=== PATIENT | male | born 1935 | race Caucasian/White ===

== ENCOUNTER → 2017-12-05 09:26 | Outpatient (CLI) | payer MEDICARE, OTHER, SELFPAY ==
--- NOTE | 2017-12-05 | DI.ECHO.S_ITS ---
[facility] +---------+ : : [address] : : : : [id number] : : : : Phone: [phone]+ Echocardiogram Report + + :Name: WALESKA DOWD Study Date: 12/05/2017 Height: 72 in : :[facility] Weight: 197 lb : : Gender: Male BSA: 2.1 m2 : :: 1935 Age: 82 yrs BP: 118/68 mmHg: :Reason For Study: Atrial fibrillation : : Performed By: Lesa Oropeza : :Referring: AVRIL LEACH : + + Interpretation Summary 1) Normal left ventricular thickness, size, wall motion, and systolic function (EF 55-60%). 2) Grossly normal right ventricular size with normal function. 3) Severe biatrial enlargement present. 4) There is mild to moderate aortic regurgitation. 5) There is moderate tricuspid regurgitation. 6) The right ventricular systolic pressure is estimated at 44 mmHg assuming a right atrial pressure of 3 mm Hg. 7) Compared to the Echo done 07/01/2016, PA pressures are mildly higher on this study. Procedure: A two-dimensional transthoracic echocardiogram with color flow and Doppler was performed. The study quality was technically adequate. Comparison is made with the echocardiogram of 07-01-16. The patient was in atrial fibrillation with heart rates between 56-70 bpm during the exam. Left Ventricle: The left ventricle is normal in size. There is normal left ventricular wall thickness. The ejection fraction is estimated to be 55-60%. Diastolic function could not be accurately assessed due to atrial fibrillation. Right Ventricle: The right ventricle grossly appears normal in size with probable normal systolic function. Atria: The left atrium is severely dilated. The right atrium is severely dilated. Mitral Valve: The mitral valve leaflets appear mildly thickened, but open well. There is mild mitral annular calcification. There is mild mitral regurgitation. Aortic Valve: The aortic valve is trileaflet. The aortic valve opens well. The aortic valve is slightly calcified. There is mild to moderate aortic regurgitation. Tricuspid Valve: The tricuspid valve leaflets are thin and pliable. There is moderate tricuspid regurgitation. The right ventricular systolic pressure is estimated at 44 mmHg assuming a right atrial pressure of 3 mm Hg. Pulmonic Valve: The pulmonic valve is normal in structure and function. There is trace pulmonic regurgitation. Great Vessels: The aortic root is normal size. The dimensions of the ascending aorta are normal. The IVC is dilated (diameter is greater than 2.1 cm) yet it collapses greater than 50% with a sniff. This suggests a right atrial pressure of 8 mm Hg. Pericardium/ Pleura There is no pericardial effusion. There is no pleural effusion. MMode/2D Measurements & Calculations LVIDd: 5.0 cm Ao root diam: 3.5 cm LVIDs: 3.9 cm Aortic Jxn: 2.6 cm FS: 22.4 % asc Aorta Diam: 3.1 cm EPSS: 0.70 cm Ao Arch Diam (Prox Trans): 2.7 cm IVSd: 1.1 cm LVPWd: 0.93 cm LV lara. diameter/BSA (cm/m^2): 2.3 LV sys. diameter/BSA (cm/m^2): 1.8 LA dimension: 5.8 cm RA long axis: 6.7 cm LA A2 area: 33.8 cm2 RA area: 31.8 cm2 LA A4 area: 34.8 cm2 RA vol: 128.5 ml LA length (vol): 7.3 cm RA : 60.7 ml/m2 LA vol: 136.6 ml IVC diam: 2.4 cm LA vol index: 64.5 ml/m2 RVDd major: 5.8 cm RVD1 (basal): 3.2 cm RVD2 (mid): 3.0 cm Doppler Measurements & Calculations Ao V2 max: 138.3 cm/sec AI P1/2t: 524.5 msec Ao V2 mean: 90.4 cm/sec AI dec slope: 269.3 cm/sec2 Ao max P.7 mmHg Ao mean P.8 mmHg Ao V2 VTI: 30.6 cm MV E max richy: 103.7 cm/sec TR max richy: 319.9 cm/sec MV A max richy: 37.5 cm/sec TR max P.9 mmHg MV E/A: 2.8 PA V2 max: 96.0 cm/sec Med Peak E' Richy: 5.2 cm/sec PA V2 mean: 61.1 cm/sec E/E' med: 19.9 PA mean P.8 mmHg Lat Peak E' Richy: 8.4 cm/sec PA Accel Time: 0.12 sec E/E' lat: 12.3 E/e' average: 16.1 MV dec time: 0.17 sec MV P1/2t: 50.9 msec MV t max richy: 103.8 cm/sec MVA(): 4.3 cm2 Reading Physician:06:25 PM
== END ==
PROVIDERS: Family Provider Family Medicine; PCP Family Medicine; Visit Provider Internal Medicine Cardiovascular Disease
DX: I48.91 Unspecified atrial fibrillation (principal)
CPT/HCPCS: 93306

== ENCOUNTER → 2019-01-06 08:02 | Outpatient (CLI) | payer MEDICARE, OTHER, SELFPAY ==
[2019-01-06 08:46] LABS: Add Manual Diff / Slide Review NO; Basophils Absolute Auto 0 /uL (0-100); Eosinophils Absolute Auto 100 /uL (0-450); Eosinophils Percent Auto 1.9 % (2-4); Hematocrit 31.1 % (41-53); Hemoglobin 9.9 g/dL (13.5-17.5); Lymphocytes Absolute Auto 1600 /uL (1100-4500); Lymphocytes Percent Auto 35.5 % (25-40); Mean Corpuscular Hemoglobin 23.5 PG (26-34); Mean Corpuscular Volume 73.5 fL (80-100); Monocytes Absolute Auto 500 /uL (0-900); Monocytes Percent Auto 12.1 % (3-14); Neutrophils Absolute Auto 2200 /uL (1500-7000); Neutrophils Percent Auto 49.5 % (50-75); Platelet Count 282 X10^3/uL (150-400); Red Blood Cell Count 4.24 X10^6/uL (4.5-5.9); Red Cell Distribution Width 18.8 % (11.6-14.8); White Blood Cell Count 4.5 X10^3/uL (4.5-11.0)
[2019-01-06 08:54] LABS: Alanine Aminotransferase 20 IU/L (21-72); Albumin 4.5 g/dL (3.5-5.0); Albumin Globulin Ratio 1.5 (1.0-2.8); Alkaline Phosphatase 74 U/L (38-126); Aspartate Aminotransferase 26 IU/L (17-59); BUN Creatinine Ratio 23.1 (6-22); Bilirubin Total 0.7 mg/dL (0.2-1.3); Blood Urea Nitrogen 30 mg/dL (9-20); Calcium 9.9 mg/dL (8.4-10.2); Carbon Dioxide 26 mmol/L (22-32); Chloride 108 mmol/L (98-107); Cholesterol 115 mg/dL (140-199); Estimated Glomerular Filt Rate 52.9 mL/min (>60); Glucose 105 mg/dL (80-110); HDL Cholesterol 51 mg/dL (40-60); HEMOLYSIS < 15 (0-50); LDL Cholesterol Calculated 52 mg/dL (<100); Potassium 5.1 mmol/L (3.4-5.1); Sodium 143 mmol/L (137-145); Total Protein 7.5 g/dL (6.3-8.2); Triglycerides 61 mg/dL (35-150)
[2019-01-06 10:21] LABS: Thyroid Stimulating Hormone 2.71 uIU/mL (0.47-4.68)
== END ==
PROVIDERS: Family Provider Family Medicine; PCP Family Medicine; Visit Provider Family Medicine
DX: D64.9 Anemia, unspecified (principal); E78.5 Hyperlipidemia, unspecified; I10 Essential (primary) hypertension; I25.810 Atherosclerosis of coronary artery bypass graft(s) without angina pectoris
CPT/HCPCS: 36415; 80053; 80061; 84443; 85025

== ENCOUNTER → 2019-01-15 08:22 | Outpatient (CLI) | payer MEDICARE, OTHER, SELFPAY ==
[2019-01-15 09:00] LABS: Add Manual Diff / Slide Review NO; Basophils Absolute Auto 0 /uL (0-100); Basophils Percent Auto 0.7 % (0-2); Eosinophils Absolute Auto 100 /uL (0-450); Eosinophils Percent Auto 1.7 % (2-4); Hematocrit 29.4 % (41-53); Hemoglobin 9.2 g/dL (13.5-17.5); Lymphocytes Absolute Auto 1200 /uL (1100-4500); Lymphocytes Percent Auto 28.3 % (25-40); Mean Corpuscular HGB Conc 31.2 % (30-36); Mean Corpuscular Volume 73.8 fL (80-100); Monocytes Absolute Auto 400 /uL (0-900); Monocytes Percent Auto 10.5 % (3-14); Neutrophils Absolute Auto 2500 /uL (1500-7000); Neutrophils Percent Auto 58.8 % (50-75); Platelet Count 230 X10^3/uL (150-400); Red Blood Cell Count 3.99 X10^6/uL (4.5-5.9); Red Cell Distribution Width 18.4 % (11.6-14.8); White Blood Cell Count 4.3 X10^3/uL (4.5-11.0)
[2019-01-15 09:30] LABS: Alanine Aminotransferase 24 IU/L (21-72); Albumin 4.2 g/dL (3.5-5.0); Albumin Globulin Ratio 1.4 (1.0-2.8); Alkaline Phosphatase 74 U/L (38-126); Aspartate Aminotransferase 28 IU/L (17-59); BUN Creatinine Ratio 26.4 (6-22); Bilirubin Total 0.6 mg/dL (0.2-1.3); Blood Urea Nitrogen 29 mg/dL (9-20); Calcium 9.4 mg/dL (8.4-10.2); Carbon Dioxide 25 mmol/L (22-32); Chloride 107 mmol/L (98-107); Estimated Glomerular Filt Rate > 60.0 mL/min (>60); Glucose 130 mg/dL (80-110); HEMOLYSIS < 15 (0-50); Sodium 142 mmol/L (137-145); Total Protein 7.2 g/dL (6.3-8.2)
[2019-01-15 13:03] LABS: HEMOLYSIS < 15 (0-50); Iron 21 ug/dL (49-181)
[2019-01-15 13:14] LABS: Percent Iron Saturation 5 % (20-50); Total Iron Binding Capacity 451 ug/dL (261-462); Transferrin 363 mg/dL (206-381)
== END ==
PROVIDERS: PCP Family Medicine; Visit Provider Family Medicine
DX: D64.9 Anemia, unspecified (principal); N18.9 Chronic kidney disease, unspecified
CPT/HCPCS: 36415; 80053; 82728; 83540; 83550; 85025

== ENCOUNTER → 2019-02-09 13:38 | Outpatient (CLI) | payer MEDICARE, OTHER, SELFPAY ==
[2019-02-11 15:05] LABS: Fecal Immunochemical Test DETECTED (NOT DETECTED)
== END ==
PROVIDERS: PCP Family Medicine; Visit Provider Family Medicine
DX: Z12.11 Encounter for screening for malignant neoplasm of colon (principal)
CPT/HCPCS: 82274

== ENCOUNTER → 2019-02-17 13:19 | Outpatient (CLI) | payer MEDICARE, OTHER, SELFPAY ==
--- NOTE | 2019-02-17 13:22 | DI.RAD.S_ITS ---
PROCEDURE: XR CERVICAL SPINE 2V OR 3V INDICATIONS: neck neck pain, no trauma TECHNIQUE: 3 view(s) of the cervical spine were acquired. COMPARISON: None. FINDINGS: Bones: No fractures or dislocations to the T1 level, but there is moderately severe to severe degenerative disc disease from C3 inferiorly to the C7 level. This is comprised of both disc height reduction, endplate osteophyte formation, and facet osteoarthritis to the degree that significant spinal or foraminal stenosis appears present. Ligamentous laxity allows grade 1 anterolisthesis of C3 on C4 The lateral masses of C1 appear intact on the odontoid view. No suspicious bony lesions. Soft tissues: No prevertebral soft tissue swelling. 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 No acute disease. Significant spinal and foraminal stenosis would be expected from C4-C7. Dictated by: Donell Mack M.D. on 02/17/2019 at 14:23 Approved by: Donell Mack M.D. on 02/17/2019 at 14:26
== END ==
PROVIDERS: PCP Family Medicine; Visit Provider Family Medicine
DX: M50.31 Other cervical disc degeneration, high cervical region (principal); M47.812 Spondylosis without myelopathy or radiculopathy, cervical region
CPT/HCPCS: 72040

== ENCOUNTER → 2019-03-18 10:53 | Outpatient (CLI) | payer MEDICARE, OTHER, SELFPAY ==
[2019-03-18 12:35] LABS: Cholesterol 114 mg/dL (140-199); HDL Cholesterol 48 mg/dL (40-60); LDL Cholesterol Calculated 46 mg/dL (<100); Triglycerides 100 mg/dL (35-150)
== END ==
PROVIDERS: PCP Family Medicine; Visit Provider Internal Medicine Cardiovascular Disease
DX: E78.5 Hyperlipidemia, unspecified (principal)
CPT/HCPCS: 36415; 80061

== ENCOUNTER 2019-06-06 02:18 | Emergency (ER) | payer MEDICARE, OTHER, SELFPAY ==
[2019-06-06 02:18] VITALS: BP 164/85; PULSE 76; RESP 18; O2SAT 100; BMI 23.7
--- NOTE | 2019-06-06 02:54 | ED.GIBLEED ---
HPI - GI Bleed General Chief complaint: GI Bleed Stated complaint: rectal bleeding since colonoscopy on Time Seen by Provider: 06/06/19 02:18 Source: patient and family Mode of arrival: Ambulatory Limitations: no limitations History of Present Illness HPI Narrative: 84-year-old male who 4 days ago underwent a scheduled colonoscopy. He states that he had 6 polyps removed. He does not have the pathology report from these polyps. Is also on Xarelto for atrial fibrillation. He states that he stop the Xarelto a couple days before the colonoscopy. Was told to started again yesterday which he did. Last evening had 2 bowel movements that were bright red blood. No vomiting. No abdominal pain. No fevers. Related Data Home Medications Medication Instructions Recorded Confirmed acetaminophen 500 mg capsule 500 mg PO Q6H PRN 05/05/18 02/05/19 losartan 25 mg tablet 25 mg PO DAILY 05/05/18 02/05/19 Previous Rx's Medication Instructions Recorded omeprazole 40 mg capsule,delayed 40 mg PO QAM #90 cap 07/09/18 release tadalafil [Cialis] 10 mg PO PRN PRN #30 tab 10/29/18 rivaroxaban [Xarelto] 20 mg PO QDAY #90 tab 11/09/18 ferrous sulfate 325 mg (65 mg 325 mg PO DAILY 90 Days #30 tab 02/05/19 iron) tablet cyclobenzaprine 5 mg tablet 5 mg PO TID #20 tab 02/16/19 tramadol 50 mg tablet 50 mg PO BID PRN #14 tab 02/16/19 atorvastatin 20 mg tablet 20 mg PO BEDTIME #90 tab 03/16/19 Allergies Allergy/AdvReac Type Severity Reaction Status Date / Time No Known Drug Allergies Allergy Verified 02/05/19 11:20 Review of Systems Constitutional Constitutional: Denies fever(s) Cardiovascular Cardiovascular: Denies chest pain and Denies dyspnea Respiratory Respiratory: Denies dyspnea Gastrointestinal Gastrointestinal: Denies abdominal pain Comments: Rectal bleeding Musculoskeletal Musculoskeletal: Denies myalgias and Denies arthralgias Integumentary/Breasts Skin/Breast: Denies rash Neurologic Neurologic: Denies behavioral changes Psychiatric Psychiatric: Denies behavioral changes Hematologic/Lymphatic Hematologic/Lymphatic: Denies easy bleeding and Denies easy bruising Patient History Medical History Anemia (10/10/17) Atrial fibrillation with rapid ventricular response (06/17/16) 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[place] heart without angina pectoris (07/15/16) Erectile dysfunction (09/04/16) Essential hypertension (07/15/16) 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) Social History Smoking Status: Former smoker alcohol intake frequency: 0-2 drinks per day Substance Use Type: does not use Exam Initial Vital Signs Initial Vital Signs: Vital Signs Pulse Rate 76 06/06/19 02:18 Respiratory Rate 18 06/06/19 02:18 Blood Pressure 164/85 H 06/06/19 02:18 Pulse Oximetry 100 06/06/19 02:18 Const General: cooperative and comfortable Orientation: alert and awake HENMT Head: normal to inspection and normocephalic Resp Effort & Inspection: normal respiratory effort Cardio Rate: regular rate GI Inspection: non-distended Palpation: soft, No firm and No tender Skin Lesions: no lesions Rashes: no rashes Neuro General: alert, awake and oriented x3 Cognition: normal cognition Speech: speech normal Extrem General: normal to inspection and capillary refill normal Psych Appearance: grossly normal and well kempt Course Orders Ordered: ED Orders 06/06/19 02:45 Complete Blood Count AUTO DIFF Stat Comprehensive Metabolic Panel Stat Lipase Stat Partial Thromboplastin Time Stat Prothrombin Time INR Stat Vital Signs Vital signs: Vital Signs - 8 hr 06/06/19 02:18 Pulse Rate 76 Respiratory Rate 18 Blood Pressure 164/85 H Pulse Oximetry 100 MDM - GI Bleed Lab Data Attestation: I reviewed the patient's lab results. Result diagrams: 06/06/19 02:45 06/06/19 02:45 Labs: Lab Results 06/06/19 06/06/19 06/06/19 Range/Units 02:45 02:45 02:45 WBC 3.8 L (4.5-11.0) X10^3/uL RBC 4.14 L (4.5-5.9) X10^6/uL Hgb 13.3 L (13.5-17.5) g/dL Hct 39.1 L (41-53) % MCV 94.5 (80-100) fL MCH 32.1 (26-34) PG MCHC 34.0 (30-36) % RDW 14.4 (11.6-14.8) % Plt Count 187 (150-400) X10^3/uL Neut % (Auto) 56.8 (50-75) % Lymph % (Auto) 28.9 (25-40) % [place] % (Auto) 11.4 (3-14) % Eos % (Auto) 2.3 (2-4) % Baso % (Auto) 0.6 (0-2) % Neut # (Auto) 2200 (3818-3739) /uL Lymph # (Auto) 1100 (2458-8098) /uL [place] # (Auto) 400 (0-900) /uL Eos # (Auto) 100 (0-450) /uL Baso # (Auto) 0 (0-100) /uL PT 22.0 H (10.1-12.7) SECONDS INR 1.9 H (0.9-1.3) APTT 44 H (26.4-36.2) SECONDS Sodium 141 (137-145) mmol/L Potassium 4.4 (3.4-5.1) mmol/L Chloride 109 H (98-107) mmol/L Carbon Dioxide 21 L (22-32) mmol/L BUN 27 H (9-20) mg/dL Creatinine 1.10 (0.66-1.25) mg/dL Estimated GFR > 60.0 (>60) mL/min BUN/Creatinine Ratio 24.5 H (6-22) Glucose 72 L (80-110) mg/dL Calcium 9.3 (8.4-10.2) mg/dL Total Bilirubin 0.4 (0.2-1.3) mg/dL AST 29 (17-59) IU/L ALT 18 (<50) IU/L Alkaline Phosphatase 62 (38-126) U/L Total Protein 7.1 (6.3-8.2) g/dL Albumin 4.3 (3.5-5.0) g/dL Globulin 2.8 (1.7-4.1) g/dL Albumin/Globulin Ratio 1.5 (1.0-2.8) Lipase 64 (23-300) U/L [facility] Narrative Medical decision making narrative: Patient is not anemic. I do suspect that his rectal bleeding was secondary to starting the Xarelto and having the polyps removed. He states that he you was never told that he has any sort of masses. He has benign abdominal exam. Is afebrile. Will hold on further workup for now. Patient was given return precautions follow-up instructions. He expressed understanding and agreement plan. Discharge Plan Departure Patient Disposition: Home Clinical Impression: Rectal bleeding Instructions: DI for Rectal Bleeding Activity Restrictions/Additional Instructions: I do recommend that you continue with the Xarelto. Continue all of your postoperative instructions. Contact your primary provider for a follow-up. Return to the emergency department for new symptoms, fevers, abdominal pain, worsening bleeding, or any other concerning symptoms. Prescriptions: No Action ferrous sulfate 325 mg (65 mg iron) tablet 325 mg PO DAILY 90 Days Qty: 30 RF: 2 tramadol 50 mg tablet 50 mg PO BID PRN (Reason: pain) Qty: 14 RF: 0 cyclobenzaprine 5 mg tablet 5 mg PO TID Qty: 20 RF: 0 omeprazole 40 mg capsule,delayed release(DR/EC) 40 mg PO QAM Qty: 90 RF: 3 tadalafil [Cialis] 10 mg tablet 10 mg PO PRN PRNQty: 30 RF: 1 Xarelto 20 mg tablet 20 mg PO QDAY Qty: 90 RF: 3 atorvastatin 20 mg tablet 20 mg PO BEDTIME Qty: 90 RF: 3 losartan 25 mg tablet 25 mg PO DAILY RF: 0 acetaminophen 500 mg capsule 500 mg PO Q6H PRNRF: 0 Referrals: Maura Mazariegos MD [Primary Care Provider] -
[2019-06-06 03:00] VITALS: BP 138/83; PULSE 77; RESP 18; O2SAT 99
[2019-06-06 03:00] LABS: Add Manual Diff / Slide Review NO; Basophils Absolute Auto 0 /uL (0-100); Basophils Percent Auto 0.6 % (0-2); Eosinophils Absolute Auto 100 /uL (0-450); Eosinophils Percent Auto 2.3 % (2-4); Hematocrit 39.1 % (41-53); Hemoglobin 13.3 g/dL (13.5-17.5); INR 1.9 (0.9-1.3); Lymphocytes Absolute Auto 1100 /uL (1100-4500); Lymphocytes Percent Auto 28.9 % (25-40); Mean Corpuscular Hemoglobin 32.1 PG (26-34); Mean Corpuscular Volume 94.5 fL (80-100); Monocytes Absolute Auto 400 /uL (0-900); Monocytes Percent Auto 11.4 % (3-14); Neutrophils Absolute Auto 2200 /uL (1500-7000); Neutrophils Percent Auto 56.8 % (50-75); Platelet Count 187 X10^3/uL (150-400); Red Blood Cell Count 4.14 X10^6/uL (4.5-5.9); Red Cell Distribution Width 14.4 % (11.6-14.8); White Blood Cell Count 3.8 X10^3/uL (4.5-11.0)
[2019-06-06 03:03] LABS: PTT Partial Thromboplastin Tim 44 SECONDS (26.4-36.2)
[2019-06-06 03:04] LABS: Alanine Aminotransferase 18 IU/L (<50); Albumin 4.3 g/dL (3.5-5.0); Albumin Globulin Ratio 1.5 (1.0-2.8); Alkaline Phosphatase 62 U/L (38-126); Aspartate Aminotransferase 29 IU/L (17-59); BUN Creatinine Ratio 24.5 (6-22); Bilirubin Total 0.4 mg/dL (0.2-1.3); Blood Urea Nitrogen 27 mg/dL (9-20); Calcium 9.3 mg/dL (8.4-10.2); Carbon Dioxide 21 mmol/L (22-32); Chloride 109 mmol/L (98-107); Estimated Glomerular Filt Rate > 60.0 mL/min (>60); Globulin 2.8 g/dL (1.7-4.1); Glucose 72 mg/dL (80-110); HEMOLYSIS < 15 (0-50); Lipase 64 U/L (23-300); Potassium 4.4 mmol/L (3.4-5.1); Sodium 141 mmol/L (137-145); Total Protein 7.1 g/dL (6.3-8.2)
== END 2019-06-06 03:26 | disposition home or self-care (01) ==
PROVIDERS: Emergency Provider Emergency Medicine; PCP Family Medicine
DX: K92.2 Gastrointestinal hemorrhage, unspecified (principal)
CPT/HCPCS: 36415; 80053; 83690; 85025; 85610; 85730; 99282; 99283

== ENCOUNTER 2019-06-17 17:53 | Emergency (ER) | payer MEDICARE, OTHER, SELFPAY ==
[2019-06-17 17:55] VITALS: BMI 23.8
[2019-06-17 18:06] VITALS: BP 162/98; PULSE 89; RESP 16; TEMP 36.9; O2SAT 98
--- NOTE | 2019-06-17 18:08 | DI.RAD.S_ITS ---
PROCEDURE: XR SHOULDER LT MIN 2V INDICATIONS: injury TECHNIQUE: 3 views of the shoulder were acquired. COMPARISON: None. FINDINGS: Bones: No acute fractures or dislocations. There are degenerative changes of the left acromioclavicular and glenohumeral joints.Coracoclavicular and acromioclavicular intervals are maintained. No suspicious bony lesions. Visualized ribs appear intact. Soft tissues: No suspicious soft tissue calcifications. Multiple median sternotomy wires appear intact. IMPRESSION: Left shoulder without acute radiographic abnormalities. Degenerative changes of the left acromioclavicular and glenohumeral joints. Dictated by: Fran Giron M.D. on 06/17/2019 at 19:12 Approved by: Fran Giron M.D. on 06/17/2019 at 19:14
--- NOTE | 2019-06-17 19:19 | ED.GENADULT ---
HPI - General Adult General Chief complaint: Extremity Injury, Upper Stated complaint: shoulder pain radiating to neck & chest Time Seen by Provider: 06/17/19 19:02 Source: patient Mode of arrival: Ambulatory Limitations: no limitations History of Present Illness HPI narrative: 84-year-old male here for evaluation of left shoulder pain. He states that his symptoms started earlier today but it worsened throughout the day. He does have some tingling down his left arm. He states the pain does radiate up into the back of his neck. It is worse with movement and palpation. He states that recently he has been chopping some wood and also did some rowing exercises at the gym this morning. Has never anything like this in the past. Does have pain with moving his arm. Has not tried anything for the symptoms prior to arrival. No chest pain. Related Data Home Medications Medication Instructions Recorded Confirmed acetaminophen 500 mg capsule 500 mg PO Q6H PRN 05/05/18 02/05/19 losartan 25 mg tablet 25 mg PO DAILY 05/05/18 02/05/19 Previous Rx's Medication Instructions Recorded omeprazole 40 mg capsule,delayed 40 mg PO QAM #90 cap 07/09/18 release tadalafil [Cialis] 10 mg PO PRN PRN #30 tab 10/29/18 rivaroxaban [Xarelto] 20 mg PO QDAY #90 tab 11/09/18 ferrous sulfate 325 mg (65 mg 325 mg PO DAILY 90 Days #30 tab 02/05/19 iron) tablet cyclobenzaprine 5 mg tablet 5 mg PO TID #20 tab 02/16/19 tramadol 50 mg tablet 50 mg PO BID PRN #14 tab 02/16/19 atorvastatin 20 mg tablet 20 mg PO BEDTIME #90 tab 03/16/19 acetaminophen-codeine 1 tab PO Q4-6H PRN #14 tab 06/17/19 [Tylenol-Codeine #3] meloxicam [Mobic] 15 mg PO DAILY PRN #14 tab 06/17/19 Allergies Allergy/AdvReac Type Severity Reaction Status Date / Time No Known Drug Allergies Allergy Verified 02/05/19 11:20 Review of Systems Constitutional Constitutional: Denies fever(s) Cardiovascular Cardiovascular: Denies chest pain and Denies dyspnea Respiratory Respiratory: Denies dyspnea Gastrointestinal Gastrointestinal: Denies abdominal pain Musculoskeletal Musculoskeletal: Reports tingling Comments: Left shoulder pain Neurologic Neurologic: Reports tingling Hematologic/Lymphatic Comments: On anticoagulation Patient History Medical History Anemia (10/10/17) Atrial fibrillation with rapid ventricular response (06/17/16) 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[place] heart without angina pectoris (07/15/16) Erectile dysfunction (09/04/16) Essential hypertension (07/15/16) 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) Social History Smoking Status: Former smoker Smoking Status: Former smoker alcohol intake frequency: 0-2 drinks per day Substance Use Type: does not use Exam Initial Vital Signs Initial Vital Signs: Vital Signs Temperature 98.4 F 06/17/19 18:06 Pulse Rate 89 06/17/19 18:06 Respiratory Rate 16 06/17/19 18:06 Blood Pressure 162/98 H 06/17/19 18:06 Pulse Oximetry 98 06/17/19 18:06 Const General: cooperative and comfortable Orientation: alert, awake and oriented x3 HENMT Head: normal to inspection and normocephalic Resp Effort & Inspection: normal respiratory effort Cardio Pulses: radial pulses present on the left Skin Lesions: no lesions Rashes: no rashes Neuro General: alert, awake and oriented x3 Gait: normal gait Motor: muscle tone normal throughout Sensory Exam: no sensory deficits noted Extrem Other: Patient has no neck tenderness. No upper back tenderness. No left upper chest tenderness. His tender to palpation on the biceps tendon on the left. Unable to perform much of other exam secondary to discomfort. His left elbow left wrist and rest hand appear to be unremarkable. Psych Appearance: grossly normal and well kempt Course Orders Ordered: ED Orders 06/17/19 17:59 EKG-12 Lead Stat 06/17/19 18:08 XR shoulder LT min 2V Stat Vital Signs Vital signs: Vital Signs - 8 hr 06/17/19 18:06 06/17/19 19:25 Temperature 98.4 F Pulse Rate 89 81 Respiratory Rate 16 16 Blood Pressure 159/85 H Blood Pressure [Right Arm] 162/98 H Pulse Oximetry 98 100 Medical Decision Making Imaging Data Shoulder x-ray: Radiologist's impression: [address] [address] XRay Report Signed Patient: Nomi Lee FMR#: [id number] : 6Acct:[id number] Age/Sex: 84 / MDate of Service: 06/17/19 Loc: ED Accession Number: [id number] Procedure: XR shoulder LT min 2V Ordering Provider: Yasmani Vazquez D.O. PROCEDURE: XR SHOULDER LT MIN 2V INDICATIONS: injury TECHNIQUE: 3 views of the shoulder were acquired. COMPARISON: None. FINDINGS: Bones: No acute fractures or dislocations. There are degenerative changes of the left acromioclavicular and glenohumeral joints.Coracoclavicular and acromioclavicular intervals are maintained. No suspicious bony lesions. Visualized ribs appear intact. Soft tissues: No suspicious soft tissue calcifications. Multiple median sternotomy wires appear intact. IMPRESSION: Left shoulder without acute radiographic abnormalities. Degenerative changes of the left acromioclavicular and glenohumeral joints. Dictated by: Fran Giron M.D. on 06/17/2019 at 19:12 Approved by: Fran Giron M.D. on 06/17/2019 at 19:14 ECG Data Attestation: I personally reviewed and interpreted this ECG as follows: Prior ECG tracings: not available for review Interpretation: Atrial fibrillation Ventricular rate 84 Normal axis Normal QRS Nonspecific ST T wave changes MDM Narrative Medical decision making narrative: X-ray is unremarkable. His symptoms are reproducible left shoulder pain. I have low suspicion for ACS. I do suspect that this is either a biceps tendinopathy or a rotator cuff issue or both. Somewhat difficult to obtain any sort of exam because the patient was having so much discomfort with any movement of his shoulder. Will send him home with just a few days a Mobic. We did discussed his symptoms today. Discussed his return precautions. Discussed that he should contact his primary doctor to discuss physical therapy. He expressed understanding and agreement plan. Discharge Plan Departure Patient Disposition: Home Clinical Impression: Left shoulder pain Qualifiers: Chronicity: acute Qualified Code(s): M25.512 - Pain in left shoulder Discharge Date/Time: 06/17/19 19:25 Instructions: How To Perform RICE (Rest, Ice, Compress, Elevate), DI for Shoulder Pain Activity Restrictions/Additional Instructions: I recommend you contact your primary provider for follow-up and to discuss any potential further consult to include physical therapy. Your only limited in your activity by your discomfort. Take the medications as directed. Return to the emergency department for any new or worsening symptoms Prescriptions: New acetaminophen-codeine [Tylenol-Codeine #3] 300-30 mg tablet 1 tab PO Q4-6H PRN (Reason: pain) Qty: 14 RF: 0 meloxicam [Mobic] 15 mg tablet 15 mg PO DAILY PRN (Reason: pain, mild) Qty: 14 RF: 0 No Action ferrous sulfate 325 mg (65 mg iron) tablet 325 mg PO DAILY 90 Days Qty: 30 RF: 2 tramadol 50 mg tablet 50 mg PO BID PRN (Reason: pain) Qty: 14 RF: 0 cyclobenzaprine 5 mg tablet 5 mg PO TID Qty: 20 RF: 0 omeprazole 40 mg capsule,delayed release(DR/EC) 40 mg PO QAM Qty: 90 RF: 3 tadalafil [Cialis] 10 mg tablet 10 mg PO PRN PRNQty: 30 RF: 1 Xarelto 20 mg tablet 20 mg PO QDAY Qty: 90 RF: 3 atorvastatin 20 mg tablet 20 mg PO BEDTIME Qty: 90 RF: 3 losartan 25 mg tablet 25 mg PO DAILY RF: 0 acetaminophen 500 mg capsule 500 mg PO Q6H PRNRF: 0 Referrals: Maura Mazariegos MD [Primary Care Provider] -
[2019-06-17 19:25] VITALS: BP 159/85; PULSE 81; RESP 16; O2SAT 100
== END 2019-06-17 19:25 | disposition home or self-care (01) ==
PROVIDERS: Emergency Provider Emergency Medicine; Family Provider Family Medicine; PCP Family Medicine
DX: M25.512 Pain in left shoulder (principal); R20.2 Paresthesia of skin; I48.91 Unspecified atrial fibrillation; Z79.01 Long term (current) use of anticoagulants
CPT/HCPCS: 73030; 93005; 99282; 99284

== ENCOUNTER → 2019-08-14 08:57 | Outpatient (CLI) | payer MEDICARE, OTHER, SELFPAY ==
--- NOTE | 2019-08-14 | DI.MRI.S_ITS ---
PROCEDURE: MR SHOULDER LT WO CON INDICATIONS: Unspecified disorder of synovium and tendon, left TECHNIQUE: Noncontrast oblique coronal T2 fast spin echo with fat saturation, oblique sagittal T1 spin echo and T2 fast spin echo with fat saturation, axial T1 spin echo and T2 fast spin echo with fat saturation through the shoulder. COMPARISON: [facility], MR, SHOULDER WITHOUT CONTRAST, 09/10/2017, 8:03. FINDINGS: Image quality: Excellent. 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 Full-thickness tearing of the upper subscapularis tendon at the humeral insertion site is present. Teres minor is intact. Bones and bursae: No bone marrow contusions or fractures. Superior subluxation of the humeral head. Severe acromioclavicular joint degeneration. The acromion demonstrates conventional anatomy, without an os acromiale. No pathologic subacromial-subdeltoid or subcoracoid bursal fluid is present. Capsule and soft tissues: Diffuse degenerative tearing of the glenoid labrum is present. The long head of the biceps tendon is subluxed medially, and demonstrates moderate diffuse T2 signal elevation proximally. The rotator interval appears normal, without fibrosis. The coracohumeral ligament is normal in thickness. IMPRESSION: 1. No change in chronic full-thickness tearing of the supraspinatus and infraspinatus tendons, with medial retraction and atrophy of the supraspinatus and infraspinatus. Full-thickness tearing of the upper subscapularis tendon is present as well. 2. Biceps tendon dislocation. Biceps tendinopathy with superimposed partial-thickness tearing. 3. Acromioclavicular joint osteoarthritis. 4. Diffuse degenerative glenoid labral tearing. Dictated by: Alison Snell M.D. on 08/16/2019 at 9:33 Approved by: Alison Snell M.D. on 08/16/2019 at 9:36
== END ==
PROVIDERS: Family Provider Family Medicine; PCP Family Medicine; Referring Provider Orthopaedic Surgery; Visit Provider Orthopaedic Surgery
DX: M67.912 Unspecified disorder of synovium and tendon, left shoulder (principal); M75.122 Complete rotator cuff tear or rupture of left shoulder, not specified as traumatic; M19.012 Primary osteoarthritis, left shoulder; S43.492A Other sprain of left shoulder joint, initial encounter
CPT/HCPCS: 73221

== ENCOUNTER → 2019-09-09 12:47 | Outpatient (CLI) | payer MEDICARE, OTHER, SELFPAY ==
--- NOTE | 2019-09-09 12:49 | DI.RAD.S_ITS ---
PROCEDURE: XR CHEST 2V INDICATIONS: cough TECHNIQUE: 2 views of the chest were acquired. COMPARISON: [facility], , CHEST 1 VIEW, 06/17/2016, 15:46. FINDINGS: Surgical changes and devices: Median sternotomy wires are seen. Lungs and pleura: Lungs are clear. No pleural effusions or pneumothorax. Mediastinum: Mediastinal contours are normal. Heart size is normal. Bones and chest wall: No suspicious bony abnormalities. Soft tissues appear unremarkable. IMPRESSION: No acute cardiopulmonary pathology. Dictated by: Armando Sanchez M.D. on 09/09/2019 at 13:31 Approved by: Armando Sanchez M.D. on 09/09/2019 at 13:34
== END ==
PROVIDERS: Family Provider Family Medicine; PCP Family Medicine; Referring Provider Physician Assistant; Visit Provider Physician Assistant
DX: R05 Cough (principal)
CPT/HCPCS: 71046

== ENCOUNTER → 2019-12-16 10:36 | Outpatient (CLI) | payer MEDICARE, OTHER, SELFPAY ==
[2019-12-16 12:48] LABS: Add Manual Diff / Slide Review NO; Basophils Absolute Auto 0 /uL (0-100); Basophils Percent Auto 0.6 % (0-2); Eosinophils Absolute Auto 0 /uL (0-450); Eosinophils Percent Auto 1.3 % (2-4); Hematocrit 37.6 % (41-53); Hemoglobin 12.8 g/dL (13.5-17.5); Lymphocytes Absolute Auto 900 /uL (1100-4500); Lymphocytes Percent Auto 26.8 % (25-40); Mean Corpuscular HGB Conc 33.9 % (30-36); Mean Corpuscular Hemoglobin 31.2 PG (26-34); Mean Corpuscular Volume 91.8 fL (80-100); Monocytes Absolute Auto 300 /uL (0-900); Monocytes Percent Auto 10.3 % (3-14); Neutrophils Absolute Auto 2000 /uL (1500-7000); Platelet Count 183 X10^3/uL (150-400); Red Blood Cell Count 4.09 X10^6/uL (4.5-5.9); Red Cell Distribution Width 15.1 % (11.6-14.8); White Blood Cell Count 3.3 X10^3/uL (4.5-11.0)
[2019-12-16 13:14] LABS: BUN Creatinine Ratio 22.1 (6-22); Blood Urea Nitrogen 23 mg/dL (9-20); Calcium 9.9 mg/dL (8.4-10.2); Carbon Dioxide 23 mmol/L (22-32); Chloride 106 mmol/L (98-107); Estimated Glomerular Filt Rate > 60.0 mL/min (>60); Glucose 134 mg/dL (80-110); HEMOLYSIS < 15 (0-50); Sodium 139 mmol/L (137-145)
== END ==
PROVIDERS: Family Provider Family Medicine; PCP Family Medicine; Referring Provider Orthopaedic Surgery; Visit Provider Orthopaedic Surgery
DX: Z01.812 Encounter for preprocedural laboratory examination (principal); Z01.818 Encounter for other preprocedural examination
CPT/HCPCS: 36415; 80048; 85025; 93005; 93010

== ENCOUNTER → 2019-12-17 16:07 | Outpatient (CLI) | payer MEDICARE, OTHER, SELFPAY ==
[2019-12-19 07:55] LABS: COVID19 Sendout Not Detected (Not Detect)
== END ==
PROVIDERS: Family Provider Family Medicine; PCP Family Medicine; Visit Provider Physician Assistant
DX: Z01.818 Encounter for other preprocedural examination (principal); Z11.59 Encounter for screening for other viral diseases
CPT/HCPCS: 87635

== ENCOUNTER 2019-12-20 10:42 | Inpatient (IN) | payer MEDICARE, OTHER, SELFPAY ==
[2019-12-17 13:19] VITALS: BMI 25.4
[2019-12-20] VITALS (14 sets, daily range): BP systolic 119–147; BP diastolic 72–94; PULSE 75–98; RESP 14–24; TEMP 35.7–36.6; O2SAT 92–100; BMI 23.8
--- NOTE | 2019-12-20 11:05 | DI.RAD.S_ITS ---
PROCEDURE: XR SHOULDER RT 1V INDICATIONS: postop reverse total shoulder TECHNIQUE: 1 views of the shoulder were acquired. COMPARISON: [facility], CR, XR CHEST 2V, 09/09/2019, 12:59. [facility], CR, XR SHOULDER LT MIN 2V, 06/17/2019, 18:08. FINDINGS: Bones: Right shoulder reverse shoulder arthroplasty has taken place. No findings of hardware failure or hardware loosening are seen. Soft tissues: Postoperative soft tissue changes are seen. A postoperative drain has been placed. Post CABG changes are partially seen. IMPRESSION: Normal postoperative examination. Dictated by: Flavio Bass M.D. on 12/20/2019 at 15:48 Approved by: Flavio Bass M.D. on 12/20/2019 at 15:49
[2019-12-20] MEDS: ACETAMINOPHEN 325 MG TABLET 975 MG PO ×2 (11:33→20:54)
[2019-12-20] MEDS: PREGABALIN 75 MG CAPSULE PO (11:34)
[2019-12-20] MEDS: CELECOXIB 200 MG CAPSULE PO (11:34)
[2019-12-20] MEDS: LACTATED RINGERS 1,000 ML 42 ML IV ×2 (11:34→14:27)
--- NOTE | 2019-12-20 12:44 | PM.PREOP ---
Pre-operative Note COVID-19 COVID-19 status: Negative Result date/Date tested (Pos, Neg/Pending): 12/17/19 Interval Note History & Physical reviewed/Exam performed by Physician: Yes Changes to H&P: No
--- NOTE | 2019-12-20 13:11 | PM.OP.1 ---
Operative Date/Time/Diagnoses Date of procedure: 12/20/19 Time of procedure: 15:21 Pre-op diagnosis: Right shoulder massive rotator cuff tear Post-op diagnosis: same Procedure & Clinicians Procedure: Right reverse total shoulder replacement Same procedure as scheduled: Yes Indications: The patient is had chronic right shoulder pain unresponsive to nonoperative therapies. Radiographic studies have revealed changes consistent with a massive rotator cuff tear and arthritis. They have elected to proceed with reverse total shoulder replacement after discussion of the risks benefits and alternatives. Risks discussed included but were not limited to: Failure to improve, instability, infection, nerve damage, deep venous thrombosis, pulmonary embolism, stroke, coma, myocardial infarction and . Surgeon: Elroy Burks Air Motor Repairer: Mundo Gorman Click Yes if Unassisted: No Anesthesia Type: General, Peripheral nerve block and Local Operative Notes Findings: Massive rotator cuff tear with minimal arthritic change. Closure Type: primary Specimen(s): none sent Prosthetic devices, grafts, tissues, transplants, or devices: Implants used in this procedure were manufactured by the [facility] and included and RSP total shoulder system with a 30 mm RSP glenoid baseplate, 4 locking bolts measuring 26, 26, 22 and 14 mm long, a 32 neutral humeral head, a 12 mm standard stem with a 32 mm +4 humeral socket insert. Applied: drain(s) and implant(s) Estimated Blood Loss (mL): 200 Blood products transfused: none Procedure in detail: The patient was seen in the preoperative area where they identified the right shoulder as the operative site and this was marked with my initials. They received preoperative antibiotics and underwent the induction of an interscalene block. They were taken to the operating room and placed on the operating room table in a supine position with the underwent the induction of a general anesthetic. There were then repositioned in the ?beach chair? position using a dedicated positioner. All pressure points were well padded. The knees were slightly bent to prevent tension on the sciatic nerves. The right arm was prepared from the fingertips to the base of the neck with ChloraPrep in the usual fashion and draped through sterile drapes. An approximately 15 cm incision was created starting at the clavicle just above the coracoid and going to the deltoid insertion. The deltopectoral interval was used to access the shoulder taking the vein to the medial side. The vein was protected throughout the case. The upper 1 cm of the pectoralis major was released. The biceps tendon was identified and used as a guide to releasing the remaining subscapularis. The biceps itself was tenodesed over the pectoralis tendon using a suture. There was no remaining subscapularis. The shoulder was dislocated and a proximal humeral osteotomy performed using an extramedullary guide. A proximal humeral protector was then placed. Retractors were placed access the glenoid. The soft tissues were removed circumferentially around the glenoid with care being taken to protect the axillary nerve. The guide was used to drill the guide hole in the center of the inferior glenoid. The tap was placed and used as a guide for the reamer. The tap was then removed and the glenoid base plate inserted. The peripheral locking screws were then placed through the appropriate guide. A trial glenoid head was applied. We then turned our attention to the humerus. The proximal humeral protector was removed. Cylindrical reamers were used to size the canal. Broaching was then performed beginning with a small broach and working up until a line to line fit with the reamer was obtained. The guide for the proximal metaphyseal reamer was then applied and the metaphysis was reamed appropriately. The trial metaphyseal portion of the body was then applied to the broach. Trial reductions were performed and the size of the glenoid head and the cup were optimized. Stability was checked in maximal internal and external rotation and range of motion was checked to allow access to the top of the head, internal rotation to an excess of 50? in the ?scarecrow position? and the ability to reach the groin. The appropriate final prosthetic components were then opened. The glenoid head was impacted into position and checked for rotational and axial stability before placing the set screw. The humeral prosthetic was then impacted into position. The humeral cup was placed. The joint was relocated and irrigated. A deep drain was placed. The deltopectoral interval was reapproximated with 0 Vicryl. Subcutaneous layer was closed with interrupted 3-0 Vicryl and skin with a running 3 0 V lock suture and Dermabond. Subcutaneous tissues were then infiltrated with 0.5% Marcaine for postoperative pain control. An Aquacel Ag dressing was applied and the patient's arm was placed in a sling. The patient was then transferred to the recovery room in good condition having tolerated the procedure well. Complications: none Post-operative Condition: stable Disposition: PACU Plan for aftercare: The patient will be allowed to do pendulum exercises and remain in a sling until his 1st follow-up. He will be maintained in the hospital overnight likely discharged 1st thing in the morning tomorrow.
[2019-12-20] MEDS: CEFAZOLIN 2 GM/100 ML FROZ.PIGGY IV (13:21)
[2019-12-20] MEDS: TRANEXAMIC ACID 1,000 MG VIAL 1000 MG INJ ×2 (13:40→14:46)
--- NOTE | 2019-12-20 13:48 | SUR.OPER ---
Beach chair with Schlein shoulder positioner. Lower body on padded OR bed. Head in foam padded head cradle, secured with straps. Non-operative arm secured <90 degrees abduction. Pillow under knees. Safety belt at thigh. Cloth tape over blanket over lower legs.
[2019-12-20] MEDS: BUPIVACAINE 0.25% W/ EPI 30 ML VIAL 60 ML INJ (13:55)
--- NOTE | 2019-12-20 16:11 | SUR.PHASEI ---
Pt transferred to room 209 via bed with all belongings. Report given to JANAE Haro prior to transfer. Last vital signs stable, pain controlled; see flowsheet documentation for details. JANAE Haro at bedside upon arrival to room 209; handoff assessment completed. Estrellita to assume care of pt at this time. Pt's , Danika, notified of pt's transfer via telephone.
[2019-12-20] MEDS: LACTATED RINGERS 1,000 ML 125 ML IV ×3 (16:22→23:44)
[2019-12-20] MEDS: DOCUSATE 100 MG CAPSULE PO (20:55)
[2019-12-20] MEDS: ATORVASTATIN 20 MG TABLET PO (20:55)
[2019-12-20] MEDS: LOSARTAN 25 MG TABLET PO (20:55)
--- NOTE | 2019-12-20 23:11 | PC.NURSE ---
Pt is A and O x 4, VSS. He arrived on unit from PACU at approx 1640. Pt denies N and pain, had a block in surgery. Aquacell dressing is C/D/I and HV put out approx 90 mLs. Pt is able to eat and drinking, sleep. R arm is in a sling and pt uses a urinal in bed. Pt is on tele HR 80s-90s, occ PVCs, irregular irr.
[2019-12-21 05:00] VITALS: BP 134/87; PULSE 74; RESP 18; TEMP 36.6; O2SAT 98
--- NOTE | 2019-12-21 05:39 | PC.NURSE ---
Pt is doing well. AxOx4, VSS. Complained of 3 out of 10 right shoulder pain but not requesting pain meds. Able to grasp well with good strength to both hands. Reports a small amount of tingling going down towards Right thumb. Otherwise sensation intact. Warm. Good pulse. In sling throughout night. Tele: AFib Hemovac in place
[2019-12-21] MEDS: PANTOPRAZOLE 40 MG TABLET PO (06:01)
[2019-12-21 07:43] VITALS: BP 150/93; PULSE 78; RESP 16; TEMP 36.4; O2SAT 99
--- NOTE | 2019-12-21 07:49 | PM.DS.1 ---
History of Present Illness History of Present Illness Date Patient Seen: 12/21/19 Time Patient Seen: 07:49 Chief complaint: [id number] Narrative: The history and physical is contained in the chart in a previously completed note. Please refer to this note for this information. Discharge Providers Provider Date of admission: 12/20/19 10:42 Discharge Date: 12/21/19 Primary care physician: Maura Mazariegos MD Consults: 12/20/19 11:05 Consult to Anesthesiology Routine Comment: Consulting Provider: Anesthesiologist Reason for consultation: Regional block for post operative pain control 12/20/19 15:43 Consult to Discharge Planning Routine Comment: Consult to Physical Therapy Evaluate & Treat Comment: pendulums only until follow up Physician Instructions: Evaluate and Treat Discharge provider: Elroy Burks MD Summary Hospital Course Discharge Diagnosis: 1. Massive rotator cuff tear with mild arthritis Hospital Course: The patient was admitted to the hospital and taken directly to the operating room on December 20, 2019 where he underwent a right reverse total shoulder replacement. He was stable postoperatively and had very little pain overnight. On the morning of postoperative day 1 he is stable for discharge. Status at Discharge Cognitive/behavioral status at discharge: oriented Functional status at discharge: independent ambulation Overall status at discharge: patient is progressing back to baseline Time Spent with Patient Time spent: Less than 30 minutes Exam Vital Signs (past 8 hours): - 12/20/19 23:54 12/21/19 05:00 Temperature 97.7 F 97.9 F Pulse Rate 83 74 Respiratory Rate 18 18 Blood Pressure 144/83 H 134/87 Pulse Oximetry 98 98 Oxygen Delivery Method Room Air Oxygen Flow Rate 0 Narrative Exam Narrative: Right shoulder wound is dressed with no drainage on the bandage. Light touch is intact in the radial, ulnar, median, musculocutaneous and axillary nerve distribution. He can extend his thumb, abduct his thumb, abduct his fingers and can fire his biceps and deltoid. Discharge Plan Discharge Plan Patient Disposition: Home Discharge orders & Medications Prescriptions: New oxycodone 5 mg Tablet 5 mg PO Q4H PRN (Reason: Pain, Moderate (4-6)) Qty: 40 RF: 0 Continued Xarelto 20 mg tablet 20 mg PO QDAY Qty: 90 RF: 3 atorvastatin 20 mg tablet 20 mg PO BEDTIME Qty: 90 RF: 3 omeprazole 40 mg capsule,delayed release(DR/EC) 40 mg PO QAM Qty: 90 RF: 3 losartan 25 mg tablet 25 mg PO BEDTIME RF: 0 acetaminophen 500 mg capsule 500 mg PO Q6H PRN (Reason: Pain) RF: 0 tadalafil [Cialis] 10 mg tablet 10 mg PO PRN PRN (Reason: Sexual Activity) RF: 0 Follow up/Referrals: Maura Mazariegos MD [Primary Care Provider] - Elroy Burks MD [Physician] - 2 Weeks Discharge Health Status Multidrug resistant organism: No MDRO Diet/Activity/Treatments Diet: Diet as Tolerated and Regular Activity: You may use your right hand in front of your body below shoulder level. Cold/Heat Therapy: Apply ice to the right shoulder for 15 minutes every hour as needed for pain control. Skin/Wound/Dressing Care Report to your healthcare provider any signs of infection, such as:: chills, fever, night sweats, increased pain, unusual drainage and unusual redness Dressing: Leave the dressing intact until follow-up. You may shower with the dressing in place. If the central strip of the dressing becomes saturated with either water or blood, please call the office. Visit Report/Discharge Packet Instructions: DI for Prescription Opioid Use, DI for Shoulder Replacement, Oxycodone Stand Alone Forms: Surgery Discharge Discharge Data Primary Care Provider: Maura Mazariegos
[2019-12-21] MEDS: OXYCODONE IR 5 MG TABLET PO (08:43)
[2019-12-21] MEDS: ACETAMINOPHEN 325 MG TABLET 975 MG PO (08:43)
[2019-12-21] MEDS: RIVAROXABAN 10 MG TABLET 20 MG PO (08:43)
[2019-12-21] MEDS: DOCUSATE 100 MG CAPSULE PO (08:43)
[2019-12-21] MEDS: SODIUM CHLORIDE 0.9% FLUSH 10 ML IV (08:56)
[2019-12-21 10:08] LABS: Hematocrit 38.1 % (41-53); Hemoglobin 12.9 g/dL (13.5-17.5); Mean Corpuscular HGB Conc 33.7 % (30-36); Mean Corpuscular Volume 91.9 fL (80-100); Platelet Count 213 X10^3/uL (150-400); Red Blood Cell Count 4.15 X10^6/uL (4.5-5.9); Red Cell Distribution Width 14.8 % (11.6-14.8); White Blood Cell Count 8.2 X10^3/uL (4.5-11.0)
--- NOTE | 2019-12-21 10:10 | PT.IIE ---
Current Diagnoses Primary osteoarthritis, right shoulder (12/20/19) Complete rotator cuff tear or rupture of right shoulder, not specified as traumatic (12/20/19) Complete rotator cuff tear or rupture of left shoulder, not specified as traumatic (12/20/19) Surgery Performed Operation Date: 12/20/19 12:45 Actual Procedures p Total Shoulder Arthroplasty - Reverse(Right) - Elroy Burks MD Surgical History (Last Updated 12/17/19 @ 13:54 by Vivienne Levy RN) History of colonoscopy (Acute) Hx of bilateral cataract extraction (Acute 08/2019) Hx of cardiac cath (Acute) Hx of heart artery stent (Acute 1997) S/P CABG x 3 (Acute 1997) Medical History (Last Updated 12/17/19 @ 13:59 by Vivienne Levy RN) Anemia (10/10/17) Arrhythmia (Acute) Atrial fibrillation with rapid ventricular response (06/17/16) 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[place] heart without angina pectoris (07/15/16) Easy bruisability (Acute) Erectile dysfunction (09/04/16) Essential hypertension (07/15/16) Former smoker (Acute) GERD (gastroesophageal reflux disease) (Acute) Jaw fracture (Acute) 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) Myocardial infarction (Acute 1995) Non-sustained ventricular tachycardia (Acute) Physical Therapy Inpatient Evaluation/Re-Eval M1 PT/OT-IP Prior Functional Status Start: 12/21/19 08:49 Freq: NEEDED Status: Active Protocol: Document 12/21/19 09:00 (Rec: 12/21/19 10:10 [email or web address]) Medical Review Prior Functional Status Medical History Reviewed Yes Diet/Fluid Consistency Regular Communication no deficits noted. Slightly [employer] [place] Mobility and Gait independent without AD. He does use a staff for uneven surface when he goes to fishing Activities of Daily Living and IADL's independent for all ADLs and IADLs without AD. He also drives. Social History Household Members spouse Living Arrangements House Number of Floors (Floors) One Floor Number of Stairs To Enter/Railing? no [place] Home Environment Standard Height Toilet,Walk in Shower Home Equipment Straight Cane,Grab Bars In Shower Employment Status Retired Additional Social History Comment Pt lives in [facility] with his who is also very independent and able to assist pt as needed. M2 PT-IP Current Condition Start: 12/21/19 08:49 Freq: NEEDED Status: Active Protocol: Document 12/21/19 09:00 (Rec: 12/21/19 10:10 [email or web address]) Physical Therapy Current Condition Current Condition Evaluation Date 12/21/19 Treatment Diagnosis R TSA Onset Date 12/20/19 Precautions Shoulder Precautions Sling,PROM,Internal Rotation to Body,No External Rotation, No Abduction,Forward Flexion to 90 degrees,Pendulums Weight Bearing Status Weight Bearing Status Full Weight Bearing M3 PT-IP Subjective Start: 12/21/19 08:49 Freq: NEEDED Status: Active Protocol: Document 12/21/19 09:00 (Rec: 12/21/19 10:10 [email or web address]) Subjective Physical Therapy Visit Type Type Initial Evaluation Visit Start Time 09:00 Visit Stop Time 09:25 Total Visit Minutes 25 Number of SET MAKING MACHINE OPERATOR Visits 0 Physical Therapy Visit Comments Patient Comments I feel pretty good Patient Goals to return home with his Therapy Pain Assessment Pain When Pain Assessed At Rest Pain Present Pain Present Pain Reported Location Right Shoulder Intensity 3 Scale Used Numeric (0 - 10) Description Aching Pain Management Techniques Apply Cold,Timing of Activity with Medications M4 PT-IP Mobility and Gait Start: 12/21/19 08:49 Freq: NEEDED Status: Active Protocol: Document 12/21/19 09:00 (Rec: 12/21/19 10:10 [email or web address]) PT-Bed Mobility Assessment Supine to Sit Supine to Sit Standby Assistance Scooting Scooting to Edge of Bed Independent PT-Transfer Assessment Sit to and From Stand Sit to and from Stand Standby Assistance Equipment Transfer Assistive Device None Orthotic/Prosthetic Devices or Brace: Yes Transfers Transfer Destination Chair Transfer Technique Stand Step Pivot Transfer Ability Level of Assist Standby Assistance,Use of Upper Extremities Comments Mobility Comments Pt was in elevated HOB upon PT arrival. c/o achy pain at R shoulder 310. He is able to recall all post op precautions . He then completed supine to long sit without UE support followed pivoting to L EOB without using bedrest. He stood up without UE push off for PT adjust his armsling. Pt then amb towards sink counter for armsling fitting. He was able to stand unsupported for 12 mins without signs of LOB. He then amb back to his chair with safe descend by the use of LUE on armrest. No discomfort noted. Gait Assessment Gait Gait Assistance Required: Standby Assistance Distance (Feet) 12 Able to Maintain Weight Bearing Status Yes During Gait Assistive Devices Assistive Device None Orthotic/Prosthetic Devices or Brace: Yes Gait Deviations General Gait Pattern Within Normal Limits Comments Gait Comments see mobility comment PT-Balance Assessment Sitting Balance and Reactions Static Sitting Balance Ability Normal Dynamic Sitting Balance Ability Normal Standing Balance and Reactions Static Standing Balance Ability Normal Dynamic Standing Balance Ability Normal M5 PT-IP Objective Assessments Start: 12/21/19 08:49 Freq: NEEDED Status: Active Protocol: Document 12/21/19 09:00 (Rec: 12/21/19 10:10 [email or web address]) Orientation Orientation/Cognition Level of Alertness Alert Orientation Name,Age,Birthday,Month,Date, Year,Day of Week,Place, Situation Language Function Ability No Deficits Noted Safety Awareness Understands Safety Issues Memory Description No Deficits Noted Gross Range of Motion Upper Extremity ROM Assessment Right Impaired Impairments post TSA, no ER/IR/Abd/FL for R shoulder. Lower Extremity ROM Assessment Within Functional Limits Strength Upper Extremity Strength Assessment Right Impaired Elbow WNL Wrist WNL Hand WNL Lower Extremity Strength Assessment Within Functional Limits Coordination Assessment Gross Coordination Gross Coordination WNL Sensation Assessment Sensation Gross Sensation Right UE Impaired M6 PT-IP Treatment Start: 12/21/19 08:49 Freq: NEEDED Status: Active Protocol: Document 12/21/19 09:00 (Rec: 12/21/19 10:10 [email or web address]) Physical Therapy Treatment Exercises Exercises Shoulder Pendulums,Elbow Flexion/Extension,Wrist ROM, Hand ROM Education Education Provided Precautions,Weight Bearing Status,Post-Op Packet,Safety Brace Education Donning,Gaastra,Patient Other Treatments Other Treatment Performed demonstrated home exercises to patient and instructed pt for armsling fitting. Pt was able to jairon/doff independently. M7 PT-IP Assessment and Plan Start: 12/21/19 08:49 Freq: NEEDED Status: Active Protocol: Document 12/21/19 09:00 (Rec: 12/21/19 10:10 [email or web address]) PT Summary Assessment and Plan Potential Rehabilitation Potential Excellent Status of Condition at Evaluation Stable Summary Impairments Pain,ROM,Strength Progress Towards Goals Safe For Discharge Assessment Summary This is a low complexity evaluation for this 84yo male s/p POD1 R TSA. Pt was independent for all mobility and ADLs/IADLs without AD. Upon assessment, pt shows good understanding of his post op precautions and is able to jairon/doff armsling independently. Pt's is also very independent who will be able to assist as needed. He is currently safe to go home. Frequency of Treatment Frequency Of Treatment Discharge Recommendations To Nursing Amount of Assist Needed Standby Assistance Discharge Recommendations PT Discharge Recommendations Home with Assistance Transportation Needs at Discharge Private Vehicle
--- NOTE | 2019-12-21 12:27 | PC.NURSE ---
Discharge: Late entry (left at 1125) IV dc'd intact. Tele dc'd. Hemovac dc'd with good hemostasis. Reviewed all d/c instructions with patient and his . F/U as previously scheduled. Given script for Oxycodone, reviewed home med list (cont. all old meds, only the 1 new script). Talked about opioid induced constipation and ways to avoid it. Patient verbalized understanding of all d/c info and stated no further questions. All belongings sent with patient at d/c. Wheeled out to private vehicle by nursing staff.
== END 2019-12-21 12:33 | disposition home or self-care (01) | DRG 483 ==
PROVIDERS: Admitting Provider Orthopaedic Surgery; Family Provider Family Medicine; PCP Family Medicine; Referring Provider Orthopaedic Surgery; Visit Provider Orthopaedic Surgery
PROC: 0RRJ00Z Replacement of Right Shoulder Joint with Reverse Ball and Socket Synthetic Substitute, Open Approach (ICD-10-PCS; CPT 23472; principal; 2019-12-20 12:45)
DX: M75.121 Complete rotator cuff tear or rupture of right shoulder, not specified as traumatic (principal); I48.91 Unspecified atrial fibrillation; I10 Essential (primary) hypertension; K21.9 Gastro-esophageal reflux disease without esophagitis; Z11.59 Encounter for screening for other viral diseases; Z01.818 Encounter for other preprocedural examination
CPT/HCPCS: 36415; 36592; 73020; 85027; 87635; 97161; 97530; C1776; J0330; J0690; J1100; J2405; J2704; J3010

== ENCOUNTER → 2020-03-25 07:59 | Outpatient (CLI) | payer MEDICARE, OTHER, SELFPAY ==
[2020-03-25 09:07] LABS: Add Manual Diff / Slide Review NO; Basophils Absolute Auto 0 /uL (0-100); Basophils Percent Auto 0.5 % (0-2); Eosinophils Absolute Auto 300 /uL (0-450); Eosinophils Percent Auto 7.3 % (2-4); Hematocrit 34.5 % (41-53); Hemoglobin 11.4 g/dL (13.5-17.5); Lymphocytes Absolute Auto 800 /uL (1100-4500); Lymphocytes Percent Auto 17.7 % (25-40); Mean Corpuscular Hemoglobin 28.7 PG (26-34); Mean Corpuscular Volume 86.9 fL (80-100); Monocytes Absolute Auto 600 /uL (0-900); Neutrophils Absolute Auto 2700 /uL (1500-7000); Neutrophils Percent Auto 60.5 % (50-75); Platelet Count 256 X10^3/uL (150-400); Red Blood Cell Count 3.97 X10^6/uL (4.5-5.9); Red Cell Distribution Width 14.7 % (11.6-14.8); White Blood Cell Count 4.5 X10^3/uL (4.5-11.0)
[2020-03-25 09:23] LABS: BUN Creatinine Ratio 31.6 (6-22); Blood Urea Nitrogen 30 mg/dL (9-20); Calcium 9.2 mg/dL (8.4-10.2); Carbon Dioxide 26 mmol/L (22-32); Chloride 105 mmol/L (98-107); Cholesterol 95 mg/dL (140-199); Estimated Glomerular Filt Rate > 60.0 mL/min (>60); Glucose 107 mg/dL (80-110); HDL Cholesterol 35 mg/dL (40-60); HEMOLYSIS < 15 (0-50); LDL Cholesterol Calculated 46 mg/dL (<100); Potassium 4.6 mmol/L (3.4-5.1); Sodium 139 mmol/L (137-145); Triglycerides 70 mg/dL (35-150)
== END ==
PROVIDERS: Family Provider Family Medicine; PCP Family Medicine; Referring Provider Internal Medicine Cardiovascular Disease; Visit Provider Internal Medicine Cardiovascular Disease
DX: I48.11 Longstanding persistent atrial fibrillation (principal); E78.5 Hyperlipidemia, unspecified
CPT/HCPCS: 36415; 80048; 80061; 85025

== ENCOUNTER → 2020-04-10 09:33 | Outpatient (CLI) | payer MEDICARE, OTHER, SELFPAY ==
--- NOTE | 2020-04-10 09:35 | DI.RAD.S_ITS ---
PROCEDURE: XR CHEST 2V INDICATIONS: SOB, cough TECHNIQUE: 2 views of the chest were acquired. COMPARISON: [facility], , XR CHEST 2V, 09/09/2019, 12:59. [facility], , CHEST 1 VIEW, 06/17/2016, 15:46. FINDINGS: Surgical changes and devices: Sternotomy wires, prior CABG. Lungs and pleura: Lungs are abnormal with prominent pulmonary hyperexpansion. No pleural effusions or pneumothorax. Mediastinum: Mediastinal contours are normal. Heart size is normal. Bones and chest wall: No suspicious bony abnormalities. Soft tissues appear unremarkable. IMPRESSION: Severe COPD, prior CABG, no definite pneumonia or neoplasm found. Dictated by: Donell Mack M.D. on 04/10/2020 at 10:20 Approved by: Donell Mack M.D. on 04/10/2020 at 10:22
== END ==
PROVIDERS: Family Provider Family Medicine; PCP Family Medicine; Referring Provider Family Medicine; Visit Provider Family Medicine
DX: R05 Cough (principal); R06.02 Shortness of breath; J44.9 Chronic obstructive pulmonary disease, unspecified; Z95.1 Presence of aortocoronary bypass graft
CPT/HCPCS: 71046

== ENCOUNTER → 2020-04-24 10:28 | Outpatient (CLI) | payer MEDICARE, OTHER, SELFPAY ==
[2020-04-25 01:25] LABS: COVID19 Sendout Not Detected (Not Detect)
== END ==
PROVIDERS: Family Provider Family Medicine; PCP Family Medicine; Visit Provider Physician Assistant
DX: Z01.812 Encounter for preprocedural laboratory examination (principal)
CPT/HCPCS: 87635

== ENCOUNTER → 2020-04-27 09:09 | Outpatient (CLI) | payer MEDICARE, OTHER, SELFPAY ==
--- NOTE | 2020-05-03 09:04 | PM.PFT.1 ---
Pulmonary Function Test Referral & Results Date Patient Seen: 04/27/20 Requesting provider: Maura Mazariegos Results: The spirometry demonstrates an FVC of 3.35 L which is 73% of predicted. The FEV1 was measured at 2.13 L which is 66% of predicted. The FEV1/FVC ratio was 64 which is 90% of predicted. Following the administration of bronchodilator there was a 26% improvement in FEF 25-75%. Lung volumes show an SVC of 3.42 L which is 69% of predicted. The diffusing capacity was measured at 20.83 which is 55% of predicted. No hemoglobin value was provided, so no correction for potential anemia could be made, if appropriate. The maximum voluntary ventilation was normal Interpretation: This study demonstrates mild obstructive lung disease based on reduction FEV1 as well as minimal reduction FEV1/FVC ratio. There is some limited evidence of benefit following bronchodilator particularly small airway flow based on improvement in FEF 25-75% as above There is a mild reduction in lung volumes suggesting mild restrictive lung disease There is also notable moderate reduction diffusing capacity suggesting disease at the capillary alveolar level Compared to PFTs performed in August 2012, current spirometry is essentially unchanged as is the diffusing capacity.
== END ==
PROVIDERS: Family Provider Family Medicine; PCP Family Medicine; Referring Provider Family Medicine; Visit Provider Family Medicine
DX: R05 Cough (principal); J44.9 Chronic obstructive pulmonary disease, unspecified; Z87.891 Personal history of nicotine dependence; R06.02 Shortness of breath
CPT/HCPCS: 94060; 94726; 94729

== ENCOUNTER 2020-04-28 12:24 | Emergency (ER) | payer MEDICARE, OTHER, SELFPAY ==
[2020-04-28] VITALS (38 sets, daily range): BP systolic 117–190; BP diastolic 63–104; PULSE 74–89; RESP 16–40; TEMP 36.4; O2SAT 88–100
--- NOTE | 2020-04-28 12:34 | ED_ITS ---
HPI - Neuro Symptoms/Deficit General Chief Complaint: Neuro Symptoms/Deficit Stated Complaint: Stroke Time Seen by Provider: 04/28/20 12:28 Source: patient, family and EMS Mode of arrival: EMS Limitations: no limitations History of Present Illness HPI Narrative: Patient is an 85-year-old male history of atrial fibrillation on Xarelto presenting as a code stroke. Last known well at about 11 30 he was sitting at the table drinking his coffee with both of his feet went numb. His then noticed he had some slurring of speech he felt nauseous and overall did not feel well at which point his called 911. Patient is now feeling better. Upon initial evaluation he does have some left arm drift. Patient is very active able to do all daily living activities. He still goes crabbing regularly. Timing confirmed by: spouse Location: speech Quality: weak Related Data Home Medications Medication Instructions Recorded Confirmed acetaminophen 500 mg capsule 500 mg PO Q6H PRN 05/05/18 04/28/20 losartan 25 mg tablet 50 mg PO BEDTIME 05/05/18 04/28/20 tadalafil [Cialis] 10 mg PO PRN PRN 12/17/19 04/28/20 Xarelto 20 mg PO QPM 04/28/20 04/28/20 Previous Rx's Medication Instructions Recorded omeprazole 40 mg capsule,delayed 40 mg PO QAM #90 cap 09/02/19 release tiotropium bromide 2.5 2 inhalation INHALATION QAM #4 gram 04/13/20 mcg/actuation mist for inhalation atorvastatin 20 mg tablet 20 mg PO BEDTIME #90 tab 04/14/20 Allergies Allergy/AdvReac Type Severity Reaction Status Date / Time No Known Drug Allergies Allergy Verified 04/28/20 13:41 Review of Systems Review of Systems Narrative: GENERAL: Denies chills, fatigue, malaise, fever, sweats, travel HEENT: Denies sinus pain, ear pain, sore throat, difficulty swallowing, neck pain RESPIRATORY: Denies dyspnea, cough, wheezing, hemoptysis, sputum. CARDIOVASCULAR: Denies chest pain, palpitations, orthopnea, edema GASTROINTESTINAL: Denies nausea, vomiting, abdominal pain, diarrhea, constipation, melena. : Denies dysuria, frequency, incontinence, hematuria, urinary retention, flank pain. MUSCULOSKELETAL: Denies weakness, joint pain, or bony pain SKIN: No rash, no erythema, no pruritus NEUROLOGIC: See HPI PSYCHIATRIC: No concerning psychosocial issues. 12 point review of systems is negative except for those stated above and HPI Patient History Medical History Anemia (10/10/17) Arrhythmia (Acute) Atrial fibrillation with rapid ventricular response (06/17/16) 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[place] heart without angina pectoris (07/15/16) Easy bruisability (Acute) Erectile dysfunction (09/04/16) Essential hypertension (07/15/16) Former smoker (Acute) GERD (gastroesophageal reflux disease) (Acute) Jaw fracture (Acute) 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) Myocardial infarction (Acute 1995) Non-sustained ventricular tachycardia (Acute) Surgical History History of colonoscopy (Acute) Hx of bilateral cataract extraction (Acute 08/2019) Hx of cardiac cath (Acute) Hx of heart artery stent (Acute 1997) S/P CABG x 3 (Acute 1997) Social History marital status: number of children: 2 household members: spouse lives independently: Yes caregiver/support person: No housing: house Smoking Status: Former smoker second hand exposure: No alcohol intake: current substance use type: does not use Smoking Status: Former smoker alcohol intake frequency: 0-2 drinks per day Substance Use Type: does not use Exam Initial Vital Signs Initial Vital Signs: Vital Signs Pulse Rate 87 04/28/20 12:32 Respiratory Rate 23 04/28/20 12:32 Pulse Oximetry 88 L 04/28/20 12:32 GENERAL: Alert well-appearing elderly male and in no acute distress. HEENT: Head atraumatic,EOMI, pupils reactive, face symmetric, moist mucous mem branes CARDIOVASCULAR: Regular rate and rhythm without murmurs, rubs or gallops. RESPIRATORY: Breath sounds equal bilaterally, no wheezes rales or rhonchi. ABDOMEN: Soft, nontender. Normoactive bowel sounds all 4 quadrants. No guarding or rebound. EXTREMITIES: Normal range of motion, no clubbing or edema. Neurovascularly intact NEUROLOGICAL: Alert and oriented x4.Normal gait and speech. Cranial nerves II through XII grossly intact. Left arm drift. [employer] strength equal bilaterally SKIN: Warm, dry, no laceration, no petechiae, no rashes or lesions. Course Orders Ordered: ED Orders 04/28/20 12:28 EKG-12 Lead Stat 04/28/20 12:30 Complete Blood Count AUTO DIFF Stat Comprehensive Metabolic Panel Stat Partial Thromboplastin Time Stat Prothrombin Time INR Stat Troponin & CK Cardiac Panel Stat 04/28/20 12:34 CT Stroke Stat 04/28/20 13:15 COVID19 -ED/INPAT/OR/L&D Stat Discontinued Medications Prothrombin Complex Concent ( Human) 2,000 unit/Miscellaneous 80 mls @ 588.96 mls/hr IV NOW ONE Stop: 04/28/20 13:23 Last Infusion: 04/28/20 13:35 Dose: 0 unit/kg/min, 0 mls/hr Documented by: Admin: 04/28/20 13:24 Dose: 3 unit/kg/min, 588.96 mls/hr Documented by: MICAELA Nicardipine HCl 25 mg/ Sodium (Chloride) 250 mls @ 50 mls/hr IV TITRATE GABRIELA; Protocol Last Titration: 04/28/20 14:48 Dose: 7.5 mg/hr, 75 mls/hr Documented by: Titration: 04/28/20 13:47 Dose: 7.5 mg/hr, 75 mls/hr Documented by: Admin: 04/28/20 13:30 Dose: 5 mg/hr, 50 mls/hr Documented by: MICAELA Labetalol HCl (Trandate) 20 mg IV NOW ONE Stop: 04/28/20 12:55 Last Admin: 04/28/20 12:59 Dose: 15 mg Documented by: MICAELA Consultations Consultation #1: Dr. Cuenca, [facility] stroke a doctor. Has been updated patient's symptoms and test results. At this time recommend aggressive blood pressure control systolic under 160 either with labetalol for nicardipine drip. He did speak with Hematology and does recommend Kcentra at this time to help with reversal of Xarelto Time: 12:54 Vital Signs Vital signs: Vital Signs - 8 hr 04/28/20 12:32 04/28/20 12:34 04/28/20 12:35 Temperature Pulse Rate 87 87 89 Respiratory Rate 23 21 23 Blood Pressure 190/104 H 188/95 H Pulse Oximetry 88 L 99 100 04/28/20 12:37 04/28/20 12:40 04/28/20 12:59 Temperature 97.6 F Pulse Rate 84 86 86 Respiratory Rate 16 22 Blood Pressure 188/95 H 188/85 H Pulse Oximetry 97 99 04/28/20 13:00 04/28/20 13:01 04/28/20 13:14 Temperature Pulse Rate 78 77 78 Respiratory Rate 24 24 22 Blood Pressure 137/86 150/92 H Pulse Oximetry 97 97 98 04/28/20 13:21 04/28/20 13:25 04/28/20 13:30 Temperature Pulse Rate 78 78 77 Respiratory Rate 22 21 21 Blood Pressure 169/100 H 151/91 H 143/93 H Pulse Oximetry 98 98 97 04/28/20 13:35 04/28/20 13:36 04/28/20 13:42 Temperature Pulse Rate 79 74 79 Respiratory Rate 20 22 Blood Pressure 145/92 H 145/92 H 138/85 Pulse Oximetry 97 97 04/28/20 13:45 04/28/20 13:48 04/28/20 13:51 Temperature Pulse Rate 80 81 80 Respiratory Rate 22 24 23 Blood Pressure 152/69 H 140/80 123/78 Pulse Oximetry 96 96 96 04/28/20 13:54 04/28/20 13:57 04/28/20 14:00 Temperature Pulse Rate 79 78 77 Respiratory Rate 21 23 24 Blood Pressure 131/63 126/70 125/69 Pulse Oximetry 94 96 96 04/28/20 14:03 04/28/20 14:06 04/28/20 14:09 Temperature Pulse Rate 80 81 81 Respiratory Rate 24 20 20 Blood Pressure 127/74 117/65 131/65 Pulse Oximetry 95 93 94 04/28/20 14:12 04/28/20 14:15 04/28/20 14:18 Temperature Pulse Rate 80 82 83 Respiratory Rate 25 H 20 34 H Blood Pressure 117/63 126/71 131/67 Pulse Oximetry 94 93 96 04/28/20 14:21 04/28/20 14:25 04/28/20 14:27 Temperature Pulse Rate 84 88 80 Respiratory Rate 40 H 30 H 23 Blood Pressure 129/71 138/69 121/67 Pulse Oximetry 94 94 95 04/28/20 14:30 04/28/20 14:33 04/28/20 14:36 Temperature Pulse Rate 81 81 85 Respiratory Rate 22 32 H 22 Blood Pressure 126/66 118/68 118/72 Pulse Oximetry 94 94 96 04/28/20 14:39 04/28/20 14:42 04/28/20 14:45 Temperature Pulse Rate 80 81 84 Respiratory Rate 22 25 H 23 Blood Pressure 123/68 126/64 118/68 Pulse Oximetry 96 94 94 04/28/20 14:48 04/28/20 14:52 Temperature Pulse Rate 87 86 Respiratory Rate 31 H 24 Blood Pressure 131/63 130/63 Pulse Oximetry 94 MDM - Neuro Symptoms/Deficit Lab Data Attestation: I reviewed the patient's lab results. Result diagrams: 04/28/20 12:30 04/28/20 12:30 Labs: Lab Results 04/28/20 04/28/20 04/28/20 Range/Units 12:30 12:30 12:30 WBC 3.3 L (4.5-11.0) X10^3/uL RBC 4.32 L (4.5-5.9) X10^6/uL Hgb 12.1 L (13.5-17.5) g/dL Hct 37.8 L (41-53) % MCV 87.5 (80-100) fL MCH 27.9 (26-34) PG MCHC 31.9 (30-36) % RDW 16.8 H (11.6-14.8) % Plt Count 223 (150-400) X10^3/uL Neut % (Auto) 57.3 (50-75) % Lymph % (Auto) 29.6 (25-40) % [place] % (Auto) 10.3 (3-14) % Eos % (Auto) 2.3 (2-4) % Baso % (Auto) 0.5 (0-2) % Neut # (Auto) 1900 (1520-5442) /uL Lymph # (Auto) 1000 L (1548-6815) /uL [place] # (Auto) 300 (0-900) /uL Eos # (Auto) 100 (0-450) /uL Baso # (Auto) 0 (0-100) /uL PT 21.3 H (10.1-12.7) SECONDS INR 1.9 H (0.9-1.3) APTT 45 H (26.4-36.2) SECONDS Sodium 138 (137-145) mmol/L Potassium 4.9 (3.4-5.1) mmol/L Chloride 105 (98-107) mmol/L Carbon Dioxide 27 (22-32) mmol/L BUN 28 H (9-20) mg/dL Creatinine 0.99 (0.66-1.25) mg/dL Estimated GFR > 60.0 (>60) mL/min BUN/Creatinine Ratio 28.3 H (6-22) Glucose 120 H (80-110) mg/dL Calcium 9.6 (8.4-10.2) mg/dL Total Bilirubin 0.8 (0.2-1.3) mg/dL AST 32 (17-59) IU/L ALT 20 (<50) IU/L Alkaline Phosphatase 105 (38-126) U/L Total Creatine Kinase 83 (55-170) U/L CK-MB (CK-2) TNP CK-MB (CK-2) Rel Index TNP Troponin I < 0.012 (0.01-0.034) ng/mL Total Protein 7.9 (6.3-8.2) g/dL Albumin 4.4 (3.5-5.0) g/dL Globulin 3.5 (1.7-4.1) g/dL Albumin/Globulin Ratio 1.3 (1.0-2.8) COVID-19 PCR (Negative) 04/28/ Range/Units 13:15 WBC (4.5-11.0) X10^3/uL RBC (4.5-5.9) X10^6/uL Hgb (13.5-17.5) g/dL Hct (41-53) % MCV (80-100) fL MCH (26-34) PG MCHC (30-36) % RDW (11.6-14.8) % Plt Count (150-400) X10^3/uL Neut % (Auto) (50-75) % Lymph % (Auto) (25-40) % [place] % (Auto) (3-14) % Eos % (Auto) (2-4) % Baso % (Auto) (0-2) % Neut # (Auto) (0433-5820) /uL Lymph # (Auto) (6122-9963) /uL [place] # (Auto) (0-900) /uL Eos # (Auto) (0-450) /uL Baso # (Auto) (0-100) /uL PT (10.1-12.7) SECONDS INR (0.9-1.3) APTT (26.4-36.2) SECONDS Sodium (137-145) mmol/L Potassium (3.4-5.1) mmol/L Chloride (98-107) mmol/L Carbon Dioxide (22-32) mmol/L BUN (9-20) mg/dL Creatinine (0.66-1.25) mg/dL Estimated GFR (>60) mL/min BUN/Creatinine Ratio (6-22) Glucose (80-110) mg/dL Calcium (8.4-10.2) mg/dL Total Bilirubin (0.2-1.3) mg/dL AST (17-59) IU/L ALT (<50) IU/L Alkaline Phosphatase (38-126) U/L Total Creatine Kinase (55-170) U/L CK-MB (CK-2) CK-MB (CK-2) Rel Index Troponin I (0.01-0.034) ng/mL Total Protein (6.3-8.2) g/dL Albumin (3.5-5.0) g/dL Globulin (1.7-4.1) g/dL Albumin/Globulin Ratio (1.0-2.8) COVID-19 PCR Negative (Negative) Point of Care Testing Glucose POC [address] scan - head: Radiologist's Impression: PROCEDURE: CT STROKE INDICATIONS: slurred speech on xeralto TECHNIQUE: Noncontrast 4.5 mm thick angled axial sections acquired from the foramen magnum to the vertex, with coronal reformats. For radiation dose reduction, the following was used: automated exposure control, adjustment of mA and/or kV according to patient size. COMPARISON: None. FINDINGS: Image quality: Excellent. CSF spaces: Basal cisterns are patent. No extra-axial fluid collections. Ventricles are normal in size and shape. No intraventricular hemorrhage. Brain: No midline shift. Small rounded focus of intracranial hemorrhage in the right basal ganglia measuring 1.3 x 0.9 x 0.9 cm, (2/17 and 11/04). This most likely represents a small hemorrhagic infarct. There are small curvilinear senile basal ganglia calcifications bilaterally. Mild periventricular hypodensity consistent with chronic microvascular ischemic disease. Age-related parenchymal loss. Distal intracranial ICA atherosclerotic calcifications. Skull and face: Calvarium and visualized facial bones are intact, without suspicious lesions. Sinuses: Visualized sinuses and mastoids are clear. 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 No midline shift. No intraventricular hemorrhage. Chronic microvascular ischemic disease. Comment: Findings were discussed with Margarette Madrid DO at 12:42 pm. This study fulfills neurological imaging criteria for inclusion or exclusion of acute stroke therapies based on available published neurological imaging guidelines. Dictated by: Jesus Alberto Campos M.D. on 04/28/2020 at 12:40 Approved by: Jesus Alberto Campos M.D. on 04/28/2020 at 12:45 ECG Data Attestation: I personally reviewed and interpreted this ECG as follows: Prior ECG tracings: available for review Interpretation: Atrial fibrillation rate [address] changes similar to previous EKG MDM Narrative Medical decision making narrative: Patient blood pressure improved with 1 dose of labetalol however did start rising again noted to maintain a more steady blood pressure nicardipine drip has been started. Discussed with patient and need for rapid transport to [address] airlift. At this time they do agree to that. Kcentra as also started in the ED. Patient has left arm drift does seem to be improving he remains alert and oriented x4 Critical Care Time Critical Care Time Critical Care Time: Yes Total Critical Care Time: 30 Attestation: The high probability of a clinically significant, sudden or life threatening deterioration of the neurovascular system(s) required my full and direct attention, intervention and personal management. The aggregate critical care time was 30 minutes. This time is in addition to time spent performing reported procedures but includes the following: [x] Data Review and interpretation [x] Patient assessment and monitoring of vital signs [x] Documentation [x] Medication orders and management Discharge Plan Departure Patient Disposition: [facility] Clinical Impression: Intracranial hemorrhage Discharge Date/Time: 04/28/20 14:56 Prescriptions: No Action omeprazole 40 mg capsule,delayed release(DR/EC) 40 mg PO QAM Qty: 90 RF: 3 Spiriva Respimat 2.5 mcg/actuation mist 2 inhalation INHALATION QAM Qty: 4 RF: 11 atorvastatin 20 mg tablet 20 mg PO BEDTIME Qty: 90 RF: 3 losartan 25 mg tablet 50 mg PO BEDTIME RF: 0 acetaminophen 500 mg capsule 500 mg PO Q6H PRN (Reason: Pain) RF: 0 tadalafil [Cialis] 10 mg tablet 10 mg PO PRN PRN (Reason: Sexual Activity) RF: 0 Xarelto 20 mg tablet 20 mg PO QPM RF: 0 Referrals: Maura Mazariegos MD [Primary Care Provider] -
[2020-04-28 12:39] LABS: Add Manual Diff / Slide Review NO; Basophils Absolute Auto 0 /uL (0-100); Basophils Percent Auto 0.5 % (0-2); Eosinophils Absolute Auto 100 /uL (0-450); Eosinophils Percent Auto 2.3 % (2-4); Hematocrit 37.8 % (41-53); Hemoglobin 12.1 g/dL (13.5-17.5); INR 1.9 (0.9-1.3); Lymphocytes Absolute Auto 1000 /uL (1100-4500); Lymphocytes Percent Auto 29.6 % (25-40); Mean Corpuscular HGB Conc 31.9 % (30-36); Mean Corpuscular Hemoglobin 27.9 PG (26-34); Mean Corpuscular Volume 87.5 fL (80-100); Monocytes Absolute Auto 300 /uL (0-900); Monocytes Percent Auto 10.3 % (3-14); Neutrophils Absolute Auto 1900 /uL (1500-7000); Neutrophils Percent Auto 57.3 % (50-75); Platelet Count 223 X10^3/uL (150-400); Prothrombin Time 21.3 SECONDS (10.1-12.7); Red Blood Cell Count 4.32 X10^6/uL (4.5-5.9); Red Cell Distribution Width 16.8 % (11.6-14.8); White Blood Cell Count 3.3 X10^3/uL (4.5-11.0)
[2020-04-28 12:42] LABS: PTT Partial Thromboplastin Tim 45 SECONDS (26.4-36.2)
[2020-04-28 12:44] LABS: Alanine Aminotransferase 20 IU/L (<50); Albumin 4.4 g/dL (3.5-5.0); Albumin Globulin Ratio 1.3 (1.0-2.8); Alkaline Phosphatase 105 U/L (38-126); Aspartate Aminotransferase 32 IU/L (17-59); BUN Creatinine Ratio 28.3 (6-22); Bilirubin Total 0.8 mg/dL (0.2-1.3); Blood Urea Nitrogen 28 mg/dL (9-20); Calcium 9.6 mg/dL (8.4-10.2); Carbon Dioxide 27 mmol/L (22-32); Chloride 105 mmol/L (98-107); Creatine Kinase 83 U/L (55-170); Estimated Glomerular Filt Rate > 60.0 mL/min (>60); Globulin 3.5 g/dL (1.7-4.1); Glucose 120 mg/dL (80-110); HEMOLYSIS < 15 (0-50); Potassium 4.9 mmol/L (3.4-5.1); Sodium 138 mmol/L (137-145); Total Protein 7.9 g/dL (6.3-8.2)
[2020-04-28 12:58] LABS: Troponin I < 0.012 ng/mL (0.01-0.034)
[2020-04-28] MEDS: LABETALOL 20 MG/4 ML SYRINGE IV (12:59)
[2020-04-28] MEDS: PROTHROMBIN CPLX(PCC)4FACT 2,000 UNIT in ISOOSMOTIC VEHICLE 0 ML 588.96 ML IV (13:24)
[2020-04-28] MEDS: NICARDIPINE 25 MG in SODIUM CHLORIDE 0.9% 240 ML 50 ML IV (13:30)
[2020-04-28 13:59] LABS: COVID19 -Nasal RAPID Negative (Negative)
== END 2020-04-28 14:56 | disposition short-term general hospital (02) ==
PROVIDERS: Emergency Provider Emergency Medicine; Family Provider Family Medicine; PCP Family Medicine
DX: I62.9 Nontraumatic intracranial hemorrhage, unspecified (principal); R20.0 Anesthesia of skin; I48.91 Unspecified atrial fibrillation; Z79.01 Long term (current) use of anticoagulants
CPT/HCPCS: 70450; 80053; 82550; 82962; 84484; 85025; 85610; 85730; 87635; 93005; 96365; 96375; 99285; 99291; C9132

== ENCOUNTER 2020-06-26 10:27 | Outpatient (RCR) | payer MEDICARE, OTHER, SELFPAY ==
--- NOTE | 2020-06-26 15:43 | OT.OP.EVAL ---
Visit Care Team Role Provider Type Maura Mazariegos MD Family Provider Physician Primary Care Provider Specialty: Family Practice Address: [address] [place] [address], [address], [place], [address] Email: [email or web address] Aj MD Attending Provider Non-Staff Referring Provider Specialty: Medical Address: [address] [place] [address], [id number], [place], [address] Email: Occupational Therapy Initial Evaluation OT Outpatient Adult Evaluation Start: 06/26/20 11:53 Freq: Status: Active Protocol: Document 06/26/20 12:24 AMS (Rec: 06/26/20 12:32 AMS [id number]) General Information Visit Start Time 10:30 Visit Stop Time 11:15 Total Visit Minutes 45 Visit Number 07/23 Plan of Care Dates 06/26/20-06/27/20 Insurance Information Medicare Treatment Setting Outpatient Care Note Type Initial Evaluation Identification Confirmed Yes: Patient Goals Treatment Discussed active incorporation /active incorporation of left hand in day-to-day tasks. Assessment/Plan Treatment Assessment Patient is a 85 year-old right hand dominant male referred to outpatient OT secondary to small hemorrhagic infarct of the right basal ganglia. Patient presented to local hospital w/ L sided weakness on 04/28/20. He was transferred to [facility]; he received inpatient rehabilitation services until 05/16/20. He was discharged home w/ . PMH: Significant for a-fib, COPD, [place] 1995 s/p PCI then 3v bypass at in 1997, GERD, HLD, macular degeneration R eye w/ surgery ~ September 2019, R shoulder replacement, L degenerative rotator cuff tear . Patient reports need for reverse total shoulder replacement of L. Patient is receiving outpatient DRY ROASTER and PT here at [facility] in the outpatient clinic. Evaluation Findings: Functional abilities: Patient resides w/ his . Patient reports functional independence w/ dressing/ undressing, g/h tasks, showering (utilization of shower stool and HSH), and toileting. Patient reports that he is managing the couple 's finances and that he is having no difficulties managing personal cell phone and/or typing on keyboard ( using prior level of function keyboarding - calderon and holt - abilities). Patient reports that handwriting has declined over the years secondary to arthritis. Patient reports that the couple uses an automatic card shuffler. Patient reports that he was recently able to return to [employer]; he would like to return to rowing of personal small boat for fishing, crabbing, and driving . He reports that he has not been cleared to return to driving. Additional findings: WFL w/ opposition w/ eyes open/eyes closed. Slight R midline shift noted w/ obj manipulation/ bimanual coordination. B elbow AROM WFL w/ elbow flexion, elbow extension, forearm supination/forearm pronation. B wrist AROM WFL. B elbow MMT WFL; 5/5 with elbow flexion/ elbow extension. B wrist MMT WFL; 5/5 MMT. Patient averaged 58.5# of force w/ R poker machine attendant and 49.5# of force w/ L poker machine attendant w/ dynamometer testing. No further outpatient OT services are needed at this time; recommend continuation of outpatient speech and physical therapy services to support return to functional activities. Patient in agreement. Comment Initial evaluation and x 1 treatment only Patient Recommendations Discharge from Occupational Therapy
== END 2020-06-30 14:49 ==
LOC: OT 10:27
PROVIDERS: Family Provider Family Medicine; PCP Family Medicine; Referring Provider Physical Medicine & Rehabilitation; Visit Provider Physical Medicine & Rehabilitation
DX: I63.9 Cerebral infarction, unspecified (principal)
CPT/HCPCS: 97165; 97530

== ENCOUNTER 2020-09-01 13:30 | Outpatient (RCR) | payer MEDICARE, OTHER, SELFPAY ==
--- NOTE | 2020-06-23 16:00 | PT.OPPOC ---
Physical, Occupational & Speech Therapy At [facility] Current Diagnoses Cerebral infarction, unspecified (06/23/20) Other abnormalities of gait and mobility (06/23/20) Visit Care Team Role Provider Type Maura Mazariegos MD Attending Provider Physician Family Provider Primary Care Provider Referring Provider Specialty: Family Practice Address: [address] [place] [address], [facility] Email: [email or web address] Plan Of Care PT-OP-T Assessment and Plan Start: 06/23/20 07:25 Freq: Status: Active Protocol: Document 06/23/20 13:35 AMB (Rec: 06/24/20 09:57 AMB [email or web address]) Physical Therapy Assessment Rehab Potential Rehabilitation Potential Excellent Evaluation Complexity Number of Personal Factors/Comorbidities 3 or More Number of Body Systems Impaired 3 Clinical Presentation at Evaluation Evolving Impairments Impairments Balance,Gait,Strength Goals Two Impairment Strength Short Term Goal (STG) Yamil will show improved ankle strength in all planes to 4/5. STG Duration 4 weeks Orthodontic Band Maker Goal (LTG) Yamil will be consistent and independent with a HEP for strength and balance. LTG Duration 8 weeks One Impairment Balance Short Term Goal (STG) Yamil will improve his DGI score to 23/24 to show reduced risk of falling. STG Duration 4 weeks Orthodontic Band Maker Goal (LTG) Yamil will show improved balance by maintaing single leg stance for 3 seconds. LTG Duration 8 weeks Assessment Summary Assessment Yamil attends physical therapy with L sided ankle weakness. His dynamic gait index score of 20/24 is good for an 85 year old who just experienced a stroke, but given that he is walking in the community for 40 minutes, he would benefit from further balance improvement to decrease his fall risk. He will benefit from a mixture of LE strengthening and balance exercises so that he can independently exercise at home and improve his community mobility. Physical Therapy Plan Frequency and Duration Frequency of Treatment 2x/Week Duration of Treatment 8 weeks Plan of Care Start Date 06/23/20 Plan of Care End Date 08/18/20 Therapeutic Interventions Therapeutic Interventions Balance Training,Gait Training ,Home Exercise Program,Manual Therapy,Neuromuscular Re- education,Self-Care/Home Management,Therapeutic Activities,Therapeutic Exercises Next Visit Focus/Plan Next Note Type Treatment Note Next Visit Plan Review HEP, progress balance exercises Plan of Care Dates Plan of Care Start Date 06/23/20 Plan of Care End Date 08/18/20 Electronically Signed by: Martha Hua, PT 06/24/20 0958 Please Sign and Return: I have reviewed this Plan of Care and certify that the skilled therapy services above are required to meet the patient?s needs. Physician Signature Date Printed Name and Credentials Clinical Instructor Signature Printed Name and Credentials
--- NOTE | 2020-06-23 16:00 | PT.OIE ---
Current Diagnoses Cerebral infarction, unspecified (06/23/20) Other abnormalities of gait and mobility (06/23/20) Past Medical History (Last Updated 05/30/20 @ 08:06 by Maura Mazariegos MD) Anemia (10/10/17) Arrhythmia Atrial fibrillation with rapid ventricular response (06/17/16) COPD (chronic obstructive pulmonary disease) 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[place] heart without angina pectoris (07/15/16) Easy bruisability Erectile dysfunction (09/04/16) Essential hypertension (07/15/16) Former smoker GERD (gastroesophageal reflux disease) Hemorrhagic stroke Jaw fracture 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) Myocardial infarction (1995) Non-sustained ventricular tachycardia Past Surgical History (Last Reviewed 04/28/20 @ 12:37 by Margarette Madrid DO) History of colonoscopy Hx of bilateral cataract extraction (08/2019) Hx of cardiac cath Hx of heart artery stent (1997) S/P CABG x 3 (1997) Visit Care Team Role Provider Type Maura Mazariegos MD Attending Provider Physician Family Provider Primary Care Provider Referring Provider Specialty: [facility] Practice Address: [address] [place] [address], [facility] Email: [email or web address] Therapy Initial Evaluation PT-OP-A Visit Information Start: 06/23/20 07:25 Freq: Status: Active Protocol: Document 06/23/20 13:35 AMB (Rec: 06/24/20 09:57 AMB [email or web address]) Out-Patient Physical Therapy Visit Information Visit Information Visit Type Initial Evaluation Visit Start Time 13:35 Visit Stop Time 14:20 Total Visit Minutes 45 Visit Number 1 PT-OP-B Current Condition Start: 06/23/20 07:25 Freq: Status: Active Protocol: Document 06/23/20 13:35 AMB (Rec: 06/24/20 09:57 AMB [email or web address]) Current Condition History of Current Condition Onset Date April 2020 Current Complaints hemhorragic stroke- right basal ganglia History of Current Condition Yamil has been home from [facility] for over a month now, RHD. Sounds like he did inpatient rehab but no home health. He is walking up to 40 minutes a day with a cane in the community. He hasn't been doing his exercises as much now that he is walking. He previously exercised at the gym, but hasn't been since September due to Covid. No stairs inside the home, walk in shower with shower chair. Lives with , has returned to driving, history of macular degeneration worse on the R. Treatment Goals Patient/Caregiver Goals Make sure he's back to normal Prior Functional Status Baseline Function- ADL's Independent Baseline Function- Mobility Independent Current Functional Impairments (Reported) Functional Limitations- ADL's Careful with his balance Personal Factors Other Personal Factors That May Effect Extensive cardiac history. 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 PT-OP-E Functional Tests Start: 06/23/20 07:25 Freq: Status: Active Protocol: Document 06/23/20 13:35 AMB (Rec: 06/24/20 09:57 AMB [email or web address]) Functional Tests Dynamic Gait Index (DGI) Score 20 DGI Impairment Rating 1 to <20% Impaired (Score 20- 23) PT-OP-G Mobility & Gait Start: 06/23/20 07:25 Freq: Status: Active Protocol: Document 06/23/20 13:35 AMB (Rec: 06/24/20 09:57 AMB [email or web address]) OP Gait Assessment Comments Gait Comments Decreased L arm swing (pt reports might get total shoulder on it). Slightly reduced push off on the left, pt reports mild toe catching if he has been walking a long time. PT-OP-M Strength Start: 06/23/20 07:25 Freq: Status: Active Protocol: Document 06/23/20 13:35 AMB (Rec: 06/24/20 09:57 AMB [email or web address]) Hip Strength Hip Manual Muscle Testing Right Flexion (L2) 4+ Good+ Extension (S1) 4+ Good+ Abduction 4+ Good+ Left Flexion (L2) 4+ Good+ Extension (S1) 4 Good Abduction 4 Good Knee Strength Knee Manual Muscle Testing Right Flexion (S2) 5 Normal Extension (L3) 5 Normal Left Flexion (S2) 5 Normal Extension (L3) 5 Normal Ankle/Foot Strength Ankle and Foot Manual Muscle Testing Right Dorsiflexion (L4) 5 Normal Plantarflexion (S1) 4+ Good+ Left Dorsiflexion (L4) 4- Good- Plantarflexion (S1) 4- Good- PT-OP-Q Treatments Start: 06/23/20 07:25 Freq: Status: Active Protocol: Document 06/23/20 13:35 AMB (Rec: 06/24/20 09:57 AMB [email or web address]) Therapeutic Exercises Sitting Exercises 1 Sitting Exercise Name alternate toe tapping Reps/Minutes 30 Standing Exercises 1 Standing Exercise Name double leg heel raise Reps/Minutes 2x10 PT-OP-T Assessment and Plan Start: 06/23/20 07:25 Freq: Status: Active Protocol: Document 06/23/20 13:35 AMB (Rec: 06/24/20 09:57 AMB [email or web address]) Physical Therapy Assessment Rehab Potential Rehabilitation Potential Excellent Evaluation Complexity Number of Personal Factors/Comorbidities 3 or More Number of Body Systems Impaired 3 Clinical Presentation at Evaluation Evolving Impairments Impairments Balance,Gait,Strength Goals Two Impairment Strength Short Term Goal (STG) Yamil will show improved ankle strength in all planes to 4/5. STG Duration 4 weeks Sprayer Leather Goal (LTG) Yamil will be consistent and independent with a HEP for strength and balance. LTG Duration 8 weeks One Impairment Balance Short Term Goal (STG) Yamil will improve his DGI score to 23/24 to show reduced risk of falling. STG Duration 4 weeks Senior Care Goal (LTG) Yamil will show improved balance by maintaing single leg stance for 3 seconds. LTG Duration 8 weeks Assessment Summary Assessment Yamil attends physical therapy with L sided ankle weakness. His dynamic gait index score of 20/24 is good for an 85 year old who just experienced a stroke, but given that he is walking in the community for 40 minutes, he would benefit from further balance improvement to decrease his fall risk. He will benefit from a mixture of LE strengthening and balance exercises so that he can independently exercise at home and improve his community mobility. Physical Therapy Plan Frequency and Duration Frequency of Treatment 2x/Week Duration of Treatment 8 weeks Plan of Care Start Date 06/23/20 Plan of Care End Date 08/18/20 Therapeutic Interventions Therapeutic Interventions Balance Training,Gait Training ,Home Exercise Program,Manual Therapy,Neuromuscular Re- education,Self-Care/Home Management,Therapeutic Activities,Therapeutic Exercises Next Visit Focus/Plan Next Note Type Treatment Note Next Visit Plan Review HEP, progress balance exercises
--- NOTE | 2020-06-26 10:08 | PT.OTN ---
Current Diagnoses Cerebral infarction, unspecified (06/26/20) Other abnormalities of gait and mobility (06/26/20) Physical Therapy Treatment Note PT-OP-A Visit Information Start: 06/23/20 07:25 Freq: Status: Active Protocol: Document 06/26/20 09:00 AMB (Rec: 06/26/20 10:08 AMB [id number]) Out-Patient Physical Therapy Visit Information Visit Information Visit Type Treatment Note Visit Start Time 09:00 Visit Stop Time 09:40 Total Visit Minutes 40 Visit Number 2 PT-OP-B Current Condition Start: 06/23/20 07:25 Freq: Status: Active Protocol: Document 06/23/20 13:35 AMB (Rec: 06/24/20 09:57 AMB [email or web address]) Current Condition History of Current Condition Onset Date April 2020 Current Complaints hemhorragic stroke- right basal ganglia History of Current Condition Aymil has been home from [facility] for over a month now, RHD. Sounds like he did inpatient rehab but no home health. He is walking up to 40 minutes a day with a cane in the community. He hasn't been doing his exercises as much now that he is walking. He previously exercised at the gym, but hasn't been since September due to Covid. No stairs inside the home, walk in shower with shower chair. Lives with , has returned to driving, history of macular degeneration worse on the R. Treatment Goals Patient/Caregiver Goals Make sure he's back to normal Prior Functional Status Baseline Function- ADL's Independent Baseline Function- Mobility Independent Current Functional Impairments (Reported) Functional Limitations- ADL's Careful with his balance Personal Factors Other Personal Factors That May Effect Extensive cardiac history. 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 PT-OP-C Subjective Start: 06/23/20 07:25 Freq: Status: Active Protocol: Document 06/26/20 09:00 AMB (Rec: 06/26/20 10:08 AMB [id number]) OP-PT Subjective Patient Comments Patient Comments Pt brings in exercise book from inpatient rehab stating that he hasn't been doing the exercises but has been walking instead. PT-OP-E Functional Tests Start: 06/23/20 07:25 Freq: Status: Active Protocol: Document 06/23/20 13:35 AMB (Rec: 06/24/20 09:57 AMB [email or web address]) Functional Tests Dynamic Gait Index (DGI) Score 20 DGI Impairment Rating 1 to <20% Impaired (Score 20- 23) PT-OP-G Mobility & Gait Start: 06/23/20 07:25 Freq: Status: Active Protocol: Document 06/23/20 13:35 AMB (Rec: 06/24/20 09:57 AMB [email or web address]) OP Gait Assessment Comments Gait Comments Decreased L arm swing (pt reports might get total shoulder on it). Slightly reduced push off on the left, pt reports mild toe catching if he has been walking a long time. PT-OP-M Strength Start: 06/23/20 07:25 Freq: Status: Active Protocol: Document 06/23/20 13:35 AMB (Rec: 06/24/20 09:57 AMB [email or web address]) Hip Strength Hip Manual Muscle Testing Right Flexion (L2) 4+ Good+ Extension (S1) 4+ Good+ Abduction 4+ Good+ Left Flexion (L2) 4+ Good+ Extension (S1) 4 Good Abduction 4 Good Knee Strength Knee Manual Muscle Testing Right Flexion (S2) 5 Normal Extension (L3) 5 Normal Left Flexion (S2) 5 Normal Extension (L3) 5 Normal Ankle/Foot Strength Ankle and Foot Manual Muscle Testing Right Dorsiflexion (L4) 5 Normal Plantarflexion (S1) 4+ Good+ Left Dorsiflexion (L4) 4- Good- Plantarflexion (S1) 4- Good- PT-OP-Q Treatments Start: 06/23/20 07:25 Freq: Status: Active Protocol: Document 06/26/20 09:00 AMB (Rec: 06/26/20 10:08 AMB [id number]) Therapeutic Exercises Supine Exercises 1 Supine Exercise Name bridges Equipment Used #3 tband Reps/Minutes 2x10 Sidelying Exercises 1 Sidelying Exercise Name clamshells Equipment Used #3 tband Reps/Minutes 15 Standing Exercises 3 Standing Exercise Name sit<>stand Reps/Minutes 10 Comments difficult without UE support 2 Standing Exercise Name alternating toe tap in standing Reps/Minutes 2 min 1 Standing Exercise Name double leg heel raise Reps/Minutes 2x10 Neuro Re-Education Treatment Balance Activities 1 Details stride stance Comments EC, then EO horizontal HT PT-OP-T Assessment and Plan Start: 06/23/20 07:25 Freq: Status: Active Protocol: Document 12/14/20 09:00 AMB (Rec: 06/26/20 10:08 AMB [id number]) Physical Therapy Assessment Assessment Summary Assessment Pt did well with exercises, focused on HEP of 5 exercises, try to do all 5 5x/week and continuing with walking program. Physical Therapy Plan Next Visit Focus/Plan Next Visit Plan Higher level balance challenges focusing on ankle response
--- NOTE | 2020-06-28 10:13 | PT.OTN ---
Current Diagnoses Cerebral infarction, unspecified (06/28/20) Other abnormalities of gait and mobility (06/28/20) Physical Therapy Treatment Note PT-OP-A Visit Information Start: 06/23/20 07:25 Freq: Status: Active Protocol: Document 06/28/20 09:01 AMB (Rec: 06/28/20 10:13 AMB [id number]) Out-Patient Physical Therapy Visit Information Visit Information Visit Type Treatment Note Visit Start Time 09:00 Visit Stop Time 09:45 Total Visit Minutes 45 Visit Number 3 PT-OP-B Current Condition Start: 06/23/20 07:25 Freq: Status: Active Protocol: Document 06/23/20 13:35 AMB (Rec: 06/24/20 09:57 AMB [email or web address]) Current Condition History of Current Condition Onset Date April 2020 Current Complaints hemhorragic stroke- right basal ganglia History of Current Condition Yamil has been home from [facility] for over a month now, RHD. Sounds like he did inpatient rehab but no home health. He is walking up to 40 minutes a day with a cane in the community. He hasn't been doing his exercises as much now that he is walking. He previously exercised at the gym, but hasn't been since September due to Covid. No stairs inside the home, walk in shower with shower chair. Lives with , has returned to driving, history of macular degeneration worse on the R. Treatment Goals Patient/Caregiver Goals Make sure he's back to normal Prior Functional Status Baseline Function- ADL's Independent Baseline Function- Mobility Independent Current Functional Impairments (Reported) Functional Limitations- ADL's Careful with his balance Personal Factors Other Personal Factors That May Effect Extensive cardiac history. 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 PT-OP-C Subjective Start: 06/23/20 07:25 Freq: Status: Active Protocol: Document 06/28/20 09:01 AMB (Rec: 06/28/20 10:13 AMB [id number]) OP-PT Subjective Patient Comments Patient Comments Pt states he felt some muscles he doesn't use too often after last appt. PT-OP-E Functional Tests Start: 06/23/20 07:25 Freq: Status: Active Protocol: Document 06/23/20 13:35 AMB (Rec: 06/24/20 09:57 AMB [email or web address]) Functional Tests Dynamic Gait Index (DGI) Score 20 DGI Impairment Rating 1 to <20% Impaired (Score 20- 23) PT-OP-G Mobility & Gait Start: 06/23/20 07:25 Freq: Status: Active Protocol: Document 06/23/20 13:35 AMB (Rec: 06/24/20 09:57 AMB [email or web address]) OP Gait Assessment Comments Gait Comments Decreased L arm swing (pt reports might get total shoulder on it). Slightly reduced push off on the left, pt reports mild toe catching if he has been walking a long time. PT-OP-M Strength Start: 06/23/20 07:25 Freq: Status: Active Protocol: Document 06/23/20 13:35 AMB (Rec: 06/24/20 09:57 AMB [email or web address]) Hip Strength Hip Manual Muscle Testing Right Flexion (L2) 4+ Good+ Extension (S1) 4+ Good+ Abduction 4+ Good+ Left Flexion (L2) 4+ Good+ Extension (S1) 4 Good Abduction 4 Good Knee Strength Knee Manual Muscle Testing Right Flexion (S2) 5 Normal Extension (L3) 5 Normal Left Flexion (S2) 5 Normal Extension (L3) 5 Normal Ankle/Foot Strength Ankle and Foot Manual Muscle Testing Right Dorsiflexion (L4) 5 Normal Plantarflexion (S1) 4+ Good+ Left Dorsiflexion (L4) 4- Good- Plantarflexion (S1) 4- Good- PT-OP-Q Treatments Start: 06/23/20 07:25 Freq: Status: Active Protocol: Document 06/28/20 09:01 AMB (Rec: 06/28/20 10:13 AMB [id number]) Gym Equipment Shuttle Balance 1 Details BLUE Reps/Duration 10 min Comments WBOS- EC tends to lose balance anteriorly, vc more weight on heels. EO slow head turns ok Therapeutic Exercises Standing Exercises 4 Standing Exercise Name forward lunges Comments 10 ea, vc form Neuro Re-Education Treatment Balance Activities 4 Details blue foam Comments NBOS- EC then EO HT horizontal . Tends to lose balance anterior. 3 Details SLS Comments up to 10 seconds, close to rail to touch down 2 Details tandem Comments close to railing 1 Details stride stance Comments EC, then EO horizontal HT PT-OP-T Assessment and Plan Start: 06/23/20 07:25 Freq: Status: Active Protocol: Document 06/28/20 09:01 CHEN (Rec: 06/28/20 10:13 AMB [id number]) Physical Therapy Assessment Goals Two Impairment Strength Short Term Goal (STG) Yamil will show improved ankle strength in all planes to 4/5. STG Duration 4 weeks [facility]ci Goal (LTG) Yamil will be consistent and independent with a HEP for strength and balance. LTG Duration 8 weeks One Impairment Balance Short Term Goal (STG) Yamil will improve his DGI score to 23/24 to show reduced risk of falling. STG Duration 4 weeks Structural Steel Fitter Goal (LTG) Yamil will show improved balance by maintaing single leg stance for 3 seconds. LTG Duration 8 weeks Assessment Summary Assessment Pt did well with balance exercises, but does have a hard time with ankle proprioception when losing balance forward with EC activities. Physical Therapy Plan Frequency and Duration Frequency of Treatment 2x/Week Duration of Treatment 8 weeks Plan of Care Start Date 06/23/20 Plan of Care End Date 08/18/20 Therapeutic Interventions Therapeutic Interventions Balance Training,Gait Training ,Home Exercise Program,Manual Therapy,Neuromuscular Re- education,Self-Care/Home Management,Therapeutic Activities,Therapeutic Exercises Next Visit Focus/Plan Next Visit Plan Higher level balance challenges focusing on ankle response
--- NOTE | 2020-07-05 12:57 | PT.OTN ---
Current Diagnoses Cerebral infarction, unspecified (07/05/20) Other abnormalities of gait and mobility (07/05/20) Physical Therapy Treatment Note PT-OP-A Visit Information Start: 06/23/20 07:25 Freq: Status: Active Protocol: Document 07/05/20 10:15 AMB (Rec: 07/05/20 12:56 AMB [id number]) Out-Patient Physical Therapy Visit Information Visit Information Visit Type Treatment Note Visit Start Time 10:15 Visit Stop Time 11:00 Total Visit Minutes 45 Visit Number 4 PT-OP-B Current Condition Start: 06/23/20 07:25 Freq: Status: Active Protocol: Document 06/23/20 13:35 AMB (Rec: 06/24/20 09:57 AMB [email or web address]) Current Condition History of Current Condition Onset Date April 2020 Current Complaints hemhorragic stroke- right basal ganglia History of Current Condition Yamil has been home from [facility] for over a month now, RHD. Sounds like he did inpatient rehab but no home health. He is walking up to 40 minutes a day with a cane in the community. He hasn't been doing his exercises as much now that he is walking. He previously exercised at the gym, but hasn't been since September due to Covid. No stairs inside the home, walk in shower with shower chair. Lives with , has returned to driving, history of macular degeneration worse on the R. Treatment Goals Patient/Caregiver Goals Make sure he's back to normal Prior Functional Status Baseline Function- ADL's Independent Baseline Function- Mobility Independent Current Functional Impairments (Reported) Functional Limitations- ADL's Careful with his balance Personal Factors Other Personal Factors That May Effect Extensive cardiac history. 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 PT-OP-C Subjective Start: 06/23/20 07:25 Freq: Status: Active Protocol: Document 07/05/20 10:15 AMB (Rec: 07/05/20 12:56 AMB [id number]) OP-PT Subjective Patient Comments Patient Comments Pt has been working on single leg stance at home and PT-OP-E Functional Tests Start: 06/23/20 07:25 Freq: Status: Active Protocol: Document 06/23/20 13:35 AMB (Rec: 06/24/20 09:57 AMB [email or web address]) Functional Tests Dynamic Gait Index (DGI) Score 20 DGI Impairment Rating 1 to <20% Impaired (Score 20- 23) PT-OP-G Mobility & Gait Start: 06/23/20 07:25 Freq: Status: Active Protocol: Document 06/23/20 13:35 AMB (Rec: 06/24/20 09:57 AMB [email or web address]) OP Gait Assessment Comments Gait Comments Decreased L arm swing (pt reports might get total shoulder on it). Slightly reduced push off on the left, pt reports mild toe catching if he has been walking a long time. PT-OP-M Strength Start: 06/23/20 07:25 Freq: Status: Active Protocol: Document 06/23/20 13:35 AMB (Rec: 06/24/20 09:57 AMB [email or web address]) Hip Strength Hip Manual Muscle Testing Right Flexion (L2) 4+ Good+ Extension (S1) 4+ Good+ Abduction 4+ Good+ Left Flexion (L2) 4+ Good+ Extension (S1) 4 Good Abduction 4 Good Knee Strength Knee Manual Muscle Testing Right Flexion (S2) 5 Normal Extension (L3) 5 Normal Left Flexion (S2) 5 Normal Extension (L3) 5 Normal Ankle/Foot Strength Ankle and Foot Manual Muscle Testing Right Dorsiflexion (L4) 5 Normal Plantarflexion (S1) 4+ Good+ Left Dorsiflexion (L4) 4- Good- Plantarflexion (S1) 4- Good- PT-OP-Q Treatments Start: 06/23/20 07:25 Freq: Status: Active Protocol: Document 07/05/20 10:15 AMB (Rec: 07/05/20 12:56 AMB [id number]) Gym Equipment Shuttle Balance 1 Details BLUE Reps/Duration 10 min Comments WBOS- Eyes closed difficult, eyes open horizontal head turns-ok, stride stance EO head turns Neuro Re-Education Treatment Balance Activities 6 Details balance board Comments a/p and m/l EO good- EC needed Nik to avoid LOB 5 Details hurdles Reps/Duration 10'x4 Comments with balance pods between- gait belt CGA 1 Details stride stance Comments EC, then EO horizontal HT PT-OP-T Assessment and Plan Start: 06/23/20 07:25 Freq: Status: Active Protocol: Document 07/05/20 10:15 AMB (Rec: 07/05/20 12:56 AMB [id number]) Physical Therapy Assessment Goals Two Impairment Strength Short Term Goal (STG) Yamil will show improved ankle strength in all planes to 4/5. STG Duration 4 weeks Finish Remover Goal (LTG) Yamil will be consistent and independent with a HEP for strength and balance. LTG Duration 8 weeks One Impairment Balance Short Term Goal (STG) Yamil will improve his DGI score to 23/24 to show reduced risk of falling. STG Duration 4 weeks Jail Goal (LTG) Yamil will show improved balance by maintaing single leg stance for 3 seconds. LTG Duration 8 weeks Assessment Summary Assessment Pt felt like his balance was better today than last week and this PT would agree. Eyes closed balance continues to be very challenging, but pt knows to avoid walking in the dark. Physical Therapy Plan Next Visit Focus/Plan Next Visit Plan Higher level balance challenges focusing on ankle response
--- NOTE | 2020-07-10 11:18 | PT.OTN ---
Current Diagnoses Cerebral infarction, unspecified (07/10/20) Other abnormalities of gait and mobility (07/10/20) Physical Therapy Treatment Note PT-OP-A Visit Information Start: 06/23/20 07:25 Freq: Status: Active Protocol: Document 07/10/20 10:31 SP (Rec: 07/10/20 11:32 SP [id number]) Out-Patient Physical Therapy Visit Information Visit Information Visit Type Treatment Note Visit Start Time 10:31 Visit Stop Time 11:18 Total Visit Minutes 47 Visit Number 5 Number of OPERATIONS SCHEDULER Visits 1 PT-OP-B Current Condition Start: 06/23/20 07:25 Freq: Status: Active Protocol: Document 06/23/20 13:35 AMB (Rec: 06/24/20 09:57 AMB [email or web address]) Current Condition History of Current Condition Onset Date April 2020 Current Complaints hemhorragic stroke- right basal ganglia History of Current Condition Yamil has been home from [facility] for over a month now, RHD. Sounds like he did inpatient rehab but no home health. He is walking up to 40 minutes a day with a cane in the community. He hasn't been doing his exercises as much now that he is walking. He previously exercised at the gym, but hasn't been since September due to Covid. No stairs inside the home, walk in shower with shower chair. Lives with , has returned to driving, history of macular degeneration worse on the R. Treatment Goals Patient/Caregiver Goals Make sure he's back to normal Prior Functional Status Baseline Function- ADL's Independent Baseline Function- Mobility Independent Current Functional Impairments (Reported) Functional Limitations- ADL's Careful with his balance Personal Factors Other Personal Factors That May Effect Extensive cardiac history. 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 PT-OP-C Subjective Start: 06/23/20 07:25 Freq: Status: Active Protocol: Document 07/10/20 10:31 SP (Rec: 07/10/20 11:32 SP [id number]) OP-PT Subjective Patient Comments Patient Comments Pt reported doing well, no concerns or changes since last tx. PT-OP-E Functional Tests Start: 06/23/20 07:25 Freq: Status: Active Protocol: Document 06/23/20 13:35 AMB (Rec: 06/24/20 09:57 AMB [email or web address]) Functional Tests Dynamic Gait Index (DGI) Score 20 DGI Impairment Rating 1 to <20% Impaired (Score 20- 23) PT-OP-G Mobility & Gait Start: 06/23/20 07:25 Freq: Status: Active Protocol: Document 06/23/20 13:35 AMB (Rec: 06/24/20 09:57 AMB [email or web address]) OP Gait Assessment Comments Gait Comments Decreased L arm swing (pt reports might get total shoulder on it). Slightly reduced push off on the left, pt reports mild toe catching if he has been walking a long time. PT-OP-M Strength Start: 06/23/20 07:25 Freq: Status: Active Protocol: Document 06/23/20 13:35 AMB (Rec: 06/24/20 09:57 AMB [email or web address]) Hip Strength Hip Manual Muscle Testing Right Flexion (L2) 4+ Good+ Extension (S1) 4+ Good+ Abduction 4+ Good+ Left Flexion (L2) 4+ Good+ Extension (S1) 4 Good Abduction 4 Good Knee Strength Knee Manual Muscle Testing Right Flexion (S2) 5 Normal Extension (L3) 5 Normal Left Flexion (S2) 5 Normal Extension (L3) 5 Normal Ankle/Foot Strength Ankle and Foot Manual Muscle Testing Right Dorsiflexion (L4) 5 Normal Plantarflexion (S1) 4+ Good+ Left Dorsiflexion (L4) 4- Good- Plantarflexion (S1) 4- Good- PT-OP-Q Treatments Start: 06/23/20 07:25 Freq: Status: Active Protocol: Document 07/10/20 10:31 SP (Rec: 07/10/20 11:32 SP [id number]) Cardio Equipment Recumbent Elliptical (Biodex) Duration (Minutes) 6 Resistance 4 Seat Position 12 seen Other STM Gym Equipment Shuttle Balance red clips Details red Comments wt shift, COG over JUDY, hed turn x 2 reps R and L contact Continue Blue before progress red next tx. 1 Details BLUE Reps/Duration 10 min Comments WBOS- Eyes closed difficult, eyes open horizontal head turns-ok, stride stance EO head turns Therapeutic Exercises Standing Exercises eccentric squat taps Standing Exercise Name arms across chest Resistance AROM Equipment Used 18 chair and blue cushion Reps/Minutes 2x5 Neuro Re-Education Treatment Balance Activities 5 Details hurdles Equipment //bar Reps/Duration 10'x4 Comments step to, step over step no UE needed 1 Details WBOS, NBOS, stagger Surface stable Equipment back to corner, chair front Comments 1. EO head turns vertical/ horizontal 2. EC 30 sec each position better RLE in back postion, safe to add HEP PT-OP-T Assessment and Plan Start: 06/23/20 07:25 Freq: Status: Active Protocol: Document 07/10/20 10:31 SP (Rec: 07/10/20 11:32 SP [id number]) Physical Therapy Assessment Goals Two Impairment Strength Short Term Goal (STG) Yamil will show improved ankle strength in all planes to 4/5. STG Duration 4 weeks Snf Goal (LTG) Yamil will be consistent and independent with a HEP for strength and balance. LTG Duration 8 weeks One Impairment Balance Short Term Goal (STG) Yamil will improve his DGI score to 23/24 to show reduced risk of falling. STG Duration 4 weeks Trim Crew Supervisor Goal (LTG) Yamil will show improved balance by maintaing single leg stance for 3 seconds. LTG Duration 8 weeks Assessment Summary Assessment Pt improved in no UE required during stance nicanor stepping today. Initiated balance various JUDY in corner with chair assist as needed and eccentrict chair taps for LE strengthening support with good response to add for home, provided hand outs for recall and form, verbal and demonstrated understanding. Physical Therapy Plan Frequency and Duration Frequency of Treatment 2x/Week Duration of Treatment 8 weeks Plan of Care Start Date 06/23/20 Plan of Care End Date 08/18/20 Therapeutic Interventions Therapeutic Interventions Balance Training,Gait Training ,Home Exercise Program,Manual Therapy,Neuromuscular Re- education,Self-Care/Home Management,Therapeutic Activities,Therapeutic Exercises Next Visit Focus/Plan Next Visit Plan Assess response to corner balance and chair taps no UE support, added to HEP. Continiue per PT POC: Higher level balance challenges focusing on ankle response
--- NOTE | 2020-07-13 12:12 | PT.OTN ---
Current Diagnoses Cerebral infarction, unspecified (07/13/20) Other abnormalities of gait and mobility (07/13/20) Physical Therapy Treatment Note PT-OP-A Visit Information Start: 06/23/20 07:25 Freq: Status: Active Protocol: Document 07/13/20 11:25 SP (Rec: 07/13/20 13:27 SP [id number]) Out-Patient Physical Therapy Visit Information Visit Information Visit Type Treatment Note Visit Start Time 11:25 Visit Stop Time 12:12 Total Visit Minutes 47 Visit Number 6 Number of PIPE ORGAN MECHANIC Visits 2 PT-OP-B Current Condition Start: 06/23/20 07:25 Freq: Status: Active Protocol: Document 06/23/20 13:35 AMB (Rec: 06/24/20 09:57 AMB [email or web address]) Current Condition History of Current Condition Onset Date April 2020 Current Complaints hemhorragic stroke- right basal ganglia History of Current Condition Yamil has been home from [facility] for over a month now, RHD. Sounds like he did inpatient rehab but no home health. He is walking up to 40 minutes a day with a cane in the community. He hasn't been doing his exercises as much now that he is walking. He previously exercised at the gym, but hasn't been since September due to Covid. No stairs inside the home, walk in shower with shower chair. Lives with , has returned to driving, history of macular degeneration worse on the R. Treatment Goals Patient/Caregiver Goals Make sure he's back to normal Prior Functional Status Baseline Function- ADL's Independent Baseline Function- Mobility Independent Current Functional Impairments (Reported) Functional Limitations- ADL's Careful with his balance Personal Factors Other Personal Factors That May Effect Extensive cardiac history. 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 PT-OP-C Subjective Start: 06/23/20 07:25 Freq: Status: Active Protocol: Document 07/13/20 11:25 SP (Rec: 07/13/20 13:27 SP [id number]) OP-PT Subjective Patient Comments Patient Comments Pt reported started taking a shower without a chair and did ok but nicolas little slippery but no LOB and has bars to hang onto. Compliant with HEP but wants to review standing balance in a corner to be sure doing correct. Patient Reported Progress Improving PT-OP-E Functional Tests Start: 06/23/20 07:25 Freq: Status: Active Protocol: Document 06/23/20 13:35 AMB (Rec: 06/24/20 09:57 AMB [email or web address]) Functional Tests Dynamic Gait Index (DGI) Score 20 DGI Impairment Rating 1 to <20% Impaired (Score 20- 23) PT-OP-G Mobility & Gait Start: 06/23/20 07:25 Freq: Status: Active Protocol: Document 06/23/20 13:35 AMB (Rec: 06/24/20 09:57 AMB [email or web address]) OP Gait Assessment Comments Gait Comments Decreased L arm swing (pt reports might get total shoulder on it). Slightly reduced push off on the left, pt reports mild toe catching if he has been walking a long time. PT-OP-M Strength Start: 06/23/20 07:25 Freq: Status: Active Protocol: Document 06/23/20 13:35 AMB (Rec: 06/24/20 09:57 AMB [email or web address]) Hip Strength Hip Manual Muscle Testing Right Flexion (L2) 4+ Good+ Extension (S1) 4+ Good+ Abduction 4+ Good+ Left Flexion (L2) 4+ Good+ Extension (S1) 4 Good Abduction 4 Good Knee Strength Knee Manual Muscle Testing Right Flexion (S2) 5 Normal Extension (L3) 5 Normal Left Flexion (S2) 5 Normal Extension (L3) 5 Normal Ankle/Foot Strength Ankle and Foot Manual Muscle Testing Right Dorsiflexion (L4) 5 Normal Plantarflexion (S1) 4+ Good+ Left Dorsiflexion (L4) 4- Good- Plantarflexion (S1) 4- Good- PT-OP-Q Treatments Start: 06/23/20 07:25 Freq: Status: Active Protocol: Document 07/13/20 11:25 SP (Rec: 07/13/20 13:27 SP [id number]) Cardio Equipment Recumbent Stepper (Sci-Fit) Duration (Minutes) 6 Resistance 2 Seat Position 15 Other RPM 52, miles 0.75 Gym Equipment Shuttle Balance 1 Details BLUE Reps/Duration 10 min Comments WBOS, NBOS, stagger- Eyes closed difficult, eyes open horizontal head turns-ok, stagger stance EO head turns ok, balloon hitting little challenge CG- 10 % A w/ PRN UE conact. Therapeutic Exercises Standing Exercises step ups Standing Exercise Name at PT due to no step at home Side bilateral Resistance #5 leg wt Equipment Used 6 step, //bar contact 1 UE Reps/Minutes x1 dodge each LE Comments cue soft eccentric land floor, and foot clear step down eccentric squat taps Standing Exercise Name arms across chest ( HEP review ) Resistance AROM Equipment Used 18 chair and blue cushion Reps/Minutes 10 reps in 20 sec 4 Standing Exercise Name forward lunges (HEP review) Equipment Used //bar 1 UE contact PRN Reps/Minutes 10 reps each Comments vc form 2 Standing Exercise Name alternating toe tap in standing ( HEP review) Resistance #5 lb leg wt Equipment Used //bar near PRN, 6 step (chair leg HEP review w/ contact counter) Reps/Minutes x10 Comments cued slow pacing to allow core / glut faciltation and improved balance 1 Standing Exercise Name double leg heel raise ( HEP review) Reps/Minutes 2x10 Comments PRN contact rail Neuro Re-Education Treatment Balance Activities 5 Details hurdles Surface #5 leg wt Equipment //bar, CG no assiste needed Reps/Duration 10'x4 Comments step to, step over step no UE needed PT-OP-T Assessment and Plan Start: 06/23/20 07:25 Freq: Status: Active Protocol: Document 07/13/20 11:25 SP (Rec: 07/13/20 13:27 SP [id number]) Physical Therapy Assessment Goals Two Impairment Strength Short Term Goal (STG) Yamil will show improved ankle strength in all planes to 4/5. STG Duration 4 weeks Package Line Relief Operator Goal (LTG) Yamil will be consistent and independent with a HEP for strength and balance. LTG Duration 8 weeks One Impairment Balance Short Term Goal (STG) Yamil will improve his DGI score to 23/24 to show reduced risk of falling. STG Duration 4 weeks Penitentiary Goal (LTG) Yamil will show improved balance by maintaing single leg stance for 3 seconds. LTG Duration 8 weeks Assessment Summary Assessment Pt improved with HEP able to add 5# leg wt today to assist strengthening. Pt improved with shuttle balance on blue clips today and required decrease assist with EO, challenged EC required Min A and up to 15 sec, EO stable surface NBOS 30 sec doing at home, see HEP. Pt feels is making improvements and PT is helping him. Physical Therapy Plan Frequency and Duration Frequency of Treatment 2x/Week Duration of Treatment 8 weeks Plan of Care Start Date 06/23/20 Plan of Care End Date 08/18/20 Therapeutic Interventions Therapeutic Interventions Balance Training,Gait Training ,Home Exercise Program,Manual Therapy,Neuromuscular Re- education,Self-Care/Home Management,Therapeutic Activities,Therapeutic Exercises Next Visit Focus/Plan Next Visit Plan Reassess response to corner balance NBOS ok EC, stagger EO only home, EC in PT only for safety. Initated 5# leg wt with HEP, ask how felt later after last tx. Continiue per PT POC: Higher level balance challenges focusing on ankle response.
--- NOTE | 2020-07-17 15:33 | PT.OTN ---
Current Diagnoses Cerebral infarction, unspecified (07/17/20) Other abnormalities of gait and mobility (07/17/20) Physical Therapy Treatment Note PT-OP-A Visit Information Start: 06/23/20 07:25 Freq: Status: Active Protocol: Document 07/17/20 10:15 AMB (Rec: 07/17/20 11:57 AMB [id number]) Out-Patient Physical Therapy Visit Information Visit Information Visit Type Treatment Note Visit Start Time 10:15 Visit Stop Time 10:55 Total Visit Minutes 40 Visit Number 7 Number of MANAGER OF INTERNAL AUDIT Visits 0 PT-OP-B Current Condition Start: 06/23/20 07:25 Freq: Status: Active Protocol: Document 06/23/20 13:35 AMB (Rec: 06/24/20 09:57 AMB [email or web address]) Current Condition History of Current Condition Onset Date April 2020 Current Complaints hemhorragic stroke- right basal ganglia History of Current Condition Yamil has been home from [facility] for over a month now, RHD. Sounds like he did inpatient rehab but no home health. He is walking up to 40 minutes a day with a cane in the community. He hasn't been doing his exercises as much now that he is walking. He previously exercised at the gym, but hasn't been since September due to Covid. No stairs inside the home, walk in shower with shower chair. Lives with , has returned to driving, history of macular degeneration worse on the R. Treatment Goals Patient/Caregiver Goals Make sure he's back to normal Prior Functional Status Baseline Function- ADL's Independent Baseline Function- Mobility Independent Current Functional Impairments (Reported) Functional Limitations- ADL's Careful with his balance Personal Factors Other Personal Factors That May Effect Extensive cardiac history. 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 PT-OP-C Subjective Start: 06/23/20 07:25 Freq: Status: Active Protocol: Document 07/17/20 10:15 AMB (Rec: 07/17/20 11:57 AMB [id number]) OP-PT Subjective Patient Comments Patient Comments Pt reports he is not quite at his PLOF as he would have concerns about going crabbing and going fishing (walking down the the bank) which he was doing before the stroke. PT-OP-E Functional Tests Start: 06/23/20 07:25 Freq: Status: Active Protocol: Document 06/23/20 13:35 AMB (Rec: 06/24/20 09:57 AMB [email or web address]) Functional Tests Dynamic Gait Index (DGI) Score 20 DGI Impairment Rating 1 to <20% Impaired (Score 20- 23) PT-OP-G Mobility & Gait Start: 06/23/20 07:25 Freq: Status: Active Protocol: Document 06/23/20 13:35 AMB (Rec: 06/24/20 09:57 AMB [email or web address]) OP Gait Assessment Comments Gait Comments Decreased L arm swing (pt reports might get total shoulder on it). Slightly reduced push off on the left, pt reports mild toe catching if he has been walking a long time. PT-OP-M Strength Start: 06/23/20 07:25 Freq: Status: Active Protocol: Document 06/23/20 13:35 AMB (Rec: 06/24/20 09:57 AMB [email or web address]) Hip Strength Hip Manual Muscle Testing Right Flexion (L2) 4+ Good+ Extension (S1) 4+ Good+ Abduction 4+ Good+ Left Flexion (L2) 4+ Good+ Extension (S1) 4 Good Abduction 4 Good Knee Strength Knee Manual Muscle Testing Right Flexion (S2) 5 Normal Extension (L3) 5 Normal Left Flexion (S2) 5 Normal Extension (L3) 5 Normal Ankle/Foot Strength Ankle and Foot Manual Muscle Testing Right Dorsiflexion (L4) 5 Normal Plantarflexion (S1) 4+ Good+ Left Dorsiflexion (L4) 4- Good- Plantarflexion (S1) 4- Good- PT-OP-Q Treatments Start: 06/23/20 07:25 Freq: Status: Active Protocol: Document 07/17/20 10:15 AMB (Rec: 07/17/20 13:32 AMB [id number]) Therapeutic Exercises Standing Exercises step ups Standing Exercise Name at PT due to no step at home Side bilateral Equipment Used 6 step no UE Comments cue soft eccentric land floor, and foot clear step down 2 Standing Exercise Name alternating toe tap in standing ( HEP review) Equipment Used //bar near PRN, 6 step (chair leg HEP review w/ contact counter) Reps/Minutes x10 Comments cued slow pacing to allow core / glut faciltation and improved balance Neuro Re-Education Treatment Balance Activities 5 Details hurdles Equipment rail Comments step over step forward and lateral 3 Details long stepping and high stepping Comments harder to step high on the right 2 Details walking with head turns Comments vertical and horizontal 1 Details WBOS, NBOS, stagger Surface stable Equipment back to corner, chair front Comments 1. EO head turns vertical/ horizontal PT-OP-T Assessment and Plan Start: 06/23/20 07:25 Freq: Status: Active Protocol: Document 07/17/20 10:15 AMB (Rec: 07/17/20 11:57 AMB [id number]) Physical Therapy Assessment Assessment Summary Assessment Worked more on dynamic balance today due to pt's concerns about walking for crabbing and fishing, does use walking stick especially for walking down hill and that is new. Physical Therapy Plan Next Visit Focus/Plan Next Note Type Treatment Note Next Visit Plan Continue dynamic balance challenges, assess what pt can doing safely at home, no stairs does have a hallway but it has a rug.
--- NOTE | 2020-07-19 16:31 | PT.OTN ---
Current Diagnoses Cerebral infarction, unspecified (07/19/20) Other abnormalities of gait and mobility (07/19/20) Physical Therapy Treatment Note PT-OP-A Visit Information Start: 06/23/20 07:25 Freq: Status: Active Protocol: Document 07/19/20 10:15 AMB (Rec: 07/19/20 16:30 AMB [id number]) Out-Patient Physical Therapy Visit Information Visit Information Visit Type Treatment Note Visit Number 8 PT-OP-B Current Condition Start: 06/23/20 07:25 Freq: Status: Active Protocol: Document 06/23/20 13:35 AMB (Rec: 06/24/20 09:57 AMB [email or web address]) Current Condition History of Current Condition Onset Date April 2020 Current Complaints hemhorragic stroke- right basal ganglia History of Current Condition Yamil has been home from [facility] for over a month now, RHD. Sounds like he did inpatient rehab but no home health. He is walking up to 40 minutes a day with a cane in the community. He hasn't been doing his exercises as much now that he is walking. He previously exercised at the gym, but hasn't been since September due to Covid. No stairs inside the home, walk in shower with shower chair. Lives with , has returned to driving, history of macular degeneration worse on the R. Treatment Goals Patient/Caregiver Goals Make sure he's back to normal Prior Functional Status Baseline Function- ADL's Independent Baseline Function- Mobility Independent Current Functional Impairments (Reported) Functional Limitations- ADL's Careful with his balance Personal Factors Other Personal Factors That May Effect Extensive cardiac history. 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 PT-OP-C Subjective Start: 06/23/20 07:25 Freq: Status: Active Protocol: Document 07/19/20 10:15 AMB (Rec: 07/19/20 16:31 AMB [id number]) OP-PT Subjective Patient Comments Patient Comments Pt is doing well, he was tired after last appointment PT-OP-E Functional Tests Start: 06/23/20 07:25 Freq: Status: Active Protocol: Document 06/23/20 13:35 AMB (Rec: 06/24/20 09:57 AMB [email or web address]) Functional Tests Dynamic Gait Index (DGI) Score 20 DGI Impairment Rating 1 to <20% Impaired (Score 20- 23) PT-OP-G Mobility & Gait Start: 06/23/20 07:25 Freq: Status: Active Protocol: Document 06/23/20 13:35 AMB (Rec: 06/24/20 09:57 AMB [email or web address]) OP Gait Assessment Comments Gait Comments Decreased L arm swing (pt reports might get total shoulder on it). Slightly reduced push off on the left, pt reports mild toe catching if he has been walking a long time. PT-OP-M Strength Start: 06/23/20 07:25 Freq: Status: Active Protocol: Document 06/23/20 13:35 AMB (Rec: 06/24/20 09:57 AMB [email or web address]) Hip Strength Hip Manual Muscle Testing Right Flexion (L2) 4+ Good+ Extension (S1) 4+ Good+ Abduction 4+ Good+ Left Flexion (L2) 4+ Good+ Extension (S1) 4 Good Abduction 4 Good Knee Strength Knee Manual Muscle Testing Right Flexion (S2) 5 Normal Extension (L3) 5 Normal Left Flexion (S2) 5 Normal Extension (L3) 5 Normal Ankle/Foot Strength Ankle and Foot Manual Muscle Testing Right Dorsiflexion (L4) 5 Normal Plantarflexion (S1) 4+ Good+ Left Dorsiflexion (L4) 4- Good- Plantarflexion (S1) 4- Good- PT-OP-Q Treatments Start: 06/23/20 07:25 Freq: Status: Active Protocol: Document 07/19/20 10:15 AMB (Rec: 07/19/20 16:30 AMB [id number]) Therapeutic Exercises Standing Exercises eccentric squat taps Standing Exercise Name arms across chest ( HEP review ) Resistance AROM Equipment Used 18 chair and blue cushion Reps/Minutes 10 reps in 20 sec 4 Standing Exercise Name forward lunges (HEP review) Equipment Used //bar 1 UE contact PRN Reps/Minutes 10 reps each Comments vc form 3 Standing Exercise Name heel raises Comments single was too challenging 2 Standing Exercise Name alternating toe tap in standing ( HEP review) Equipment Used //bar near PRN, 6 step (chair leg HEP review w/ contact counter) Reps/Minutes x10 Comments cued slow pacing to allow core / glut faciltation and improved balance Neuro Re-Education Treatment Balance Activities 2 Details walking with head turns Comments vertical and horizontal, added diagonal 1 Details WBOS, NBOS, stagger Surface stable Equipment back to corner, chair front Comments 1. EO head turns vertical/ horizontal PT-OP-T Assessment and Plan Start: 06/23/20 07:25 Freq: Status: Active Protocol: Document 07/19/20 10:15 AMB (Rec: 07/19/20 16:30 AMB [id number]) Physical Therapy Assessment Goals Two Impairment Strength Short Term Goal (STG) Yamil will show improved ankle strength in all planes to 4/5. STG Duration 4 weeks Custodial Goal (LTG) Yamil will be consistent and independent with a HEP for strength and balance. LTG Duration 8 weeks One Impairment Balance Short Term Goal (STG) Aymil will improve his DGI score to 23/24 to show reduced risk of falling. STG Duration 4 weeks Electrical Accessories Assembler Goal (LTG) Yamil will show improved balance by maintaing single leg stance for 3 seconds. LTG Duration 8 weeks Assessment Summary Assessment Dad did well with his DGI - did give head turns while walking as HEP and will follow up on overall HEP as likely getting closer to d/c in next few visits. Physical Therapy Plan Frequency and Duration Frequency of Treatment 2x/Week Duration of Treatment 8 weeks Plan of Care Start Date 06/23/20 Plan of Care End Date 08/18/20 Therapeutic Interventions Therapeutic Interventions Balance Training,Gait Training ,Home Exercise Program,Manual Therapy,Neuromuscular Re- education,Self-Care/Home Management,Therapeutic Activities,Therapeutic Exercises Next Visit Focus/Plan Next Note Type Treatment Note Next Visit Plan Start finalizing HEP- pt would like everything on one piece of paper before d/c so he doesn't get confused as to what he is supposed to be doing- have multiple pieces of paper.
--- NOTE | 2020-07-25 13:50 | PT.OTN ---
Current Diagnoses Cerebral infarction, unspecified (07/25/20) Other abnormalities of gait and mobility (07/25/20) Physical Therapy Treatment Note PT-OP-A Visit Information Start: 06/23/20 07:25 Freq: Status: Active Protocol: Document 07/25/20 13:03 SP (Rec: 07/25/20 16:26 SP [id number]) Out-Patient Physical Therapy Visit Information Visit Information Visit Type Treatment Note Visit Start Time 13:03 Visit Stop Time 13:50 Total Visit Minutes 47 Visit Number 9 Number of MULTIPLE NEEDLE STITCHER Visits 1 PT-OP-B Current Condition Start: 06/23/20 07:25 Freq: Status: Active Protocol: Document 06/23/20 13:35 AMB (Rec: 06/24/20 09:57 AMB [email or web address]) Current Condition History of Current Condition Onset Date April 2020 Current Complaints hemhorragic stroke- right basal ganglia History of Current Condition Yamil has been home from [facility] for over a month now, RHD. Sounds like he did inpatient rehab but no home health. He is walking up to 40 minutes a day with a cane in the community. He hasn't been doing his exercises as much now that he is walking. He previously exercised at the gym, but hasn't been since September due to Covid. No stairs inside the home, walk in shower with shower chair. Lives with , has returned to driving, history of macular degeneration worse on the R. Treatment Goals Patient/Caregiver Goals Make sure he's back to normal Prior Functional Status Baseline Function- ADL's Independent Baseline Function- Mobility Independent Current Functional Impairments (Reported) Functional Limitations- ADL's Careful with his balance Personal Factors Other Personal Factors That May Effect Extensive cardiac history. 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 PT-OP-C Subjective Start: 06/23/20 07:25 Freq: Status: Active Protocol: Document 07/25/20 13:03 SP (Rec: 07/25/20 16:26 SP [id number]) OP-PT Subjective Patient Comments Patient Comments Pt stated is doing well with corner balance with EO, nice challenge, more confidence with balance and was able to use a 2 step step ladder with handle today to retreave something. Patient Reported Progress Improving PT-OP-E Functional Tests Start: 06/23/20 07:25 Freq: Status: Active Protocol: Document 06/23/20 13:35 AMB (Rec: 06/24/20 09:57 AMB [email or web address]) Functional Tests Dynamic Gait Index (DGI) Score 20 DGI Impairment Rating 1 to <20% Impaired (Score 20- 23) PT-OP-G Mobility & Gait Start: 06/23/20 07:25 Freq: Status: Active Protocol: Document 06/23/20 13:35 AMB (Rec: 06/24/20 09:57 AMB [email or web address]) OP Gait Assessment Comments Gait Comments Decreased L arm swing (pt reports might get total shoulder on it). Slightly reduced push off on the left, pt reports mild toe catching if he has been walking a long time. PT-OP-M Strength Start: 06/23/20 07:25 Freq: Status: Active Protocol: Document 06/23/20 13:35 AMB (Rec: 06/24/20 09:57 AMB [email or web address]) Hip Strength Hip Manual Muscle Testing Right Flexion (L2) 4+ Good+ Extension (S1) 4+ Good+ Abduction 4+ Good+ Left Flexion (L2) 4+ Good+ Extension (S1) 4 Good Abduction 4 Good Knee Strength Knee Manual Muscle Testing Right Flexion (S2) 5 Normal Extension (L3) 5 Normal Left Flexion (S2) 5 Normal Extension (L3) 5 Normal Ankle/Foot Strength Ankle and Foot Manual Muscle Testing Right Dorsiflexion (L4) 5 Normal Plantarflexion (S1) 4+ Good+ Left Dorsiflexion (L4) 4- Good- Plantarflexion (S1) 4- Good- PT-OP-Q Treatments Start: 06/23/20 07:25 Freq: Status: Active Protocol: Document 07/25/20 13:03 SP (Rec: 07/25/20 16:26 SP [id number]) Gym Equipment Shuttle Balance 1 Details BLUE Comments WBOS, NBOS, stagger- Eyes closed JUDY 30 sec, eyes open horizontal head turns-ok, stagger stance EO head turns ok, balloon hitting little challenge CG- 10 % A w/ PRN UE conact. cued slow tapping and COG Therapeutic Exercises Standing Exercises eccentric squat taps Standing Exercise Name arms across chest ( HEP review ) Resistance AROM Equipment Used 18 chair and blue cushion Reps/Minutes 10 reps in 20 sec Comments repeat time next tx 3 Standing Exercise Name Review HEP heel raises Comments single was too challenging 2 Standing Exercise Name HEP review alternating toe tap in standing Resistance rail contact Equipment Used F/B light contact floor touch Reps/Minutes x10 Comments cued slow pacing to allow core / glut faciltation and improved balance Neuro Re-Education Treatment Balance Activities SLS Details review HEP Surface stable Equipment rail PRN Comments R: 10 , 9 L: 7 , 21 Cued upright posture, COG over stance LE foot triangle w/ glut facilitation, space between BLE, high knee marching Details f/b/s stepping Surface stable Equipment GB Reps/Duration 30 ft x2 laps each direction Comments cued slow pacing control 2 Details walking with head turns Surface stable Equipment GB Reps/Duration 30 ft x3 laps Comments vertical and horizontal, diagonal PT-OP-T Assessment and Plan Start: 06/23/20 07:25 Freq: Status: Active Protocol: Document 07/25/20 13:03 SP (Rec: 07/25/20 16:26 SP [id number]) Physical Therapy Assessment Goals Two Impairment Strength Short Term Goal (STG) Yamil will show improved ankle strength in all planes to 4/5. STG Duration 4 weeks Long-Term Goal (LTG) Yamil will be consistent and independent with a HEP for strength and balance. LTG Duration 8 weeks One Impairment Balance Short Term Goal (STG) Yamil will improve his DGI score to 23/24 to show reduced risk of falling. STG Duration 4 weeks Long-Term Goal (LTG) Yamil will show improved balance by maintaing single leg stance for 3 seconds. LTG Duration 8 weeks Assessment Summary Assessment Balance improvement w /blue clips today, requires cuing for tall posture and slow floating hitting during balloon act. HEP review with good performance. Will assess next tx of possible consolidation on one page. See plan. Physical Therapy Plan Frequency and Duration Frequency of Treatment 2x/Week Duration of Treatment 8 weeks Plan of Care Start Date 06/23/20 Plan of Care End Date 08/18/20 Therapeutic Interventions Therapeutic Interventions Balance Training,Gait Training ,Home Exercise Program,Manual Therapy,Neuromuscular Re- education,Self-Care/Home Management,Therapeutic Activities,Therapeutic Exercises Next Visit Focus/Plan Next Note Type Treatment Note Next Visit Plan Continue to Start finalizing HEP- pt would like everything on one piece of paper before d /c so he doesn't get confused as to what he is supposed to be doing- have multiple pieces of paper.
--- NOTE | 2020-07-28 13:55 | PT.OTN ---
Current Diagnoses Cerebral infarction, unspecified (07/28/20) Other abnormalities of gait and mobility (07/28/20) Physical Therapy Treatment Note PT-OP-A Visit Information Start: 06/23/20 07:25 Freq: Status: Active Protocol: Document 07/28/20 13:02 SP (Rec: 07/28/20 14:14 SP [id number]) Out-Patient Physical Therapy Visit Information Visit Information Visit Type Treatment Note Visit Start Time 13:02 Visit Stop Time 13:55 Total Visit Minutes 53 Visit Number 10 Number of CUFF SETTER LOCKSTITCH Visits 2 PT-OP-B Current Condition Start: 06/23/20 07:25 Freq: Status: Active Protocol: Document 06/23/20 13:35 AMB (Rec: 06/24/20 09:57 AMB [email or web address]) Current Condition History of Current Condition Onset Date April 2020 Current Complaints hemhorragic stroke- right basal ganglia History of Current Condition Yamil has been home from [facility] for over a month now, RHD. Sounds like he did inpatient rehab but no home health. He is walking up to 40 minutes a day with a cane in the community. He hasn't been doing his exercises as much now that he is walking. He previously exercised at the gym, but hasn't been since September due to Covid. No stairs inside the home, walk in shower with shower chair. Lives with , has returned to driving, history of macular degeneration worse on the R. Treatment Goals Patient/Caregiver Goals Make sure he's back to normal Prior Functional Status Baseline Function- ADL's Independent Baseline Function- Mobility Independent Current Functional Impairments (Reported) Functional Limitations- ADL's Careful with his balance Personal Factors Other Personal Factors That May Effect Extensive cardiac history. 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 PT-OP-C Subjective Start: 06/23/20 07:25 Freq: Status: Active Protocol: Document 07/28/20 13:02 SP (Rec: 07/28/20 14:14 SP [id number]) OP-PT Subjective Patient Comments Patient Comments Pt stated Patient Reported Progress Improving PT-OP-E Functional Tests Start: 06/23/20 07:25 Freq: Status: Active Protocol: Document 06/23/20 13:35 AMB (Rec: 06/24/20 09:57 AMB [email or web address]) Functional Tests Dynamic Gait Index (DGI) Score 20 DGI Impairment Rating 1 to <20% Impaired (Score 20- 23) PT-OP-G Mobility & Gait Start: 06/23/20 07:25 Freq: Status: Active Protocol: Document 06/23/20 13:35 AMB (Rec: 06/24/20 09:57 AMB [email or web address]) OP Gait Assessment Comments Gait Comments Decreased L arm swing (pt reports might get total shoulder on it). Slightly reduced push off on the left, pt reports mild toe catching if he has been walking a long time. PT-OP-M Strength Start: 06/23/20 07:25 Freq: Status: Active Protocol: Document 06/23/20 13:35 AMB (Rec: 06/24/20 09:57 AMB [email or web address]) Hip Strength Hip Manual Muscle Testing Right Flexion (L2) 4+ Good+ Extension (S1) 4+ Good+ Abduction 4+ Good+ Left Flexion (L2) 4+ Good+ Extension (S1) 4 Good Abduction 4 Good Knee Strength Knee Manual Muscle Testing Right Flexion (S2) 5 Normal Extension (L3) 5 Normal Left Flexion (S2) 5 Normal Extension (L3) 5 Normal Ankle/Foot Strength Ankle and Foot Manual Muscle Testing Right Dorsiflexion (L4) 5 Normal Plantarflexion (S1) 4+ Good+ Left Dorsiflexion (L4) 4- Good- Plantarflexion (S1) 4- Good- PT-OP-Q Treatments Start: 06/23/20 07:25 Freq: Status: Active Protocol: Document 07/28/20 13:02 SP (Rec: 07/28/20 14:14 SP [id number]) Therapeutic Exercises Standing Exercises eccentric squat taps Standing Exercise Name arms across chest ( HEP review ) Resistance AROM Equipment Used 18 chair and blue cushion Reps/Minutes x10 reps Comments repeat reps/ 20 sec next tx 4 Standing Exercise Name forward lunges (HEP review) Equipment Used //bar 1 UE contact PRN Reps/Minutes 10 reps each Comments vc form 3 Comments single was too challenging 2 Standing Exercise Name HEP review alternating toe tap in standing f, s, b Side bilateral Resistance rail contact Equipment Used F/B light contact floor touch Reps/Minutes 5 reps each direction Comments cued slow pacing to allow core / glut faciltation and improved balance 1 Standing Exercise Name double leg heel raise ( HEP review) Reps/Minutes 30 Comments cued contact chair not heavy WB- good carry over Neuro Re-Education Treatment Balance Activities tandem balance corner Details PT only Surface table Equipment chair front, corner at back Comments CG due to LOB SLS Details review HEP Surface stable Equipment PRN chair front, corner wall back Comments Didn't do for time today, record time next tx R: L: Cued upright posture, COG over stance LE foot triangle w/ glut facilitation, space between BLE, 1 Details WBOS, NBOS, stagger Surface stable Equipment back to corner, chair front Comments 1. EO head turns vertical/ horizontal PT-OP-T Assessment and Plan Start: 06/23/20 07:25 Freq: Status: Active Protocol: Document 07/28/20 13:02 SP (Rec: 07/28/20 14:14 SP [id number]) Physical Therapy Assessment Goals Two Impairment Strength Short Term Goal (STG) Yamil will show improved ankle strength in all planes to 4/5. STG Duration 4 weeks Head Of Art Goal (LTG) Yamil will be consistent and independent with a HEP for strength and balance. LTG Duration 8 weeks One Impairment Balance Short Term Goal (STG) Yamil will improve his DGI score to 23/24 to show reduced risk of falling. STG Duration 4 weeks Head Of Art Goal (LTG) Yamil will show improved balance by maintaing single leg stance for 3 seconds. LTG Duration 8 weeks Assessment Summary Assessment Extra time spent on proper form and concensing HEP, with good response, cuing for lunges knee alignment behind toes and but back to decrease anterior knee discomfort, good tolerance and wants to keep for HEP. Old knees pt reports. Pt is good with 7 HEP . Continue to review for I in HEP. Physical Therapy Plan Frequency and Duration Frequency of Treatment 2x/Week Duration of Treatment 8 weeks Plan of Care Start Date 06/23/20 Plan of Care End Date 08/18/20 Therapeutic Interventions Therapeutic Interventions Balance Training,Gait Training ,Home Exercise Program,Manual Therapy,Neuromuscular Re- education,Self-Care/Home Management,Therapeutic Activities,Therapeutic Exercises Next Visit Focus/Plan Next Note Type Treatment Note Next Visit Plan Continue to Start finalizing HEP- pt would like everything on one piece of paper before d /c so he doesn't get confused as to what he is supposed to be doing- have multiple pieces of paper.
--- NOTE | 2020-08-01 10:07 | PT.OTN ---
Current Diagnoses Cerebral infarction, unspecified (08/01/20) Other abnormalities of gait and mobility (08/01/20) Physical Therapy Treatment Note PT-OP-A Visit Information Start: 06/23/20 07:25 Freq: Status: Active Protocol: Document 08/01/20 11:00 AMB (Rec: 08/02/20 08:22 AMB [id number]) Out-Patient Physical Therapy Visit Information Visit Information Visit Type Progress Note Visit Start Time 11:00 Visit Stop Time 11:45 Total Visit Minutes 45 Visit Number 11 Number of PAINTER AIRCRAFT Visits 0 PT-OP-B Current Condition Start: 06/23/20 07:25 Freq: Status: Active Protocol: Document 06/23/20 13:35 AMB (Rec: 06/24/20 09:57 AMB [email or web address]) Current Condition History of Current Condition Onset Date April 2020 Current Complaints hemhorragic stroke- right basal ganglia History of Current Condition Yamil has been home from [facility] for over a month now, RHD. Sounds like he did inpatient rehab but no home health. He is walking up to 40 minutes a day with a cane in the community. He hasn't been doing his exercises as much now that he is walking. He previously exercised at the gym, but hasn't been since September due to Covid. No stairs inside the home, walk in shower with shower chair. Lives with , has returned to driving, history of macular degeneration worse on the R. Treatment Goals Patient/Caregiver Goals Make sure he's back to normal Prior Functional Status Baseline Function- ADL's Independent Baseline Function- Mobility Independent Current Functional Impairments (Reported) Functional Limitations- ADL's Careful with his balance Personal Factors Other Personal Factors That May Effect Extensive cardiac history. 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 PT-OP-C Subjective Start: 06/23/20 07:25 Freq: Status: Active Protocol: Document 08/01/20 11:00 AMB (Rec: 08/02/20 08:22 AMB [id number]) OP-PT Subjective Patient Comments Patient Comments Pt is doing HEP 1x/day 7 days/ week. Is hoping to return to walking on uneven terrain, but hasn't really been doing that since the CVA. PT-OP-E Functional Tests Start: 06/23/20 07:25 Freq: Status: Active Protocol: Document 06/23/20 13:35 AMB (Rec: 06/24/20 09:57 AMB [email or web address]) Functional Tests Dynamic Gait Index (DGI) Score 20 DGI Impairment Rating 1 to <20% Impaired (Score 20- 23) PT-OP-G Mobility & Gait Start: 06/23/20 07:25 Freq: Status: Active Protocol: Document 06/23/20 13:35 AMB (Rec: 06/24/20 09:57 AMB [email or web address]) OP Gait Assessment Comments Gait Comments Decreased L arm swing (pt reports might get total shoulder on it). Slightly reduced push off on the left, pt reports mild toe catching if he has been walking a long time. PT-OP-M Strength Start: 06/23/20 07:25 Freq: Status: Active Protocol: Document 06/23/20 13:35 AMB (Rec: 06/24/20 09:57 AMB [email or web address]) Hip Strength Hip Manual Muscle Testing Right Flexion (L2) 4+ Good+ Extension (S1) 4+ Good+ Abduction 4+ Good+ Left Flexion (L2) 4+ Good+ Extension (S1) 4 Good Abduction 4 Good Knee Strength Knee Manual Muscle Testing Right Flexion (S2) 5 Normal Extension (L3) 5 Normal Left Flexion (S2) 5 Normal Extension (L3) 5 Normal Ankle/Foot Strength Ankle and Foot Manual Muscle Testing Right Dorsiflexion (L4) 5 Normal Plantarflexion (S1) 4+ Good+ Left Dorsiflexion (L4) 4- Good- Plantarflexion (S1) 4- Good- PT-OP-Q Treatments Start: 06/23/20 07:25 Freq: Status: Active Protocol: Document 08/01/20 11:00 AMB (Rec: 08/02/20 10:04 AMB [id number]) Therapeutic Exercises Standing Exercises eccentric squat taps Standing Exercise Name arms across chest ( HEP review ) Resistance AROM Equipment Used 18 chair Reps/Minutes x10 reps--hold low squat to increase challenge 4 Standing Exercise Name forward lunges (HEP review) Equipment Used //bar 1 UE contact PRN Reps/Minutes 10 reps each Comments vc form 2 Standing Exercise Name HEP review alternating toe tap in standing f, s, b Side bilateral Resistance rail contact Equipment Used F/B light contact floor touch Reps/Minutes 5 reps each direction Comments cued slow pacing to allow core / glut faciltation and improved balance 1 Standing Exercise Name double leg heel raise ( HEP review) Reps/Minutes 30 Comments cued contact chair not heavy WB- good carry over Gait Training Gait Activity 1 Description Gait with head turns over smooth surface Comments and gait over hurdles, mild misstep with head turns but able to independently correct Neuro Re-Education Treatment Balance Activities high knee marching Details f/b/s stepping Surface stable Equipment GB Reps/Duration 30 ft x2 laps each direction Comments cued slow pacing control 1 Details WBOS, NBOS, stagger Surface stable Equipment back to corner, chair front Comments 1. EO head turns vertical/ horizontal PT-OP-T Assessment and Plan Start: 06/23/20 07:25 Freq: Status: Active Protocol: Document 08/01/20 11:00 AMB (Rec: 08/02/20 08:22 AMB [id number]) Physical Therapy Assessment Goals Two Impairment Strength Short Term Goal (STG) Yamil will show improved ankle strength in all planes to 4/5. Progress made: STG Duration 4 weeks Fpc Goal (LTG) Yamil will be consistent and independent with a HEP for strength and balance. LTG Duration MET One Impairment Balance Short Term Goal (STG) Yamil will improve his DGI score to 23/24 to show reduced risk of falling. PROGRESS MADE: mild missteps with gait with horizontal and vertical head turns STG Duration 4 weeks Fpc Goal (LTG) Yamil will show improved balance by maintaing single leg stance for 3 seconds. PROGRESS MADE: variable 1-3 seconds LTG Duration 8 weeks Assessment Summary Assessment Yamil continues to have unilateral ankle weakness and difficulty with gait with head turns, his single leg stance time is variable. However overall he has shown improvement in static balance and while the ankle weakness remains it is improving. He has not yet reached his prior level of function of walking over uneven terrain and would benefit from continued physical therapy to make sure that he can do this safely. Physical Therapy Plan Frequency and Duration Frequency of Treatment 2x/Week Duration of Treatment 8 weeks Plan of Care Start Date 06/23/20 Plan of Care End Date 08/18/20 Therapeutic Interventions Therapeutic Interventions Balance Training,Gait Training ,Home Exercise Program,Manual Therapy,Neuromuscular Re- education,Self-Care/Home Management,Therapeutic Activities,Therapeutic Exercises Next Visit Focus/Plan Next Note Type Treatment Note Next Visit Plan Continue to progress HEP and review as needed- progress ankle stabilization and dynamic balance as able
--- NOTE | 2020-08-01 11:00 | PT.OPPN ---
Current Diagnoses Cerebral infarction, unspecified (08/01/20) Other abnormalities of gait and mobility (08/01/20) Physical Therapy Progress Note PT-OP-A Visit Information Start: 06/23/20 07:25 Freq: Status: Active Protocol: Document 08/01/20 11:00 AMB (Rec: 08/02/20 08:22 AMB [id number]) Out-Patient Physical Therapy Visit Information Visit Information Visit Type Progress Note Visit Start Time 11:00 Visit Stop Time 11:45 Total Visit Minutes 45 Visit Number 11 Number of SPRINKLER TRUCK DRIVER Visits 0 PT-OP-B Current Condition Start: 06/23/20 07:25 Freq: Status: Active Protocol: Document 06/23/20 13:35 AMB (Rec: 06/24/20 09:57 AMB [email or web address]) Current Condition History of Current Condition Onset Date April 2020 Current Complaints hemhorragic stroke- right basal ganglia History of Current Condition Yamil has been home from [facility] for over a month now, RHD. Sounds like he did inpatient rehab but no home health. He is walking up to 40 minutes a day with a cane in the community. He hasn't been doing his exercises as much now that he is walking. He previously exercised at the gym, but hasn't been since September due to Covid. No stairs inside the home, walk in shower with shower chair. Lives with , has returned to driving, history of macular degeneration worse on the R. Treatment Goals Patient/Caregiver Goals Make sure he's back to normal Prior Functional Status Baseline Function- ADL's Independent Baseline Function- Mobility Independent Current Functional Impairments (Reported) Functional Limitations- ADL's Careful with his balance Personal Factors Other Personal Factors That May Effect Extensive cardiac history. 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 PT-OP-C Subjective Start: 06/23/20 07:25 Freq: Status: Active Protocol: Document 08/01/20 11:00 AMB (Rec: 08/02/20 08:22 AMB [id number]) OP-PT Subjective Patient Comments Patient Comments Pt is doing HEP 1x/day 7 days/ week. Is hoping to return to walking on uneven terrain, but hasn't really been doing that since the CVA. PT-OP-E Functional Tests Start: 06/23/20 07:25 Freq: Status: Active Protocol: Document 06/23/20 13:35 AMB (Rec: 06/24/20 09:57 AMB [email or web address]) Functional Tests Dynamic Gait Index (DGI) Score 20 DGI Impairment Rating 1 to <20% Impaired (Score 20- 23) PT-OP-G Mobility & Gait Start: 06/23/20 07:25 Freq: Status: Active Protocol: Document 06/23/20 13:35 AMB (Rec: 06/24/20 09:57 AMB [email or web address]) OP Gait Assessment Comments Gait Comments Decreased L arm swing (pt reports might get total shoulder on it). Slightly reduced push off on the left, pt reports mild toe catching if he has been walking a long time. PT-OP-M Strength Start: 06/23/20 07:25 Freq: Status: Active Protocol: Document 06/23/20 13:35 AMB (Rec: 06/24/20 09:57 AMB [email or web address]) Hip Strength Hip Manual Muscle Testing Right Flexion (L2) 4+ Good+ Extension (S1) 4+ Good+ Abduction 4+ Good+ Left Flexion (L2) 4+ Good+ Extension (S1) 4 Good Abduction 4 Good Knee Strength Knee Manual Muscle Testing Right Flexion (S2) 5 Normal Extension (L3) 5 Normal Left Flexion (S2) 5 Normal Extension (L3) 5 Normal Ankle/Foot Strength Ankle and Foot Manual Muscle Testing Right Dorsiflexion (L4) 5 Normal Plantarflexion (S1) 4+ Good+ Left Dorsiflexion (L4) 4- Good- Plantarflexion (S1) 4- Good- PT-OP-T Assessment and Plan Start: 06/23/20 07:25 Freq: Status: Active Protocol: Document 08/01/20 11:00 AMB (Rec: 08/02/20 08:22 AMB [id number]) Physical Therapy Assessment Goals Two Impairment Strength Short Term Goal (STG) Yamil will show improved ankle strength in all planes to 4/5. Progress made: STG Duration 4 weeks Fpc Goal (LTG) Yamil will be consistent and independent with a HEP for strength and balance. LTG Duration MET One Impairment Balance Short Term Goal (STG) Yamil will improve his DGI score to 23/24 to show reduced risk of falling. PROGRESS MADE: mild missteps with gait with horizontal and vertical head turns STG Duration 4 weeks French Drawer Goal (LTG) Yamil will show improved balance by maintaing single leg stance for 3 seconds. PROGRESS MADE: variable 1-3 seconds LTG Duration 8 weeks Assessment Summary Assessment Yamil continues to have unilateral ankle weakness and difficulty with gait with head turns, his single leg stance time is variable. However overall he has shown improvement in static balance and while the ankle weakness remains it is improving. He has not yet reached his prior level of function of walking over uneven terrain and would benefit from continued physical therapy to make sure that he can do this safely. Physical Therapy Plan Frequency and Duration Frequency of Treatment 2x/Week Duration of Treatment 8 weeks Plan of Care Start Date 06/23/20 Plan of Care End Date 08/18/20 Therapeutic Interventions Therapeutic Interventions Balance Training,Gait Training ,Home Exercise Program,Manual Therapy,Neuromuscular Re- education,Self-Care/Home Management,Therapeutic Activities,Therapeutic Exercises Next Visit Focus/Plan Next Note Type Treatment Note Next Visit Plan Continue to progress HEP and review as needed- progress ankle stabilization and dynamic balance as able
--- NOTE | 2020-08-02 10:05 | PT.OTN ---
Current Diagnoses Cerebral infarction, unspecified (08/01/20) Other abnormalities of gait and mobility (08/01/20) Physical Therapy Treatment Note PT-OP-A Visit Information Start: 06/23/20 07:25 Freq: Status: Active Protocol: Document 08/01/20 11:00 AMB (Rec: 08/02/20 08:22 AMB [id number]) Out-Patient Physical Therapy Visit Information Visit Information Visit Type Progress Note Visit Start Time 11:00 Visit Stop Time 11:45 Total Visit Minutes 45 Visit Number 11 Number of INFORMATION DELIVERY ANALYST Visits 0 PT-OP-B Current Condition Start: 06/23/20 07:25 Freq: Status: Active Protocol: Document 06/23/20 13:35 AMB (Rec: 06/24/20 09:57 AMB [email or web address]) Current Condition History of Current Condition Onset Date April 2020 Current Complaints hemhorragic stroke- right basal ganglia History of Current Condition Yamil has been home from [facility] for over a month now, RHD. Sounds like he did inpatient rehab but no home health. He is walking up to 40 minutes a day with a cane in the community. He hasn't been doing his exercises as much now that he is walking. He previously exercised at the gym, but hasn't been since September due to Covid. No stairs inside the home, walk in shower with shower chair. Lives with , has returned to driving, history of macular degeneration worse on the R. Treatment Goals Patient/Caregiver Goals Make sure he's back to normal Prior Functional Status Baseline Function- ADL's Independent Baseline Function- Mobility Independent Current Functional Impairments (Reported) Functional Limitations- ADL's Careful with his balance Personal Factors Other Personal Factors That May Effect Extensive cardiac history. 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 PT-OP-C Subjective Start: 06/23/20 07:25 Freq: Status: Active Protocol: Document 08/01/20 11:00 AMB (Rec: 08/02/20 08:22 AMB [id number]) OP-PT Subjective Patient Comments Patient Comments Pt is doing HEP 1x/day 7 days/ week. Is hoping to return to walking on uneven terrain, but hasn't really been doing that since the CVA. PT-OP-E Functional Tests Start: 06/23/20 07:25 Freq: Status: Active Protocol: Document 06/23/20 13:35 AMB (Rec: 06/24/20 09:57 AMB [email or web address]) Functional Tests Dynamic Gait Index (DGI) Score 20 DGI Impairment Rating 1 to <20% Impaired (Score 20- 23) PT-OP-G Mobility & Gait Start: 06/23/20 07:25 Freq: Status: Active Protocol: Document 06/23/20 13:35 AMB (Rec: 06/24/20 09:57 AMB [email or web address]) OP Gait Assessment Comments Gait Comments Decreased L arm swing (pt reports might get total shoulder on it). Slightly reduced push off on the left, pt reports mild toe catching if he has been walking a long time. PT-OP-M Strength Start: 06/23/20 07:25 Freq: Status: Active Protocol: Document 06/23/20 13:35 AMB (Rec: 06/24/20 09:57 AMB [email or web address]) Hip Strength Hip Manual Muscle Testing Right Flexion (L2) 4+ Good+ Extension (S1) 4+ Good+ Abduction 4+ Good+ Left Flexion (L2) 4+ Good+ Extension (S1) 4 Good Abduction 4 Good Knee Strength Knee Manual Muscle Testing Right Flexion (S2) 5 Normal Extension (L3) 5 Normal Left Flexion (S2) 5 Normal Extension (L3) 5 Normal Ankle/Foot Strength Ankle and Foot Manual Muscle Testing Right Dorsiflexion (L4) 5 Normal Plantarflexion (S1) 4+ Good+ Left Dorsiflexion (L4) 4- Good- Plantarflexion (S1) 4- Good- PT-OP-Q Treatments Start: 06/23/20 07:25 Freq: Status: Active Protocol: Document 08/01/20 11:00 AMB (Rec: 08/02/20 10:04 AMB [id number]) Therapeutic Exercises Standing Exercises eccentric squat taps Standing Exercise Name arms across chest ( HEP review ) Resistance AROM Equipment Used 18 chair Reps/Minutes x10 reps--hold low squat to increase challenge 4 Standing Exercise Name forward lunges (HEP review) Equipment Used //bar 1 UE contact PRN Reps/Minutes 10 reps each Comments vc form 2 Standing Exercise Name HEP review alternating toe tap in standing f, s, b Side bilateral Resistance rail contact Equipment Used F/B light contact floor touch Reps/Minutes 5 reps each direction Comments cued slow pacing to allow core / glut faciltation and improved balance 1 Standing Exercise Name double leg heel raise ( HEP review) Reps/Minutes 30 Comments cued contact chair not heavy WB- good carry over Gait Training Gait Activity 1 Description Gait with head turns over smooth surface Comments and gait over hurdles, mild misstep with head turns but able to independently correct Neuro Re-Education Treatment Balance Activities high knee marching Details f/b/s stepping Surface stable Equipment GB Reps/Duration 30 ft x2 laps each direction Comments cued slow pacing control 1 Details WBOS, NBOS, stagger Surface stable Equipment back to corner, chair front Comments 1. EO head turns vertical/ horizontal PT-OP-T Assessment and Plan Start: 06/23/20 07:25 Freq: Status: Active Protocol: Document 08/01/20 11:00 AMB (Rec: 08/02/20 08:22 AMB [id number]) Physical Therapy Assessment Goals Two Impairment Strength Short Term Goal (STG) Yamil will show improved ankle strength in all planes to 4/5. Progress made: STG Duration 4 weeks Custodial Goal (LTG) Yamil will be consistent and independent with a HEP for strength and balance. LTG Duration MET One Impairment Balance Short Term Goal (STG) Yamil will improve his DGI score to 23/24 to show reduced risk of falling. PROGRESS MADE: mild missteps with gait with horizontal and vertical head turns STG Duration 4 weeks Custodial Goal (LTG) Yamil will show improved balance by maintaing single leg stance for 3 seconds. PROGRESS MADE: variable 1-3 seconds LTG Duration 8 weeks Assessment Summary Assessment Yamil continues to have unilateral ankle weakness and difficulty with gait with head turns, his single leg stance time is variable. However overall he has shown improvement in static balance and while the ankle weakness remains it is improving. He has not yet reached his prior level of function of walking over uneven terrain and would benefit from continued physical therapy to make sure that he can do this safely. Physical Therapy Plan Frequency and Duration Frequency of Treatment 2x/Week Duration of Treatment 8 weeks Plan of Care Start Date 06/23/20 Plan of Care End Date 08/18/20 Therapeutic Interventions Therapeutic Interventions Balance Training,Gait Training ,Home Exercise Program,Manual Therapy,Neuromuscular Re- education,Self-Care/Home Management,Therapeutic Activities,Therapeutic Exercises Next Visit Focus/Plan Next Note Type Treatment Note Next Visit Plan Continue to progress HEP and review as needed- progress ankle stabilization and dynamic balance as able
--- NOTE | 2020-08-08 15:00 | PT.OTN ---
Current Diagnoses Cerebral infarction, unspecified (08/08/20) Other abnormalities of gait and mobility (08/08/20) Physical Therapy Treatment Note PT-OP-A Visit Information Start: 06/23/20 07:25 Freq: Status: Active Protocol: Document 08/08/20 12:45 AMB (Rec: 08/08/20 14:09 AMB [id number]) Out-Patient Physical Therapy Visit Information Visit Information Visit Type Treatment Note Visit Start Time 12:45 Visit Stop Time 13:30 Total Visit Minutes 45 Visit Number 12 Number of DIRECTOR OF TESTING Visits 0 PT-OP-B Current Condition Start: 06/23/20 07:25 Freq: Status: Active Protocol: Document 06/23/20 13:35 AMB (Rec: 06/24/20 09:57 AMB [email or web address]) Current Condition History of Current Condition Onset Date April 2020 Current Complaints hemhorragic stroke- right basal ganglia History of Current Condition Yamil has been home from [facility] for over a month now, RHD. Sounds like he did inpatient rehab but no home health. He is walking up to 40 minutes a day with a cane in the community. He hasn't been doing his exercises as much now that he is walking. He previously exercised at the gym, but hasn't been since September due to Covid. No stairs inside the home, walk in shower with shower chair. Lives with , has returned to driving, history of macular degeneration worse on the R. Treatment Goals Patient/Caregiver Goals Make sure he's back to normal Prior Functional Status Baseline Function- ADL's Independent Baseline Function- Mobility Independent Current Functional Impairments (Reported) Functional Limitations- ADL's Careful with his balance Personal Factors Other Personal Factors That May Effect Extensive cardiac history. 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 PT-OP-C Subjective Start: 06/23/20 07:25 Freq: Status: Active Protocol: Document 08/08/20 12:45 AMB (Rec: 08/09/20 07:43 AMB [email or web address]) OP-PT Subjective Patient Comments Patient Comments Pt states he is doing well, has taken a couple [place] walks on the beach and that has gone fine. PT-OP-E Functional Tests Start: 06/23/20 07:25 Freq: Status: Active Protocol: Document 06/23/20 13:35 AMB (Rec: 06/24/20 09:57 AMB [email or web address]) Functional Tests Dynamic Gait Index (DGI) Score 20 DGI Impairment Rating 1 to <20% Impaired (Score 20- 23) PT-OP-G Mobility & Gait Start: 06/23/20 07:25 Freq: Status: Active Protocol: Document 06/23/20 13:35 AMB (Rec: 06/24/20 09:57 AMB [email or web address]) OP Gait Assessment Comments Gait Comments Decreased L arm swing (pt reports might get total shoulder on it). Slightly reduced push off on the left, pt reports mild toe catching if he has been walking a long time. PT-OP-M Strength Start: 06/23/20 07:25 Freq: Status: Active Protocol: Document 06/23/20 13:35 AMB (Rec: 06/24/20 09:57 AMB [email or web address]) Hip Strength Hip Manual Muscle Testing Right Flexion (L2) 4+ Good+ Extension (S1) 4+ Good+ Abduction 4+ Good+ Left Flexion (L2) 4+ Good+ Extension (S1) 4 Good Abduction 4 Good Knee Strength Knee Manual Muscle Testing Right Flexion (S2) 5 Normal Extension (L3) 5 Normal Left Flexion (S2) 5 Normal Extension (L3) 5 Normal Ankle/Foot Strength Ankle and Foot Manual Muscle Testing Right Dorsiflexion (L4) 5 Normal Plantarflexion (S1) 4+ Good+ Left Dorsiflexion (L4) 4- Good- Plantarflexion (S1) 4- Good- PT-OP-Q Treatments Start: 06/23/20 07:25 Freq: Status: Active Protocol: Document 08/08/20 12:45 AMB (Rec: 08/09/20 07:42 AMB [email or web address]) Gym Equipment Shuttle Recovery Bilateral Squats Details 100# Shuttle Recovery Platform Unstable Reps/Time 2x15 Unilateral Heel Raises Details 50# Reps/Time 2x10 Shuttle Balance red clips Details NBOS and then stride stance Reps/Duration 10 min Therapeutic Exercises Standing Exercises 1 Standing Exercise Name double leg heel raise ( HEP review) Equipment Used on step Reps/Minutes 30 Comments cued contact chair not heavy WB- good carry over Gait Training Gait Activity 1 Description Gait with head turns over smooth surface Comments and gait over hurdles, mild misstep with head turns but able to independently correct PT-OP-T Assessment and Plan Start: 12/11/20 07:25 Freq: Status: Active Protocol: Document 08/08/20 12:45 AMB (Rec: 08/09/20 07:42 AMB [email or web address]) Physical Therapy Assessment Assessment Summary Assessment Yamil fatigued with calf strengthening today, but overall is doing well and is consistent with his HEP. Physical Therapy Plan Next Visit Focus/Plan Next Note Type Treatment Note Next Visit Plan Continue to progress HEP and review as needed- progress ankle stabilization and dynamic balance as able
--- NOTE | 2020-08-11 13:00 | PT.OTN ---
Current Diagnoses Cerebral infarction, unspecified (08/11/20) Other abnormalities of gait and mobility (08/11/20) Physical Therapy Treatment Note PT-OP-A Visit Information Start: 06/23/20 07:25 Freq: Status: Active Protocol: Document 08/11/20 12:15 LD (Rec: 08/11/20 13:43 LD [id number]) Out-Patient Physical Therapy Visit Information Visit Information Visit Type Treatment Note Visit Note ELLIE Gonzalez led tx w/ supervision of SORAIDA Arora. Progress note due in 2 appts pre 08/18/20. Visit Start Time 12:15 Visit Stop Time 13:00 Total Visit Minutes 45 Visit Number 13 Number of WAFER PRODUCTION LEAD WORKER Visits 1 PT-OP-B Current Condition Start: 06/23/20 07:25 Freq: Status: Active Protocol: Document 06/23/20 13:35 AMB (Rec: 06/24/20 09:57 AMB [email or web address]) Current Condition History of Current Condition Onset Date April 2020 Current Complaints hemhorragic stroke- right basal ganglia History of Current Condition Yamil has been home from [facility] for over a month now, RHD. Sounds like he did inpatient rehab but no home health. He is walking up to 40 minutes a day with a cane in the community. He hasn't been doing his exercises as much now that he is walking. He previously exercised at the gym, but hasn't been since September due to Covid. No stairs inside the home, walk in shower with shower chair. Lives with , has returned to driving, history of macular degeneration worse on the R. Treatment Goals Patient/Caregiver Goals Make sure he's back to normal Prior Functional Status Baseline Function- ADL's Independent Baseline Function- Mobility Independent Current Functional Impairments (Reported) Functional Limitations- ADL's Careful with his balance Personal Factors Other Personal Factors That May Effect Extensive cardiac history. 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 PT-OP-C Subjective Start: 06/23/20 07:25 Freq: Status: Active Protocol: Document 08/11/20 12:15 LD (Rec: 08/11/20 13:43 LD [id number]) OP-PT Subjective Patient Comments Patient Comments Pt arrived to tx with LOB when turning his head to left to talk with WAFER PRODUCTION LEAD WORKER requiring Max A for recovery. Pt stated, I don't know what that was all about. Pt reported he went walking yesterday, up three hills and does go for walks on the local beach but brings his SPC for assist when needed . PT-OP-E Functional Tests Start: 06/23/20 07:25 Freq: Status: Active Protocol: Document 06/23/20 13:35 AMB (Rec: 06/24/20 09:57 AMB [email or web address]) Functional Tests Dynamic Gait Index (DGI) Score 20 DGI Impairment Rating 1 to <20% Impaired (Score 20- 23) PT-OP-G Mobility & Gait Start: 06/23/20 07:25 Freq: Status: Active Protocol: Document 06/23/20 13:35 AMB (Rec: 06/24/20 09:57 AMB [email or web address]) OP Gait Assessment Comments Gait Comments Decreased L arm swing (pt reports might get total shoulder on it). Slightly reduced push off on the left, pt reports mild toe catching if he has been walking a long time. PT-OP-M Strength Start: 06/23/20 07:25 Freq: Status: Active Protocol: Document 06/23/20 13:35 AMB (Rec: 06/24/20 09:57 AMB [email or web address]) Hip Strength Hip Manual Muscle Testing Right Flexion (L2) 4+ Good+ Extension (S1) 4+ Good+ Abduction 4+ Good+ Left Flexion (L2) 4+ Good+ Extension (S1) 4 Good Abduction 4 Good Knee Strength Knee Manual Muscle Testing Right Flexion (S2) 5 Normal Extension (L3) 5 Normal Left Flexion (S2) 5 Normal Extension (L3) 5 Normal Ankle/Foot Strength Ankle and Foot Manual Muscle Testing Right Dorsiflexion (L4) 5 Normal Plantarflexion (S1) 4+ Good+ Left Dorsiflexion (L4) 4- Good- Plantarflexion (S1) 4- Good- PT-OP-Q Treatments Start: 06/23/20 07:25 Freq: Status: Active Protocol: Document 08/11/20 12:15 LD (Rec: 08/11/20 13:43 LD [id number]) Gym Equipment Shuttle Recovery Bilateral Squats Details 112# stable, 50# unstable Shuttle Recovery Platform Stable,Unstable Reps/Time 2x15 Unilateral Heel Raises Details 50# Shuttle Recovery Platform Stable,Unstable Reps/Time 2x10 Shuttle Balance red clips Details NBOS and then stride stance Reps/Duration 10 min Comments added lateral weight shift/ balance, Min-Mod A. Gait Training Gait Activity 1 Description Gait with head turns over smooth surface Comments and gait over hurdles step over, CGA for safety no LOB. Neuro Re-Education Treatment Balance Activities Uneven obstacle course Details 9 balance pods and oval foams Surface uneven Equipment B trek poles Reps/Duration 4 laps forward Comments Provided trek poles after 2 laps for increase balance for gait on beach for self recovery. Improved decreased assistance from mod-min A via gait belt no AD to min A-CGA using B trekpoles. PT-OP-T Assessment and Plan Start: 06/23/20 07:25 Freq: Status: Active Protocol: Document 08/11/20 12:15 LD (Rec: 08/11/20 13:43 LD [id number]) Physical Therapy Assessment Goals Two Impairment Strength Short Term Goal (STG) Yamil will show improved ankle strength in all planes to 4/5. Progress made: STG Duration 4 weeks Director Dental Services Goal (LTG) Yamil will be consistent and independent with a HEP for strength and balance. LTG Duration MET One Impairment Balance Short Term Goal (STG) Yamil will improve his DGI score to 23/24 to show reduced risk of falling. PROGRESS MADE: mild missteps with gait with horizontal and vertical head turns STG Duration 4 weeks Director Dental Services Goal (LTG) Yamil will show improved balance by maintaing single leg stance for 3 seconds. PROGRESS MADE: variable 1-3 seconds LTG Duration 8 weeks Assessment Summary Assessment Pt presented weakness of ankle , hip, core stablilty when arriving to the tx requiring assist for LOB correction. Pt was challleged w/ shuttle bal lateral, cued for faciliation of glutes and keeping legs extended. Added uneven obstacle course, provided treks to improve balance when walking the beach. Ankle, hip and core stabilty improved towards the end of tx. Did recommend for awareness of increased WBOS during gait to allow increased balance and pt commented I might look into 2 trek poles for use on the beach, was helpful today. Physical Therapy Plan Frequency and Duration Frequency of Treatment 2x/Week Duration of Treatment 8 weeks Plan of Care Start Date 06/23/20 Plan of Care End Date 08/18/20 Therapeutic Interventions Therapeutic Interventions Balance Training,Gait Training ,Home Exercise Program,Manual Therapy,Neuromuscular Re- education,Self-Care/Home Management,Therapeutic Activities,Therapeutic Exercises Next Visit Focus/Plan Next Note Type Treatment Note Next Visit Plan Reasses response to shuttle balance and obstacle course and suggest use of sport cord different directions for increase stabliity facilitation. Continue to progress HEP and review as needed- progress ankle stabilization and dynamic balance as able
--- NOTE | 2020-08-14 16:05 | PT.OTN ---
Current Diagnoses Cerebral infarction, unspecified (08/14/20) Other abnormalities of gait and mobility (08/14/20) Physical Therapy Treatment Note PT-OP-A Visit Information Start: 06/23/20 07:25 Freq: Status: Active Protocol: Document 08/14/20 12:45 AMB (Rec: 08/14/20 13:16 AMB [id number]) Out-Patient Physical Therapy Visit Information Visit Information Visit Type Treatment Note Visit Start Time 12:45 Visit Stop Time 13:30 Total Visit Minutes 45 Visit Number 14 Number of YARDER OPERATOR Visits 0 PT-OP-B Current Condition Start: 06/23/20 07:25 Freq: Status: Active Protocol: Document 06/23/20 13:35 AMB (Rec: 06/24/20 09:57 AMB [email or web address]) Current Condition History of Current Condition Onset Date April 2020 Current Complaints hemhorragic stroke- right basal ganglia History of Current Condition Yamil has been home from [facility] for over a month now, RHD. Sounds like he did inpatient rehab but no home health. He is walking up to 40 minutes a day with a cane in the community. He hasn't been doing his exercises as much now that he is walking. He previously exercised at the gym, but hasn't been since September due to Covid. No stairs inside the home, walk in shower with shower chair. Lives with , has returned to driving, history of macular degeneration worse on the R. Treatment Goals Patient/Caregiver Goals Make sure he's back to normal Prior Functional Status Baseline Function- ADL's Independent Baseline Function- Mobility Independent Current Functional Impairments (Reported) Functional Limitations- ADL's Careful with his balance Personal Factors Other Personal Factors That May Effect Extensive cardiac history. 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 PT-OP-C Subjective Start: 06/23/20 07:25 Freq: Status: Active Protocol: Document 08/11/20 12:15 LD (Rec: 08/11/20 13:43 LD [id number]) OP-PT Subjective Patient Comments Patient Comments Pt arrived to tx with LOB when turning his head to left to talk with YARDER OPERATOR requiring Max A for recovery. Pt stated, I don't know what that was all about. Pt reported he went walking yesterday, up three hills and does go for walks on the local beach but brings his SPC for assist when needed . PT-OP-E Functional Tests Start: 06/23/20 07:25 Freq: Status: Active Protocol: Document 06/23/20 13:35 AMB (Rec: 06/24/20 09:57 AMB [email or web address]) Functional Tests Dynamic Gait Index (DGI) Score 20 DGI Impairment Rating 1 to <20% Impaired (Score 20- 23) PT-OP-G Mobility & Gait Start: 06/23/20 07:25 Freq: Status: Active Protocol: Document 06/23/20 13:35 AMB (Rec: 06/24/20 09:57 AMB [email or web address]) OP Gait Assessment Comments Gait Comments Decreased L arm swing (pt reports might get total shoulder on it). Slightly reduced push off on the left, pt reports mild toe catching if he has been walking a long time. PT-OP-M Strength Start: 06/23/20 07:25 Freq: Status: Active Protocol: Document 06/23/20 13:35 AMB (Rec: 06/24/20 09:57 AMB [email or web address]) Hip Strength Hip Manual Muscle Testing Right Flexion (L2) 4+ Good+ Extension (S1) 4+ Good+ Abduction 4+ Good+ Left Flexion (L2) 4+ Good+ Extension (S1) 4 Good Abduction 4 Good Knee Strength Knee Manual Muscle Testing Right Flexion (S2) 5 Normal Extension (L3) 5 Normal Left Flexion (S2) 5 Normal Extension (L3) 5 Normal Ankle/Foot Strength Ankle and Foot Manual Muscle Testing Right Dorsiflexion (L4) 5 Normal Plantarflexion (S1) 4+ Good+ Left Dorsiflexion (L4) 4- Good- Plantarflexion (S1) 4- Good- PT-OP-Q Treatments Start: 06/23/20 07:25 Freq: Status: Active Protocol: Document 08/14/20 12:45 AMB (Rec: 08/15/20 16:05 AMB [email or web address]) Gym Equipment Shuttle Recovery Bilateral Squats Details 112# stable, 50# unstable Shuttle Recovery Platform Stable,Unstable Reps/Time 2x15 Unilateral Heel Raises Details 50# Shuttle Recovery Platform Stable,Unstable Reps/Time 2x10 Shuttle Balance red clips Details NBOS and then stride stance Reps/Duration 10 min Comments added lateral weight shift/ balance, Min-Mod A. Therapeutic Exercises Standing Exercises 1 Standing Exercise Name double leg heel raise ( HEP review) Equipment Used on step Reps/Minutes 30 Comments cued contact chair not heavy WB- good carry over Neuro Re-Education Treatment Balance Activities Uneven obstacle course Details oval foam Equipment no AD Comments required Nik to prevent LOB at begninning but then improved with repetition. PT-OP-T Assessment and Plan Start: 06/23/20 07:25 Freq: Status: Active Protocol: Document 08/14/20 12:45 AMB (Rec: 08/14/20 13:16 AMB [id number]) Physical Therapy Assessment Goals Two Impairment Strength Short Term Goal (STG) Yamil will show improved ankle strength in all planes to 4/5. Progress made: STG Duration 4 weeks Spin Table Operator Goal (LTG) Yamil will be consistent and independent with a HEP for strength and balance. LTG Duration MET One Impairment Balance Short Term Goal (STG) Yamil will improve his DGI score to 23/24 to show reduced risk of falling. PROGRESS MADE: mild missteps with gait with horizontal and vertical head turns STG Duration 4 weeks Spin Table Operator Goal (LTG) Yamil will show improved balance by maintaing single leg stance for 3 seconds. PROGRESS MADE: variable 1-3 seconds LTG Duration 8 weeks Assessment Summary Assessment Pt continues to have unilateral ankle weakness, but otherwise is doing well. Struggled with uneven/foam walking today. Physical Therapy Plan Next Visit Focus/Plan Next Note Type Progress Note Next Visit Plan Progress note next visit
--- NOTE | 2020-08-16 15:00 | PT.OTN ---
Current Diagnoses Cerebral infarction, unspecified (08/16/20) Other abnormalities of gait and mobility (08/16/20) Physical Therapy Treatment Note PT-OP-A Visit Information Start: 06/23/20 07:25 Freq: Status: Active Protocol: Document 08/16/20 12:45 AMB (Rec: 08/19/20 11:36 AMB [email or web address]) Out-Patient Physical Therapy Visit Information Visit Information Visit Type Progress Note Visit Start Time 12:45 Visit Stop Time 13:30 Total Visit Minutes 45 Visit Number 15 PT-OP-B Current Condition Start: 06/23/20 07:25 Freq: Status: Active Protocol: Document 06/23/20 13:35 AMB (Rec: 06/24/20 09:57 AMB [email or web address]) Current Condition History of Current Condition Onset Date April 2020 Current Complaints hemhorragic stroke- right basal ganglia History of Current Condition Yamil has been home from [facility] for over a month now, RHD. Sounds like he did inpatient rehab but no home health. He is walking up to 40 minutes a day with a cane in the community. He hasn't been doing his exercises as much now that he is walking. He previously exercised at the gym, but hasn't been since September due to Covid. No stairs inside the home, walk in shower with shower chair. Lives with , has returned to driving, history of macular degeneration worse on the R. Treatment Goals Patient/Caregiver Goals Make sure he's back to normal Prior Functional Status Baseline Function- ADL's Independent Baseline Function- Mobility Independent Current Functional Impairments (Reported) Functional Limitations- ADL's Careful with his balance Personal Factors Other Personal Factors That May Effect Extensive cardiac history. 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 PT-OP-C Subjective Start: 06/23/20 07:25 Freq: Status: Active Protocol: Document 08/16/20 12:45 AMB (Rec: 08/19/20 11:36 AMB [email or web address]) OP-PT Subjective Patient Comments Patient Comments Pt reports doing at least some of his HEP every day. PT-OP-E Functional Tests Start: 06/23/20 07:25 Freq: Status: Active Protocol: Document 08/16/20 12:45 AMB (Rec: 08/16/20 13:31 AMB [id number]) Functional Tests Dynamic Gait Index (DGI) Score 23 DGI Impairment Rating 1 to <20% Impaired (Score 20- 23) PT-OP-G Mobility & Gait Start: 06/23/20 07:25 Freq: Status: Active Protocol: Document 06/23/20 13:35 AMB (Rec: 06/24/20 09:57 AMB [email or web address]) OP Gait Assessment Comments Gait Comments Decreased L arm swing (pt reports might get total shoulder on it). Slightly reduced push off on the left, pt reports mild toe catching if he has been walking a long time. PT-OP-M Strength Start: 06/23/20 07:25 Freq: Status: Active Protocol: Document 06/23/20 13:35 AMB (Rec: 06/24/20 09:57 AMB [email or web address]) Hip Strength Hip Manual Muscle Testing Right Flexion (L2) 4+ Good+ Extension (S1) 4+ Good+ Abduction 4+ Good+ Left Flexion (L2) 4+ Good+ Extension (S1) 4 Good Abduction 4 Good Knee Strength Knee Manual Muscle Testing Right Flexion (S2) 5 Normal Extension (L3) 5 Normal Left Flexion (S2) 5 Normal Extension (L3) 5 Normal Ankle/Foot Strength Ankle and Foot Manual Muscle Testing Right Dorsiflexion (L4) 5 Normal Plantarflexion (S1) 4+ Good+ Left Dorsiflexion (L4) 4- Good- Plantarflexion (S1) 4- Good- PT-OP-Q Treatments Start: 06/23/20 07:25 Freq: Status: Active Protocol: Document 08/16/20 12:45 AMB (Rec: 08/19/20 11:36 AMB [email or web address]) Therapeutic Exercises Standing Exercises 2 Standing Exercise Name lunges forward Comments wiht access to rail as needed 1 Standing Exercise Name double leg heel raise ( HEP review) Equipment Used on step Reps/Minutes 30 Comments cued contact chair not heavy WB- good carry over Gait Training Gait Activity 1 Description Gait with head turns over smooth surface Comments and gait over hurdles step over, CGA for safety no LOB. Neuro Re-Education Treatment Balance Activities Uneven obstacle course Details oval foam Equipment no AD Comments required Nik to prevent LOB at begninning but then improved with repetition. PT-OP-T Assessment and Plan Start: 06/23/20 07:25 Freq: Status: Active Protocol: Document 08/16/20 12:45 AMB (Rec: 08/19/20 11:36 AMB [email or web address]) Physical Therapy Assessment Goals Two Impairment Strength Short Term Goal (STG) Yamil will show improved ankle strength in all planes to 4/5. Progress made: pt's strength is improving but not equal to unaffected side STG Duration 4 weeks Personal Banking Advisor Goal (LTG) Yamil will be consistent and independent with a HEP for strength and balance. LTG Duration MET One Impairment Balance Short Term Goal (STG) Yamil will improve his DGI score to 23/24 to show reduced risk of falling. STG Duration MET Personal Banking Advisor Goal (LTG) Yamil will show improved balance by maintaing single leg stance for 3 seconds. PROGRESS MADE: variable 1-3 seconds LTG Duration 8 weeks Assessment Summary Assessment Yamil has shown excellent improvement with physical therapy. His DGI has improved to show decreased risk of falling. He does continue to have mild weakness in the affected ankle that would continue to benefit from physical therapy to improve, considering his high level of goals including walking on uneven terrain. Physical Therapy Plan Frequency and Duration Frequency of Treatment 1x/Week Duration of Treatment 6 weeks Plan of Care Start Date 08/16/20 Plan of Care End Date 09/27/20 Therapeutic Interventions Therapeutic Interventions Balance Training,Gait Training ,Home Exercise Program,Manual Therapy,Neuromuscular Re- education,Self-Care/Home Management,Therapeutic Activities,Therapeutic Exercises Next Visit Focus/Plan Next Note Type Treatment Note
--- NOTE | 2020-08-16 15:00 | PT.OPPOC ---
Physical, Occupational & Speech Therapy At [facility] Current Diagnoses Cerebral infarction, unspecified (08/16/20) Other abnormalities of gait and mobility (08/16/20) Visit Care Team Role Provider Type Maura Mazariegos MD Attending Provider Physician Family Provider Primary Care Provider Referring Provider Specialty: Family Practice Address: [address] [place] [address], [facility] Email: [email or web address] Plan Of Care PT-OP-T Assessment and Plan Start: 06/23/20 07:25 Freq: Status: Active Protocol: Document 08/16/20 12:45 AMB (Rec: 08/19/20 11:36 AMB [email or web address]) Physical Therapy Assessment Goals Two Impairment Strength Short Term Goal (STG) Yamil will show improved ankle strength in all planes to 4/5. Progress made: pt's strength is improving but not equal to unaffected side STG Duration 4 weeks Retirement Goal (LTG) Yamil will be consistent and independent with a HEP for strength and balance. LTG Duration MET One Impairment Balance Short Term Goal (STG) Yamil will improve his DGI score to 23/24 to show reduced risk of falling. STG Duration MET Drainage Engineer Goal (LTG) Yamil will show improved balance by maintaing single leg stance for 3 seconds. PROGRESS MADE: variable 1-3 seconds LTG Duration 8 weeks Assessment Summary Assessment Yamil has shown excellent improvement with physical therapy. His DGI has improved to show decreased risk of falling. He does continue to have mild weakness in the affected ankle that would continue to benefit from physical therapy to improve, considering his high level of goals including walking on uneven terrain. Physical Therapy Plan Frequency and Duration Frequency of Treatment 1x/Week Duration of Treatment 6 weeks Plan of Care Start Date 08/16/20 Plan of Care End Date 09/27/20 Therapeutic Interventions Therapeutic Interventions Balance Training,Gait Training ,Home Exercise Program,Manual Therapy,Neuromuscular Re- education,Self-Care/Home Management,Therapeutic Activities,Therapeutic Exercises Next Visit Focus/Plan Next Note Type Treatment Note Plan of Care Dates Plan of Care Start Date 08/16/20 Plan of Care End Date 09/27/20 Electronically Signed by: Martha Hua, PT 08/19/20 1138 Please Sign and Return: I have reviewed this Plan of Care and certify that the skilled therapy services above are required to meet the patient?s needs. Physician Signature Date Printed Name and Credentials Clinical Instructor Signature Printed Name and Credentials
--- NOTE | 2020-08-21 16:04 | PT.OTN ---
Current Diagnoses Cerebral infarction, unspecified (08/21/20) Other abnormalities of gait and mobility (08/21/20) Physical Therapy Treatment Note PT-OP-A Visit Information Start: 06/23/20 07:25 Freq: Status: Active Protocol: Document 08/21/20 12:45 AMB (Rec: 08/21/20 14:19 AMB [id number]) Out-Patient Physical Therapy Visit Information Visit Information Visit Type Treatment Note Visit Start Time 12:45 Visit Stop Time 13:30 Total Visit Minutes 45 Visit Number 16 PT-OP-B Current Condition Start: 06/23/20 07:25 Freq: Status: Active Protocol: Document 06/23/20 13:35 AMB (Rec: 06/24/20 09:57 AMB [email or web address]) Current Condition History of Current Condition Onset Date April 2020 Current Complaints hemhorragic stroke- right basal ganglia History of Current Condition Yamil has been home from [facility] for over a month now, RHD. Sounds like he did inpatient rehab but no home health. He is walking up to 40 minutes a day with a cane in the community. He hasn't been doing his exercises as much now that he is walking. He previously exercised at the gym, but hasn't been since September due to Covid. No stairs inside the home, walk in shower with shower chair. Lives with , has returned to driving, history of macular degeneration worse on the R. Treatment Goals Patient/Caregiver Goals Make sure he's back to normal Prior Functional Status Baseline Function- ADL's Independent Baseline Function- Mobility Independent Current Functional Impairments (Reported) Functional Limitations- ADL's Careful with his balance Personal Factors Other Personal Factors That May Effect Extensive cardiac history. 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 PT-OP-C Subjective Start: 06/23/20 07:25 Freq: Status: Active Protocol: Document 08/21/20 12:45 AMB (Rec: 08/21/20 14:19 AMB [id number]) OP-PT Subjective Patient Comments Patient Comments Pt reports he is doing well with his HEP PT-OP-E Functional Tests Start: 06/23/20 07:25 Freq: Status: Active Protocol: Document 08/16/20 12:45 AMB (Rec: 08/16/20 13:31 AMB [id number]) Functional Tests Dynamic Gait Index (DGI) Score 23 DGI Impairment Rating 1 to <20% Impaired (Score 20- 23) PT-OP-G Mobility & Gait Start: 06/23/20 07:25 Freq: Status: Active Protocol: Document 06/23/20 13:35 AMB (Rec: 06/24/20 09:57 AMB [email or web address]) OP Gait Assessment Comments Gait Comments Decreased L arm swing (pt reports might get total shoulder on it). Slightly reduced push off on the left, pt reports mild toe catching if he has been walking a long time. PT-OP-M Strength Start: 06/23/20 07:25 Freq: Status: Active Protocol: Document 06/23/20 13:35 AMB (Rec: 06/24/20 09:57 AMB [email or web address]) Hip Strength Hip Manual Muscle Testing Right Flexion (L2) 4+ Good+ Extension (S1) 4+ Good+ Abduction 4+ Good+ Left Flexion (L2) 4+ Good+ Extension (S1) 4 Good Abduction 4 Good Knee Strength Knee Manual Muscle Testing Right Flexion (S2) 5 Normal Extension (L3) 5 Normal Left Flexion (S2) 5 Normal Extension (L3) 5 Normal Ankle/Foot Strength Ankle and Foot Manual Muscle Testing Right Dorsiflexion (L4) 5 Normal Plantarflexion (S1) 4+ Good+ Left Dorsiflexion (L4) 4- Good- Plantarflexion (S1) 4- Good- PT-OP-Q Treatments Start: 06/23/20 07:25 Freq: Status: Active Protocol: Document 08/21/20 12:45 AMB (Rec: 08/21/20 16:04 AMB [email or web address]) Gym Equipment Shuttle Balance red clips Details NBOS and then stride stance Reps/Duration 10 min Comments added lateral weight shift/ balance, Nik Therapeutic Exercises Standing Exercises 2 Standing Exercise Name lunges forward Comments wiht access to rail as needed 1 Standing Exercise Name double leg heel raise ( HEP review) Equipment Used on step Reps/Minutes 30 Comments cued contact chair not heavy WB- good carry over Neuro Re-Education Treatment Balance Activities Uneven obstacle course Details oval foam and balance pods Equipment no AD Comments SBA- able to independnetly preven tLOB 1 Details rocking board A/p and m/l Comments with horizontal and vertical head turns PT-OP-T Assessment and Plan Start: 06/23/20 07:25 Freq: Status: Active Protocol: Document 08/21/20 12:45 AMB (Rec: 08/21/20 16:04 AMB [email or web address]) Physical Therapy Assessment Assessment Summary Assessment Yamil continues to show good improvement with uneven surfaces. He does have high level goals of returning to floating down the river, but would be using the boat ramp, not walking down to the bank. Physical Therapy Plan Next Visit Focus/Plan Next Note Type Treatment Note Next Visit Plan Consider starting to work on upcoming d/c
--- NOTE | 2020-09-01 15:00 | PT.OTN ---
Current Diagnoses Cerebral infarction, unspecified (09/01/20) Other abnormalities of gait and mobility (09/01/20) Physical Therapy Treatment Note PT-OP-A Visit Information Start: 06/23/20 07:25 Freq: Status: Active Protocol: Document 09/01/20 13:35 AMB (Rec: 09/01/20 14:11 AMB [id number]) Out-Patient Physical Therapy Visit Information Visit Information Visit Type Treatment Note Visit Start Time 13:30 Visit Stop Time 14:15 Total Visit Minutes 45 Visit Number 17 PT-OP-B Current Condition Start: 06/23/20 07:25 Freq: Status: Active Protocol: Document 06/23/20 13:35 AMB (Rec: 06/24/20 09:57 AMB [email or web address]) Current Condition History of Current Condition Onset Date April 2020 Current Complaints hemhorragic stroke- right basal ganglia History of Current Condition Yamil has been home from [facility] for over a month now, RHD. Sounds like he did inpatient rehab but no home health. He is walking up to 40 minutes a day with a cane in the community. He hasn't been doing his exercises as much now that he is walking. He previously exercised at the gym, but hasn't been since September due to Covid. No stairs inside the home, walk in shower with shower chair. Lives with , has returned to driving, history of macular degeneration worse on the R. Treatment Goals Patient/Caregiver Goals Make sure he's back to normal Prior Functional Status Baseline Function- ADL's Independent Baseline Function- Mobility Independent Current Functional Impairments (Reported) Functional Limitations- ADL's Careful with his balance Personal Factors Other Personal Factors That May Effect Extensive cardiac history. 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 PT-OP-C Subjective Start: 06/23/20 07:25 Freq: Status: Active Protocol: Document 09/01/20 13:35 AMB (Rec: 09/01/20 14:11 AMB [id number]) OP-PT Subjective Patient Comments Patient Comments Pt did have a fall on Friday , slipped on something in the kitchen, fell on tailbone, able to get up independently. PT-OP-E Functional Tests Start: 06/23/20 07:25 Freq: Status: Active Protocol: Document 08/16/20 12:45 AMB (Rec: 08/16/20 13:31 AMB [id number]) Functional Tests Dynamic Gait Index (DGI) Score 23 DGI Impairment Rating 1 to <20% Impaired (Score 20- 23) PT-OP-G Mobility & Gait Start: 06/23/20 07:25 Freq: Status: Active Protocol: Document 06/23/20 13:35 AMB (Rec: 06/24/20 09:57 AMB [email or web address]) OP Gait Assessment Comments Gait Comments Decreased L arm swing (pt reports might get total shoulder on it). Slightly reduced push off on the left, pt reports mild toe catching if he has been walking a long time. PT-OP-M Strength Start: 06/23/20 07:25 Freq: Status: Active Protocol: Document 06/23/20 13:35 AMB (Rec: 06/24/20 09:57 AMB [email or web address]) Hip Strength Hip Manual Muscle Testing Right Flexion (L2) 4+ Good+ Extension (S1) 4+ Good+ Abduction 4+ Good+ Left Flexion (L2) 4+ Good+ Extension (S1) 4 Good Abduction 4 Good Knee Strength Knee Manual Muscle Testing Right Flexion (S2) 5 Normal Extension (L3) 5 Normal Left Flexion (S2) 5 Normal Extension (L3) 5 Normal Ankle/Foot Strength Ankle and Foot Manual Muscle Testing Right Dorsiflexion (L4) 5 Normal Plantarflexion (S1) 4+ Good+ Left Dorsiflexion (L4) 4- Good- Plantarflexion (S1) 4- Good- PT-OP-Q Treatments Start: 06/23/20 07:25 Freq: Status: Active Protocol: Document 09/01/20 13:30 AMB (Rec: 09/05/20 07:48 AMB [email or web address]) Gym Equipment Shuttle Balance red clips Details NBOS and then stride stance Reps/Duration 10 min Comments added lateral weight shift/ balance, Nik Therapeutic Exercises Standing Exercises 1 Standing Exercise Name double leg heel raise ( HEP review) Equipment Used on step Reps/Minutes 30 Comments cued contact chair not heavy WB- good carry over Gait Training Gait Activity 1 Description Gait with head turns over smooth surface Neuro Re-Education Treatment Balance Activities Uneven obstacle course Details oval foam and balance pods Equipment no AD Comments SBA- able to independnetly preven tLOB 1 Details rocking board A/p and m/l Comments with horizontal and vertical head turns PT-OP-T Assessment and Plan Start: 06/23/20 07:25 Freq: Status: Active Protocol: Document 09/01/20 13:30 AMB (Rec: 09/05/20 07:48 AMB [email or web address]) Physical Therapy Assessment Goals Two Impairment Strength Short Term Goal (STG) Yamil will show improved ankle strength in all planes to 4/5. STG Duration MET Fci Goal (LTG) Yamil will be consistent and independent with a HEP for strength and balance. LTG Duration MET One Impairment Balance Short Term Goal (STG) Yamil will improve his DGI score to 23/24 to show reduced risk of falling. STG Duration MET Substation Inspector Goal (LTG) Yamil will show improved balance by maintaing single leg stance for 3 seconds. PROGRESS MADE: variable 1-3 seconds LTG Duration 8 weeks Assessment Summary Assessment Yamil has shown good adherence to his HEP. He did just have a fall, but it is his first, and sounds like a very abnormal occurence for him. That said, if he has one more fall in the next 6 months, he was encouraged to follow up with his MD. At this point he has very mild ankle weakness in his affected leg (although it would be likely more apparent with activities requiring more dynamic stability/endurance like hiking). He states he will continue to use a trekking pole when walking on uneven surfaces like the beach. Given his DGI, he is not considered a fall risk at this time, so he should continue with his HEP, and return if he has any more falls or questions about his HEP. Physical Therapy Plan Discharge Physical Therapy Discharge Reasons Goals Met
== END 2020-11-17 09:50 | disposition home or self-care (01) ==
LOC: PHYS 13:30
PROVIDERS: Family Provider Family Medicine; PCP Family Medicine; Referring Provider Family Medicine; Visit Provider Family Medicine
DX: I63.9 Cerebral infarction, unspecified (principal); R26.89 Other abnormalities of gait and mobility
CPT/HCPCS: 97110; 97112; 97116; 97162

== ENCOUNTER 2021-02-12 10:30 | Outpatient (RCR) | payer MEDICARE, OTHER, SELFPAY ==
--- NOTE | 2020-06-12 16:44 | ST.OPIE ---
Visit Care Team Role Provider Type Other Providers Specialty: Address: Phone: Fax: Email: Maura Mazariegos MD Attending Provider Physician Family Provider Primary Care Provider Referring Provider Specialty: Family Practice Address: [address] [place] [address], [facility], [place], [address] Email: [email or web address] Speech-Language Pathology Initial Evaluation TRAVEL INSURANCE AGENT Adult Cognitive Linguistic Eval Start: 06/07/20 08:49 Freq: Status: Active Protocol: Document 06/07/20 15:20 ANAT (Rec: 06/07/20 15:29 ANAT [email or web address]) Adult Cognitive Linguistic Evaluation Session Time Visit Start Time 12:30 Visit Stop Time 13:15 Total Visit Minutes 45 Visit Information Visit Number Initial Evaluation Plan of Care Dates 06/07/20 - 09/07/20 Insurance Information Medicare Referral Referring Provider Dr. Juve Pelaez Reason for Referral CVA Setting Assessment Location Outpatient Care Visit Type Note Type Initial evaluation Next Note Type Next Note Type Treatment Note Patient Information Identification Type Name,ID Card Medical History The pt is an 85-yr-old male with hx of Afib on Rivaroxaban , who presented to local hospital with L-sided weakness on 04/28/20, 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 He then discharged home with instructions for PT exercises until seen for outpatient services (PT/OT/ST). Today the pt reported only occasional mild dysarthria when he is tired. He reported being on a soft diet for 3 days during hospitalization with no modifications made to liquids, then return to regular diet. He denies symptoms of dysphagia and expressive/receptive language impairments. 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 He does not participate as much in household duties, such as setting table and cleaning dishes primarily d/t fatigue. He manages his own medications but has difficulty opening and closing lids, which often results in spilling the tablets. He has been reluctant to use a medi- set. PMHx significant for Afib, COPD, [place] 1995 s/p PCI then 3v bypass at in 1997, GERD, HLD, Macular degeneration R eye w/ surgery ~September 2019, HTN, R shoulder replacement ~ summer 2019, L degenerative rotator cuff tear. Language(s) Spoken in the Home Yi Occupation Status Retired Hearing Hearing Level Hearing Aids Vision Vision Status Impaired Comments Macular degeneration R eye w/ surgery ~September 2019 Previous Therapy Previous Speech-Language Therapy Yes History of Therapy Limited therapy during inpatient rehab. The pt did not recall targets of therapy. Subjective Patient Report The pt arrived on time accompanied by his , who was present throughout the session. The couple provided case history supplemental to medical records. The pt stated a goal to improve memory. Pain Intensity 0 Pain Scale Used Numeric (0 - 10) Mental Status Alert,Responsive,Cooperative Formal Assessment Standardized Test/Screener Type Scales of Cognitive and Communicative Ability (SCCAN) Administration Initiated Results Formal assessment was initiated, and the pt exhibited strong skills in most areas tested so far. During categorical naming task , the pt named 16 animals in 30 sec and only 2 words beginning with F; he remarked at how difficult the latter was. Other errors occurred only in delayed recall of a message and medication list of 3 items. He did demonstrate independent use of mnemonic to assist in recalling medication list, which assisted him in recalling one item and the first letters of the other 2 items but not the med names themselves. Findings/Results Language Function Within normal limits Cognitive Function Mildly impaired Findings The pt presents with expressive, receptive, and pragmatic language skills WNL in basic conversation. He followed 1- to 3-step directions. Mild deficits were observed in cognitive organization during abstract categorical naming task and in delayed memory recall. Further findings to be reported upon completion of assessment. The pt showed awareness of memory deficits, although to a lesser degree than his 's perception. Cognitive Communication Deficits Self-awareness of Cognitive- Predictive awareness (able to Communication Deficits predict problem; impact of impairments) Impact on Functioning Activity Limits/Particip.Rest. Mild: General Tasks and Demands Household Tasks Interpersonal Interactions Community Safety Risks Mild: Managing Medication Traveling Alone in Community Prognosis Prognosis Good Based on Cognitive status,Family support,Duration of symptoms/ severity,Time since onset Plan of Care Speech-Language Treatment Yes Frequency 1x/2wk Duration 12 wks Patient/Caregiver Education Described results of evaluation,Patient expressed understanding of evaluation, Patient expressed agreement with goals and treatment plans ,Family/caregivers expressed understanding of evaluation, Family/caregivers expressed agreement with goals and treatment plan,Patient expressed understanding of safety precautions,Family/ caregivers expressed understanding of safety precautions,Patient requires further education/training, Family/caregivers require further education/training Short Term Goals 1. With collaboration and assistance as needed from TRAVEL INSURANCE AGENT & spouse, the pt will establish external memory tools (e.g., medi-set, memory notebook) to increase independence in functional activities. 2. Once established, the pt will use external memory tools to successfully recall functional information in 80% of opportunities, as measured by pt/spouse report and clinical judgment. 3. Using internal memory strategies with min cues, the pt will recall unassociated picture pairs with 80% accuracy to improve visual memory skills. 4. Using internal memory strategies independently, the pt will follow 3-step directions with 80% acc to improve attention and memory skills for functional tasks. Additional goals to be determined upon completion of assessment. Road Design Draftsperson Goals 1. The pt will use external memory tools independently in 80% of opportunities to perform functional tasks and increase independence. 2. Using memory strategies as needed and given information of moderate length provided orally (e.g., phone message, short story), the pt will recall topics and significant details with 80% accuracy to improve working and short-term memory skills. Additional goals to be determined upon completion of assessment.
--- NOTE | 2020-06-12 17:21 | ST.OPTN ---
Visit Care Team Role Provider Type Other Providers Address: Phone: Fax: Maura Mazariegos MD Attending Provider Physician Family Provider Primary Care Provider Referring Provider Address: [address] [place] [address], [address], [place], [address] TRY ON BASTER Treatment Note TRY ON BASTER Treatment Note Start: 06/07/20 08:49 Freq: Status: Active Protocol: Document 06/12/20 17:01 ANAT (Rec: 06/12/20 17:18 ANAT [email or web address]) Speech Pathology Treatment Note Session Time Visit Start Time 12:30 Visit Stop Time 13:15 Total Visit Minutes 45 Visit Information Visit Number 07/23 Plan of Care Dates 06/07/20 - 09/07/20 Insurance Information Medicare Setting Treatment Setting Outpatient Care Visit Type Note Type Treatment Note Next Note Type Next Note Type Treatment Note General Information General Information The pt is an 85-yr-old male with hx of Afib on Rivaroxaban , who presented to local hospital with L-sided weakness on 04/28/20, 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 He then discharged home with instructions for PT exercises until seen for outpatient services (PT/OT/ST). Today the pt reported only occasional mild dysarthria when he is tired. He reported being on a soft diet for 3 days during hospitalization with no modifications made to liquids, then return to regular diet. He denies symptoms of dysphagia and expressive/receptive language impairments. 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 He does not participate as much in household duties, such as setting table and cleaning dishes primarily d/t fatigue. He manages his own medications but has difficulty opening and closing lids, which often results in spilling the tablets. He has been reluctant to use a medi- set. PMHx significant for Afib, COPD, [place] 1995 s/p PCI then 3v bypass at in 1997, GERD, HLD, Macular degeneration R eye w/ surgery ~September 2019, HTN, R shoulder replacement ~ summer 2019, L degenerative rotator cuff tear. Subjective Others Present Family Observations/Patient Presentation The pt arrived on time accompanied by his , who was present throughout and provided input into the pt's functioning at home. She reported observing the pt with declined recall of where household items are kept. The pt stated his baseline is to not listen to answers carefully when he asks questions because I assume I already know the answer. Chief Complaint(s) Cognitive Rehab Expectation/Goals: Patient Goals Improve memory Patient Knowledge/Awareness of TRY ON BASTER Role Good in Treatment Parent/Caretake Knowledge/Awareness of Good TRY ON BASTER Role in Treatment Objective Short Term Goals 1. With collaboration and assistance as needed from TRY ON BASTER & spouse, the pt will establish external memory tools (e.g., medi-set, memory notebook) to increase independence in functional activities. 2. Once established, the pt will use external memory tools to successfully recall functional information in 80% of opportunities, as measured by pt/spouse report and clinical judgment. 3. Using internal memory strategies with min cues, the pt will recall unassociated picture pairs with 80% accuracy to improve visual memory skills. 4. Using internal memory strategies independently, the pt will follow 3-step directions with 80% acc to improve attention and memory skills for functional tasks. 5. The pt will name 8 or more items in abstract category to improve cognitive organization and memory skills. Speech Correction Consultant Goals 1. The pt will use external memory tools independently in 80% of opportunities to perform functional tasks and increase independence. 2. Using memory strategies as needed and given information of moderate length provided orally (e.g., phone message, short story), the pt will recall topics and significant details with 80% accuracy to improve working and short-term memory skills. Treatment Activities Completed SCCAN assessment with the following results: Total Raw Score: 85; %ile Rank : 16; SCCAN Index: 82 Degree of Severity: Typical Functioning Oral Expression: 90% Orientation: 100% MEmory: 84% Speech Comprehension: 100% Reading Comprehension: 100% Writin% d/t reduced legibility. Pt reports decline in penmanship over the last couple of years d/t arthritis . Content in written tasks was appropriate and complete. Attention: 94% Problem Solvin% The pt had questions related to what may have caused him to perform so poorly on abstract categorical naming task. Education was provided RE memory, cognitive organization , and potential influence of external/internal pressure. Agreed to discuss this more in treatment; pt in agreement. Skilled feedback was provided RE the pt's 's concern that he does not recall where items are found and the pt's subsequent feelings of being spoken down to when she questions if he really doesn't remember. Informed that with injury to the brain, recollection time can be delayed and often, if given extended time, individuals often do in fact recall information. Recommended the couple agree to language which the pt's could use to prompt recall without being condescending. The couple agreed; will f/u in future sessions. Discussed preliminary assessment results and recommended goals. The pt was in agreement with POC. Assessment Rehab Potential Good Impairments Identified Attention,Auditory Processing, Cognitive-Linguistic Skills, Memory - Short Term,Memory - Working Assessment of Improvement The pt presents with overall typical functioning, as measured by SCCAN, with mild deficits primarily in memory, which is likely impacted by minimal attention deficits. The pt did score low in written expression; however, this was d/t reduced legibility vs spelling, content, syntax, etc. and not reflecting deficits in expressive language skills. 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 He and his were both receptive to education and skilled feedback provided today and in agreement with POC. Reviewed with Patient Goals,Progress Being Made,Home Exercise Program Patient/Caregiver Understanding Good Plan Amount of Therapy Recommended 2-3 Months Frequency of Treatment Once a Week Length of Session 45 Minutes Treatment Emphasis Next Session Initiate training in mem/cog organization; ID targets for ext mem tools Therapeutic Contents Client Education,Cognitive- Linguistic Training,Home Exercise Program Provided Patient/Caregiver Instruction Home Exercise Program,Plan of Care,Questions/Concerns Therapy Recommendations Continue with Current Program
--- NOTE | 2020-06-19 17:07 | ST.OPTN ---
Visit Care Team Role Provider Type Other Providers Address: Phone: Fax: Maura Mazariegos MD Attending Provider Physician Family Provider Primary Care Provider Referring Provider Address: [address] [place] [address], [address], [place], [address] EVENT HOST Treatment Note EVENT HOST Treatment Note Start: 06/07/20 08:49 Freq: Status: Active Protocol: Document 06/19/20 16:48 ANAT (Rec: 06/19/20 17:07 ANAT [email or web address]) Speech Pathology Treatment Note Session Time Visit Start Time 12:30 Visit Stop Time 13:15 Total Visit Minutes 45 Visit Information Visit Number 08/23 Plan of Care Dates 06/07/20 - 09/07/20 Insurance Information Medicare Setting Treatment Setting Outpatient Care Visit Type Note Type Treatment Note Next Note Type Next Note Type Treatment Note General Information General Information The pt is an 85-yr-old male with hx of Afib on Rivaroxaban , who presented to local hospital with L-sided weakness on 04/28/20, 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 He then discharged home with instructions for PT exercises until seen for outpatient services (PT/OT/ST). Today the pt reported only occasional mild dysarthria when he is tired. He reported being on a soft diet for 3 days during hospitalization with no modifications made to liquids, then return to regular diet. He denies symptoms of dysphagia and expressive/receptive language impairments. 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 He does not participate as much in household duties, such as setting table and cleaning dishes primarily d/t fatigue. He manages his own medications but has difficulty opening and closing lids, which often results in spilling the tablets. He has been reluctant to use a medi- set. PMHx significant for Afib, COPD, [place] 1995 s/p PCI then 3v bypass at in 1997, GERD, HLD, Macular degeneration R eye w/ surgery ~September 2019, HTN, R shoulder replacement ~ summer 2019, L degenerative rotator cuff tear. Subjective Others Present Family Observations/Patient Presentation The pt arrived on time accompanied by his , who was present throughout and provided input into the pt's functioning at home. Chief Complaint(s) Cognitive Rehab Expectation/Goals: Patient Goals Improve memory Patient Knowledge/Awareness of EVENT HOST Role Good in Treatment Parent/Caretake Knowledge/Awareness of Good EVENT HOST Role in Treatment Objective Short Term Goals 1. With collaboration and assistance as needed from EVENT HOST & spouse, the pt will establish external memory tools (e.g., medi-set, memory notebook) to increase independence in functional activities. 2. Once established, the pt will use external memory tools to successfully recall functional information in 80% of opportunities, as measured by pt/spouse report and clinical judgment. 3. Using internal memory strategies with min cues, the pt will recall unassociated picture pairs with 80% accuracy to improve visual memory skills. 4. Using internal memory strategies independently, the pt will follow 3-step directions with 80% acc to improve attention and memory skills for functional tasks. 5. The pt will name 8 or more items in abstract category to improve cognitive organization and memory skills. Business Editor Goals 1. The pt will use external memory tools independently in 80% of opportunities to perform functional tasks and increase independence. 2. Using memory strategies as needed and given information of moderate length provided orally (e.g., phone message, short story), the pt will recall topics and significant details with 80% accuracy to improve working and short-term memory skills. Treatment Activities Educated pt/spouse on assessment results. Initiated development of external memory tools via collaboration with pt/spouse. The pt identified home responsibilities that are being impacted by memory and/ or attention deficits. Agreed (1) the pt would establish his own calendar that would be posted next to his personal PC , including his appts, Zoom mtgs, and due dates of bills; (2) the pt would complete a 1- mo trial using medi-set to manage medicine in order to reduce likelihood of spilling meds and potential associated negative consequences; (3) the pt/spouse would collaborate to create written instructions on how to retrieve voice messages from the answering machine. The pt also is responsible for cleaning the toilets in the bathroom and agreed to doing this weekly. Will f/u next appt to include on calendar. Additionally, the pt stated he does not know his cell phone number and rarely uses his cell phone because he does not know how to. He uses and refers people to the couple's landline instead. The pt's stated the pt is having difficulty learning new things . Will target these areas in future sessions related to developing both external and internal memory strategies. Assessment Rehab Potential Good Impairments Identified Attention,Auditory Processing, Cognitive-Linguistic Skills, Memory - Short Term,Memory - Working Assessment of Overall Progress Unchanged Assessment of Improvement The pt was receptive to all education and discussions today. He was initially hesitant to use medi-set most likely, he stated, out of pride; however, he has difficulty opening and closing the 4-5 pill bottles containing his meds, so he leaves them open in the bathroom cupboard. After discussion of potential safety risks and demonstration of a variety of medi-sets, the pt was agreeable to a 1-mo trial of using the medi-set and anticipated he may find it helpful. In discussions of other household responsibilities, the pt and his frequently disagreed regarding the pt's actual involvement. The pt's expressed concern that the pt does not pay adequate attention to the world and that he is not aware of the extent of the deficits. They discussed these things compatibly, and agreement was made on the items outlined above. Will incorporate metacognitive techniques into therapy as indicated to assess /improve the pt's awareness of his skills, deficits, and tendencies. Reviewed with Patient Goals,Progress Being Made,Home Exercise Program Patient/Caregiver Understanding Good Plan Amount of Therapy Recommended 2-3 Months Frequency of Treatment Once a Week Length of Session 45 Minutes Treatment Emphasis Next Session Cont external memory tools; routines & organization of environment Therapeutic Contents Client Education,Cognitive- Linguistic Training,Home Exercise Program Provided Patient/Caregiver Instruction Home Exercise Program,Plan of Care,Questions/Concerns Therapy Recommendations Continue with Current Program
--- NOTE | 2020-06-28 15:41 | ST.OPTN ---
Visit Care Team Role Provider Type Other Providers Address: Phone: Fax: Maura Mazariegos MD Attending Provider Physician Family Provider Primary Care Provider Referring Provider Address: [address] [place] [address], [address], [place], [address] BALLISTIC EXPERT Treatment Note BALLISTIC EXPERT Treatment Note Start: 06/07/20 08:49 Freq: Status: Active Protocol: Document 06/28/20 15:09 ANAT (Rec: 06/28/20 15:12 ANAT [email or web address]) Speech Pathology Treatment Note Session Time Visit Start Time 10:30 Visit Stop Time 11:15 Total Visit Minutes 45 Visit Information Visit Number 09/20 Plan of Care Dates 06/07/20 - 09/07/20 Insurance Information Medicare Setting Treatment Setting Outpatient Care Visit Type Note Type Treatment Note Next Note Type Next Note Type Treatment Note General Information General Information The pt is an 85-yr-old male with hx of Afib on Rivaroxaban , who presented to local hospital with L-sided weakness on 04/28/20, found to have R basal ganglia IPH, transferred to [facility] where he underwent further evaluation and participated in inpatient rehab until 05/16/20 . He then discharged home with instructions for PT exercises until seen for outpatient services (PT/OT/ST). Today the pt reported only occasional mild dysarthria when he is tired. He reported being on a soft diet for 3 days during hospitalization with no modifications made to liquids, then return to regular diet. He denies symptoms of dysphagia and expressive/receptive language impairments. 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 He does not participate as much in household duties, such as setting table and cleaning dishes primarily d/t fatigue. He manages his own medications but has difficulty opening and closing lids, which often results in spilling the tablets. He has been reluctant to use a medi- set. PMHx significant for Afib, COPD, [place] 1995 s/p PCI then 3v bypass at in 1997, GERD, HLD, Macular degeneration R eye w/ surgery ~September 2019, HTN, R shoulder replacement ~ summer 2019, L degenerative rotator cuff tear. Subjective Others Present Family Observations/Patient Presentation The pt arrived on time accompanied. His later joined the session for family education and carryover training. Pt reported he has set up his own calendar at home and is in the process of adding information to it, as discussed at last session. He is also using medi-set, which he finds to be very helpful. Chief Complaint(s) Cognitive Rehab Expectation/Goals: Patient Goals Improve memory Patient Knowledge/Awareness of BALLISTIC EXPERT Role Good in Treatment Parent/Caretake Knowledge/Awareness of Good BALLISTIC EXPERT Role in Treatment Objective Short Term Goals 1. With collaboration and assistance as needed from BALLISTIC EXPERT & spouse, the pt will establish external memory tools (e.g., medi-set, memory notebook) to increase independence in functional activities. 2. Once established, the pt will use external memory tools to successfully recall functional information in 80% of opportunities, as measured by pt/spouse report and clinical judgment. 3. Using internal memory strategies with min cues, the pt will recall unassociated picture pairs with 80% accuracy to improve visual memory skills. 4. Using internal memory strategies independently, the pt will follow 3-step directions with 80% acc to improve attention and memory skills for functional tasks. 5. The pt will name 8 or more items in abstract category to improve cognitive organization and memory skills. Residential Goals 1. The pt will use external memory tools independently in 80% of opportunities to perform functional tasks and increase independence. 2. Using memory strategies as needed and given information of moderate length provided orally (e.g., phone message, short story), the pt will recall topics and significant details with 80% accuracy to improve working and short-term memory skills. Treatment Activities Consulted with pt/spouse RE tasks which the pt isn't doing d/t difficulty recalling or learning steps. Identified computer tasks (enlarging, minimizing and exiting screens ) and landline and cell phone usage (retrieving messages, recalling cell phone number. Instructed to teach steps by talking pt through them as he completed them and the pt to write steps down on paper as external reminders. Recommend approaching in this way to increase pt's engagement with tasks to benefit memory recall. Requested written steps be brought to therapy for use as memory training materials. Pt/ spouse agreed. Initiated training of memory strategies in general and specific to recalling numbers in order to increase pt's ability to remember his cell phone number. Training used playing cards to establish 4- item sequences. After initial demonstration, the pt identified patterns and associations that could be useful in recalling numbers in sequence. Needs reinforcement . Recommended pt continue same training at home using playing cards. Assessment Patient Response to Treatment Good Rehab Potential Good Impairments Identified Attention,Auditory Processing, Cognitive-Linguistic Skills, Memory - Short Term,Memory - Working Progress Towards Goals Slow Progress Assessment of Overall Progress Improving Assessment of Improvement The pt followed through on most items discussed at last session. He demonstrates moderate insight to deficits as compared to his 's perception of deficits. Pt acknowledged he often does not pay sufficient attention to information which likely hinders recall, and verbalized understanding of critical role attention plays to other cognitive skills. He was stimulable to training provided today in recall of numbers and engaged with tasks . Reviewed with Patient Goals,Progress Being Made,Home Exercise Program Patient/Caregiver Understanding Good Plan Amount of Therapy Recommended 2-3 Months Frequency of Treatment Once a Week Length of Session 45 Minutes Treatment Emphasis Next Session Cont routines & organization of environment; recall of phone # Therapeutic Contents Client Education,Cognitive- Linguistic Training,Home Exercise Program Provided Patient/Caregiver Instruction Home Exercise Program,Plan of Care,Questions/Concerns Therapy Recommendations Continue with Current Program
--- NOTE | 2020-07-03 14:12 | ST.OPTN ---
Visit Care Team Role Provider Type Other Providers Address: Phone: Fax: Maura Mazariegos MD Attending Provider Physician Family Provider Primary Care Provider Referring Provider Address: [address] [place] [address], [address], [place], [address] CHANNEL [employer]IP ST[employer]ENER INSOLES Treatment Note CH[employer]IP STIFFENER [employer]OLES Treatment Note Start: 06/07/20 08:49 Freq: Status: Active Protocol: Document 07/03/20 13:50 ANAT (Rec: 07/03/20 14:12 ANAT [email or web address]) Speech Pathology Treatment Note Session Time Visit Start Time 09:35 Visit Stop Time 10:20 Total Visit Minutes 45 Visit Information Visit Number 10/[id number] Plan of Care Dates 06/07/20 - 09/07/20 Insurance Information Medicare Setting Treatment Setting Outpatient Care Visit Type Note Type Treatment Note Next Note Type Next Note Type Treatment Note General Information General Information The pt is an 85-yr-old male with hx of Afib on Rivaroxaban , who presented to local hospital with L-sided weakness on 04/28/20, 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 He then discharged home with instructions for PT exercises until seen for outpatient services (PT/OT/ST). Today the pt reported only occasional mild dysarthria when he is tired. He reported being on a soft diet for 3 days during hospitalization with no modifications made to liquids, then return to regular diet. He denies symptoms of dysphagia and expressive/receptive language impairments. 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 He does not participate as much in household duties, such as setting table and cleaning dishes primarily d/t fatigue. He manages his own medications but has difficulty opening and closing lids, which often results in spilling the tablets. He has been reluctant to use a medi- set. PMHx significant for Afib, COPD, [place] 1995 s/p PCI then 3v bypass at in 1997, GERD, HLD, Macular degeneration R eye w/ surgery ~September 2019, HTN, R shoulder replacement ~ summer 2019, L degenerative rotator cuff tear. Subjective Others Present Family Observations/Patient Presentation The pt arrived on time unaccompanied. Pt reported making progress on setting up personal calendar at home, creating and using written instructions for retrieving phone messages and navigating computer screens. Chief Complaint(s) Cognitive Rehab Expectation/Goals: Patient Goals Improve memory Patient Knowledge/Awareness of CHANNEL LIP STIFFENER INSOLES Role Good in Treatment Parent/Caretake Knowledge/Awareness of Good CHANNEL LIP STIFFENER INSOLES Role in Treatment Objective Short Term Goals 1. With collaboration and assistance as needed from CHANNEL LIP STIFFENER INSOLES & spouse, the pt will establish external memory tools (e.g., medi-set, memory notebook) to increase independence in functional activities. 2. Once established, the pt will use external memory tools to successfully recall functional information in 80% of opportunities, as measured by pt/spouse report and clinical judgment. 3. Using internal memory strategies with min cues, the pt will recall unassociated picture pairs with 80% accuracy to improve visual memory skills. 4. Using internal memory strategies independently, the pt will follow 3-step directions with 80% acc to improve attention and memory skills for functional tasks. 5. The pt will name 8 or more items in abstract category to improve cognitive organization and memory skills. Group Home Goals 1. The pt will use external memory tools independently in 80% of opportunities to perform functional tasks and increase independence. 2. Using memory strategies as needed and given information of moderate length provided orally (e.g., phone message, short story), the pt will recall topics and significant details with 80% accuracy to improve working and short-term memory skills. Treatment Activities Using CHANNEL LIP STIFFENER INSOLES's computer and steb- by-step instruction, trained pt in changing font size on computer and in minimizing, maximizing, and closing computer screens. After initial instruction, the pt performed tasks with 63% acc, improved with increased v/v prompts. Steps were written for the pt for home practice. Continued training in number recall strategies using series of 4 playing cards (1-9). In two trials, the pt independently identified associations and patterns useful for recalling number series in sequence. Requested the pt's take a picture of the couple's answering machine and written instructions for retrieving messages in order to incorporate into therapeutic tasks. Also requested the pt write down his cell phone number and bring it with him to next session. Requests were made orally and in writing. CHANNEL LIP STIFFENER INSOLES's email address provided to send answering machine picture and instructions. Assessment Patient Response to Treatment Good Rehab Potential Good Impairments Identified Attention,Auditory Processing, Cognitive-Linguistic Skills, Memory - Short Term,Memory - Working Progress Towards Goals Slow Progress Assessment of Overall Progress Improving Assessment of Improvement The pt benefited from hands-on training in managing computer settings (font size) and manipulation of internet screens on the computer, with mod rehearsal and multi- sensory input training. By end of session, he manipulated computer screens independently , demonstrating ability to learn new simple tasks. Written instructions were provided for home practice and carryover. He exhibited increased speed in identifying viable associations and patterns helpful to recall series of 4 numbers. Reviewed with Patient Goals,Progress Being Made,Home Exercise Program Patient/Caregiver Understanding Good Plan Amount of Therapy Recommended 2-3 Months Frequency of Treatment Once a Week Length of Session 45 Minutes Treatment Emphasis Next Session Recall of 4-digit number patterns, cell phone # & usage Therapeutic Contents Client Education,Cognitive- Linguistic Training,Home Exercise Program Provided Patient/Caregiver Instruction Home Exercise Program,Plan of Care,Questions/Concerns Therapy Recommendations Continue with Current Program
--- NOTE | 2020-07-10 16:17 | ST.OPTN ---
Visit Care Team Role Provider Type Other Providers Address: Phone: Fax: Maura Mazariegos MD Attending Provider Physician Family Provider Primary Care Provider Referring Provider Address: [address] [place] [address], [address], [place], [address] WARP HAULER Treatment Note WARP [employer]ULER Treatment Note Start: 06/07/20 08:49 Freq: Status: Active Protocol: Document 07/10/20 16:06 ANAT (Rec: 07/10/20 16:17 ANAT [email or web address]) Speech Pathology Treatment Note Session Time Visit Start Time 10:35 Visit Stop Time 11:20 Total Visit Minutes 45 Visit Information Visit Number 11/20 Plan of Care Dates 06/07/20 - 09/07/20 Insurance Information Medicare Setting Treatment Setting Outpatient Care Visit Type Note Type Treatment Note Next Note Type Next Note Type Treatment Note General Information General Information The pt is an 85-yr-old male with hx of Afib on Rivaroxaban , who presented to local hospital with L-sided weakness on 04/28/20, 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 He then discharged home with instructions for PT exercises until seen for outpatient services (PT/OT/ST). Today the pt reported only occasional mild dysarthria when he is tired. He reported being on a soft diet for 3 days during hospitalization with no modifications made to liquids, then return to regular diet. He denies symptoms of dysphagia and expressive/receptive language impairments. 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 He does not participate as much in household duties, such as setting table and cleaning dishes primarily d/t fatigue. He manages his own medications but has difficulty opening and closing lids, which often results in spilling the tablets. He has been reluctant to use a medi- set. PMHx significant for Afib, COPD, [place] 1995 s/p PCI then 3v bypass at in 1997, GERD, HLD, Macular degeneration R eye w/ surgery ~September 2019, HTN, R shoulder replacement ~ summer 2019, L degenerative rotator cuff tear. Subjective Others Present Family Observations/Patient Presentation The pt arrived on time accompanied by his , who was present throughout the session. The pt brought his cell phone and written instructions for retrieving phone messages from the home answering machine. Chief Complaint(s) Cognitive Rehab Expectation/Goals: Patient Goals Improve memory Patient Knowledge/Awareness of WARP HAULER Role Good in Treatment Parent/Caretake Knowledge/Awareness of Good WARP HAULER Role in Treatment Objective Short Term Goals 1. With collaboration and assistance as needed from WARP HAULER & spouse, the pt will establish external memory tools (e.g., medi-set, memory notebook) to increase independence in functional activities. 2. Once established, the pt will use external memory tools to successfully recall functional information in 80% of opportunities, as measured by pt/spouse report and clinical judgment. 3. Using internal memory strategies with min cues, the pt will recall unassociated picture pairs with 80% accuracy to improve visual memory skills. 4. Using internal memory strategies independently, the pt will follow 3-step directions with 80% acc to improve attention and memory skills for functional tasks. 5. The pt will name 8 or more items in abstract category to improve cognitive organization and memory skills. Security Operations Specialist Goals 1. The pt will use external memory tools independently in 80% of opportunities to perform functional tasks and increase independence. 2. Using memory strategies as needed and given information of moderate length provided orally (e.g., phone message, short story), the pt will recall topics and significant details with 80% accuracy to improve working and short-term memory skills. Treatment Activities The pt recalled his cell phone number at start and end of session. He stated that he had been rehearsing it in order to remember it. Given written presentation of his phone number, the pt used chunking and association techniques to develop strategies for improved and easier recall. Following [id number] recall technique, number/word associations, and errorless learning techniques, trained pt in recall of steps to retrieving phone messages from home answering machine. Developed external memory tool (Do/Say worksheet) to assist in functional task completion and recall of steps. Following instruction and training, the pt recalled the 5 step process with min verbal prompts. As part of the task, the pt was charged with recalling 3 numbers (phone keys) and their associated functions with the answering machine (i.e., 3=delete msg; 4 =repeat msg; 6=skip msg). Using associations and given min verbal prompts, the pt recalled these number/function pairs after ~10-min delay. Needs reinforcement. Assessment Patient Response to Treatment Good Rehab Potential Good Impairments Identified Attention,Auditory Processing, Cognitive-Linguistic Skills, Memory - Short Term,Memory - Working Progress Towards Goals Slow Progress Assessment of Overall Progress Improving Assessment of Improvement The pt is making excellent progress identifying associations and number patterns for recall of numbers and number/word pairs. Also making excellent progress recalling personal cell phone number. Slower but good progress also being made with functional task of retrieving messages from the couple's home answering machine. He benefited from external cognitive support, step-by- step and errorless learning techniques, and repetition. Reviewed with Patient Goals,Progress Being Made,Home Exercise Program Patient/Caregiver Understanding Good Plan Amount of Therapy Recommended 2-3 Months Frequency of Treatment Once a Week Length of Session 45 Minutes Treatment Emphasis Next Session Recall of msg retrieval steps, cell ph #; initiate cell phone use steps Therapeutic Contents Client Education,Cognitive- Linguistic Training,Home Exercise Program Provided Patient/Caregiver Instruction Home Exercise Program,Plan of Care,Questions/Concerns Therapy Recommendations Continue with Current Program
--- NOTE | 2020-07-23 15:02 | ST.OPTN ---
Visit Care Team Role Provider Type Other Providers Address: Phone: Fax: Maura Mazariegos MD Attending Provider Physician Family Provider Primary Care Provider Referring Provider Address: [address] [place] [address], [address], [place], [address] CREDIT OR LOANS OFFICER Treatment Note CREDIT OR LOANS OFFICER Treatment Note Start: 06/07/20 08:49 Freq: Status: Active Protocol: Document 07/18/20 18:25 ANAT (Rec: 07/18/20 18:25 ANAT [email or web address]) Speech Pathology Treatment Note Session Time Visit Start Time 15:30 Visit Stop Time 16:20 Total Visit Minutes 50 Visit Information Visit Number 11/20 Plan of Care Dates 06/07/20 - 09/07/20 Insurance Information Medicare Setting Treatment Setting Outpatient Care Visit Type Note Type Treatment Note Next Note Type Next Note Type Treatment Note General Information General Information The pt is an 85-yr-old male with hx of Afib on Rivaroxaban , who presented to local hospital with L-sided weakness on 04/28/20, 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 He then discharged home with instructions for PT exercises until seen for outpatient services (PT/OT/ST). Today the pt reported only occasional mild dysarthria when he is tired. He reported being on a soft diet for 3 days during hospitalization with no modifications made to liquids, then return to regular diet. He denies symptoms of dysphagia and expressive/receptive language impairments. 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 He does not participate as much in household duties, such as setting table and cleaning dishes primarily d/t fatigue. He manages his own medications but has difficulty opening and closing lids, which often results in spilling the tablets. He has been reluctant to use a medi- set. PMHx significant for Afib, COPD, [place] 1995 s/p PCI then 3v bypass at in 1997, GERD, HLD, Macular degeneration R eye w/ surgery ~September 2019, HTN, R shoulder replacement ~ summer 2019, L degenerative rotator cuff tear. Subjective Others Present Family Observations/Patient Presentation The pt arrived on time unaccompanied. When discussing cell phone use, the pt stated he probably doesn't use his cell phone because he lacks confidence and felt that being able to use it would be a good safety measure and increase his ability to communicate his location and general information with his , who would very much like him to use his phone. Chief Complaint(s) Cognitive Rehab Expectation/Goals: Patient Goals Improve memory Patient Knowledge/Awareness of CREDIT OR LOANS OFFICER Role Good in Treatment Parent/Caretake Knowledge/Awareness of Good CREDIT OR LOANS OFFICER Role in Treatment Objective Short Term Goals 1. With collaboration and assistance as needed from CREDIT OR LOANS OFFICER & spouse, the pt will establish external memory tools (e.g., medi-set, memory notebook) to increase independence in functional activities. 2. Once established, the pt will use external memory tools to successfully recall functional information in 80% of opportunities, as measured by pt/spouse report and clinical judgment. 3. Using internal memory strategies with min cues, the pt will recall unassociated picture pairs with 80% accuracy to improve visual memory skills. 4. Using internal memory strategies independently, the pt will follow 3-step directions with 80% acc to improve attention and memory skills for functional tasks. 5. The pt will name 8 or more items in abstract category to improve cognitive organization and memory skills. Clay Dry Press Helper Goals 1. The pt will use external memory tools independently in 80% of opportunities to perform functional tasks and increase independence. 2. Using memory strategies as needed and given information of moderate length provided orally (e.g., phone message, short story), the pt will recall topics and significant details with 80% accuracy to improve working and short-term memory skills. Treatment Activities The pt recalled his cell phone number at start and end of session. Also independently recalled steps and options for retrieving phone messages from answering machine with 88 % acc (7/8 items). One item he did not recall was the function of one of the button options (#3), which he did recall with verbal prompt. Continued training of screen control on desktop computer. The pt recalled 2/3 functions of target icons. Education and training provided, and pt demonstrated understanding by manipulating CREDIT OR LOANS OFFICER's computer screen using the icons. He then verbally recalled the functions of each of the three icons. F/U delayed, long-term recall at next session. Initiated training pt in answering or declining phone calls on his cell phone, and how to make phone calls to persons in his contact list and . The pt navigated phone with min cues to open the phone pad screen and demonstrated how to call for emergency assistance. He verbalized understanding of steps to other functions, but needs reinforcement and further training. Encouraged the pt to call and receive calls from his at home for practice to increase comfort. Assessment Patient Response to Treatment Good Rehab Potential Good Impairments Identified Attention,Auditory Processing, Cognitive-Linguistic Skills, Memory - Short Term,Memory - Working Progress Towards Goals Slow Progress Assessment of Overall Progress Improving Assessment of Improvement The ptis demonstrating carryover in recall of cell phone number, steps to retrieve phone messages, and ways to manipulate the computer screen. He was responsive to training with the computer and with his cell phone, both of which require further training. The pt demonstrates ability to learn and remember new tasks, which indicates excellent rehab potential and does not indicate disease process, such as dementia. Reviewed with Patient Goals,Progress Being Made,Home Exercise Program Patient/Caregiver Understanding Good Plan Amount of Therapy Recommended 2-3 Months Frequency of Treatment Once a Week Length of Session 45 Minutes Treatment Emphasis Next Session Recall of msg retrieval steps, cell ph #; initiate cell phone use steps Therapeutic Contents Client Education,Cognitive- Linguistic Training,Home Exercise Program Provided Patient/Caregiver Instruction Home Exercise Program,Plan of Care,Questions/Concerns Therapy Recommendations Continue with Current Program
--- NOTE | 2020-07-24 12:31 | ST.OPTN ---
Visit Care Team Role Provider Type Other Providers Address: Phone: Fax: Maura Mazariegos MD Attending Provider Physician Family Provider Primary Care Provider Referring Provider Address: [address] [place] [address], [address], [place], [address] PRESSURE CONTROL SUPERVISOR Treatment Note PRESSURE CONTROL SUPERVISOR Treatment Note Start: 06/07/20 08:49 Freq: Status: Active Protocol: Document 07/24/20 12:19 ANAT (Rec: 07/24/20 12:31 ANAT [email or web address]) Speech Pathology Treatment Note Session Time Visit Start Time 10:35 Visit Stop Time 11:20 Total Visit Minutes 45 Visit Information Visit Number 12/21 Plan of Care Dates 06/07/20 - 09/07/20 Insurance Information Medicare Setting Treatment Setting Outpatient Care Visit Type Note Type Treatment Note Next Note Type Next Note Type Treatment Note General Information General Information The pt is an 85-yr-old male with hx of Afib on Rivaroxaban , who presented to local hospital with L-sided weakness on 04/28/20, 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 He then discharged home with instructions for PT exercises until seen for outpatient services (PT/OT/ST). Today the pt reported only occasional mild dysarthria when he is tired. He reported being on a soft diet for 3 days during hospitalization with no modifications made to liquids, then return to regular diet. He denies symptoms of dysphagia and expressive/receptive language impairments. 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 He does not participate as much in household duties, such as setting table and cleaning dishes primarily d/t fatigue. He manages his own medications but has difficulty opening and closing lids, which often results in spilling the tablets. He has been reluctant to use a medi- set. PMHx significant for Afib, COPD, [place] 1995 s/p PCI then 3v bypass at in 1997, GERD, HLD, Macular degeneration R eye w/ surgery ~September 2019, HTN, R shoulder replacement ~ summer 2019, L degenerative rotator cuff tear. Subjective Others Present Family Observations/Patient Presentation The pt arrived on time accompanied by his , who was present throughout for caregiver training to assist with carryover in functional environment. Reported practicing making and receiving cell phone calls with since last session. Pt/spouse reported attempting to train pt in use of email and texting on cell phone to increase ease of communication between pt and , particularly via texting. However, pt having difficulty seeing keyboard d/t vision deficits in right eye. He is able to better see keyboard with use of eye patch over right eye but this, in addition to his glasses and face mask for COVID-19 protection creates problems when he also wears his hearing aids. As a result, the pt makes frequent typing errors, rendering these tools functionally inaccessible to him. Chief Complaint(s) Cognitive Rehab Expectation/Goals: Patient Goals Improve memory Patient Knowledge/Awareness of PRESSURE CONTROL SUPERVISOR Role Good in Treatment Parent/Caretake Knowledge/Awareness of Good PRESSURE CONTROL SUPERVISOR Role in Treatment Objective Short Term Goals 1. With collaboration and assistance as needed from PRESSURE CONTROL SUPERVISOR & spouse, the pt will establish external memory tools (e.g., medi-set, memory notebook) to increase independence in functional activities. 2. Once established, the pt will use external memory tools to successfully recall functional information in 80% of opportunities, as measured by pt/spouse report and clinical judgment. 3. Using internal memory strategies with min cues, the pt will recall unassociated picture pairs with 80% accuracy to improve visual memory skills. 4. Using internal memory strategies independently, the pt will follow 3-step directions with 80% acc to improve attention and memory skills for functional tasks. 5. The pt will name 8 or more items in abstract category to improve cognitive organization and memory skills. Custodial Goals 1. The pt will use external memory tools independently in 80% of opportunities to perform functional tasks and increase independence. 2. Using memory strategies as needed and given information of moderate length provided orally (e.g., phone message, short story), the pt will recall topics and significant details with 80% accuracy to improve working and short-term memory skills. Treatment Activities The pt recalled his cell phone number without difficulty or hesitation. PRESSURE CONTROL SUPERVISOR enlarged size of keyboard on the pt's phone, which enabled him to effectively see it without need for eyepatch. Trialed pt's use of stylus to assist with keyboard typing precision. In typing his name using the stylus, the pt made 5 errors, which he self- identified and was able to correct. He reported significantly greater ease using the stylus vs his finger and, although he did make several errors with the stylus , felt that they were fewer than he makes using his finger . Pt's informed they have a stylus at home and will use . Education and training was provided in steps to access, send and receive text messages . The PRESSURE CONTROL SUPERVISOR and pt texted back and forth x3 as demonstration and practice; needs reinforcement. Also initiated training pt in accessing his voice mailbox. Minimal time was available, and this will be continued in subsequent sessions and at home with the pt's , who verbalized understanding and familiarity with steps. Steps were printed from [employer] and provided to pt/ spouse for guidance. Assessment Patient Response to Treatment Good Rehab Potential Good Impairments Identified Attention,Auditory Processing, Cognitive-Linguistic Skills, Memory - Short Term,Memory - Working Progress Towards Goals Slow Progress Assessment of Overall Progress Improving Assessment of Improvement The pt continues to demonstrate ability to learn new features of his cell phone that will enable him to better communicate with his and others. He continues to be motivated to learn and appreciative of all training and education. He demonstrated excellent recall of his cell phone numbers and reports improved independence with retrieving messages from home answering machine. This was confirmed by his . Reviewed with Patient Goals,Progress Being Made,Home Exercise Program Patient/Caregiver Understanding Good Plan Amount of Therapy Recommended 2-3 Months Frequency of Treatment Once a Week Length of Session 45 Minutes Treatment Emphasis Next Session Retrieval of cell phone messages, texting Therapeutic Contents Client Education,Cognitive- Linguistic Training,Home Exercise Program Provided Patient/Caregiver Instruction Home Exercise Program,Plan of Care,Questions/Concerns Therapy Recommendations Continue with Current Program
--- NOTE | 2020-07-31 14:14 | ST.OPTN ---
Visit Care Team Role Provider Type Other Providers Address: Phone: Fax: Maura Mazariegos MD Attending Provider Physician Family Provider Primary Care Provider Referring Provider Address: [address] [place] [address], [address], [place], [address] DATABASE CONSULTANT Treatment Note DATABASE CONSULTANT Treatment Note Start: 06/07/20 08:49 Freq: Status: Active Protocol: Document 07/31/20 14:06 ANAT (Rec: 07/31/20 14:14 ANAT [email or web address]) Speech Pathology Treatment Note Session Time Visit Start Time 10:35 Visit Stop Time 11:20 Total Visit Minutes 45 Visit Information Visit Number 01/20 Plan of Care Dates 06/07/20 - 09/07/20 Insurance Information Medicare Setting Treatment Setting Outpatient Care Visit Type Note Type Treatment Note Next Note Type Next Note Type Treatment Note General Information General Information The pt is an 85-yr-old male with hx of Afib on Rivaroxaban , who presented to local hospital with L-sided weakness on 04/28/20, found to have R basal ganglia IPH, transferred to [facility] where he underwent further evaluation and participated in inpatient rehab until 05/16/20 . He then discharged home with instructions for PT exercises until seen for outpatient services (PT/OT/ST). Today the pt reported only occasional mild dysarthria when he is tired. He reported being on a soft diet for 3 days during hospitalization with no modifications made to liquids, then return to regular diet. He denies symptoms of dysphagia and expressive/receptive language impairments. 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 He does not participate as much in household duties, such as setting table and cleaning dishes primarily d/t fatigue. He manages his own medications but has difficulty opening and closing lids, which often results in spilling the tablets. He has been reluctant to use a medi- set. PMHx significant for Afib, COPD, [place] 1995 s/p PCI then 3v bypass at in 1997, GERD, HLD, Macular degeneration R eye w/ surgery ~September 2019, HTN, R shoulder replacement ~ summer 2019, L degenerative rotator cuff tear. Subjective Others Present Family Observations/Patient Presentation The pt arrived on time accompanied by his , who was present throughout for caregiver training to assist with carryover in functional environment. Reported practicing therapy targets with with good progress. The pt had a stylus, which he used and said was very helpful to reduce errors. Chief Complaint(s) Cognitive Rehab Expectation/Goals: Patient Goals Improve memory Patient Knowledge/Awareness of DATABASE CONSULTANT Role Good in Treatment Parent/Caretake Knowledge/Awareness of Good DATABASE CONSULTANT Role in Treatment Objective Short Term Goals 1. With collaboration and assistance as needed from DATABASE CONSULTANT & spouse, the pt will establish external memory tools (e.g., medi-set, memory notebook) to increase independence in functional activities. 2. Once established, the pt will use external memory tools to successfully recall functional information in 80% of opportunities, as measured by pt/spouse report and clinical judgment. 3. Using internal memory strategies with min cues, the pt will recall unassociated picture pairs with 80% accuracy to improve visual memory skills. 4. Using internal memory strategies independently, the pt will follow 3-step directions with 80% acc to improve attention and memory skills for functional tasks. 5. The pt will name 8 or more items in abstract category to improve cognitive organization and memory skills. Prison Goals 1. The pt will use external memory tools independently in 80% of opportunities to perform functional tasks and increase independence. 2. Using memory strategies as needed and given information of moderate length provided orally (e.g., phone message, short story), the pt will recall topics and significant details with 80% accuracy to improve working and short-term memory skills. Treatment Activities The pt independently recalled steps to retrieving messages from home answering machine. He recalled computer screen functions targeted in previous sessions with some clarifying questions, which were answered verbally and with demonstrations. Continued training pt in texting functions on cell phone, specifically navigating between messaging screens, retrieving, writing and sending messages. Using errorless learning technique, the pt became independent in navigating targeted screens and composed and sent a text message to his son. Assisted the pt in deleting text messages that were obsolete and from unknown senders in order to simplify context to better assist the pt in tracking messages and using phone features. Assessment Patient Response to Treatment Good Rehab Potential Good Impairments Identified Attention,Auditory Processing, Cognitive-Linguistic Skills, Memory - Short Term,Memory - Working Progress Towards Goals Slow Progress Assessment of Overall Progress Improving Assessment of Improvement The pt continues to demonstrate ability to learn new features of his cell phone that will enable him to better communicate with his and others. He continues to be motivated to learn and appreciative of all training and education. He demonstrated excellent recall steps to retrieving messages from home answering machine. He and his actively practice therapy targets at home, and both have expressed improved communication and pt independence as a result. Reviewed with Patient Goals,Progress Being Made,Home Exercise Program Patient/Caregiver Understanding Good Plan Amount of Therapy Recommended 2-3 Months Frequency of Treatment Once a Week Length of Session 45 Minutes Treatment Emphasis Next Session Retrieval of cell phone messages, texting Therapeutic Contents Client Education,Cognitive- Linguistic Training,Home Exercise Program Provided Patient/Caregiver Instruction Home Exercise Program,Plan of Care,Questions/Concerns Therapy Recommendations Continue with Current Program
--- NOTE | 2020-08-07 11:33 | ST.OPTN ---
Visit Care Team Role Provider Type Other Providers Address: Phone: Fax: Maura Mazariegos MD Attending Provider Physician Family Provider Primary Care Provider Referring Provider Address: [address] [place] [address], [address], [place], [address] PURCHASING ADMINISTRATIVE ASSISTANT Treatment Note PURCHASING ADMINISTRATIVE ASSISTANT Treatment Note Start: 06/07/20 08:49 Freq: Status: Active Protocol: Document 08/07/20 11:24 ANAT (Rec: 08/07/20 11:33 ANAT [email or web address]) Speech Pathology Treatment Note Session Time Visit Start Time 10:35 Visit Stop Time 11:20 Total Visit Minutes 45 Visit Information Visit Number 02/20 Plan of Care Dates 06/07/20 - 09/07/20 Insurance Information Medicare Setting Treatment Setting Outpatient Care Visit Type Note Type Treatment Note Next Note Type Next Note Type Treatment Note General Information General Information The pt is an 85-yr-old male with hx of Afib on Rivaroxaban , who presented to local hospital with L-sided weakness on 04/28/20, found to have R basal ganglia IPH, transferred to [facility] where he underwent further evaluation and participated in inpatient rehab until 05/16/20 . He then discharged home with instructions for PT exercises until seen for outpatient services (PT/OT/ST). Today the pt reported only occasional mild dysarthria when he is tired. He reported being on a soft diet for 3 days during hospitalization with no modifications made to liquids, then return to regular diet. He denies symptoms of dysphagia and expressive/receptive language impairments. 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 He does not participate as much in household duties, such as setting table and cleaning dishes primarily d/t fatigue. He manages his own medications but has difficulty opening and closing lids, which often results in spilling the tablets. He has been reluctant to use a medi- set. PMHx significant for Afib, COPD, [place] 1995 s/p PCI then 3v bypass at in 1997, GERD, HLD, Macular degeneration R eye w/ surgery ~September 2019, HTN, R shoulder replacement ~ summer 2019, L degenerative rotator cuff tear. Subjective Others Present Family Observations/Patient Presentation The pt arrived on time accompanied by his , who was present throughout for caregiver training to assist with carryover in functional environment. Chief Complaint(s) Cognitive Rehab Expectation/Goals: Patient Goals Improve memory Patient Knowledge/Awareness of PURCHASING ADMINISTRATIVE ASSISTANT Role Good in Treatment Parent/Caretake Knowledge/Awareness of Good PURCHASING ADMINISTRATIVE ASSISTANT Role in Treatment Objective Short Term Goals 1. With collaboration and assistance as needed from PURCHASING ADMINISTRATIVE ASSISTANT & spouse, the pt will establish external memory tools (e.g., medi-set, memory notebook) to increase independence in functional activities. 2. Once established, the pt will use external memory tools to successfully recall functional information in 80% of opportunities, as measured by pt/spouse report and clinical judgment. 3. Using internal memory strategies with min cues, the pt will recall unassociated picture pairs with 80% accuracy to improve visual memory skills. 4. Using internal memory strategies independently, the pt will follow 3-step directions with 80% acc to improve attention and memory skills for functional tasks. 5. The pt will name 8 or more items in abstract category to improve cognitive organization and memory skills. Jail Goals 1. The pt will use external memory tools independently in 80% of opportunities to perform functional tasks and increase independence. 2. Using memory strategies as needed and given information of moderate length provided orally (e.g., phone message, short story), the pt will recall topics and significant details with 80% accuracy to improve working and short-term memory skills. Treatment Activities Initiated training of internal memory strategies including ways to simplify and organize information for better encoding and retrieval. Trained pt in using subcategories in generative naming tasks and associations in recall of lists. Categorical Naming: Pt identified methods for creating subcategories for 3 different categories and named 20 animals (independently), 17 foods, and 12 pieces of furniture in 60 sec each, min- mod promts with latter categories. Five additional furniture items were named with additional prompts. Given a list of 9 grocery items, the pt organized items into 3 sub-categories. He recalled 7/9 items independently + 2 with a verbal prompts (sub-catgegory) . Skilled feedback and education provided. Recommended the pt (and spouse) practice remembering functional lists throughout the week (e.g., list of errands/tasks, shopping lists, etc.) to continue training the brain in ways of simplifying and organizing thoughts. Assessment Patient Response to Treatment Good Rehab Potential Good Impairments Identified Attention,Auditory Processing, Cognitive-Linguistic Skills, Memory - Short Term,Memory - Working Progress Towards Goals Slow Progress Assessment of Overall Progress Improving Assessment of Improvement The pt was responsive to training, able to generate good lists of items in categories and exhibiting good delayed recall of shopping list items. Both he and his were participatory, noting different ways of organizing that work for each person, demonstrating diversity of strategies between people. Reviewed with Patient Goals,Progress Being Made,Home Exercise Program Patient/Caregiver Understanding Excellent Plan Amount of Therapy Recommended 2-3 Months Frequency of Treatment Once a Week Length of Session 45 Minutes Treatment Emphasis Next Session Cont internal memory strategies training Therapeutic Contents Client Education,Cognitive- Linguistic Training,Home Exercise Program Provided Patient/Caregiver Instruction Home Exercise Program,Plan of Care,Questions/Concerns Therapy Recommendations Continue with Current Program
--- NOTE | 2020-08-14 11:59 | ST.OPTN ---
Visit Care Team Role Provider Type Other Providers Address: Phone: Fax: Maura Mazariegos MD Attending Provider Physician Family Provider Primary Care Provider Referring Provider Address: [address] [place] [address], [address], [place], [address] RADIAL DRILL OPERATOR FOR PLASTIC Treatment Note RADIAL DRILL OPERATOR FOR PLASTIC Treatment Note Start: 06/07/20 08:49 Freq: Status: Active Protocol: Document 08/14/20 10:40 ANAT (Rec: 08/14/20 11:59 ANAT [email or web address]) Speech Pathology Treatment Note Session Time Visit Start Time 10:35 Visit Stop Time 11:20 Total Visit Minutes 45 Visit Information Visit Number 03/23 Plan of Care Dates 06/07/20 - 09/07/20 Insurance Information Medicare Setting Treatment Setting Outpatient Care Visit Type Note Type Treatment Note Next Note Type Next Note Type Progress Note General Information General Information The pt is an 85-yr-old male with hx of Afib on Rivaroxaban , who presented to local hospital with L-sided weakness on 04/28/20, found to have R basal ganglia IPH, transferred to [facility] where he underwent further evaluation and participated in inpatient rehab until 05/16/20 . He then discharged home with instructions for PT exercises until seen for outpatient services (PT/OT/ST). Today the pt reported only occasional mild dysarthria when he is tired. He reported being on a soft diet for 3 days during hospitalization with no modifications made to liquids, then return to regular diet. He denies symptoms of dysphagia and expressive/receptive language impairments. 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 He does not participate as much in household duties, such as setting table and cleaning dishes primarily d/t fatigue. He manages his own medications but has difficulty opening and closing lids, which often results in spilling the tablets. He has been reluctant to use a medi- set. PMHx significant for Afib, COPD, [place] 1995 s/p PCI then 3v bypass at in 1997, GERD, HLD, Macular degeneration R eye w/ surgery ~September 2019, HTN, R shoulder replacement ~ summer 2019, L degenerative rotator cuff tear. Subjective Others Present Family Observations/Patient Presentation The pt arrived on time accompanied by his , who was present throughout for caregiver training to assist with carryover in functional environment. Chief Complaint(s) Cognitive Rehab Expectation/Goals: Patient Goals Improve memory Patient Knowledge/Awareness of RADIAL DRILL OPERATOR FOR PLASTIC Role Good in Treatment Parent/Caretake Knowledge/Awareness of Good RADIAL DRILL OPERATOR FOR PLASTIC Role in Treatment Objective Short Term Goals 1. With collaboration and assistance as needed from RADIAL DRILL OPERATOR FOR PLASTIC & spouse, the pt will establish external memory tools (e.g., medi-set, memory notebook) to increase independence in functional activities. 2. Once established, the pt will use external memory tools to successfully recall functional information in 80% of opportunities, as measured by pt/spouse report and clinical judgment. 3. Using internal memory strategies with min cues, the pt will recall unassociated picture pairs with 80% accuracy to improve visual memory skills. 4. Using internal memory strategies independently, the pt will follow 3-step directions with 80% acc to improve attention and memory skills for functional tasks. 5. The pt will name 8 or more items in abstract category to improve cognitive organization and memory skills. Skilled Nursing Goals 1. The pt will use external memory tools independently in 80% of opportunities to perform functional tasks and increase independence. 2. Using memory strategies as needed and given information of moderate length provided orally (e.g., phone message, short story), the pt will recall topics and significant details with 80% accuracy to improve working and short-term memory skills. Treatment Activities Consulted with pt/spouse RE progress and POC. All parties are in agreement that progress is being made. The pt/spouse report ongoing attention deficits in the pt and expressed desire to continue ST services for 3-4 more visists. RADIAL DRILL OPERATOR FOR PLASTIC in agreement. Assessment Patient Response to Treatment Good Rehab Potential Good Impairments Identified Attention,Auditory Processing, Cognitive-Linguistic Skills, Memory - Short Term,Memory - Working Progress Towards Goals Slow Progress Assessment of Overall Progress Improving Assessment of Improvement Pt is making good progress towards goals and implementing strategies and tools well at home. Both pt and spouse report pt's improved memory and ability to better perform functional tasks. Both also note continued decreased attention skills, as compared to PLOF and would like to continue therapy to target these skills. RADIAL DRILL OPERATOR FOR PLASTIC in agreement . Reviewed with Patient Goals,Progress Being Made,Home Exercise Program Patient/Caregiver Understanding Excellent Plan Amount of Therapy Recommended 1-2 Months Comment up to 4 visits Frequency of Treatment Once a Week Length of Session 45 Minutes Treatment Emphasis Next Session Attention skills Therapeutic Contents Client Education,Cognitive- Linguistic Training,Home Exercise Program Provided Patient/Caregiver Instruction Home Exercise Program,Plan of Care,Questions/Concerns Therapy Recommendations Continue with Current Program
--- NOTE | 2020-09-05 17:32 | ST.OPTN ---
Visit Care Team Role Provider Type Other Providers Address: Phone: Fax: Maura Mazariegos MD Attending Provider Physician Family Provider Primary Care Provider Referring Provider Address: [address] [place] [address], [address], [place], [address] TRY ON BASTER Treatment Note TRY ON BASTER Treatment Note Start: 06/07/20 08:49 Freq: Status: Active Protocol: Document 09/05/20 14:21 ANAT (Rec: 09/05/20 14:31 ANAT [email or web address]) Speech Pathology Treatment Note Session Time Visit Start Time 13:30 Visit Stop Time 14:15 Total Visit Minutes 45 Visit Information Visit Number 04/22 Plan of Care Dates 09/05/20 - 12/03/20 Insurance Information Medicare Setting Treatment Setting Outpatient Care Visit Type Note Type Progress Note Next Note Type Next Note Type Treatment Note General Information General Information The pt is an 85-yr-old male with hx of Afib on Rivaroxaban , who presented to local hospital with L-sided weakness on 04/28/20, 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 He then discharged home with instructions for PT exercises until seen for outpatient services (PT/OT/ST). Today the pt reported only occasional mild dysarthria when he is tired. He reported being on a soft diet for 3 days during hospitalization with no modifications made to liquids, then return to regular diet. He denies symptoms of dysphagia and expressive/receptive language impairments. 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 He does not participate as much in household duties, such as setting table and cleaning dishes primarily d/t fatigue. He manages his own medications but has difficulty opening and closing lids, which often results in spilling the tablets. He has been reluctant to use a medi- set. 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 Subjective Others Present Family Observations/Patient Presentation The pt arrived on time accompanied by his , who was present throughout for caregiver training to assist with carryover in functional environment. Chief Complaint(s) Cognitive Rehab Expectation/Goals: Patient Goals Improve memory Patient Knowledge/Awareness of TRY ON BASTER Role Good in Treatment Parent/Caretake Knowledge/Awareness of Good TRY ON BASTER Role in Treatment Objective Short Term Goals 1. With collaboration and assistance as needed from TRY ON BASTER & spouse, the pt will establish external memory tools (e.g., medi-set, memory notebook) to increase independence in functional activities. GOAL MET 2. Once established, the pt will use external memory tools to successfully recall functional information in 80% of opportunities, as measured by pt/spouse report and clinical judgment. GOAL MET 3. Using internal memory strategies with min cues, the pt will recall unassociated picture pairs with 80% accuracy to improve visual memory skills. MAKING PROGRESS 4. Using internal memory strategies independently, the pt will follow 3-step directions with 80% acc to improve attention and memory skills for functional tasks. MAKING PROGRESS 5. The pt will name 8 or more items in abstract category to improve cognitive organization and memory skills. MAKING PROGRESS 6. The pt will complete structured attention tasks of moderate difficulty with 80% accuracy to improve ability to complete functional tasks with greater independence. Telepathist Goals 1. The pt will use external memory tools independently in 80% of opportunities to perform functional tasks and increase independence. GOAL MET 2. Using memory strategies as needed and given information of moderate length provided orally (e.g., phone message, short story), the pt will recall topics and significant details with 80% accuracy to improve working and short-term memory skills. MAKING PROGRESS 3. The pt will demonstrate attention and memory skills WFL for ADLs and personal/ household responsibilities in order to reduce dependence on and improve QOL. Treatment Activities Education and training in attention strategies and memory exercise (N-back) provided. Discussed increasing sensory input to increase attention and, subsequently, memory. Examples provided. The pt and his then identified functional areas in which the pt could apply these strategies, and the pt verbalized ways in which he could increase his attention in order to recall information more easily. Trained pt in N-back memory task. Using a deck of cards as stimuli, he completed 1-back (2 components) with 92% acc. Skilled feedback provided. Pt asked good questions related to memory function, which were answered. Pt attempted 2-back task first with 2 components per card (33% acc), then simplified to 1 component per card (57% acc). Pt and agreed this would be a task they could do together. Recommendations provided for starting task at simple level (1-back) and increasing challenge incrementally. Pt verbalized understanding and agreement and wrote instructions down for further memory reinforcement. Assessment Patient Response to Treatment Good Rehab Potential Good Impairments Identified Attention,Auditory Processing, Cognitive-Linguistic Skills, Memory - Short Term,Memory - Working Progress Towards Goals Slow Progress Assessment of Overall Progress Improving Assessment of Improvement Over the course of treatment, the pt has demonstrated excellent progress towards goals and implementing strategies and tools well at home. Both pt and spouse report pt's improved memory and ability to better perform functional tasks. The pt is performing many more tasks at home with increased independence. Both pt and spouse feel the pt's attention skills are not at baseline and express interest in continued therapy to target these skills, which are medically necessary to increase pt's cognitive communication skills and maintain/increase independence and QOL. Reviewed with Patient Goals,Progress Being Made,Home Exercise Program Patient/Caregiver Understanding Excellent Plan Amount of Therapy Recommended 1-2 Months Frequency of Treatment Once a Week Length of Session 45 Minutes Treatment Emphasis Next Session Attention and memory skills Therapeutic Contents Client Education,Cognitive- Linguistic Training,Home Exercise Program Provided Patient/Caregiver Instruction Home Exercise Program,Plan of Care,Questions/Concerns Therapy Recommendations Continue with Current Program
--- NOTE | 2020-09-18 14:10 | ST.OPTN ---
Visit Care Team Role Provider Type Other Providers Address: Phone: Fax: Maura Mazariegos MD Attending Provider Physician Family Provider Primary Care Provider Referring Provider Address: [address] [place] [address], [address], [place], [address] STREET RAILWAY LINE INSTALLER Treatment Note STREET RAILWAY LINE INSTALLER Treatment Note Start: 06/07/20 08:49 Freq: Status: Active Protocol: Document 09/18/20 17:53 ANAT (Rec: 09/18/20 17:54 ANAT [email or web address]) Speech Pathology Treatment Note Session Time Visit Start Time 13:35 Visit Stop Time 14:20 Total Visit Minutes 45 Visit Information Visit Number 07/[id number] Plan of Care Dates 09/05/20 - 12/03/20 Insurance Information Medicare Setting Treatment Setting Outpatient Care Visit Type Note Type Treatment Note Next Note Type Next Note Type Treatment Note General Information General Information The pt is an 85-yr-old male with hx of Afib on Rivaroxaban , who presented to local hospital with L-sided weakness on 04/28/20, 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 He then discharged home with instructions for PT exercises until seen for outpatient services (PT/OT/ST). Today the pt reported only occasional mild dysarthria when he is tired. He reported being on a soft diet for 3 days during hospitalization with no modifications made to liquids, then return to regular diet. He denies symptoms of dysphagia and expressive/receptive language impairments. 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 He does not participate as much in household duties, such as setting table and cleaning dishes primarily d/t fatigue. He manages his own medications but has difficulty opening and closing lids, which often results in spilling the tablets. He has been reluctant to use a medi- set. PMHx significant for Afib, COPD, [place] 1995 s/p PCI then 3v bypass at in 1997, GERD, HLD, Macular degeneration R eye w/ surgery ~September 2019, HTN, R shoulder replacement ~ summer 2019, L degenerative rotator cuff tear. Subjective Others Present Family Observations/Patient Presentation The pt arrived on time accompanied by his , who was present throughout for caregiver training to assist with carryover in functional environment. Chief Complaint(s) Cognitive Rehab Expectation/Goals: Patient Goals Improve memory Patient Knowledge/Awareness of STREET RAILWAY LINE INSTALLER Role Good in Treatment Parent/Caretake Knowledge/Awareness of Good STREET RAILWAY LINE INSTALLER Role in Treatment Objective Short Term Goals 1. With collaboration and assistance as needed from STREET RAILWAY LINE INSTALLER & spouse, the pt will establish external memory tools (e.g., medi-set, memory notebook) to increase independence in functional activities. GOAL MET 2. Once established, the pt will use external memory tools to successfully recall functional information in 80% of opportunities, as measured by pt/spouse report and clinical judgment. GOAL MET 3. Using internal memory strategies with min cues, the pt will recall unassociated picture pairs with 80% accuracy to improve visual memory skills. MAKING PROGRESS 4. Using internal memory strategies independently, the pt will follow 3-step directions with 80% acc to improve attention and memory skills for functional tasks. MAKING PROGRESS 5. The pt will name 8 or more items in abstract category to improve cognitive organization and memory skills. MAKING PROGRESS 6. The pt will complete structured attention tasks of moderate difficulty with 80% accuracy to improve ability to complete functional tasks with greater independence. Security Support Analyst Goals 1. The pt will use external memory tools independently in 80% of opportunities to perform functional tasks and increase independence. GOAL MET 2. Using memory strategies as needed and given information of moderate length provided orally (e.g., phone message, short story), the pt will recall topics and significant details with 80% accuracy to improve working and short-term memory skills. MAKING PROGRESS 3. The pt will demonstrate attention and memory skills WFL for ADLs and personal/ household responsibilities in order to reduce dependence on and improve QOL. Treatment Activities The pt demonstrated memory strategies developed at home ( i.e., assigning numbers to card suits) to assist the pt in performing N-back tasks. Given playing cards of all suits presented randomly, the pt recalled associated suit numbers with slow processing times (~4-8s). Demonstrated additional chunking methods to the pt and simplified task to suits by color. The pt named associated suit numbers with processing speeds ~1-3s. Increased complexity by combining all suits again, and the pt named suit numbers at rate of 2-4s each, demonstrating improved recall with simplification, scaffolding, and rehearsal. Pt attempted completing 2-back task recalling card value (1 component) using his new method but found it was not effective in this task. The pt was unable to recall more than 2 cards at a time. Strategy training provided and , with verbal prompts to guide strategy use, the pt completed 2-back task with 75% accuracy across 36 cards. Skilled feedback provided. Discussed further home exercises targeting attn, processing, and memory. Recommended Lumosity, as the pt's is familiar with this and has the yunior loaded on home iPads. Following training, the pt completed Train of Thought alternating/ divided attention task with 56 % acc, mod-max verbal cues tapering to mod cues over 2 tasks. Assessment Patient Response to Treatment Good Rehab Potential Good Impairments Identified Attention,Auditory Processing, Cognitive-Linguistic Skills, Memory - Short Term,Memory - Working Progress Towards Goals Slow Progress Assessment of Overall Progress Improving Assessment of Improvement The pt demonstrated excellent ability to develop his own memory strategies and exhibited improvement in various attn and memory tasks today using chuncking, simplification, scaffolding, and rehearsal. The pt continues to exhibit ability to learn and improve and is making progress toward goals. He appears to be increasing engagement with home activities, and his agreed with this observation. Reviewed with Patient Goals,Progress Being Made,Home Exercise Program Patient/Caregiver Understanding Excellent Plan Amount of Therapy Recommended 1-2 Months Frequency of Treatment Once a Week Length of Session 45 Minutes Treatment Emphasis Next Session Attention and memory skills Therapeutic Contents Client Education,Cognitive- Linguistic Training,Home Exercise Program Provided Patient/Caregiver Instruction Home Exercise Program,Plan of Care,Questions/Concerns Therapy Recommendations Continue with Current Program
--- NOTE | 2020-09-25 16:49 | ST.OPTN ---
Visit Care Team Role Provider Type Other Providers Address: Phone: Fax: Maura Mazariegos MD Attending Provider Physician Family Provider Primary Care Provider Referring Provider Address: [address] [place] [address], [address], [place], [address] MEDICAL ASSOCIATE Treatment Note MEDICAL ASSOCIATE Treatment Note Start: 06/07/20 08:49 Freq: Status: Active Protocol: Document 09/25/20 16:38 ANAT (Rec: 09/25/20 16:49 ANAT [email or web address]) Speech Pathology Treatment Note Session Time Visit Start Time 13:35 Visit Stop Time 14:20 Total Visit Minutes 45 Visit Information Visit Number 08/[id number] Plan of Care Dates 09/05/20 - 12/03/20 Insurance Information Medicare Setting Treatment Setting Outpatient Care Visit Type Note Type Treatment Note Next Note Type Next Note Type Treatment Note General Information General Information The pt is an 85-yr-old male with hx of Afib on Rivaroxaban , who presented to local hospital with L-sided weakness on 04/28/20, 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 He then discharged home with instructions for PT exercises until seen for outpatient services (PT/OT/ST). Today the pt reported only occasional mild dysarthria when he is tired. He reported being on a soft diet for 3 days during hospitalization with no modifications made to liquids, then return to regular diet. He denies symptoms of dysphagia and expressive/receptive language impairments. 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 He does not participate as much in household duties, such as setting table and cleaning dishes primarily d/t fatigue. He manages his own medications but has difficulty opening and closing lids, which often results in spilling the tablets. He has been reluctant to use a medi- set. PMHx significant for Afib, COPD, [place] 1995 s/p PCI then 3v bypass at in 1997, GERD, HLD, Macular degeneration R eye w/ surgery ~September 2019, HTN, R shoulder replacement ~ summer 2019, L degenerative rotator cuff tear. Subjective Others Present Family Observations/Patient Presentation The pt arrived on time unaccompanied. No new complaints. He reported having completed some Lumosity tasks since last session, stating, They were eye opening as they were more difficult than the pt anticipated. Chief Complaint(s) Cognitive Rehab Expectation/Goals: Patient Goals Improve memory Patient Knowledge/Awareness of MEDICAL ASSOCIATE Role Good in Treatment Parent/Caretake Knowledge/Awareness of Good MEDICAL ASSOCIATE Role in Treatment Objective Short Term Goals 1. With collaboration and assistance as needed from MEDICAL ASSOCIATE & spouse, the pt will establish external memory tools (e.g., medi-set, memory notebook) to increase independence in functional activities. GOAL MET 2. Once established, the pt will use external memory tools to successfully recall functional information in 80% of opportunities, as measured by pt/spouse report and clinical judgment. GOAL MET 3. Using internal memory strategies with min cues, the pt will recall unassociated picture pairs with 80% accuracy to improve visual memory skills. MAKING PROGRESS 4. Using internal memory strategies independently, the pt will follow 3-step directions with 80% acc to improve attention and memory skills for functional tasks. MAKING PROGRESS 5. The pt will name 8 or more items in abstract category to improve cognitive organization and memory skills. MAKING PROGRESS 6. The pt will complete structured attention tasks of moderate difficulty with 80% accuracy to improve ability to complete functional tasks with greater independence. Dry Box Operator Goals 1. The pt will use external memory tools independently in 80% of opportunities to perform functional tasks and increase independence. GOAL MET 2. Using memory strategies as needed and given information of moderate length provided orally (e.g., phone message, short story), the pt will recall topics and significant details with 80% accuracy to improve working and short-term memory skills. MAKING PROGRESS 3. The pt will demonstrate attention and memory skills WFL for ADLs and personal/ household responsibilities in order to reduce dependence on and improve QOL. Treatment Activities Consulted with pt RE cognitive training apps that would be recommended for home practice. A list of possibilities was provided to the pt in writing. The pt completed dual attention tasks, including card sorting while performing cognitive tasks such as categorical naming and counting backwards. The pt's accuracy of tasks was high (> 95%) on all tasks; however, the pt tended to sync or alternate the tasks vs perform them simultaneously. For example, he would sort a card and then name an item/number or place a card while naming an item/number. When prompted to count faster, the pt did so for 3 numbers and then returned to the alternating or simultaneous completion of tasks. Skilled feedback was provided including demonstration of target and non-target performance. Pt verbalized understanding. Discussed POC with pt. Agreed to f/u in 2 wks and decide at that time whether d/c or continuation of therapy is appropriate. Pt agreed with MEDICAL ASSOCIATE's request to monitor his performance of ADLs and identify if functional deficits continue; will discuss at next session. Assessment Patient Response to Treatment Good Rehab Potential Good Impairments Identified Attention,Auditory Processing, Cognitive-Linguistic Skills, Memory - Short Term,Memory - Working Progress Towards Goals Slow Progress Assessment of Overall Progress Improving Assessment of Improvement Given dual attention tasks, the pt demonstrated good accuracy in all individual tasks but difficulty performing tasks simultaneously. The pt's ability to isolate tasks may be sufficient for functional needs. Reviewed with Patient Goals,Progress Being Made,Home Exercise Program Patient/Caregiver Understanding Excellent Plan Amount of Therapy Recommended 1-2 Months Frequency of Treatment Once a Week Length of Session 45 Minutes Treatment Emphasis Next Session Attention and memory skills Therapeutic Contents Client Education,Cognitive- Linguistic Training,Home Exercise Program Provided Patient/Caregiver Instruction Home Exercise Program,Plan of Care,Questions/Concerns Therapy Recommendations Continue with Current Program
--- NOTE | 2020-10-03 11:32 | ST.OPTN ---
Visit Care Team Role Provider Type Other Providers Address: Phone: Fax: Maura Mazariegos MD Attending Provider Physician Family Provider Primary Care Provider Referring Provider Address: [address] [place] [address], [address], [place], [address] GENERAL LOT ATTENDANT Treatment Note GENERAL LOT ATTENDANT Treatment Note Start: 06/07/20 08:49 Freq: Status: Active Protocol: Document 10/03/20 11:21 ANAT (Rec: 10/03/20 11:32 ANAT [email or web address]) Speech Pathology Treatment Note Session Time Visit Start Time 10:35 Visit Stop Time 11:20 Total Visit Minutes 45 Visit Information Visit Number 09/20 Plan of Care Dates 09/05/20 - 12/03/20 Insurance Information Medicare Setting Treatment Setting Outpatient Care Visit Type Note Type Treatment Note Next Note Type Next Note Type Treatment Note General Information General Information The pt is an 85-yr-old male with hx of Afib on Rivaroxaban , who presented to local hospital with L-sided weakness on 04/28/20, 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 He then discharged home with instructions for PT exercises until seen for outpatient services (PT/OT/ST). Today the pt reported only occasional mild dysarthria when he is tired. He reported being on a soft diet for 3 days during hospitalization with no modifications made to liquids, then return to regular diet. He denies symptoms of dysphagia and expressive/receptive language impairments. 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 He does not participate as much in household duties, such as setting table and cleaning dishes primarily d/t fatigue. He manages his own medications but has difficulty opening and closing lids, which often results in spilling the tablets. He has been reluctant to use a medi- set. PMHx significant for Afib, COPD, [place] 1995 s/p PCI then 3v bypass at in 1997, GERD, HLD, Macular degeneration R eye w/ surgery ~September 2019, HTN, R shoulder replacement ~ summer 2019, L degenerative rotator cuff tear. Subjective Others Present Family Observations/Patient Presentation The pt arrived on time unaccompanied. He reported improvement with dual attention task (sorting cards while counting backwards). Had some questions about that and another HEP task, which were answered. He requested continuing treatment until he had his HEP better established . GENERAL LOT ATTENDANT in agreement. Chief Complaint(s) Cognitive Rehab Expectation/Goals: Patient Goals Improve memory Patient Knowledge/Awareness of GENERAL LOT ATTENDANT Role Good in Treatment Parent/Caretake Knowledge/Awareness of Good GENERAL LOT ATTENDANT Role in Treatment Objective Short Term Goals 1. With collaboration and assistance as needed from GENERAL LOT ATTENDANT & spouse, the pt will establish external memory tools (e.g., medi-set, memory notebook) to increase independence in functional activities. GOAL MET 2. Once established, the pt will use external memory tools to successfully recall functional information in 80% of opportunities, as measured by pt/spouse report and clinical judgment. GOAL MET 3. Using internal memory strategies with min cues, the pt will recall unassociated picture pairs with 80% accuracy to improve visual memory skills. MAKING PROGRESS 4. Using internal memory strategies independently, the pt will follow 3-step directions with 80% acc to improve attention and memory skills for functional tasks. MAKING PROGRESS 5. The pt will name 8 or more items in abstract category to improve cognitive organization and memory skills. MAKING PROGRESS 6. The pt will complete structured attention tasks of moderate difficulty with 80% accuracy to improve ability to complete functional tasks with greater independence. Mcfp Goals 1. The pt will use external memory tools independently in 80% of opportunities to perform functional tasks and increase independence. GOAL MET 2. Using memory strategies as needed and given information of moderate length provided orally (e.g., phone message, short story), the pt will recall topics and significant details with 80% accuracy to improve working and short-term memory skills. MAKING PROGRESS 3. The pt will demonstrate attention and memory skills WFL for ADLs and personal/ household responsibilities in order to reduce dependence on and improve QOL. Treatment Activities Consulted with pt RE completion of functional tasks at home. Reviewed various tasks that have been targeted in tx. Pt reported completing those tasks regularly without difficulty. He stated that he gets sucked into playing solitaire on the computer each morning and losing track of time, which prevents him from attending to other responsibilities. Discussed the pt's typical routine and collaborated on modifications to routine to either limit computer time or schedule it for another time of day after responsibilities are completed . The pt agreed to committing to limiting time and to using a timer to assist. Also discussed keeping a written list of tasks around the house that need to be completed in order to increase the pt's time management and productivity and to reduce tension in his relationship with his . These recommendations/decisions were provided to the pt in writing for carryover and for discussion with his . Clarification to HEP dual attention and deductive reasoning tasks were provided orally and with demonstration. Assessment Patient Response to Treatment Excellent Rehab Potential Excellent Impairments Identified Attention,Auditory Processing, Cognitive-Linguistic Skills, Memory - Short Term,Memory - Working Progress Towards Goals Slow Progress Assessment of Overall Progress Improving Assessment of Improvement The pt is making excellent progress toward goals and toward completing personal and home responsibilities as per PLOF. He is demonstrating ability to independently recall information and steps to tasks, and also benefits from keeping written information available as needed to reduce cognitive load and promore more efficient time management. Reviewed with Patient Goals,Progress Being Made,Home Exercise Program Patient/Caregiver Understanding Excellent Plan Amount of Therapy Recommended 1-2 Months Frequency of Treatment Once a Week Length of Session 45 Minutes Treatment Emphasis Next Session Attention and memory skills Therapeutic Contents Client Education,Cognitive- Linguistic Training,Home Exercise Program Provided Patient/Caregiver Instruction Home Exercise Program,Plan of Care,Questions/Concerns Therapy Recommendations Continue with Current Program
--- NOTE | 2020-10-23 15:44 | ST.OPTN ---
Visit Care Team Role Provider Type Other Providers Address: Phone: Fax: Maura Mazariegos MD Attending Provider Physician Family Provider Primary Care Provider Referring Provider Address: [address] [place] [address], [address], [place], [address] OPERATIONS OFFICER AFLOAT Treatment Note OPERATIONS OFFICER AFLOAT Treatment Note Start: 06/07/20 08:49 Freq: Status: Active Protocol: Document 10/23/20 14:19 ANAT (Rec: 10/23/20 14:23 ANAT [email or web address]) Speech Pathology Treatment Note Session Time Visit Start Time 13:30 Visit Stop Time 14:15 Total Visit Minutes 45 Visit Information Visit Number [id number] Plan of Care Dates 09/05/20 - 12/03/20 Insurance Information Medicare Setting Treatment Setting Outpatient Care Visit Type Note Type Treatment Note Next Note Type Next Note Type Treatment Note General Information General Information The pt is an 85-yr-old male with hx of Afib on Rivaroxaban , who presented to local hospital with L-sided weakness on 04/28/20, 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 He then discharged home with instructions for PT exercises until seen for outpatient services (PT/OT/ST). Today the pt reported only occasional mild dysarthria when he is tired. He reported being on a soft diet for 3 days during hospitalization with no modifications made to liquids, then return to regular diet. He denies symptoms of dysphagia and expressive/receptive language impairments. 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 He does not participate as much in household duties, such as setting table and cleaning dishes primarily d/t fatigue. He manages his own medications but has difficulty opening and closing lids, which often results in spilling the tablets. He has been reluctant to use a medi- set. PMHx significant for Afib, COPD, [place] 1995 s/p PCI then 3v bypass at in 1997, GERD, HLD, Macular degeneration R eye w/ surgery ~September 2019, HTN, R shoulder replacement ~ summer 2019, L degenerative rotator cuff tear. Subjective Others Present Family Observations/Patient Presentation The pt arrived on time unaccompanied. He reported implementing plan discussed at last session and has limited time playing solitaire, as well as developed ongoing household to-do list. Reports feeling much better about time management and feeling more productive. Chief Complaint(s) Cognitive Rehab Expectation/Goals: Patient Goals Improve memory Patient Knowledge/Awareness of OPERATIONS OFFICER AFLOAT Role Good in Treatment Parent/Caretake Knowledge/Awareness of Good OPERATIONS OFFICER AFLOAT Role in Treatment Objective Short Term Goals 1. With collaboration and assistance as needed from OPERATIONS OFFICER AFLOAT & spouse, the pt will establish external memory tools (e.g., medi-set, memory notebook) to increase independence in functional activities. GOAL MET 2. Once established, the pt will use external memory tools to successfully recall functional information in 80% of opportunities, as measured by pt/spouse report and clinical judgment. GOAL MET 3. Using internal memory strategies with min cues, the pt will recall unassociated picture pairs with 80% accuracy to improve visual memory skills. MAKING PROGRESS 4. Using internal memory strategies independently, the pt will follow 3-step directions with 80% acc to improve attention and memory skills for functional tasks. MAKING PROGRESS 5. The pt will name 8 or more items in abstract category to improve cognitive organization and memory skills. GOAL MET 6. The pt will complete structured attention tasks of moderate difficulty with 80% accuracy to improve ability to complete functional tasks with greater independence. [employer] Goals 1. The pt will use external memory tools independently in 80% of opportunities to perform functional tasks and increase independence. GOAL MET 2. Using memory strategies as needed and given information of moderate length provided orally (e.g., phone message, short story), the pt will recall topics and significant details with 80% accuracy to improve working and short-term memory skills. MAKING PROGRESS 3. The pt will demonstrate attention and memory skills WFL for ADLs and personal/ household responsibilities in order to reduce dependence on and improve QOL. Treatment Activities Attn: The pt denied difficulty with sustained, selective and dual attention, supported with functional examples. He did report occ difficulty recalling tasks if he is interrupted. Trained strategies for alternating attn, including say-aloud strategy and environmental modifications (e.g., putting objects in obvious places) as reminders. Also discussed he and his acknowledging tasks they are taking each other away from in order to increase awareness and delayed recall. Strategies were provided in writing for carryover. Categorical Naming: Pt named > 8 items in abstract categories in 4/5 opportunities (80%). Skilled feedback provided. Instructions for home practice provided in writing. Assessment Patient Response to Treatment Excellent Rehab Potential Excellent Impairments Identified Attention,Auditory Processing, Cognitive-Linguistic Skills, Memory - Short Term,Memory - Working Progress Towards Goals Slow Progress Assessment of Overall Progress Improving Assessment of Improvement The pt performed well in abstract categorical naming tasks and was receptive to strategy recommendations and training for alternating attention strategies and was participatory in their development. He continues to demonstrate excellent carryover with all targets of treatment and expresses improved quality of life as a result. Reviewed with Patient Goals,Progress Being Made,Home Exercise Program Patient/Caregiver Understanding Excellent Plan Amount of Therapy Recommended 1-2 Months Frequency of Treatment Once a Week Length of Session 45 Minutes Treatment Emphasis Next Session Memory: Visual associations; following 3-step directions Therapeutic Contents Client Education,Cognitive- Linguistic Training,Home Exercise Program Provided Patient/Caregiver Instruction Home Exercise Program,Plan of Care,Questions/Concerns Therapy Recommendations Continue with Current Program
--- NOTE | 2020-10-30 17:52 | ST.OPTN ---
Visit Care Team Role Provider Type Other Providers Address: Phone: Fax: Maura Mazariegos MD Attending Provider Physician Family Provider Primary Care Provider Referring Provider Address: [address] [place] [address], [address], [place], [address] BINDER LOCKSTITCH Treatment Note BINDER LOCKSTITCH Treatment Note Start: 06/07/20 08:49 Freq: Status: Active Protocol: Document 10/30/20 17:39 ANAT (Rec: 10/30/20 17:52 ANAT [id number]) Speech Pathology Treatment Note Session Time Visit Start Time 13:30 Visit Stop Time 14:15 Total Visit Minutes 45 Visit Information Visit Number 11/[id number] Plan of Care Dates 09/05/20 - 12/03/20 Insurance Information Medicare Setting Treatment Setting Outpatient Care Visit Type Note Type Treatment Note Next Note Type Next Note Type Treatment Note General Information General Information The pt is an 85-yr-old male with hx of Afib on Rivaroxaban , who presented to local hospital with L-sided weakness on 04/28/20, 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 He then discharged home with instructions for PT exercises until seen for outpatient services (PT/OT/ST). Today the pt reported only occasional mild dysarthria when he is tired. He reported being on a soft diet for 3 days during hospitalization with no modifications made to liquids, then return to regular diet. He denies symptoms of dysphagia and expressive/receptive language impairments. 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 He does not participate as much in household duties, such as setting table and cleaning dishes primarily d/t fatigue. He manages his own medications but has difficulty opening and closing lids, which often results in spilling the tablets. He has been reluctant to use a medi- set. PMHx significant for Afib, COPD, [place] 1995 s/p PCI then 3v bypass at in 1997, GERD, HLD, Macular degeneration R eye w/ surgery ~September 2019, HTN, R shoulder replacement ~ summer 2019, L degenerative rotator cuff tear. Subjective Others Present Family Observations/Patient Presentation The pt arrived on time unaccompanied. No new complaints. Chief Complaint(s) Cognitive Rehab Expectation/Goals: Patient Goals Improve memory Patient Knowledge/Awareness of BINDER LOCKSTITCH Role Good in Treatment Parent/Caretake Knowledge/Awareness of Good BINDER LOCKSTITCH Role in Treatment Objective Short Term Goals 1. With collaboration and assistance as needed from BINDER LOCKSTITCH & spouse, the pt will establish external memory tools (e.g., medi-set, memory notebook) to increase independence in functional activities. GOAL MET 2. Once established, the pt will use external memory tools to successfully recall functional information in 80% of opportunities, as measured by pt/spouse report and clinical judgment. GOAL MET 3. Using internal memory strategies with min cues, the pt will recall unassociated picture pairs with 80% accuracy to improve visual memory skills. MAKING PROGRESS 4. Using internal memory strategies independently, the pt will follow 3-step directions with 80% acc to improve attention and memory skills for functional tasks. MAKING PROGRESS 5. The pt will name 8 or more items in abstract category to improve cognitive organization and memory skills. GOAL MET 6. The pt will complete structured attention tasks of moderate difficulty with 80% accuracy to improve ability to complete functional tasks with greater independence. Care Home Goals 1. The pt will use external memory tools independently in 80% of opportunities to perform functional tasks and increase independence. GOAL MET 2. Using memory strategies as needed and given information of moderate length provided orally (e.g., phone message, short story), the pt will recall topics and significant details with 80% accuracy to improve working and short-term memory skills. MAKING PROGRESS 3. The pt will demonstrate attention and memory skills WFL for ADLs and personal/ household responsibilities in order to reduce dependence on and improve QOL. Treatment Activities Trained pt in visual and auditory memory strategies. Given shape/line drawing pairs , the pt identified visual associations linking each pair . Pt orally recalled pairs by their associations immediately and after a 30-min delay with 100% acc. When asked to recreate the line drawings related to each shape, the pt recalled and duplicated 3/5 drawings; errors represented more literally the abstract association the pt had made as recall strategy. Using written tasks and [employer] Therapy yunior task, the pt followed commands including 2 steps and up to 4 components with 82% acc; 3- step directions with 47% acc. Skilled feedback and training provided during task to identify and employ visual memory strategies. Needs reinforcement. Assessment Patient Response to Treatment Excellent Rehab Potential Excellent Impairments Identified Attention,Auditory Processing, Cognitive-Linguistic Skills, Memory - Short Term,Memory - Working Progress Towards Goals Slow Progress Assessment of Overall Progress Improving Assessment of Improvement The pt exhbiited auditory memory for 2-step commands WFL . Significant decline in accuracy when difficulty of task was increased to 3-step commands and/or additional components of commands were included. He was very responsive to training and feedback and demonstrated excellent recall of simple picture pairs, as well as ability to identify and employ logical associations. Reviewed with Patient Goals,Progress Being Made,Home Exercise Program Patient/Caregiver Understanding Excellent Plan Amount of Therapy Recommended 1-2 Months Frequency of Treatment Once a Week Length of Session 45 Minutes Treatment Emphasis Next Session Memory: Visual associations; following 3-step directions Therapeutic Contents Client Education,Cognitive- Linguistic Training,Home Exercise Program Provided Patient/Caregiver Instruction Home Exercise Program,Plan of Care,Questions/Concerns Therapy Recommendations Continue with Current Program
--- NOTE | 2020-11-06 16:05 | ST.OPTN ---
Visit Care Team Role Provider Type Other Providers Address: Phone: Fax: Maura Mazariegos MD Attending Provider Physician Family Provider Primary Care Provider Referring Provider Address: [address] [place] [address], [address], [place], [address] FRACTIONATING STILL OPERATOR Treatment Note FRACTIONATING STILL OPERATOR Treatment Note Start: 06/07/20 08:49 Freq: Status: Active Protocol: Document 11/06/20 14:24 ANAT (Rec: 11/06/20 14:26 ANAT [email or web address]) Speech Pathology Treatment Note Session Time Visit Start Time 13:30 Visit Stop Time 14:23 Total Visit Minutes 53 Visit Information Visit Number 12/21 Plan of Care Dates 09/05/20 - 12/03/20 Insurance Information Medicare Setting Treatment Setting Outpatient Care Visit Type Note Type Treatment Note Next Note Type Next Note Type Progress Note General Information General Information The pt is an 85-yr-old male with hx of Afib on Rivaroxaban , who presented to local hospital with L-sided weakness on 04/28/20, 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 He then discharged home with instructions for PT exercises until seen for outpatient services (PT/OT/ST). Today the pt reported only occasional mild dysarthria when he is tired. He reported being on a soft diet for 3 days during hospitalization with no modifications made to liquids, then return to regular diet. He denies symptoms of dysphagia and expressive/receptive language impairments. 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 He does not participate as much in household duties, such as setting table and cleaning dishes primarily d/t fatigue. He manages his own medications but has difficulty opening and closing lids, which often results in spilling the tablets. He has been reluctant to use a medi- set. PMHx significant for Afib, COPD, [place] 1995 s/p PCI then 3v bypass at in 1997, GERD, HLD, Macular degeneration R eye w/ surgery ~September 2019, HTN, R shoulder replacement ~ summer 2019, L degenerative rotator cuff tear. Subjective Others Present Family Observations/Patient Presentation The pt arrived on time accompanied by his who was present throughout the session and participatory in conversation and guiding POC. Pt questioned if he was ready to discharge, expressing concern of ongoing attention deficits. Chief Complaint(s) Cognitive Rehab Expectation/Goals: Patient Goals Improve memory Patient Knowledge/Awareness of FRACTIONATING STILL OPERATOR Role Good in Treatment Parent/Caretake Knowledge/Awareness of Good FRACTIONATING STILL OPERATOR Role in Treatment Objective Short Term Goals 1. With collaboration and assistance as needed from FRACTIONATING STILL OPERATOR & spouse, the pt will establish external memory tools (e.g., medi-set, memory notebook) to increase independence in functional activities. GOAL MET 2. Once established, the pt will use external memory tools to successfully recall functional information in 80% of opportunities, as measured by pt/spouse report and clinical judgment. GOAL MET 3. Using internal memory strategies with min cues, the pt will recall unassociated picture pairs with 80% accuracy to improve visual memory skills. MAKING PROGRESS 4. Using internal memory strategies independently, the pt will follow 3-step directions with 80% acc to improve attention and memory skills for functional tasks. MAKING PROGRESS 5. The pt will name 8 or more items in abstract category to improve cognitive organization and memory skills. GOAL MET 6. The pt will complete structured attention tasks of moderate difficulty with 80% accuracy to improve ability to complete functional tasks with greater independence. [facility] Goals 1. The pt will use external memory tools independently in 80% of opportunities to perform functional tasks and increase independence. GOAL MET 2. Using memory strategies as needed and given information of moderate length provided orally (e.g., phone message, short story), the pt will recall topics and significant details with 80% accuracy to improve working and short-term memory skills. MAKING PROGRESS 3. The pt will demonstrate attention and memory skills WFL for ADLs and personal/ household responsibilities in order to reduce dependence on and improve QOL. Treatment Activities Consulted with pt/spouse RE POC, progress, concerns and questions. The pt reported difficulty maintaining attention while listening to other speakers, difficulty communicating with a friend who has dementia, and spouse reported pt is avoiding learning useful tools on his cell phone despite expressed desire to learn them. Education and training provided in active listening skills and strategies, as well as strategies for communicating with friend who has dementia. Discussed steps to learning new tasks on cell phone, including walk-through of steps with /son and the pt writing out the steps, followed by practice using. The pt and his were participatory in all conversations with good questions, comments and feedback. They were agreeable to all education/training. Discussed POC. Pt is not feeling confident in discharging from skilled intervention. Agreed pt/spouse would actively work on tasks discussed today and f/u in 3 wks to titrate therapy and work towards greater independence. Assessment Patient Response to Treatment Excellent Rehab Potential Excellent Impairments Identified Attention,Auditory Processing, Cognitive-Linguistic Skills, Memory - Short Term,Memory - Working Progress Towards Goals Slow Progress Assessment of Overall Progress Improving Assessment of Improvement The pt continues to make good progress toward goals. Has ongoing concerns of attention, particularly in maintaining focus in conversations with others. He appears to get distracted by thoughts, perhaps making assumptions with what his conversation partner is going to say vs actively listening and responding accordingly. He was receptive to education and training in active listening skills, as well as to recommendations for following steps that have been targeted in therapy in order to learn new tools on his cell phone. HEP was provided, including learning 2 cell phone tools and practicing active listening skills. He was also receptive to education and recommendations for communicating with persons with dementia, which will hopefully assist him with his friend. Pt/spouse to work toward these HEP goals and follow up x2 visits, each 3 wks apart in order to fade out therapy to greater independence. Reviewed with Patient Goals,Progress Being Made,Home Exercise Program Patient/Caregiver Understanding Excellent Plan Amount of Therapy Recommended 1-2 Months Frequency of Treatment Once a Week Length of Session 45 Minutes Treatment Emphasis Next Session Memory: Visual associations; following 3-step directions Therapeutic Contents Client Education,Cognitive- Linguistic Training,Home Exercise Program Provided Patient/Caregiver Instruction Home Exercise Program,Plan of Care,Questions/Concerns Therapy Recommendations Continue with Current Program
--- NOTE | 2020-12-20 16:35 | ST.OPTN ---
Visit Care Team Role Provider Type Other Providers Address: Phone: Fax: Maura Mazariegos MD Attending Provider Physician Family Provider Primary Care Provider Referring Provider Address: [address] [place] [address], [address], [place], [address] RESEARCH PROGRAM MANAGER Treatment Note RESEARCH PROGRAM MANAGER Treatment Note Start: 06/07/20 08:49 Freq: Status: Active Protocol: Document 12/20/20 19:41 ANAT (Rec: 12/20/20 19:42 ANAT [id number]) Speech Pathology Treatment Note Session Time Visit Start Time 13:30 Visit Stop Time 14:20 Total Visit Minutes 50 Visit Information Visit Number 01/20 Plan of Care Dates 12/20/20 - 03/22/21 Insurance Information Medicare Setting Treatment Setting Outpatient Care Visit Type Note Type Progress Note Next Note Type Next Note Type Treatment Note General Information General Information The pt is an 85-yr-old male with hx of Afib on Rivaroxaban , who presented to local hospital with L-sided weakness on 04/28/20, 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 He then discharged home with instructions for PT exercises until seen for outpatient services (PT/OT/ST). Today the pt reported only occasional mild dysarthria when he is tired. He reported being on a soft diet for 3 days during hospitalization with no modifications made to liquids, then return to regular diet. He denies symptoms of dysphagia and expressive/receptive language impairments. 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 He does not participate as much in household duties, such as setting table and cleaning dishes primarily d/t fatigue. He manages his own medications but has difficulty opening and closing lids, which often results in spilling the tablets. He has been reluctant to use a medi- set. PMHx significant for Afib, COPD, [place] 1995 s/p PCI then 3v bypass at in 1997, GERD, HLD, Macular degeneration R eye w/ surgery ~September 2019, HTN, R shoulder replacement ~ summer 2019, L degenerative rotator cuff tear. Subjective Others Present Family,Student Observations/Patient Presentation The pt arrived on time unaccompanied. No new complaints. He has learned to take photos with his phone since last session. He continues to work on improving attention in conversation by using targeted active listening skills. Chief Complaint(s) Cognitive Rehab Expectation/Goals: Patient Goals Improve memory Patient Knowledge/Awareness of RESEARCH PROGRAM MANAGER Role Excellent in Treatment Parent/Caretake Knowledge/Awareness of Excellent RESEARCH PROGRAM MANAGER Role in Treatment Patient/Caregiver Compliance with Home Excellent Exercise Program Objective Short Term Goals 1. With collaboration and assistance as needed from RESEARCH PROGRAM MANAGER & spouse, the pt will establish external memory tools (e.g., medi-set, memory notebook) to increase independence in functional activities. GOAL MET 2. Once established, the pt will use external memory tools to successfully recall functional information in 80% of opportunities, as measured by pt/spouse report and clinical judgment. GOAL MET 3. Using internal memory strategies with min cues, the pt will recall unassociated picture pairs with 80% accuracy to improve visual memory skills. MAKING PROGRESS 4. Using internal memory strategies independently, the pt will follow 3-step directions with 80% acc to improve attention and memory skills for functional tasks. MAKING PROGRESS 5. The pt will name 8 or more items in abstract category to improve cognitive organization and memory skills. GOAL MET 6. The pt will complete structured attention tasks of moderate difficulty with 80% accuracy to improve ability to complete functional tasks with greater independence. Senior Care Goals 1. The pt will use external memory tools independently in 80% of opportunities to perform functional tasks and increase independence. GOAL MET 2. Using memory strategies as needed and given information of moderate length provided orally (e.g., phone message, short story), the pt will recall topics and significant details with 80% accuracy to improve working and short-term memory skills. MAKING PROGRESS 3. The pt will demonstrate attention and memory skills WFL for ADLs and personal/ household responsibilities in order to reduce dependence on and improve QOL. Treatment Activities The pt demonstrated independent ability to take photos with his cell phone. He had questions related to checking and managing voice messages. Initiated training steps to this task. The pt followed oral instructions accurately and required moderate cuing during immediate recall task. RESEARCH PROGRAM MANAGER agreed to develop written steps to aid pt in memory recall of this functional task. The pt stated his biggest problem with cell phone use is forgetting to carry it with him. Pt identified keys, wallet and pocket knife as items he consistently takes with him when leaving home. Collaborated with pt RE memory strategy for cell phone. Pt agreed he could establish a new routine of placing his phone with these other objects to promote memory to bring phone with him when he leaves. Continued training in active listening skills with an emphasis on avoiding making assumptions of what others might say. The pt was receptive to instruction and maintained appropriate attention during conversations during the session. He consistently exhibits appropriate pragmatics in conversation with RESEARCH PROGRAM MANAGER. The pt had questions related to RESEARCH PROGRAM MANAGER services related to dementia, as he has a family member with dementia. All questions were answered. Assessment Patient Response to Treatment Excellent Rehab Potential Excellent Impairments Identified Attention,Auditory Processing, Cognitive-Linguistic Skills, Memory - Short Term,Memory - Working Progress Towards Goals Slow Progress Assessment of Overall Progress Improving Assessment of Improvement Over the course of treatment, the pt consistently has made good progress toward goals. Has ongoing concerns of attention, particularly in maintaining focus in conversations with others. He appears to get distracted by thoughts, perhaps making assumptions with what his conversation partner is going to say vs actively listening and responding accordingly. He was receptive to education and training in active listening skills, as well as to recommendations for following steps that have been targeted in therapy in order to learn new tools on his cell phone. He is making progress in learning and recalling steps to using tools on his cell phone and was receptive to a new strategy to assist him in remembering to carry his phone with him. His ability to learn is encouraging and is positive prognostic indicator. Anticipate discharge from Speech Therapy within 1-3 visits. Reviewed with Patient Goals,Progress Being Made,Home Exercise Program Patient/Caregiver Understanding Excellent Plan Amount of Therapy Recommended 2-4 Weeks Frequency of Treatment Once a Week Length of Session 45 Minutes Therapeutic Contents Client Education,Cognitive- Linguistic Training,Home Exercise Program Provided Patient/Caregiver Instruction Home Exercise Program,Plan of Care,Questions/Concerns Therapy Recommendations Continue with Current Program
--- NOTE | 2021-01-02 18:04 | ST.OPTN ---
Visit Care Team Role Provider Type Other Providers Address: Phone: Fax: Maura Mazariegos MD Attending Provider Physician Family Provider Primary Care Provider Referring Provider Address: [address] [place] [address], [address], [place], [address] STATION INSTALLER Treatment Note STATION INSTALLER Treatment Note Start: 06/07/20 08:49 Freq: Status: Active Protocol: Document 01/02/21 17:55 ANAT (Rec: 01/02/21 18:04 ANAT [id number]) Speech Pathology Treatment Note Session Time Visit Start Time 12:30 Visit Stop Time 13:30 Total Visit Minutes 60 Visit Information Visit Number 02/20 Plan of Care Dates 12/20/20 - 03/22/21 Insurance Information Medicare Setting Treatment Setting Outpatient Care Visit Type Note Type Progress Note Next Note Type Next Note Type Treatment Note General Information General Information The pt is an 85-yr-old male with hx of Afib on Rivaroxaban , who presented to local hospital with L-sided weakness on 04/28/20, 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 He then discharged home with instructions for PT exercises until seen for outpatient services (PT/OT/ST). Today the pt reported only occasional mild dysarthria when he is tired. He reported being on a soft diet for 3 days during hospitalization with no modifications made to liquids, then return to regular diet. He denies symptoms of dysphagia and expressive/receptive language impairments. 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 He does not participate as much in household duties, such as setting table and cleaning dishes primarily d/t fatigue. He manages his own medications but has difficulty opening and closing lids, which often results in spilling the tablets. He has been reluctant to use a medi- set. PMHx significant for Afib, COPD, [place] 1995 s/p PCI then 3v bypass at in 1997, GERD, HLD, Macular degeneration R eye w/ surgery ~September 2019, HTN, R shoulder replacement ~ summer 2019, L degenerative rotator cuff tear. Subjective Others Present Family,Student Observations/Patient Presentation The pt arrived on time accompanied by who was participatory in providing feedback on pt's current cognitive comunication skills and, at end of session, expressed concern that the pt is frequently coughing with oral intake. Pt concurred this observation. Chief Complaint(s) Swallowing,Cognitive Rehab Expectation/Goals: Patient Goals Improve memory Patient Knowledge/Awareness of STATION INSTALLER Role Excellent in Treatment Parent/Caretake Knowledge/Awareness of Excellent STATION INSTALLER Role in Treatment Patient/Caregiver Compliance with Home Excellent Exercise Program Objective Short Term Goals 1. With collaboration and assistance as needed from STATION INSTALLER & spouse, the pt will establish external memory tools (e.g., medi-set, memory notebook) to increase independence in functional activities. GOAL MET 2. Once established, the pt will use external memory tools to successfully recall functional information in 80% of opportunities, as measured by pt/spouse report and clinical judgment. GOAL MET 3. Using internal memory strategies with min cues, the pt will recall unassociated picture pairs with 80% accuracy to improve visual memory skills. GOAL MET 4. Using internal and external memory strategies independently, the pt will follow 3-step directions with 80% acc to improve attention and memory skills for functional tasks. GOAL MET 5. The pt will name 8 or more items in abstract category to improve cognitive organization and memory skills. GOAL MET 6. The pt will complete structured attention tasks of moderate difficulty with 80% accuracy to improve ability to complete functional tasks with greater independence. Dye Reel Operator Helper Goals 1. The pt will use external memory tools independently in 80% of opportunities to perform functional tasks and increase independence. GOAL MET 2. Using memory strategies as needed and given information of moderate length provided orally (e.g., phone message, short story), the pt will recall topics and significant details with 80% accuracy to improve working and short-term memory skills. GOAL MET 3. The pt will demonstrate attention and memory skills WFL for ADLs and personal/ household responsibilities in order to reduce dependence on and improve QOL. GOAL MET Treatment Activities Continued training of phone navigation for communication and memory purposes. Following initial instruction and demonstration, the pt highlighted and deleted text with mod prompts, reducing to min. Written instructions were provided for home use and carryover. Checklist was also created to assist pt in remembering to bring his phone with him when he leaves home in order to be accessible to . Consulted with the couple RE pt's progress and POC. Pt is demosntrating cognitive communication skills WFLs and completing ADLs at baseline performance. Pt expressed feeling ready to discharge from cognitive communication therapy. Discussed concerns related to swallow safety and agreed to continue POC with swallow evaluation and treatment as indicated. Assessment Patient Response to Treatment Excellent Rehab Potential Excellent Impairments Identified Attention,Auditory Processing, Cognitive-Linguistic Skills, Memory - Short Term,Memory - Working Progress Towards Goals Slow Progress Assessment of Overall Progress Improving Assessment of Improvement The pt has made excellent progress with speech therapy and is functioning at baseline regarding cognitive communication skills. Concern of swallow deficits warrants clinical swallow evaluation, which will be administered at next session and POC modified accordingly. Reviewed with Patient Goals,Progress Being Made,Home Exercise Program Patient/Caregiver Understanding Excellent Plan Amount of Therapy Recommended 2-4 Weeks Frequency of Treatment Once a Week Length of Session 45 Minutes Treatment Emphasis Next Session Swallow evaluation Therapeutic Contents Client Education,Cognitive- Linguistic Training,Home Exercise Program Provided Patient/Caregiver Instruction Home Exercise Program,Plan of Care,Questions/Concerns Therapy Recommendations Continue with Current Program
--- NOTE | 2021-01-09 17:11 | ST.OPTN ---
Visit Care Team Role Provider Type Other Providers Address: Phone: Fax: Maura Mazariegos MD Attending Provider Physician Family Provider Primary Care Provider Referring Provider Address: [address] [place] [address], [facility], [place], [address] GLACING MACHINE TENDER Treatment Note GLACING MACHINE TENDER Clinical Instructor Line Start: 01/10/21 16:09 Freq: Status: Active Protocol: Document 01/09/21 17:00 ANAT (Rec: 01/10/21 17:00 ANAT [id number]) Clinical Instructor Signature Clinical Instructor Clinical Instructor Yes GLACING MACHINE TENDER Treatment Note Start: 06/07/20 08:49 Freq: Status: Active Protocol: Document 01/02/21 17:55 ANAT (Rec: 01/02/21 18:04 ANAT [email or web address]) Speech Pathology Treatment Note Session Time Visit Start Time 12:30 Visit Stop Time 13:30 Total Visit Minutes 60 Visit Information Visit Number 02/20 Plan of Care Dates 12/20/20 - 03/22/21 Insurance Information Medicare Setting Treatment Setting Outpatient Care Visit Type Note Type Progress Note Next Note Type Next Note Type Treatment Note General Information General Information The pt is an 85-yr-old male with hx of Afib on Rivaroxaban , who presented to local hospital with L-sided weakness on 04/28/20, 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 where he underwent further evaluation and participated in inpatient rehab until 05/16/20 . He then discharged home with instructions for PT exercises until seen for outpatient services (PT/OT/ST). Today the pt reported only occasional mild dysarthria when he is tired. He reported being on a soft diet for 3 days during hospitalization with no modifications made to liquids, then return to regular diet. He denies symptoms of dysphagia and expressive/receptive language impairments. 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 He does not participate as much in household duties, such as setting table and cleaning dishes primarily d/t fatigue. He manages his own medications but has difficulty opening and closing lids, which often results in spilling the tablets. He has been reluctant to use a medi- set. PMHx significant for Afib, COPD, [place] 1995 s/p PCI then 3v bypass at in 1997, GERD, HLD, Macular degeneration R eye w/ surgery ~September 2019, HTN, R shoulder replacement ~ summer 2019, L degenerative rotator cuff tear. Subjective Others Present Family,Student Observations/Patient Presentation The pt arrived on time accompanied by who was participatory in providing feedback on pt's current cognitive comunication skills and, at end of session, expressed concern that the pt is frequently coughing with oral intake. Pt concurred this observation. Chief Complaint(s) Swallowing,Cognitive Rehab Expectation/Goals: Patient Goals Improve memory Patient Knowledge/Awareness of GLACING MACHINE TENDER Role Excellent in Treatment Parent/Caretake Knowledge/Awareness of Excellent GLACING MACHINE TENDER Role in Treatment Patient/Caregiver Compliance with Home Excellent Exercise Program Objective Short Term Goals 1. With collaboration and assistance as needed from GLACING MACHINE TENDER & spouse, the pt will establish external memory tools (e.g., medi-set, memory notebook) to increase independence in functional activities. GOAL MET 2. Once established, the pt will use external memory tools to successfully recall functional information in 80% of opportunities, as measured by pt/spouse report and clinical judgment. GOAL MET 3. Using internal memory strategies with min cues, the pt will recall unassociated picture pairs with 80% accuracy to improve visual memory skills. GOAL MET 4. Using internal and external memory strategies independently, the pt will follow 3-step directions with 80% acc to improve attention and memory skills for functional tasks. GOAL MET 5. The pt will name 8 or more items in abstract category to improve cognitive organization and memory skills. GOAL MET 6. The pt will complete structured attention tasks of moderate difficulty with 80% accuracy to improve ability to complete functional tasks with greater independence. Air Traffic Control Specialist Center Goals 1. The pt will use external memory tools independently in 80% of opportunities to perform functional tasks and increase independence. GOAL MET 2. Using memory strategies as needed and given information of moderate length provided orally (e.g., phone message, short story), the pt will recall topics and significant details with 80% accuracy to improve working and short-term memory skills. GOAL MET 3. The pt will demonstrate attention and memory skills WFL for ADLs and personal/ household responsibilities in order to reduce dependence on and improve QOL. GOAL MET Treatment Activities Continued training of phone navigation for communication and memory purposes. Following initial instruction and demonstration, the pt highlighted and deleted text with mod prompts, reducing to min. Written instructions were provided for home use and carryover. Checklist was also created to assist pt in remembering to bring his phone with him when he leaves home in order to be accessible to . Consulted with the couple RE pt's progress and POC. Pt is demosntrating cognitive communication skills WFLs and completing ADLs at baseline performance. Pt expressed feeling ready to discharge from cognitive communication therapy. Discussed concerns related to swallow safety and agreed to continue POC with swallow evaluation and treatment as indicated. Assessment Patient Response to Treatment Excellent Rehab Potential Excellent Impairments Identified Attention,Auditory Processing, Cognitive-Linguistic Skills, Memory - Short Term,Memory - Working Progress Towards Goals Slow Progress Assessment of Overall Progress Improving Assessment of Improvement The pt has made excellent progress with speech therapy and is functioning at baseline regarding cognitive communication skills. Concern of swallow deficits warrants clinical swallow evaluation, which will be administered at next session and POC modified accordingly. Reviewed with Patient Goals,Progress Being Made,Home Exercise Program Patient/Caregiver Understanding Excellent Plan Amount of Therapy Recommended 2-4 Weeks Frequency of Treatment Once a Week Length of Session 45 Minutes Treatment Emphasis Next Session Swallow evaluation Therapeutic Contents Client Education,Cognitive- Linguistic Training,Home Exercise Program Provided Patient/Caregiver Instruction Home Exercise Program,Plan of Care,Questions/Concerns Therapy Recommendations Continue with Current Program
--- NOTE | 2021-01-22 16:52 | ST.OPIE ---
Visit Care Team Role Provider Type Other Providers Specialty: Address: Phone: Fax: Email: Maura Mazariegos MD Attending Provider Physician Family Provider Primary Care Provider Referring Provider Specialty: Family Practice Address: [address] [place] [address], [place], [address] Email: [email or web address] Speech-Language Pathology Initial Evaluation FUND CONTROLLER Clinical Instructor Line Start: 01/10/21 16:09 Freq: Status: Active Protocol: Document 01/09/21 17:00 AANT (Rec: 01/10/21 17:00 ANAT [email or web address]) Clinical Instructor Signature Clinical Instructor Clinical Instructor Yes FUND CONTROLLER Clinical Swallow Evaluation Start: 01/09/21 16:36 Freq: Status: Active Protocol: Document 01/09/21 16:38 EB (Rec: 01/09/21 17:06 EB [email or web address]) Clinical Swallow Evaluation Session Time Visit Start Time 15:30 Visit Stop Time 16:15 Total Visit Minutes 45 Visit Information Visit Number 03/[id number] Plan of Care Dates 01/09/21 - 04/11/21 Insurance Information Medicare Referral Referring Provider Maura Mazariegos Reason for Referral Dysphagia assessment per patient complaint Setting Assessment Location Outpatient Care Visit Type Note Type Initial evaluation Next Note Type Next Note Type Treatment Note Patient Information Identification Type Name History The pt is an 85-yr-old male with hx of Afib on Rivaroxaban , who presented to [facility] with L-sided weakness on 04/28/20, 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 He then discharged home with instructions for PT exercises until seen for outpatient services (PT/OT/ST). PMHx significant for Afib, COPD, [place] 1995 s/p PCI then 3v bypass at in 1997, GERD, HLD, Macular degeneration R eye w/ surgery ~September 2019,HTN, R shoulder replacement ~summer 2019, L degenerative rotator cuff tear. Pt has been receiving cognitive therapy at [facility] and was close to discharging when he reported to FUND CONTROLLER that he has been noticing coughing while eating, primarily with breakfast. During therapy, the pt and his reported that the patient has frequent coughing with oral intake, warranting evaluation of swallow. Subjective Observations Pt arrived on time and unaccompanied. He reported a decrease in coughing episodes since initially reporting the issue to FUND CONTROLLER. He stated when it does occur, it primarily occurs during breakfast with all consistencies and improves as the meal progresses. Assessment conducted and note written by student FUND CONTROLLER Ijeoma Alejandra. Reported by Patient Other Symptoms Coughing Comment As stated above, the patient reported that he when he experiences coughing while eating, it is primarily during the first few bites of breakfast and progressively improves throughout the meal. Pt indicated that coughing occurs no matter the consistency or texture. Current Diet Regular,Thin liquids Baseline Feeding Method Independent in self-feeding Patient Questionnaire No Objective Assessment Mental Status Alert,Responsive,Cooperative Oral Integrity WFL Dentition Missing teeth Lip Function Within normal limits Observation of Lips at Rest Symmetrical Pucker Reduced range of motion Lip Retraction Within normal limits Alternating Pucker/Lip Retraction Incoordination Tongue Function Within normal limits Observations of Tongue at Rest Within normal limits Tongue Protrusion Within normal limits Tongue Retraction Within normal limits Tongue Lateralization Within normal limits Jaw Function Within normal limits Observations of Jaw at Rest Within normal limits Jaw Opening Within normal limits Jaw Closing Within normal limits Jaw Lateralization Within normal limits Hard/Soft Palate Function Within normal limits Observations of Hard/Soft Palate Within normal limits Nasality Within normal limits Phonation Strained/Strangled Respiratory Sufficiency Within normal limits Comment Pt presents with mild impairments in lip rounding both in coordination and range of motion which could be indicative of mild weakness. However, when student FUND CONTROLLER asked him to pucker again several minutes later, his coordination was improved. Pt' s voice has a mild strained quality that was present both before and after eating indicating that this vocal quality is likely not due to residue. Pt has natural teeth with several silver fillings and two missing molars on left side of mouth. Pt reported that he chews primarily with his right side. Food and Liquid Trials Position During Assessment Upright (90 degrees) Liquids Trialed Thin Solids Trialed Puree,Dysphagia Mechanical, Dysphagia Advanced,Mechanical Soft,Regular Administration Type Cup single sip Oral Impairment Within normal limits Oral Phase Comments Overall, the patient's oral phase was within normal limits . A slightly slower rate of mastication was noted, however , this may be attributed to pt 's heightened awareness of assessment. Pt reported no difficulty with manipulating boluses and no residue was noted in the oral cavity following any of the trials. Pharyngeal Impairment Within normal limits Pharyngeal Phase Comments Pt's vocal quality stayed the same throughout the assessment and did not show any obvious s/s of aspiration or penetration. He reported that he had no difficulty with any of the trials presented. Fatigue/Endurance Endurance WNL Results Pt presented today with normal swallow function. He and has have noted that during breakfast, pt occasionally experiences swallowing episodes. Education was provided regarding slowing rate of eating and will continue to monitor for any changes in swallow. Findings Swallowing Function Within normal limits Severity of Swallow Impairment Within normal limits Comment Based on observations, pt's swallow appears to be within normal limits. While there is mild impairment in coordination with lip puckering, this could be attributed to age or the pt not fully understanding the direction as a few minutes later, his pucker was within normal limits. While his swallow was WNL, the pt reported that he breathes through his mouth 75% of the time. Pt will continue to receive services to target appropriate breathing posture as open mouth breathing may impact voice quality and swallow. Impact on Safety and Functioning No limitations Recommendations Instrumental Assessment No Swallowing Treatment No Recommended Solids Regular Recommended Liquids Thin Education Patient/Caregiver Education Described results of evaluation,Patient expressed understanding of evaluation, Patient expressed agreement with goals & treatment plans, Patient expressed understanding of feeding recommendations Goals Short-term Goals 1. Pt will follow safe swallow strategies to reduce aspiration risk. 1. Pt will continue to receive speech services to target adequate breathing posture and optimize breath support. Long-term Goals Pt will demonstrate continual tolerance of thin liquids and solids.
--- NOTE | 2021-01-23 13:55 | ST.OPTN ---
Visit Care Team Role Provider Type Other Providers Address: Phone: Fax: Maura Mazariegos MD Attending Provider Physician Family Provider Primary Care Provider Referring Provider Address: [address] [place] [address], [address], [place], [address] ELECTRIC ARC FURNACE OPERATOR Treatment Note ELECTRIC ARC FURNACE OPERATOR Clinical Instructor Line Start: 01/10/21 16:09 Freq: Status: Active Protocol: Document 01/09/21 17:00 ANAT (Rec: 01/10/21 17:00 ANAT [email or web address]) Clinical Instructor Signature Clinical Instructor Clinical Instructor Yes ELECTRIC ARC FURNACE OPERATOR Treatment Note Start: 06/07/20 08:49 Freq: Status: Active Protocol: Document 01/23/21 13:48 ANAT (Rec: 01/23/21 13:55 ANAT [email or web address]) Speech Pathology Treatment Note Session Time Visit Start Time 10:30 Visit Stop Time 11:20 Total Visit Minutes 50 Visit Information Visit Number 07/23 Plan of Care Dates 01/09/21 - 04/11/21 Insurance Information Medicare Setting Treatment Setting Outpatient Care Visit Type Note Type Treatment Note Next Note Type Next Note Type Treatment Note General Information General Information The pt is an 85-yr-old male with hx of Afib on Rivaroxaban , who presented to local hospital with L-sided weakness on 04/28/20, 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 He then discharged home with instructions for PT exercises until seen for outpatient services (PT/OT/ST). Today the pt reported only occasional mild dysarthria when he is tired. He reported being on a soft diet for 3 days during hospitalization with no modifications made to liquids, then return to regular diet. He denies symptoms of dysphagia and expressive/receptive language impairments. 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 He does not participate as much in household duties, such as setting table and cleaning dishes primarily d/t fatigue. He manages his own medications but has difficulty opening and closing lids, which often results in spilling the tablets. He has been reluctant to use a medi- set. PMHx significant for Afib, COPD, [place] 1995 s/p PCI then 3v bypass at in 1997, GERD, HLD, Macular degeneration R eye w/ surgery ~September 2019, HTN, R shoulder replacement ~ summer 2019, L degenerative rotator cuff tear. Subjective Others Present Student Observations/Patient Presentation Pt arrived on time and unaccompanied. He reported improved breathing and sleeping with use of tape at lips during sleep to promote nasal breathing. Pt stated he breathes both nasally and orally throughout the day and was agreeable to use of mouth tape periodically during the day to promote carryover of nasal breathing. He also reported occasional coughing with oral intake. Chief Complaint(s) Swallowing,Cognitive Rehab Expectation/Goals: Patient Goals Reduce coughing with oral intake Patient Knowledge/Awareness of ELECTRIC ARC FURNACE OPERATOR Role Excellent in Treatment Parent/Caretake Knowledge/Awareness of Excellent ELECTRIC ARC FURNACE OPERATOR Role in Treatment Patient/Caregiver Compliance with Home Excellent Exercise Program Objective Short Term Goals 1. With collaboration and assistance as needed from ELECTRIC ARC FURNACE OPERATOR & spouse, the pt will establish external memory tools (e.g., medi-set, memory notebook) to increase independence in functional activities. GOAL MET 2. Once established, the pt will use external memory tools to successfully recall functional information in 80% of opportunities, as measured by pt/spouse report and clinical judgment. GOAL MET 3. Using internal memory strategies with min cues, the pt will recall unassociated picture pairs with 80% accuracy to improve visual memory skills. GOAL MET 4. Using internal and external memory strategies independently, the pt will follow 3-step directions with 80% acc to improve attention and memory skills for functional tasks. GOAL MET 5. The pt will name 8 or more items in abstract category to improve cognitive organization and memory skills. GOAL MET 6. The pt will complete structured attention tasks of moderate difficulty with 80% accuracy to improve ability to complete functional tasks with greater independence. Janitorial Cleaner Goals 1. The pt will use external memory tools independently in 80% of opportunities to perform functional tasks and increase independence. GOAL MET 2. Using memory strategies as needed and given information of moderate length provided orally (e.g., phone message, short story), the pt will recall topics and significant details with 80% accuracy to improve working and short-term memory skills. GOAL MET 3. The pt will demonstrate attention and memory skills WFL for ADLs and personal/ household responsibilities in order to reduce dependence on and improve QOL. GOAL MET Treatment Activities Initiated training of swallow exercises. Trained pt in Shaker, Olivia, John, and back and base of tongue exercises. Pt maintained 30- sec head hold and performed 11 reps in Shaker. Able to elevate larynx minimally in John maneuver; improved with inhalation through occluded straw. Performed all other exercises as instructed, demonstrating understanding and ability to perform. Assessment Patient Response to Treatment Excellent Rehab Potential Excellent Impairments Identified Attention,Auditory Processing, Cognitive-Linguistic Skills, Memory - Short Term,Memory - Working Progress Towards Goals Slow Progress Assessment of Overall Progress Improving Assessment of Improvement Per pt report, occ coughing with oral intake persists. The pt demonstrated ability to perform all tasks as instructed with modified option available for John maneuver. Pt is benefiting from use of paper tape vertically placed across lips to promote nasal breathing, which is optimal vocal hygiene and reduces factors that may increase laryngeal sensitivity and lead to subsequent coughing (e.g., dryness). Reviewed with Patient Goals,Progress Being Made,Home Exercise Program Patient/Caregiver Understanding Excellent Plan Amount of Therapy Recommended 2-4 Weeks Frequency of Treatment Once a Week Length of Session 45 Minutes Treatment Emphasis Next Session Swallow evaluation Therapeutic Contents Client Education,Cognitive- Linguistic Training,Home Exercise Program Provided Patient/Caregiver Instruction Home Exercise Program,Plan of Care,Questions/Concerns Therapy Recommendations Continue with Current Program
--- NOTE | 2021-02-12 17:23 | ST.OPDS ---
Visit Care Team Role Provider Type Other Providers Address: Phone: Fax: Maura Mazariegos MD Attending Provider Physician Family Provider Primary Care Provider Referring Provider Address: [address] [place] [address], [address], [place], [address] FURNITURE RESTORER Treatment Note FURNITURE RESTORER Clinical Instructor Line Start: 01/10/21 16:09 Freq: Status: Active Protocol: Document 01/09/21 17:00 ANAT (Rec: 01/10/21 17:00 ANAT [email or web address]) Clinical Instructor Signature Clinical Instructor Clinical Instructor Yes FURNITURE RESTORER Treatment Note Start: 06/07/20 08:49 Freq: Status: Active Protocol: Document 02/12/21 16:56 ANAT (Rec: 02/12/21 17:23 ANAT [email or web address]) Speech Pathology Treatment Note Session Time Visit Start Time 10:30 Visit Stop Time 11:05 Total Visit Minutes 35 Visit Information Visit Number 08/23 Plan of Care Dates 01/09/21 - 04/11/21 Insurance Information Medicare Setting Treatment Setting Outpatient Care Visit Type Note Type Discharge Summary Next Note Type Next Note Type Treatment Note General Information General Information The pt is an 85-yr-old male with hx of Afib on Rivaroxaban , who presented to local hospital with L-sided weakness on 04/28/20, 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 He then discharged home with instructions for PT exercises until seen for outpatient services (PT/OT/ST). Today the pt reported only occasional mild dysarthria when he is tired. He reported being on a soft diet for 3 days during hospitalization with no modifications made to liquids, then return to regular diet. He denies symptoms of dysphagia and expressive/receptive language impairments. 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 He does not participate as much in household duties, such as setting table and cleaning dishes primarily d/t fatigue. He manages his own medications but has difficulty opening and closing lids, which often results in spilling the tablets. He has been reluctant to use a medi- set. PMHx significant for Afib, COPD, [place] 1995 s/p PCI then 3v bypass at in 1997, GERD, HLD, Macular degeneration R eye w/ surgery ~September 2019, HTN, R shoulder replacement ~ summer 2019, L degenerative rotator cuff tear. Subjective Others Present Student Observations/Patient Presentation Pt arrived on time and unaccompanied. He reported improved breathing and sleeping with use of tape at lips during sleep to promote nasal breathing. Pt reported improved swallow function; has not noticed coughing with intake recently. Chief Complaint(s) Swallowing,Cognitive Rehab Expectation/Goals: Patient Goals Reduce coughing with oral intake Patient Knowledge/Awareness of FURNITURE RESTORER Role Excellent in Treatment Parent/Caretake Knowledge/Awareness of Excellent FURNITURE RESTORER Role in Treatment Patient/Caregiver Compliance with Home Excellent Exercise Program Objective Short Term Goals 1. With collaboration and assistance as needed from FURNITURE RESTORER & spouse, the pt will establish external memory tools (e.g., medi-set, memory notebook) to increase independence in functional activities. GOAL MET 2. Once established, the pt will use external memory tools to successfully recall functional information in 80% of opportunities, as measured by pt/spouse report and clinical judgment. GOAL MET 3. Using internal memory strategies with min cues, the pt will recall unassociated picture pairs with 80% accuracy to improve visual memory skills. GOAL MET 4. Using internal and external memory strategies independently, the pt will follow 3-step directions with 80% acc to improve attention and memory skills for functional tasks. GOAL MET 5. The pt will name 8 or more items in abstract category to improve cognitive organization and memory skills. GOAL MET 6. The pt will complete structured attention tasks of moderate difficulty with 80% accuracy to improve ability to complete functional tasks with greater independence. GOAL MET 7. Pt will independently complete exercises to improve swallow function/safety. GOAL MET Meter Maintenance Person Goals 1. The pt will use external memory tools independently in 80% of opportunities to perform functional tasks and increase independence. GOAL MET 2. Using memory strategies as needed and given information of moderate length provided orally (e.g., phone message, short story), the pt will recall topics and significant details with 80% accuracy to improve working and short-term memory skills. GOAL MET 3. The pt will demonstrate attention and memory skills WFL for ADLs and personal/ household responsibilities in order to reduce dependence on and improve QOL. GOAL MET 4. Pt will tolerate least restrictive diet to meet his nutrition and hydration needs. GOAL MET Treatment Activities Collected report from pt and provided feedback including recommendation for use of Breathe Right nasal strips if experiencing nasal blocking during sleep. Trained pt in nose unblocking exercise using Buteyko breathing method. Prior to exercise, the pt reported moderately stuffed nasal passage. Pt performed 6 repetitions and reported notably improved ability to breathe through nose. Discussed POC. Pt has tools for maintaining current cognitive communication and swallow and has demonstrated independence in their use. Recommended DC at this time; pt in agreement. Assessment Patient Response to Treatment Excellent Rehab Potential Excellent Impairments Identified Attention,Auditory Processing, Cognitive-Linguistic Skills, Dysphagia,Memory - Short Term, Memory - Working Progress Towards Goals Excellent Progress Assessment of Overall Progress Rehabilitated Assessment of Improvement Pt has met all goals and will be discharged from skilled intervention at this time. Reviewed with Patient Goals,Progress Being Made,Home Exercise Program Patient/Caregiver Understanding Excellent Plan Therapeutic Contents Client Education,Cognitive- Linguistic Training,Home Exercise Program Provided Patient/Caregiver Instruction Home Exercise Program,Plan of Care,Questions/Concerns Therapy Recommendations Discharge to Home Exercise Program
== END 2021-03-05 13:21 | disposition home or self-care (01) ==
LOC: SP 10:30
PROVIDERS: Family Provider Family Medicine; PCP Family Medicine; Referring Provider Family Medicine; Visit Provider Family Medicine
DX: I63.9 Cerebral infarction, unspecified (principal)
CPT/HCPCS: 92507; 92526; 92610; 96125; 97129; 97130

== ENCOUNTER → 2021-07-04 08:22 | Outpatient (CLI) | payer MEDICARE, OTHER, SELFPAY ==
[2021-07-04 10:04] LABS: Add Manual Diff / Slide Review NO; Basophils Absolute Auto 0 /uL (0-100); Basophils Percent Auto 0.4 % (0-2); Eosinophils Absolute Auto 100 /uL (0-450); Eosinophils Percent Auto 2.4 % (2-4); Hematocrit 36.2 % (41-53); Hemoglobin 12.1 g/dL (13.5-17.5); Lymphocytes Absolute Auto 1100 /uL (1100-4500); Lymphocytes Percent Auto 26.2 % (25-40); Mean Corpuscular HGB Conc 33.3 % (30-36); Mean Corpuscular Hemoglobin 29.3 PG (26-34); Monocytes Absolute Auto 500 /uL (0-900); Neutrophils Absolute Auto 2600 /uL (1500-7000); Platelet Count 201 X10^3/uL (150-400); Red Blood Cell Count 4.12 X10^6/uL (4.5-5.9); Red Cell Distribution Width 16.7 % (11.6-14.8); White Blood Cell Count 4.4 X10^3/uL (4.5-11.0)
[2021-07-04 10:23] LABS: BUN Creatinine Ratio 23.4 (6-22); Blood Urea Nitrogen 25 mg/dL (9-20); Calcium 9.5 mg/dL (8.4-10.2); Carbon Dioxide 29 mmol/L (22-32); Chloride 102 mmol/L (98-107); Cholesterol 111 mg/dL (140-199); Estimated Glomerular Filt Rate > 60.0 mL/min (>60); Glucose 99 mg/dL (80-110); HDL Cholesterol 56 mg/dL (40-60); HEMOLYSIS < 15 (0-50); LDL Cholesterol Calculated 45 mg/dL (<100); Potassium 4.7 mmol/L (3.4-5.1); Sodium 137 mmol/L (137-145); Triglycerides 51 mg/dL (35-150)
== END ==
PROVIDERS: Family Provider Family Medicine; PCP Family Medicine; Referring Provider Internal Medicine Cardiovascular Disease; Visit Provider Internal Medicine Cardiovascular Disease
DX: I48.19 Other persistent atrial fibrillation (principal); I25.10 Atherosclerotic heart disease of native coronary artery without angina pectoris
CPT/HCPCS: 36415; 80048; 80061; 85025

== ENCOUNTER → 2021-10-11 12:46 | Outpatient (CLI) | payer MEDICARE, OTHER, SELFPAY ==
--- NOTE | 2021-10-11 12:48 | DI.RAD.S_ITS ---
PROCEDURE: XR PELVIS 1-2V INDICATIONS: fall on to coccyx 1 week ago TECHNIQUE: Single view(s) of the pelvis acquired. COMPARISON: None. FINDINGS: Bones: No acute fracture or dislocation. No suspicious bony lesions. There is moderate bilateral hip joint space narrowing and small collar osteophytes. Soft tissues: Visualized bowel gas pattern is normal. No suspicious soft tissue calcifications. IMPRESSION: Degenerative change. No acute radiographic findings. If there is high clinical suspicion for occult fracture, CT of the pelvis could be used to further characterize findings. Dictated by: Beatrice Gonzalez M.D. on 10/11/2021 at 13:21 Approved by: Beatrice Gonzalez M.D. on 10/11/2021 at 13:21
--- NOTE | 2021-10-11 12:48 | DI.RAD.S_ITS ---
PROCEDURE: XR SACRUM COCCYX MIN 2V INDICATIONS: fall on to coccyx 1 week ago TECHNIQUE: 3 views of the sacrum and coccyx acquired. COMPARISON: None. FINDINGS: Bones: Subtle lucency is noted within the mid coccygeal region. No other suspicious bony lesions. Severe degenerative changes are noted within the distal lumbar spine. Soft tissues: Visualized bowel gas pattern is normal. No suspicious soft tissue densities. IMPRESSION: Subtle lucency within the mid coccygeal region. It is unclear whether this is a normal variant or may represent a small displaced coccygeal fracture. If further characterization is warranted, CT or MRI of this region could be used. Dictated by: Beatrice Gonzalez M.D. on 10/11/2021 at 13:21 Approved by: Beatrice Gonzalez M.D. on 10/11/2021 at 13:23
== END ==
PROVIDERS: Family Provider Family Medicine; PCP Family Medicine; Referring Provider Nurse Practitioner Critical Care Medicine; Visit Provider Nurse Practitioner Critical Care Medicine
DX: W07.XXXA Fall from chair, initial encounter (principal); S32.2XXA Fracture of coccyx, initial encounter for closed fracture
CPT/HCPCS: 72170; 72220

== ENCOUNTER → 2021-12-24 13:28 | Outpatient (CLI) | payer MEDICARE, OTHER, SELFPAY ==
--- NOTE | 2021-12-24 13:30 | DI.RAD.S_ITS ---
PROCEDURE: XR LUMBAR SPINE 2-3V INDICATIONS: lower back pain TECHNIQUE: 3 views of the lumbar spine were acquired. COMPARISON: None. FINDINGS: Bones: 5 [id number] vertebrae are present. There is 3 mm retrolisthesis at L2-3, 4 mm retrolisthesis at L3-4, and 7 mm anterolisthesis at L5-S1. No vertebral body compression fractures. No suspicious bony lesions. Severe degenerative changes including intervertebral disc space narrowing, endplate sclerosis, osteophytosis and facet sclerosis are present throughout the lumbar spine. Soft tissues: Atheromatous calcifications are present within the abdominal aorta. IMPRESSION: Spondylolisthesis, severe degenerative change, and aortic atherosclerosis. No compression deformities. Dictated by: Beatrice Gonzalez M.D. on 12/24/2021 at 15:57 Approved by: Beatrice Gonzalez M.D. on 12/24/2021 at 15:59
--- NOTE | 2021-12-24 13:30 | DI.RAD.S_ITS ---
PROCEDURE: XR CHEST 2V INDICATIONS: Coughing and hemoptysis TECHNIQUE: 2 views of the chest were acquired. COMPARISON: [facility], CR, XR CHEST 2V, 04/10/2020, 8:34. FINDINGS: Surgical changes and devices: Median sternotomy. Lungs and pleura: Lungs are clear. No pleural effusions or pneumothorax. Mediastinum: Mediastinal contours are normal. Heart size is normal. Bones and chest wall: No suspicious bony abnormalities. Soft tissues appear unremarkable. IMPRESSION: No acute process. Dictated by: Alison Snell M.D. on 12/24/2021 at 14:50 Approved by: Alison Snell M.D. on 12/24/2021 at 14:50
[2021-12-24 14:45] LABS: Add Manual Diff / Slide Review NO; Basophils Absolute Auto 0 /uL (0-100); Basophils Percent Auto 0.5 % (0-2); Eosinophils Absolute Auto 100 /uL (0-450); Eosinophils Percent Auto 1.1 % (2-4); Hematocrit 39.4 % (41-53); Hemoglobin 13.5 g/dL (13.5-17.5); Lymphocytes Absolute Auto 1200 /uL (1100-4500); Lymphocytes Percent Auto 20.3 % (25-40); Mean Corpuscular HGB Conc 34.2 % (30-36); Mean Corpuscular Hemoglobin 31.8 PG (26-34); Mean Corpuscular Volume 92.8 fL (80-100); Monocytes Absolute Auto 600 /uL (0-900); Monocytes Percent Auto 9.4 % (3-14); Neutrophils Absolute Auto 4200 /uL (1500-7000); Neutrophils Percent Auto 68.7 % (50-75); Platelet Count 200 X10^3/uL (150-400); Red Blood Cell Count 4.25 X10^6/uL (4.5-5.9); White Blood Cell Count 6.2 X10^3/uL (4.5-11.0)
[2021-12-24 15:07] LABS: Erythrocyte Sedimentation Rate 7 MM/HR (0-15)
[2021-12-24 15:13] LABS: Alanine Aminotransferase 22 IU/L (<50); Albumin 4.7 g/dL (3.5-5.0); Albumin Globulin Ratio 1.5 (1.0-2.8); Alkaline Phosphatase 78 U/L (38-126); Aspartate Aminotransferase 28 IU/L (17-59); BUN Creatinine Ratio 24.8 (6-22); Bilirubin Total 0.6 mg/dL (0.2-1.3); Blood Urea Nitrogen 30 mg/dL (9-20); C-Reactive Protein Quant < 0.5 mg/dL (<1.0); Calcium 9.4 mg/dL (8.4-10.2); Carbon Dioxide 29 mmol/L (22-32); Chloride 103 mmol/L (98-107); Estimated Glomerular Filt Rate 59 mL/min (>60); Globulin 3.2 g/dL (1.7-4.1); Glucose 61 mg/dL (80-110); HEMOLYSIS < 15 (0-50); Potassium 4.2 mmol/L (3.4-5.1); Sodium 139 mmol/L (137-145); Total Protein 7.9 g/dL (6.3-8.2)
[2021-12-24 15:42] LABS: TSH w/ Reflex to FT4 3.06 uIU/mL (0.47-4.68)
== END ==
PROVIDERS: Family Provider Family Medicine; PCP Family Medicine; Referring Provider Family Medicine; Visit Provider Family Medicine
DX: R04.2 Hemoptysis (principal); M47.816 Spondylosis without myelopathy or radiculopathy, lumbar region; R05.9 Cough, unspecified; M43.17 Spondylolisthesis, lumbosacral region; M54.50 Low back pain, unspecified; I70.0 Atherosclerosis of aorta; R63.4 Abnormal weight loss
CPT/HCPCS: 36415; 71046; 72100; 80053; 84443; 85025; 85651; 86140

== ENCOUNTER → 2022-01-02 10:21 | Outpatient (CLI) | payer MEDICARE, OTHER, SELFPAY ==
[2022-01-02 12:00] LABS: COVID19 -Nasal RAPID Negative (Negative)
== END ==
PROVIDERS: Family Provider Family Medicine; PCP Family Medicine; Referring Provider Internal Medicine; Visit Provider Internal Medicine
DX: Z01.818 Encounter for other preprocedural examination (principal)
CPT/HCPCS: 87635; C9803

== ENCOUNTER → 2022-01-03 09:55 | Outpatient (CLI) | payer MEDICARE, OTHER, SELFPAY ==
--- NOTE | 2022-01-09 08:30 | PM.PFT.1 ---
Pulmonary Function Test Referral & Results Date Patient Seen: 01/03/22 Requesting provider: Maura Mazariegos Results: The spirometry demonstrates an FVC of 3.25 L which is 72% of predicted. The FEV1 was measured at 2.22 L which is 70% of predicted. The FEV1/FVC ratio was 68 which is 97% of predicted. Following the administration of bronchodilator there was a 39% improvement in FEF 25-75%. Lung volumes show an SVC of 3.62 L which is 74% of predicted. The diffusing capacity was measured at 23.91 which is 63% of predicted. No hemoglobin value was provided, so no correction for potential anemia could be made, if appropriate. The maximum voluntary ventilation was reduced Interpretation: This study demonstrates possibly mild obstructive lung disease based on reduction FEV1 although FEV1/FVC ratio is preserved, there is limited evidence of benefit following bronchodilator administration particularly small airway flow based on improvement in FEF 25-75% as above There is a minimal reduction in lung volumes suggesting mild restrictive lung disease is also present There is also vkfx-os-[id number] reduction diffusing capacity suggesting disease at the capillary alveolar level Compared to PFTs performed in April 2020, current study is essentially unchanged Clinical correlation suggested
== END ==
PROVIDERS: Family Provider Family Medicine; PCP Family Medicine; Referring Provider Family Medicine; Visit Provider Family Medicine
DX: J44.9 Chronic obstructive pulmonary disease, unspecified (principal); Z87.891 Personal history of nicotine dependence
CPT/HCPCS: 94060; 94726; 94729

== ENCOUNTER → 2022-01-14 11:29 | Outpatient (CLI) | payer MEDICARE, OTHER, SELFPAY ==
--- NOTE | 2022-01-14 11:31 | DI.RAD.S_ITS ---
PROCEDURE: XR FINGER LT MIN 2V INDICATIONS: 4th finger injury swollen TECHNIQUE: AP hand, 2 views of the 4th finger(s) acquired. COMPARISON: None. FINDINGS: Bones: No fractures or dislocations. No suspicious bony lesions. Soft tissues: Soft tissue swelling surrounding distal portion of 4th digit is seen. No suspicious soft tissue calcifications. IMPRESSION: Distal 4th finger soft tissue swelling. No definite acute 4th finger fracture or dislocation. Dictated by: Armando Sanchez M.D. on 01/14/2022 at 11:43 Approved by: Armando Sanchez M.D. on 01/14/2022 at 11:44
== END ==
PROVIDERS: Family Provider Family Medicine; PCP Family Medicine; Referring Provider Nurse Practitioner Family; Visit Provider Nurse Practitioner Family
DX: S69.92XA Unspecified injury of left wrist, hand and finger(s), initial encounter; M79.89 Other specified soft tissue disorders; X58.XXXA Exposure to other specified factors, initial encounter
CPT/HCPCS: 73140

== ENCOUNTER → 2022-01-29 10:18 | Outpatient (CLI) | payer MEDICARE, OTHER, SELFPAY ==
--- NOTE | 2022-01-29 10:20 | DI.CT.S_ITS ---
PROCEDURE: CT ABDOMEN PELVIS W CON INDICATIONS: Weight loss TECHNIQUE: After the administration of oral and IV contrast, axial sections were acquired from the lung bases to the pubic symphysis. Coronal and sagittal reformats were performed. For radiation dose reduction, the following was used: automated exposure control, adjustment of mA and/or kV according to patient size. COMPARISON: None. FINDINGS: Image quality: Excellent. Lung bases: Lungs are hyperexpanded suggestive of COPD. Heart: Enlarged. ABDOMEN: Liver: Unremarkable. Gallbladder: Dependent stones are present within the lumen without wall thickening. Biliary ducts: Unremarkable. Pancreas: Unremarkable. Spleen: Unremarkable. Adrenal Glands: Unremarkable. Kidneys and Ureters: Unremarkable. Stomach and Bowel: Stomach, small bowel loops, and colon are nonobstructive. Significant colonic stool is present. Prominent diffuse diverticula are present, most notably in the transverse and descending colon. No associated inflammatory change. Peritoneum: No abnormal intraperitoneal fluid. No free air. Ventral Wall: No hernia. Abdominal Nodes: No retroperitoneal or mesenteric adenopathy by size criteria. Vessels: Aorta and inferior vena cava are normal in size. PELVIS: Pelvic Organs: Unremarkable. Bladder: Unremarkable. Pelvic Nodes: No enlarged lymph nodes. Miscellaneous: No inguinal hernias are seen. Bones: There is a chronic appearing posterior left 12th rib fracture. Subacute appearing posterior left 10th rib fracture is present. IMPRESSION: Significant diverticulosis. Cholelithiasis. Subacute appearing left posterior 10th rib fracture. Recommend correlation point tenderness. Dictated by: Donna Venegas M.D. on 01/29/2022 at 15:03 Approved by: Donna Venegas M.D. on 01/29/2022 at 15:07
[2022-01-29 10:58] LABS: Blood Urea Nitrogen 24 mg/dL (9-20); Estimated Glomerular Filt Rate > 60 mL/min (>60)
== END ==
PROVIDERS: Family Provider Family Medicine; PCP Family Medicine; Referring Provider Surgery; Visit Provider Surgery
DX: S22.32XA Fracture of one rib, left side, initial encounter for closed fracture (principal); K57.30 Diverticulosis of large intestine without perforation or abscess without bleeding; K80.20 Calculus of gallbladder without cholecystitis without obstruction; R63.4 Abnormal weight loss; X58.XXXA Exposure to other specified factors, initial encounter
CPT/HCPCS: 36415; 74177; 82565; 84520; Q9967

== ENCOUNTER → 2022-03-20 09:34 | Outpatient (CLI) | payer MEDICARE, OTHER, SELFPAY ==
[2022-03-20 12:23] LABS: COVID19 -Nasal RAPID Negative (Negative)
== END ==
PROVIDERS: Family Provider Family Medicine; PCP Family Medicine; Visit Provider Surgery
DX: Z01.812 Encounter for preprocedural laboratory examination (principal); Z20.822 Contact with and (suspected) exposure to COVID-19
CPT/HCPCS: 87635; C9803

== ENCOUNTER 2022-03-21 11:58 | Day surgery (SDC) | payer MEDICARE, OTHER, SELFPAY ==
--- NOTE | 2022-03-21 | PATH_ITS ---
[facility] Accession Number: [id number] . 01 Material submitted: . colon - SIGMOID POLYPS . 01 Diagnosis: Sigmoid Colon, Polyps, Biopsies: Tubular adenoma, one fragment. MRV 03/25/2022 1028 Local . 01 Electronically signed: . Mitzi Solo MD, Pathologist NPI- [id number] . 01 Gross description: . SIGMOID POLYPS: Received in formalin is 1 fragment(s) of khan, soft tissue measuring 0.4 x 0.2 x 0.1 cm submitted entirely in 1 cassette(s) /CPE 03/23/2022 0649 Local . 01 Pathologist provided ICD-10: D12.5 . 01 CPT . 847728 Specimen Comment: A courtesy copy of this report has been sent to [phone] Performed at: 01 [facility] [address] [place] [address] [id number] MD Nomi Alvarez MD Phone: [phone]
--- NOTE | 2022-03-21 12:33 | PM.HP.1 ---
History of Present Illness History of Present Illness Date Patient Seen: 03/21/22 Time Patient Seen: 12:33 Chief complaint: DX COLONOSCOPY Narrative: Yamil is an 86-year-old man who is due for colonoscopy due to history of polyps. His last colonoscopy was at [facility] 2017 and polyps were removed. He also believes he is undergoing weight loss although it is possible that this is simply physiological weight loss with age. 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) Myocardial infarction (1995) Non-sustained ventricular tachycardia Surgical History History of colonoscopy Hx of bilateral cataract extraction (08/2019) Hx of cardiac cath Hx of heart artery stent (1997) S/P CABG x 3 (1997) Family & Social History Social History: household members spouse lives independently Yes caregiver/support person No Tobacco & Substance use: Smoking Status Former smoker alcohol intake current alcohol intake frequency 0-2 drinks per day Substance Use Type does not use Meds Home Medications and Allergies Home Medications Medication Instructions Recorded Confirmed Type acetaminophen 500 mg capsule 500 mg PO Q6H PRN Pain 05/05/18 02/04/22 History tadalafil 10 mg tablet (Cialis) 10 mg PO PRN PRN Sexual Activity 12/17/19 02/04/22 History placebo vs aspirin .Route 05/23/20 02/04/22 History rivaroxaban 20 mg tablet (Xarelto) 20 mg PO QPM #90 tabs 06/27/20 02/04/22 Rx losartan 100 mg tablet 100 mg PO BEDTIME BP #90 tabs 09/04/20 02/04/22 Rx diclofenac sodium 1 % topical gel 2 g topical QID #100 grams 09/18/20 02/04/22 Rx atorvastatin 20 mg tablet 20 mg PO BEDTIME #90 tabs 06/06/21 02/04/22 Rx fluoxetine 20 mg capsule 20 mg PO DAILY #90 caps 08/07/21 02/04/22 Rx omeprazole 40 mg capsule,delayed See Rx Instructions .Route 10/09/21 02/04/22 Rx release .COMPLEX #90 caps diclofenac sodium 1 % topical gel 4 g topical QID PRN pain #100 grams 10/11/21 02/04/22 Rx (Voltaren Arthritis Pain) albuterol sulfate 90 mcg/actuation 2 inh inhalation Q4H PRN shortness 12/24/21 02/04/22 Rx breath activated powder inhaler of breath or wheezing #1 ea metoprolol tartrate 50 mg tablet 50 mg PO BID #180 tabs 01/04/22 02/04/22 Rx tiotropium bromide 2.5 2 inh inhalation QAM #12 grams 01/23/22 02/04/22 Rx mcg/actuation mist for inhalation (Spiriva Respimat) sodium sul 1.479 gram-potas ch See Rx Instructions PO PER PKG DIR 03/12/22 Rx 0.188 gram-magnes sul 0.225 gram #24 tabs tablet (Sutab) Allergies Allergy/AdvReac Type Severity Reaction Status Date / Time No Known Drug Allergies Allergy Verified 03/21/22 12:30 Exam Const General: No acute distress Resp Effort & Inspection: normal respiratory effort Assessment & Plan Assessment and plan (1) History of colon polyps: Status: Acute Plan: We reviewed the risks and benefits of colonoscopy and he would like to proceed. Time Spent With Patient Critical Care time: I spent a total of [] minutes of critical care time on this patient's care today; this time is exclusive of procedural time.
[2022-03-21 12:40] VITALS: BMI 21.7
[2022-03-21] MEDS: MIDAZOLAM 5 MG/5 ML VIAL 4 MG IV (12:59)
[2022-03-21] MEDS: fentaNYL 100 MCG/2 ML INJ 75 MCG IV (12:59)
--- NOTE | 2022-03-21 13:32 | PM.OP.COLON ---
Operative Date/Time/Diagnoses Date of procedure: 03/21/22 Time of procedure: 13:33 Pre-op diagnosis: History of polyps Post-op diagnosis: same Procedure & Clinicians Study performed: Colonoscopy Same procedure as scheduled: Yes Surgeon: Denver Leblanc Procedure Notes Procedure in detail: Surgeon: Denver Leblanc MD Procedure: The patient was brought to the endoscopy suite, placed in left lateral decubitus position. The patient was connected to monitoring devices. A time-out was performed. Sedation was administered. Once the patient was adequately sedated, a digital rectal exam was performed and was normal. The scope was then inserted and advanced to the cecum where the appendiceal orifice was identified and photographed. The scope was then slowly withdrawn over greater than 6 minutes. The mucosa was thoroughly inspected. There was pandiverticulosis greatest in the sigmoid colon. There were 2 small polyps in the proximal sigmoid colon with cold snare. The scope was retroflexed in the rectum. There were internal hemorrhoids but no other abnormalities. The scope was straightened and removed. The patient was awakened and brought to recovery. Versed: 4 mg Fentanyl: 75 mcg EBL: 5 mL Findings: Pandiverticulosis and 2 small sigmoid colon polyps Scope withdrawal time: 17 Sedation minutes: 31 Post-procedure Recommendations: Will call with biopsy results Disposition: PACU
[2022-03-21 13:36] VITALS: BP 168/99; PULSE 73; RESP 12; TEMP 36.9; O2SAT 100
[2022-03-21 13:41] VITALS: BP 150/99; PULSE 61; RESP 12; O2SAT 97
[2022-03-21 13:46] VITALS: BP 145/90; PULSE 70; RESP 14; O2SAT 97
[2022-03-21 13:51] VITALS: BP 128/78; PULSE 70; RESP 20; O2SAT 98
[2022-03-21 14:07] VITALS: BP 127/88; PULSE 66; RESP 16; O2SAT 98
== END 2022-03-21 14:24 | disposition home or self-care (01) ==
PROVIDERS: Family Provider Family Medicine; PCP Family Medicine; Referring Provider Surgery; Visit Provider Surgery
PROC: 0DJD8ZZ Inspection of Lower Intestinal Tract, Via Natural or Artificial Opening Endoscopic (ICD-10-PCS; CPT 45378; principal; 2022-03-21 13:00)
DX: Z12.11 Encounter for screening for malignant neoplasm of colon (principal); Z86.010 Personal history of colon polyps; K57.30 Diverticulosis of large intestine without perforation or abscess without bleeding; K64.8 Other hemorrhoids; D12.5 Benign neoplasm of sigmoid colon
CPT/HCPCS: 45385; 99152; 99153; J2250; J3010

== ENCOUNTER → 2022-07-17 13:28 | Outpatient (CLI) | payer MEDICARE, OTHER, SELFPAY ==
[2022-07-17 15:18] LABS: Add Manual Diff / Slide Review NO; Alanine Aminotransferase 27 IU/L (<50); Albumin 4.3 g/dL (3.5-5.0); Albumin Globulin Ratio 1.3 (1.0-2.8); Alkaline Phosphatase 128 U/L (38-126); Aspartate Aminotransferase 28 IU/L (17-59); BUN Creatinine Ratio 26.7 (6-22); Basophils Absolute Auto 0 /uL (0-100); Basophils Percent Auto 0.5 % (0-2); Blood Urea Nitrogen 28 mg/dL (9-20); Calcium 9.3 mg/dL (8.4-10.2); Carbon Dioxide 26 mmol/L (22-32); Chloride 104 mmol/L (98-107); Eosinophils Absolute Auto 100 /uL (0-450); Eosinophils Percent Auto 1.1 % (2-4); Estimated Glomerular Filt Rate > 60 mL/min (>60); Globulin 3.4 g/dL (1.7-4.1); Glucose 103 mg/dL (80-110); HEMOLYSIS < 15 (0-50); Hematocrit 40.3 % (41-53); Hemoglobin 13.2 g/dL (13.5-17.5); Lymphocytes Absolute Auto 1200 /uL (1100-4500); Lymphocytes Percent Auto 26.7 % (25-40); Mean Corpuscular HGB Conc 32.8 % (30-36); Mean Corpuscular Volume 97.4 fL (80-100); Monocytes Absolute Auto 400 /uL (0-900); Monocytes Percent Auto 9.5 % (3-14); Neutrophils Absolute Auto 2900 /uL (1500-7000); Neutrophils Percent Auto 62.2 % (50-75); Platelet Count 259 X10^3/uL (150-400); Potassium 4.1 mmol/L (3.4-5.1); Red Blood Cell Count 4.14 X10^6/uL (4.5-5.9); Red Cell Distribution Width 15.3 % (11.6-14.8); Sodium 141 mmol/L (137-145); Total Protein 7.7 g/dL (6.3-8.2); White Blood Cell Count 4.6 X10^3/uL (4.5-11.0)
[2022-07-17 15:41] LABS: INR 1.2 (0.9-1.3); Prothrombin Time 13.3 SECONDS (10.1-12.7)
[2022-07-17 16:16] LABS: TSH w/ Reflex to FT4 3.24 uIU/mL (0.47-4.68)
[2022-07-22 13:37] LABS: aPTT 26.4 sec (22.9-30.2)
== END ==
PROVIDERS: Family Provider Family Medicine; PCP Family Medicine; Referring Provider Family Medicine; Visit Provider Family Medicine
DX: R42 Dizziness and giddiness (principal); R53.83 Other fatigue
CPT/HCPCS: 36415; 80053; 84443; 85025; 85610; 85611; 85730; 85732

== ENCOUNTER → 2022-08-14 11:48 | Outpatient (CLI) | payer MEDICARE, OTHER, SELFPAY ==
[2022-08-14 12:52] LABS: Basophils Absolute Auto 0 /uL (0-100); Hemoglobin 13.1 g/dL (13.5-17.5); Lymphocytes Absolute Auto 1000 /uL (1100-4500); Neutrophils Absolute Auto 2300 /uL (1500-7000); Red Cell Distribution Width 14.9 % (11.6-14.8); White Blood Cell Count 3.8 X10^3/uL (4.5-11.0)
[2022-08-14 12:58] LABS: Add Manual Diff / Slide Review NO; Basophils Percent Auto 0.8 % (0-2); Eosinophils Absolute Auto 100 /uL (0-450); Eosinophils Percent Auto 1.4 % (2-4); Hematocrit 38.8 % (41-53); Lymphocytes Percent Auto 26.9 % (25-40); Mean Corpuscular HGB Conc 33.8 % (30-36); Mean Corpuscular Hemoglobin 32.7 PG (26-34); Mean Corpuscular Volume 96.8 fL (80-100); Monocytes Absolute Auto 400 /uL (0-900); Monocytes Percent Auto 10.3 % (3-14); Neutrophils Percent Auto 60.6 % (50-75); Platelet Count 202 X10^3/uL (150-400)
[2022-08-14 13:13] LABS: INR 1.1 (0.9-1.3); Prothrombin Time 12.8 SECONDS (10.1-12.7)
[2022-08-14 13:14] LABS: HEMOLYSIS < 15 (0-50); Iron 67 ug/dL (49-181)
[2022-08-14 13:25] LABS: Percent Iron Saturation 19 % (20-50); Total Iron Binding Capacity 359 ug/dL (261-462); Transferrin 274 mg/dL (206-381)
[2022-08-14 13:28] LABS: Alanine Aminotransferase 29 IU/L (<50); Albumin 4.1 g/dL (3.5-5.0); Albumin Globulin Ratio 1.5 (1.0-2.8); Alkaline Phosphatase 100 U/L (38-126); Aspartate Aminotransferase 33 IU/L (17-59); BUN Creatinine Ratio 34.4 (6-22); Bilirubin Total 0.5 mg/dL (0.2-1.3); Blood Urea Nitrogen 32 mg/dL (9-20); Calcium 9.3 mg/dL (8.4-10.2); Carbon Dioxide 30 mmol/L (22-32); Chloride 102 mmol/L (98-107); Estimated Glomerular Filt Rate > 60 mL/min (>60); Globulin 2.7 g/dL (1.7-4.1); Glucose 105 mg/dL (80-110); HEMOLYSIS < 15 (0-50); Potassium 4.9 mmol/L (3.4-5.1); Sodium 139 mmol/L (137-145); Total Protein 6.8 g/dL (6.3-8.2)
[2022-08-14 13:49] LABS: Ferritin 21 ng/mL (18-464)
[2022-08-14 14:03] LABS: Vitamin B12 210 pg/mL (239-931)
== END ==
PROVIDERS: Family Provider Family Medicine; PCP Family Medicine; Referring Provider Physician Assistant; Visit Provider Physician Assistant
DX: D64.9 Anemia, unspecified (principal); R63.4 Abnormal weight loss; R26.9 Unspecified abnormalities of gait and mobility; R53.83 Other fatigue; R42 Dizziness and giddiness
CPT/HCPCS: 36415; 80053; 82607; 82728; 83540; 83550; 85025; 85610

== ENCOUNTER → 2022-08-21 10:32 | Outpatient (CLI) | payer MEDICARE, OTHER, SELFPAY ==
--- NOTE | 2022-08-21 10:34 | DI.CT.S_ITS ---
PROCEDURE: CT CHEST ABD PEL W CON INDICATIONS: fatigue, weight loss, weakness TECHNIQUE: After the administration of oral and intravenous contrast, axial sections acquired from the supraclavicular neck to the pubic symphysis. Coronal and sagittal reformats were performed. For radiation dose reduction, the following was used: automated exposure control, adjustment of mA and/or kV according to patient size. COMPARISON: None. FINDINGS: Image quality: Excellent. CHEST: Lower Neck: No enlarged lymph nodes. Thyroid: Within normal limits. Axillae: No enlarged lymph nodes. Chest Wall: Unremarkable. Lungs and Airways: No consolidation or suspicious nodules. Pleura: No pneumothorax or pleural effusions. Heart: Cardiomegaly with biatrial enlargement. No pericardial effusion. Remote CABG. Severe coronary artery calcifications. Thoracic Vessels: The aorta and pulmonary arteries demonstrate normal size. Mediastinum and [place]: No enlarged lymph nodes. Esophagus: No wall thickening. No hiatal hernia. ABDOMEN: Liver: Unremarkable. Gallbladder: There are multiple small calcified gallstones in the gallbladder. No gallbladder wall thickening. Biliary ducts: Unremarkable. Pancreas: Unremarkable. Spleen: Unremarkable. Adrenal Glands: Unremarkable. Kidneys and Ureters: Unremarkable. Stomach and Bowel: There is a mobile cecum. The cecum is present in the left upper abdomen. A normal appendix is noted in the left abdomen. There is a moderately large amount of fecal debris. There is at least moderate sigmoid diverticulosis. Peritoneum: No abnormal intraperitoneal fluid. No free air. Ventral Wall: No hernia. Abdominal Nodes: No retroperitoneal or mesenteric adenopathy by size criteria. Vessels: Aorta and inferior vena cava are normal in size. PELVIS: Pelvic Organs: Unremarkable. Bladder: Unremarkable. Pelvic Nodes: No enlarged lymph nodes. Miscellaneous: No inguinal hernias are seen. Bones: Healing left-sided rib fractures., involving lateral left 5th, 6th, 7th, 8th, and 9th ribs. Lumbar degenerative change. No lytic or blastic bony lesions. No compression fractures. IMPRESSION: 1. Remote CABG, severe coronary artery calcifications, cardiomegaly with biatrial enlargement. 2. Cholelithiasis. 3. Sigmoid diverticulosis without evidence of diverticulitis. 4. Mobile cecum, in the left upper quadrant. A normal appendix is present in the left abdomen. 5. Multiple healing left rib fractures. 6. No CT findings suspicious for metastatic disease in the chest, abdomen, and pelvis. Dictated by: Jozef Vu M.D. on 08/21/2022 at 12:56 Approved by: Jozef Vu M.D. on 08/21/2022 at 13:03
--- NOTE | 2022-08-21 10:34 | DI.MRI.S_ITS ---
PROCEDURE: MR HEAD/BRAIN WO CON INDICATIONS: fatigue, weight loss, weakness, dizziness, Gait changes TECHNIQUE: Non-contrast axial T1 spin echo, axial T2 fast spin echo, sagittal and axial FLAIR, coronal T2 fast spin echo, axial gradient echo, axial diffusion and ADC through the brain. COMPARISON: [facility], CT, CT STROKE, 04/28/2020, 12:24. FINDINGS: Image quality: Excellent. CSF spaces: Ventricles appear symmetric in size and shape. Basal cisterns are patent. There is a large extra-axial fluid collection over the left hemisphere measuring 1.2 cm in thickness. The subdural collection has isointense T1 and hyperintense T2 signal intensity, compatible with chronic subdural hematoma. In addition, there is small late subacute subdural hematomas in the right hemisphere involving frontal and right parietal area. Brain: There is an old infarct in the right thalamus with dystrophic calcification. Old lacunar infarct is also seen in the left basal ganglia. No intracranial bleeds or mass effects. There is moderate cerebral volume loss for age. There are mild periventricular and deep white matter chronic small vessel ischemic changes. Brainstem appears normal. Diffusion-weighted images show no acute ischemic insults. No chronic ischemic insults. Normal intravascular flow voids are present. Skull and face: Calvarial bone marrow is normal in signal. Orbits are normal. Sinuses: Sinuses and mastoids are clear. IMPRESSION: 1. Subdural hematomas are present, right greater than left. The left subdural hematoma is large but chronic. The right subdural hematoma is small and appears to be late subacute. There is no mass effect or midline shift. 2. Cerebral volume loss and chronic microvascular ischemic changes. The patient is scheduled to have a CT chest, abdomen and pelvis after the brain MRI. Since we are unable to get hold of Dr. Mazariegos, the patient will be sent to ER for evaluation. The result was discussed with Dr. Ye in ER on 11:49 hours, 08/21/2022. Dictated by: Dayna Joe M.D. on 08/21/2022 at 11:14 Approved by: Dayna Joe M.D. on 08/21/2022 at 11:55
== END ==
PROVIDERS: Family Provider Family Medicine; PCP Family Medicine; Referring Provider Family Medicine; Visit Provider Family Medicine
DX: I62.00 Nontraumatic subdural hemorrhage, unspecified (principal); R42 Dizziness and giddiness; J44.9 Chronic obstructive pulmonary disease, unspecified; I48.91 Unspecified atrial fibrillation; R26.9 Unspecified abnormalities of gait and mobility; R53.83 Other fatigue; R53.1 Weakness; R63.4 Abnormal weight loss
CPT/HCPCS: 70551; 71260; 74177; Q9967

== ENCOUNTER 2022-08-21 12:35 | Emergency (ER) | payer MEDICARE, OTHER, SELFPAY ==
[2022-08-21 12:35] VITALS: BP 208/106; PULSE 63; RESP 15; TEMP 36.3; O2SAT 100; BMI 21.1
[2022-08-21 14:15] VITALS: BP 177/108; PULSE 74; O2SAT 99
[2022-08-21 15:35] LABS: COVID19 -Nasal RAPID Negative (Negative)
--- NOTE | 2022-08-21 16:10 | ED.RECABL ---
HPI - Recheck/Abnormal Lab/Rx General Chief Complaint: Recheck/Abnormal Lab/Rx Stated Complaint: From CT,brain bleed Time Seen by Provider: 08/21/22 12:53 Source: patient History of Present Illness HPI narrative: 87-year-old male presenting with several months of gait instability, intermittent confusion, difficulty performing ADLs. Patient had outpatient imaging scheduled for today, had MR and CT abdomen/pelvis completed, call back from Radiology due to MR brain showing large SDH. STD which appears to be chronic and subacute, patient denies recent traumatic injuries. Pt denies abrupt changes over the [id number]. Related Data Home Medications Medication Instructions Recorded Confirmed tadalafil 10 mg tablet (Cialis) 10 mg PO PRN PRN Sexual Activity 12/17/19 08/14/22 losartan 100 mg tablet (Cozaar) 100 mg PO BEDTIME BP 03/21/22 08/14/22 omeprazole 40 mg capsule,delayed 40 mg PO DAILY 03/21/22 08/14/22 release Previous Rx's Medication Instructions Recorded diclofenac sodium 1 % topical gel 2 g topical QID #100 grams 09/18/20 atorvastatin 20 mg tablet 20 mg PO BEDTIME #90 tabs 06/06/21 diclofenac sodium 1 % topical gel 4 g topical QID PRN pain #100 grams 10/11/21 (Voltaren Arthritis Pain) albuterol sulfate 90 mcg/actuation 2 inh inhalation Q4H PRN shortness 12/24/21 breath activated powder inhaler of breath or wheezing #1 ea tiotropium bromide 2.5 2 inh inhalation QAM #12 grams 01/23/22 mcg/actuation mist for inhalation (Spiriva Respimat) fluoxetine 20 mg capsule (Prozac) 20 mg PO DAILY #90 caps 07/16/22 Disabled Parking #1 ea 07/17/22 metoprolol tartrate 50 mg tablet 50 mg PO BID #180 tabs 08/19/22 Allergies Allergy/AdvReac Type Severity Reaction Status Date / Time No Known Drug Allergies Allergy Verified 08/21/22 12:37 Patient History Medical History Anemia (10/10/17) Arrhythmia Atrial fibrillation with rapid ventricular response (06/17/16) COPD (chronic obstructive pulmonary disease) 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[place] heart without angina pectoris (07/15/16) Easy bruisability Erectile dysfunction (09/04/16) Essential hypertension (07/15/16) Former smoker GERD (gastroesophageal reflux disease) Hemorrhagic stroke Jaw fracture 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) Myocardial infarction (1995) Non-sustained ventricular tachycardia Surgical History History of colonoscopy Hx of bilateral cataract extraction (08/2019) Hx of cardiac cath Hx of heart artery stent (1997) S/P CABG x 3 (1997) Social History marital status: number of children: 2 household members: spouse lives independently: Yes caregiver/support person: No housing: house Smoking Status: Former smoker second hand exposure: No alcohol intake: current substance use type: does not use Smoking Status: Former smoker alcohol intake frequency: 0-2 drinks per day Substance Use Type: does not use Exam Narrative Exam Narrative: Vitals reviewed. Nursing note reviewed Constitutional: interactive HENT: Moist mucous membranes EYES: No scleral icterus NECK: no masses CV: Well perfused peripherally, no cyanosis present PULM: Unlabored respirations, symmetric chest rise ABD: Non-distended MS: No gross deformities, no asymmetric edema noted SKIN: Warm and dry. PSYCH: Appropriate affect NEURO: Follows simple commands, moves extremities, interactive with exam, answers questions appropriately Initial Vital Signs Initial Vital Signs: Vital Signs Temperature 97.3 F L 08/21/22 12:35 Pulse Rate 63 08/21/22 12:35 Respiratory Rate 15 08/21/22 12:35 Blood Pressure 208/106 H 08/21/22 12:35 Pulse Oximetry 100 08/21/22 12:35 Oxygen Delivery Method 08/21/22 12:35 Course Orders Ordered: ED Orders 08/21/22 15:11 COVID19 -Nasal RAPID/Pre-Proc Stat Vital Signs Vital signs: Vital Signs - 8 hr 08/21/22 12:35 08/21/22 14:15 Temperature 97.3 F L Pulse Rate 63 74 Respiratory Rate 15 Blood Pressure 208/106 H 177/108 H Pulse Oximetry 100 99 Oxygen Delivery Method Room Air Room Air MDM - Recheck/Abnormal Lab/Rx Lab Data Labs: Lab Results 02/08/23 Range/Units 15:11 SARS-CoV-2 (PCR) Negative (Negative) Urine Dip Bedside Urine Glucose Negative Bedside Urine Bilirubin - Negative Bedside Urine Ketone - Negative Urine Specific [place] 1.015 Bedside Urine Occult Blood - Negative Bedside Urine pH 7.0 Bedside Urine Protein - Negative Bedside Urine Urobilinogen - Negative Bedside Urine Nitrite - Negative Bedside Urine Leukocytes - Negative Esterase MDM Narrative Medical decision making narrative: 87-year-old male presenting with several months of gait instability and intermittent confusion, difficulty performing ADLs. On presentation, vital signs notable for hypertension as above, otherwise reassuring. Physical exam notable for well-appearing 87-year-old male who is in no acute distress, alert, interactive, reassuring cardiopulmonary exam, benign abdomen, GCS 15. Initial concern for acute versus chronic subdural in the setting of patient identified subdural hematoma, progression of bleeding event, occult traumatic injury, progressive neurologic decline. CT imaging reviewed with Radiology, imaging does appear to be chronic and subacute. Discussed findings with patient and family at bedside. Discussed findings with [facility], Dr. Potter, recommending transfer for neurosurgical evaluation and possible surgical intervention. Discussed recommendations with patient and family at bedside, agreeable with plan for transfer to facilitate further management. Transport arranged patient was subsequently transferred in stable condition. Discharge Plan Departure Patient Disposition: [facility] Clinical Impression: Chronic subdural hematoma Prescriptions: No Action diclofenac sodium [Voltaren Arthritis Pain] 1 % gel 4 g topical QID PRN (Reason: pain) Qty: 100 0RF Rx Instructions: apply to single knee, ankle, foot or area of pain albuterol sulfate 90 mcg/actuation aerosol powdr breath activated 2 inh inhalation Q4H PRN (Reason: shortness of breath or wheezing) Qty: 1 2RF (DME) Disabled Parking See Rx Instructions .ROUTE .MEDSUPPLY Qty: 1 0RF Rx Instructions: I find this patient to be medically disabled and qualified for Disabled Parking as indicated, and signed, on the Accompanying Disabled Parking Application for Individuals. diclofenac sodium 1 % gel 2 g TOP QID Qty: 100 0RF Rx Instructions: apply to single elbow, wrist or hand; for hand includes palm/fingers/back of hand atorvastatin 20 mg tablet 20 mg PO BEDTIME Qty: 90 3RF Spiriva Respimat 2.5 mcg/actuation mist 2 inh INHALATION QAM Qty: 12 5RF fluoxetine [Prozac] 20 mg capsule 20 mg PO DAILY Qty: 90 0RF metoprolol tartrate 50 mg tablet 50 mg PO BID Qty: 180 1RF tadalafil [Cialis] 10 mg tablet 10 mg PO PRN PRN (Reason: Sexual Activity) omeprazole 40 mg capsule,delayed release(DR/EC) 40 mg PO DAILY Rx Instructions: TAKE 1 CAPSULE EVERY MORNING losartan [Cozaar] 100 mg tablet 100 mg PO BEDTIME Referrals: Maura Mazariegos MD [Primary Care Provider] -
[2022-08-21 16:20] VITALS: BP 196/108; PULSE 78; RESP 18; O2SAT 99
== END 2022-08-21 16:31 | disposition short-term general hospital (02) ==
PROVIDERS: Emergency Provider Emergency Medicine; Family Provider Family Medicine; PCP Family Medicine
DX: I62.03 Nontraumatic chronic subdural hemorrhage (principal); I10 Essential (primary) hypertension; Z20.822 Contact with and (suspected) exposure to COVID-19; I62.00 Nontraumatic subdural hemorrhage, unspecified; R42 Dizziness and giddiness; J44.9 Chronic obstructive pulmonary disease, unspecified; I48.91 Unspecified atrial fibrillation; R26.9 Unspecified abnormalities of gait and mobility; R53.83 Other fatigue; R53.1 Weakness; R63.4 Abnormal weight loss
CPT/HCPCS: 70551; 71260; 74177; 81003; 87635; 99283; 99284; C9803; Q9967

== ENCOUNTER → 2022-09-18 14:37 | Outpatient (CLI) | payer MEDICARE, OTHER, SELFPAY ==
[2022-09-18 16:10] LABS: Prostate Specific Antigen 1.41 ng/mL (0.10-4.00)
== END ==
PROVIDERS: Family Provider Family Medicine; PCP Family Medicine; Referring Provider Physician Assistant; Visit Provider Physician Assistant
DX: R63.4 Abnormal weight loss (principal); Z12.5 Encounter for screening for malignant neoplasm of prostate
CPT/HCPCS: 36415; 84153; G0103

== ENCOUNTER → 2022-10-10 10:17 | Outpatient (CLI) | payer MEDICARE, OTHER, SELFPAY ==
[2022-10-10 11:57] LABS: Vitamin B12 > 1000 pg/mL (239-931)
== END ==
PROVIDERS: Family Provider Family Medicine; PCP Family Medicine; Referring Provider Family Medicine; Visit Provider Family Medicine
DX: D51.8 Other vitamin B12 deficiency anemias (principal)
CPT/HCPCS: 36415; 82607

== ENCOUNTER → 2023-04-18 09:00 | Outpatient (CLI) | payer MEDICARE, OTHER, SELFPAY ==
[2023-04-18 09:58] LABS: Add Manual Diff / Slide Review NO; Basophils Absolute Auto 0 /uL (0-100); Basophils Percent Auto 0.7 % (0-2); Eosinophils Absolute Auto 100 /uL (0-450); Eosinophils Percent Auto 1.6 % (2-4); Hematocrit 38.6 % (41-53); Hemoglobin 13.2 g/dL (13.5-17.5); Lymphocytes Absolute Auto 900 /uL (1100-4500); Lymphocytes Percent Auto 24.7 % (25-40); Mean Corpuscular HGB Conc 34.3 % (30-36); Mean Corpuscular Hemoglobin 33.9 PG (26-34); Mean Corpuscular Volume 98.9 fL (80-100); Monocytes Absolute Auto 300 /uL (0-900); Neutrophils Absolute Auto 2200 /uL (1500-7000); Platelet Count 183 X10^3/uL (150-400); Red Cell Distribution Width 14.2 % (11.6-14.8); White Blood Cell Count 3.5 X10^3/uL (4.5-11.0)
[2023-04-18 10:26] LABS: BUN Creatinine Ratio 29.6 (6-22); Blood Urea Nitrogen 29 mg/dL (9-20); Calcium 9.8 mg/dL (8.4-10.2); Carbon Dioxide 27 mmol/L (22-32); Chloride 107 mmol/L (98-107); Cholesterol 110 mg/dL (140-199); Estimated Glomerular Filt Rate > 60 mL/min (>60); Glucose 102 mg/dL (80-110); HDL Cholesterol 55 mg/dL (40-60); HEMOLYSIS < 15 (0-50); LDL Cholesterol Calculated 45 mg/dL (<100); Potassium 4.9 mmol/L (3.4-5.1); Sodium 140 mmol/L (137-145); Triglycerides 51 mg/dL (35-150)
== END ==
PROVIDERS: Family Provider Family Medicine; PCP Family Medicine; Referring Provider Internal Medicine Cardiovascular Disease; Visit Provider Internal Medicine Cardiovascular Disease
DX: I25.10 Atherosclerotic heart disease of native coronary artery without angina pectoris (principal)
CPT/HCPCS: 36415; 80048; 80061; 85025

== ENCOUNTER → 2023-04-25 14:12 | Outpatient (CLI) | payer MEDICARE, OTHER, SELFPAY ==
--- NOTE | 2023-04-25 | DI.CT.S_ITS ---
PROCEDURE: CT UE LT WO CON INDICATIONS: Primary osteoarthritis, LEFT shoulder TECHNIQUE: Noncontrast 1-1.5 mm thick sections acquired from the acromioclavicular joint to the inferior scapula, with coronal and sagittal reformatting. COMPARISON: [facility], MR, MR SHOULDER LT WO CON, 08/14/2019, 9:25. [facility] [place], CR, XR SHOULDER 2+ VIEWS LEFT, 08/06/2022, 15:59. FINDINGS: Image quality: Excellent. Bones: No acute osseous fracture or dislocation. The humeral head is high riding and abuts the undersurface of the acromion with associated acromiohumeral degenerative changes. There are moderate degenerative changes at the glenohumeral joint. No significant glenoid retroversion or anteversion. Moderate degenerative changes are seen at the acromioclavicular joint. The included ribs are intact. Soft tissues: Small amount of glenohumeral and subacromial/subdeltoid bursal fluid. Chondrocalcinosis is noted in the glenohumeral joint and acromioclavicular joint. There is chronic atrophy of the supraspinatus, infraspinatus, and subscapularis muscles, most likely secondary to underlying chronic full-thickness tendon tearing. However, the tendons, ligaments, and articular cartilages are not well evaluated with standard CT. During visualized musculature is normal in bulk. The included portions of the left lung are clear. IMPRESSION: 1. Moderate glenohumeral and acromioclavicular osteoarthrosis. 2. Humeral head is high riding and abuts the undersurface of the acromion. Additionally, there is atrophy of the rotator cuff musculature. Findings are consistent with underlying full-thickness rotator cuff tendon tearing as seen on the MRI from 08/14/2019. 3. Chondrocalcinosis. Approved by: Bryson Yeung M.D. on 04/25/2023 at 18:05
== END ==
PROVIDERS: Family Provider Family Medicine; PCP Family Medicine; Referring Provider Orthopaedic Surgery; Visit Provider Orthopaedic Surgery
DX: M19.012 Primary osteoarthritis, left shoulder (principal); M62.512 Muscle wasting and atrophy, not elsewhere classified, left shoulder; M11.212 Other chondrocalcinosis, left shoulder
CPT/HCPCS: 73200

== ENCOUNTER → 2023-04-29 12:20 | Outpatient (CLI) | payer MEDICARE, OTHER, SELFPAY ==
--- NOTE | 2023-04-29 | DI.ECHO.S_ITS ---
[facility] +---------+ : : [address] : : : : [id number] : : : : Phone: [phone]+ Echocardiogram Report + + :Name: WALESKA DOWD Study Date: 04/29/2023 Height: 72 in : :[facility] ReadingLocation: Weight: 158 lb : : Gender: Male BSA: 1.9 m2 : :: 1935 Age: 88 yrs BP: 130/84 mmHg: :Reason For Study: AORTIC INSUFFICIENCY : :Ordering Physician: SAMREEN, : :AVRIL Performed By: Constance Lan : :Referring: AVRIL LEACH : + + Interpretation Summary 1) Normal left ventricular size and thickness with mildly to moderately reduced systolic function (EF 40-45%). 2) Normal right ventricular size with low normal function. 3) There is severe biatrial enlargement. 4) There is mild to moderate aortic regurgitation. 5) Compared to the Echo done 08/21/2021, LVEF has decreased from 45-50% to 40- 45% on this study. Procedure: A two-dimensional transthoracic echocardiogram with color flow and Doppler was performed. The study quality was technically adequate. Comparison is made with the echocardiogram of 08/21/2021. The patient had occasional PVCs during the exam. The patient was in atrial fibrillation with heart rates between 69-85 bpm during the exam. Left Ventricle: The left ventricle is normal in size. Left ventricular wall thickness is normal. Proximal septal thickening is noted. The ejection fraction is estimated to be 40-45%. There is mild to moderate global hypokinesis of the left ventricle. Right Ventricle: The right ventricle is normal size. Right ventricular systolic function is at the lower limits of normal. Atria: There is severe biatrial enlargement. There is no Doppler evidence for an interatrial shunt. Mitral Valve: There is mild mitral annular calcification. There is mild mitral regurgitation. Aortic Valve: The aortic valve is trileaflet. The aortic valve opens well. There is no aortic valve stenosis. There is mild to moderate aortic regurgitation. Tricuspid Valve: The tricuspid valve leaflets are thin and pliable. There is mild tricuspid regurgitation. The right ventricular systolic pressure is estimated to be at least 36 mmHg based on an estimated right atrial pressure of 3 mm Hg. Pulmonic Valve: The pulmonic valve is not well visualized. There is no pulmonic valvular regurgitation. Great Vessels: The aortic root is normal size. The dimensions of the ascending aorta are normal. The IVC is of normal diameter and collapses greater than 50% with a sniff. This suggests a low right atrial pressure of 3 mm Hg. Pericardium/ Pleura There is no pericardial effusion. There is no pleural effusion. MMode/2D Measurements & Calculations LVIDd: 5.1 cm LVOT diam: 2.4 cm LVIDs: 4.3 cm Ao root diam: 3.5 cm FS: 15.0 % asc Aorta Diam: 3.6 cm IVSd: 1.2 cm Ao Arch Diam (Prox Trans): 2.4 cm LVPWd: 0.84 cm LV lara. diameter/BSA (cm/m^2): 2.6 LV sys. diameter/BSA (cm/m^2): 2.2 LA A2 area: 39.8 cm2 RA long axis: 7.2 cm LA A4 area: 34.4 cm2 RA area: 32.9 cm2 LA length (vol): 7.6 cm RA vol: 127.8 ml LA vol: 151.8 ml RA : 66.3 ml/m2 LA vol index: 78.7 ml/m2 IVC diam: 1.9 cm RVD1 (basal): 4.0 cm RVD2 (mid): 2.7 cm TAPSE: 1.7 cm Doppler Measurements & Calculations Ao V2 max: 127.9 cm/sec LVOT Max Richy: 74.6 cm/sec Ao V2 mean: 87.0 cm/sec LV V1 max P.2 mmHg Ao max P.5 mmHg LV V1 VTI: 15.1 cm Ao mean P.4 mmHg LENNY(I,D): 3.0 cm2 Ao V2 VTI: 22.5 cm LENNY(V,D): 2.6 cm2 sev ratio: 0.67 LENNY indexed to BSA (cm^2/m^2): 1.5 AI P1/2t: 691.4 msec AI dec slope: 169.1 cm/sec2 MV E max richy: 84.5 cm/sec TR max richy: 285.7 cm/sec MV A max richy: 2.3 cm/sec TR max P.6 mmHg MV E/A: 36.9 PA pr(Accel): 39.6 mmHg Med Peak E' Richy: 6.9 cm/sec E/E' med: 12.3 Lat Peak E' Richy: 12.1 cm/sec E/E' lat: 7.0 E/e' average: 9.6 MV dec time: 0.15 sec SV(OT): 66.7 ml Reading Physician:04:58 PM
== END ==
PROVIDERS: Family Provider Family Medicine; PCP Family Medicine; Referring Provider Internal Medicine Cardiovascular Disease; Visit Provider Internal Medicine Cardiovascular Disease
DX: I35.1 Nonrheumatic aortic (valve) insufficiency (principal); I51.7 Cardiomegaly
CPT/HCPCS: 93306

== ENCOUNTER → 2023-06-30 10:40 | Outpatient (CLI) | payer MEDICARE, OTHER, SELFPAY ==
[2023-06-30 12:15] LABS: Add Manual Diff / Slide Review NO; Basophils Absolute Auto 0 /uL (0-100); Basophils Percent Auto 0.5 % (0-2); Eosinophils Absolute Auto 100 /uL (0-450); Eosinophils Percent Auto 1.3 % (2-4); Hematocrit 39.2 % (41-53); Hemoglobin 13.5 g/dL (13.5-17.5); Lymphocytes Absolute Auto 1000 /uL (1100-4500); Lymphocytes Percent Auto 23.8 % (25-40); Mean Corpuscular HGB Conc 34.4 % (30-36); Mean Corpuscular Hemoglobin 33.1 PG (26-34); Mean Corpuscular Volume 96.3 fL (80-100); Monocytes Absolute Auto 400 /uL (0-900); Monocytes Percent Auto 9.1 % (3-14); Neutrophils Absolute Auto 2800 /uL (1500-7000); Neutrophils Percent Auto 65.3 % (50-75); Platelet Count 189 X10^3/uL (150-400); Red Blood Cell Count 4.07 X10^6/uL (4.5-5.9); Red Cell Distribution Width 14.1 % (11.6-14.8); White Blood Cell Count 4.3 X10^3/uL (4.5-11.0)
[2023-06-30 12:17] LABS: BUN Creatinine Ratio 34.7 (6-22); Blood Urea Nitrogen 34 mg/dL (9-20); Calcium 10.1 mg/dL (8.4-10.2); Carbon Dioxide 24 mmol/L (22-32); Chloride 106 mmol/L (98-107); Estimated Glomerular Filt Rate > 60 mL/min (>60); Glucose 90 mg/dL (80-110); HEMOLYSIS < 15 (0-50); Potassium 4.4 mmol/L (3.4-5.1); Sodium 137 mmol/L (137-145)
[2023-06-30 13:37] LABS: INR 1.1 (0.9-1.3); Prothrombin Time 12.8 SECONDS (9.4-12.5)
[2023-06-30 13:40] LABS: PTT Partial Thromboplastin Tim 32 SECONDS (25.1-36.5)
== END ==
PROVIDERS: Family Provider Family Medicine; PCP Family Medicine; Referring Provider Orthopaedic Surgery; Visit Provider Orthopaedic Surgery
DX: Z01.818 Encounter for other preprocedural examination (principal); Z51.81 Encounter for therapeutic drug level monitoring; Z01.812 Encounter for preprocedural laboratory examination
CPT/HCPCS: 36415; 80048; 85025; 85610; 85730; 93005; 93010

== ENCOUNTER 2023-08-07 09:15 | Day surgery (SDC) | payer MEDICARE, OTHER, SELFPAY ==
[2023-07-31 12:47] VITALS: BMI 22.9
[2023-08-07] VITALS (7 sets, daily range): BP systolic 110–187; BP diastolic 82–110; PULSE 53–93; RESP 12–18; TEMP 36.3–36.4; O2SAT 93–100; BMI 22.9
--- NOTE | 2023-08-07 06:00 | DI.RAD.S_ITS ---
PROCEDURE: XR SHOULDER LT MIN 2V INDICATIONS: TSA TECHNIQUE: Single AP view of the shoulder was acquired. COMPARISON: [facility], , XR SHOULDER LT MIN 2V, 06/17/2019, 18:08. FINDINGS: Bones: Postsurgical changes from reverse total shoulder arthroplasty hardware components in expected positions on the single view. No acute osseous abnormality identified. Soft tissues: Sternotomy wires are noted. Postsurgical changes are seen in the soft tissues surrounding the shoulder. IMPRESSION: Status post reversed total shoulder arthroplasty with expected postoperative appearance. Approved by: Bryson Yeung M.D. on 08/07/2023 at 20:51
--- NOTE | 2023-08-07 09:45 | PM.PREOP ---
Pre-operative Note Interval Note History & Physical reviewed/Exam performed by Physician: Yes Changes to H&P: No
--- NOTE | 2023-08-07 09:48 | P.OP_ITS ---
Operative Date/Time/Diagnoses Date of procedure: 08/07/23 Time of procedure: 12:29 Pre-op diagnosis: Left rotator cuff arthropathy Post-op diagnosis: same Procedure & Clinicians Procedure: Left reverse total shoulder arthroplasty Same procedure as scheduled: Yes Indications: Indications: This is a 88-year-old male who has rotator cuff arthropathy. Symptoms have been present for years, insidious onset. Patient has failed conservative therapy including injections, physical therapy, anti-inflammatories and activity modification. After extensive discussion in clinic, they wished to go forward with surgery. Risks and benefits were described including the risk of infection, bleeding, damage to internal structures including nerves. We also discussed the risk of failure of surgery and the need for revision surgery as well as the risk of anesthesia. The patient expressed understanding with these risks and wished to go forward with surgery. Surgeon: Onofre Love Radar Air Traffic Controller: Noah Meyers Click Yes if Unassisted: No Anesthesia Type: General Operative Notes Findings: Findings: Osteoarthritis of the glenoid and humeral head as well as a defient rotator cuff as noted on preoperative imaging and under direct visualization Closure Type: primary Specimen(s): none sent Prosthetic devices, grafts, tissues, transplants, or devices: Arthrex implants Base plate: 24 mm, +2 lateralized, 20 degree full augment Glenosphere: 36/24 Stem: Size 6 Poly: +0 concentric Estimated Blood Loss (mL): 50 Procedure in detail: Patient was seen in the preoperative holding unit. The correct left shoulder was identified and marked with my initials. Again we discussed the risks and benefits of surgery and they wished to go forward with surgery. The patient was brought back to the operating room and placed supine on the operating table. Smooth endotracheal intubation was performed by anesthesia. All prominences were padded and they were placed into the beach chair position. Intravenous ant ibiotics were given. The left shoulder was then prepped with the standard sterile preparation and draping. A time-out was then performed in my initials were again identified on the correct shoulder. 1 g of IV tranexamic acid was given. A standard deltopectoral incision was made. Skin flaps were made. The cephalic vein was identified and retracted laterally. This was protected throughout the remainder of the case. Sharp dissection was made along the deltoid, subacromial and subcoracoid space to release adhesions. The conjoined tendon was identified and the axillary nerve was palpated and continuous using the tug test. It was protected throughout the remainder of the case. A brown retractor was placed underneath the deltoid muscle and a darach retractor underneath the conjoint ten don. The anterior circumflex artery and associated veins on the lower border of the subscapularis were identified and tied off using 0-Vicryl. The biceps tendon was identified in the bicipital groove. This was released from its sheath, and taken from its origin on the glenoid and tied into the pectoralis tendon for a solid tenodesis. We then began a subscapularis peel. The subscapularis was tagged with an Ethibond suture. A 360 degree circumferential release of the subscapularis was performed with protection of the axillary nerve. The coracohumeral ligament was released at the base of the coracoid. The coracoacromial ligament was left intact. The shoulder was then dislocated. Osteophytes were removed using combination of rongeur and osteotome. The rotator cuff was noted to be insufficient. An intramedullary guide was used set at version of 30?. Using an oscillating saw a conservative humeral head cut was made. Impaction reamers were reamed up to a size 6 stem. A neck protector was placed. Attention was then turned to the glenoid. After retracting the humeral head posteriorly a circumferential release was performed of the capsule with protection of the axillary nerve. The labrum was then released starting at the biceps anchor and going around the rim a small amount of triceps was released from the inferior glenoid. A center guide pin was then placed using the guide, followed by Reamer. After adequate cartilage was removed the center drill hole was drilled and measured. The base plate was then implanted with a central post. The superior drill hole was drilled and filled in a nonlocking fashion, followed by the inferior and anterior holes in nonlocking fashion, posterior was filled with a locking screw. A 36 standard glenosphere was then selected and screwed into place onto the base plate. Turning back to the humerus, the humeral head was delivered and trialed with a 0 concentric. The arm was taken through range of motion and this was felt to be stable. The trial was then removed and a dilute Betadine wash was then performed with 1 L of sterile saline. Before placing the final implant, drill holes were made in the bicipital groove for the subscapularis repair, and sutures were passed through the drill holes. The final stem was then impacted into the humerus. The shoulder was then reduced and again brought through range of motion and was felt to be stable. The interval was then closed using #2 Ethibond. The subscapularis was then repaired using a modified racking hitch with nice loupes. The deltopectoral interval was not closed. The skin was closed with 2-0 Vicryl and Monocryl followed by Aquacel dressing. Patient was awoken from anesthesia and brought back to the postoperative recovery unit without issue. They were placed into a sling. Assisting participation: This operation could not have been safely performed (without compromising the technical results or length of the procedure) without the assistance of a skilled ophthalmic surgical assistant. The ophthalmic surgical assistant was medically necessary for proper positioning, retraction and manipulation of instruments, proper exposure, graft prep, and manipulation of tissue. Complications: none Post-operative Condition: stable Disposition: PACU Plan for aftercare: Postoperative instructions: Sling to remain on for 6 weeks. No external rotation past neutral for 6 weeks. Okay for the sling to come off for shower. Okay to shower over the Aquacel dressing. If any water gets underneath the dressing, remove the dressing. First postoperative visit in 2 weeks.
[2023-08-07] MEDS: LACTATED RINGERS 1,000 ML 42 ML IV (10:01)
[2023-08-07] MEDS: ACETAMINOPHEN 325 MG TABLET 975 MG PO (10:08)
[2023-08-07] MEDS: VANCOMYCIN 1,000 MG/200 ML PIGGYBACK 200 MG IV (10:09)
[2023-08-07] MEDS: ALBUTEROL/IPRATROPIUM 3 ML AMPUL INH (10:09)
--- NOTE | 2023-08-07 10:26 | SUR.OPER ---
Beach chair with [place] shoulder positioner. Lower body on padded OR bed. Head in foam padded head cradle, secured with straps. Non-operative arm secured across patients chest and padded. Pillow under knees. Safety belt at thigh. Cloth tape over blanket over lower legs.
[2023-08-07] MEDS: CEFAZOLIN 2 GM/100 ML PREMIX 100 ML IV (11:10)
[2023-08-07] MEDS: BUPIVACAINE 0.25% (PF) 30 ML, EPINEPHrine 0.15 MG INJ (11:28)
[2023-08-07] MEDS: TRANEXAMIC ACID 1,000 MG VIAL 1000 MG INH (11:29)
--- NOTE | 2023-08-07 11:38 | PM.AN.INVM ---
Invasive Monitor Note Procedure Procedure: Arterial Catheter Insertion Start Time: 10:34 Stop Time: 10:44 Indication: Intraoperative Hemodynamic Monitoring Timeout: 10:33 Barrier Precautions Utilized: Cap, Mask, Hand Hygiene, 2% Chlorhexidine Cutaneous Antisepsis and Maintenance of Sterile Field Vessel Utilized: Radial Artery: Right Lines Catheters Utilized: 20 G Arrow Arterial Catheter Insertion Site Care: Sterile Occlusive Dressing Applied Ultrasound Ultrasound Guidance Utilized: Yes Ultrasound was used to identify the vessel. Assessed vessel was patent.: Radial Artery Ultrasound was used to visualize vascular needle entry into the: Radial Artery Limited exam reveals anatomically normal vessel with no apparent abnormal findings.: Yes Permanent ultrasound image obtained and interpretation documented.: Yes
== END 2023-08-07 14:05 | disposition home or self-care (01) ==
PROVIDERS: Family Provider Family Medicine; PCP Family Medicine; Referring Provider Orthopaedic Surgery; Visit Provider Orthopaedic Surgery
PROC: (CPT 23472; principal; 2023-08-07 10:15)
DX: M19.012 Primary osteoarthritis, left shoulder (principal); I48.91 Unspecified atrial fibrillation; I10 Essential (primary) hypertension; I25.2 Old myocardial infarction
CPT/HCPCS: 23472; 73030; C1776; J0171; J0330; J0690; J1100; J2405; J2704; J3010

== ENCOUNTER 2023-10-05 18:24 | Emergency (ER) | payer MEDICARE, OTHER, SELFPAY ==
[2023-10-05] VITALS (13 sets, daily range): BP systolic 164–195; BP diastolic 101–130; PULSE 77–90; RESP 13–25; O2SAT 96–99; BMI 21.2
--- NOTE | 2023-10-05 18:35 | DI.RAD.S_ITS ---
PROCEDURE: XR CHEST 1V INDICATIONS: chest pain TECHNIQUE: One view of the chest was acquired. COMPARISON: [facility], CR, XR CHEST 2V, 12/24/2021, 13:21. [facility], CR, XR CHEST 2V, 04/10/2020, 8:34. FINDINGS: Surgical changes and devices: Bilateral shoulder arthroplasty. Sternotomy wires. Lungs and pleura: Mildly prominent interstitium bilaterally. No dense consolidation or pleural effusions. Mediastinum: Borderline heart size Bones and chest wall: Degenerative changes. IMPRESSION: Mildly prominent interstitium bilaterally, probably senescent changes versus edema. Borderline cardiomegaly. Dictated by: Sandro Piña M.D. on 10/05/2023 at 19:12 Approved by: Sandro Piña M.D. on 10/05/2023 at 19:13
[2023-10-05 18:47] LABS: Add Manual Diff / Slide Review NO; Basophils Absolute Auto 0 /uL (0-100); Basophils Percent Auto 0.5 % (0-2); Eosinophils Absolute Auto 100 /uL (0-450); Eosinophils Percent Auto 1.5 % (2-4); Hematocrit 38.3 % (41-53); Hemoglobin 12.8 g/dL (13.5-17.5); Lymphocytes Absolute Auto 1300 /uL (1100-4500); Lymphocytes Percent Auto 19.2 % (25-40); Mean Corpuscular HGB Conc 33.5 % (30-36); Mean Corpuscular Hemoglobin 33.2 PG (26-34); Mean Corpuscular Volume 99.1 fL (80-100); Monocytes Absolute Auto 700 /uL (0-900); Monocytes Percent Auto 10.4 % (3-14); Neutrophils Absolute Auto 4500 /uL (1500-7000); Neutrophils Percent Auto 68.4 % (50-75); Platelet Count 180 X10^3/uL (150-400); Red Blood Cell Count 3.87 X10^6/uL (4.5-5.9); Red Cell Distribution Width 14.1 % (11.6-14.8); White Blood Cell Count 6.6 X10^3/uL (4.5-11.0)
--- NOTE | 2023-10-05 18:50 | ED_ITS ---
HPI - Chest Pain General Chief Complaint: Chest Pain Stated Complaint: Chest Pain Time Seen by Provider: 10/05/23 18:34 Source: patient, family and EMS Mode of arrival: EMS Limitations: no limitations History of Present Illness HPI narrative: 88-year-old male who is brought in by EMS for evaluation of right-sided chest discomfort. 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 Described it as a achy sensation. Potentially got worse when he touches the area and moved his arm. He stated that he took a nap and when he woke up the discomfort was still there. No nausea vomiting. No shortness of breath. No abdominal pain. Has never had discomfort like this in the past. He is now asymptomatic. He states the pain went away when he arrived here to the emergency department. No interventions by EMS prior to arrival. Patient states the time of my evaluation he feels relatively normal. Pain did not radiate. Related Data Home Medications Medication Instructions Recorded Confirmed vitamin B complex 1 tab PO DAILY 09/18/22 09/10/23 vit C 250 mg-vit E 90 mg-zinc 40 1 tab PO BID 04/02/23 09/10/23 mg-copper 1 [id number] capsule (PreserVision AREDS-2) acetaminophen 500 mg tablet 1,000 mg PO Q6H PRN Pain 07/31/23 09/10/23 losartan 50 mg tablet 50 mg PO BEDTIME 07/31/23 09/10/23 Previous Rx's Medication Instructions Recorded atorvastatin 20 mg tablet 20 mg PO BEDTIME #90 tabs 06/06/21 albuterol sulfate 90 mcg/actuation 2 inh inhalation Q4H PRN shortness 12/24/21 breath activated powder inhaler of breath or wheezing #1 ea Disabled Parking #1 ea 07/17/22 omeprazole 40 mg capsule,delayed See Rx Instructions .Route 11/19/22 release .COMPLEX #90 caps fluoxetine 20 mg capsule (Prozac) 20 mg PO DAILY #90 caps 12/12/22 tiotropium bromide 2.5 2 inh inhalation QAM #12 grams 02/25/23 mcg/actuation mist for inhalation (Spiriva Respimat) folic acid 1 mg tablet 1 mg PO DAILY #90 tabs 04/10/23 hydrocodone 5 mg-acetaminophen 325 1 tab PO Q6H PRN pain #20 tabs 08/07/23 mg tablet ibuprofen 600 mg tablet 600 mg PO Q6H PRN pain #60 tabs 08/07/23 ondansetron HCl 4 mg tablet 4 mg PO Q8H PRN nausea and 08/07/23 vomiting #10 tabs beclomethasone dipropionate 40 1 inh inhalation BID #10.6 grams 09/16/23 mcg/actuation HFA breath activated aerosol (Qvar RediHaler) Allergies Allergy/AdvReac Type Severity Reaction Status Date / Time No Known Drug Allergies Allergy Verified 09/10/23 10:34 Review of Systems Review of Systems Narrative: See HPI Patient History Medical History History of COVID-19 (~2020) CAD (coronary artery disease) Subdural hematoma (08/2022) Hemorrhagic stroke (04/2020) COPD (chronic obstructive pulmonary disease) GERD (gastroesophageal reflux disease) Jaw fracture Non-sustained ventricular tachycardia Myocardial infarction (1995) Arrhythmia Former smoker Anemia (10/10/17) 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) Erectile dysfunction (09/04/16) 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[place] heart without angina pectoris (07/15/16) Essential hypertension (07/15/16) Atrial fibrillation with rapid ventricular response (06/17/16) Surgical History (Updated 07/31/23 @ 13:07 by Vivienne Levy RN) History of reverse total replacement of right shoulder joint (12/20/19) Hx of tonsillectomy Hx of bilateral cataract extraction (08/2019) History of colonoscopy Hx of cardiac cath S/P CABG x 3 (1997) Hx of heart artery stent (1997) Social History marital status: number of children: 2 household members: spouse lives independently: Yes caregiver/support person: No housing: house Smoking Status: Former smoker second hand exposure: No alcohol intake: current substance use type: does not use Smoking Status: Former smoker alcohol intake frequency: 0-2 drinks per day Substance Use Type: does not use Exam Initial Vital Signs Initial Vital Signs: Vital Signs Pulse Rate 87 10/05/23 18:30 Respiratory Rate 23 10/05/23 18:30 Pulse Oximetry 98 10/05/23 18:30 Const General: cooperative, comfortable and No ill appearing HENMT Head: normal to inspection Resp Effort & Inspection: normal respiratory effort Auscultation: clear to auscultation bilaterally Cardio Rate: regular rate Rhythm: abnormal rhythm GI Inspection: normal to inspection and non-distended Skin General: no rashes or lesions noted Neuro General: patient alert, patient awake, patient oriented x3 and moves all extremities Extrem General: normal to inspection Course Orders Ordered: ED Orders 10/05/23 18:35 XR chest 1V Stat Complete Blood Count AUTO DIFF Stat Comprehensive Metabolic Panel Stat Lipase Stat Troponin & CK Cardiac Panel Stat EKG-12 Lead Stat 10/05/23 20:27 Troponin & CK Cardiac Panel Stat Vital Signs Vital signs: Vital Signs - 8 hr 10/05/23 18:30 10/05/23 18:31 10/05/23 18:31 Pulse Rate 87 83 Respiratory Rate 23 16 Blood Pressure 187/121 H Pulse Oximetry 98 98 Oxygen Delivery Method 10/05/23 18:33 10/05/23 18:33 10/05/23 19:00 Pulse Rate 85 86 88 Respiratory Rate 20 17 15 Blood Pressure 195/104 H Pulse Oximetry 99 98 98 Oxygen Delivery Method Room Air 10/05/23 19:00 10/05/23 19:19 10/05/23 19:30 Pulse Rate 89 80 Respiratory Rate 17 13 Blood Pressure 173/130 H Pulse Oximetry 97 99 Oxygen Delivery Method 10/05/23 20:00 10/05/23 20:30 10/05/23 20:42 Pulse Rate 82 83 80 Respiratory Rate 15 14 25 H Blood Pressure Pulse Oximetry 96 98 97 Oxygen Delivery Method 10/05/23 20:42 10/05/23 21:00 10/05/23 21:28 Pulse Rate 80 79 Respiratory Rate 20 22 Blood Pressure 164/101 H Pulse Oximetry 96 98 Oxygen Delivery Method 10/05/23 21:28 10/05/23 21:29 10/05/23 21:29 Pulse Rate 77 Respiratory Rate 14 Blood Pressure 172/103 H 168/103 H Pulse Oximetry 98 Oxygen Delivery Method 10/05/23 21:30 Pulse Rate 90 Respiratory Rate 13 Blood Pressure Pulse Oximetry Oxygen Delivery Method MDM - Chest Pain Lab Data Attestation: I reviewed the patient's lab results. 10/05/23 18:35 10/05/23 18:35 Labs: Lab Results 10/05/23 10/05/23 Range/Units 18:35 20:27 WBC 6.6 (4.5-11.0) X10^3/uL RBC 3.87 L (4.5-5.9) X10^6/uL Hgb 12.8 L (13.5-17.5) g/dL Hct 38.3 L (41-53) % MCV 99.1 (80-100) fL MCH 33.2 (26-34) PG MCHC 33.5 (30-36) % RDW 14.1 (11.6-14.8) % Plt Count 180 (150-400) X10^3/uL Neut % (Auto) 68.4 (50-75) % Lymph % (Auto) 19.2 L (25-40) % Davis % (Auto) 10.4 (3-14) % Eos % (Auto) 1.5 L (2-4) % Baso % (Auto) 0.5 (0-2) % Neut # (Auto) 4500 (9347-8589) /uL Lymph # (Auto) 1300 (6995-5057) /uL Davis # (Auto) 700 (0-900) /uL Eos # (Auto) 100 (0-450) /uL Baso # (Auto) 0 (0-100) /uL Sodium 140 (137-145) mmol/L Potassium 4.0 (3.4-5.1) mmol/L Chloride 109 H (98-107) mmol/L Carbon Dioxide 23 (22-32) mmol/L BUN 29 H (9-20) mg/dL Creatinine 1.11 (0.66-1.25) mg/dL Estimated GFR > 60 (>60) mL/min BUN/Creatinine Ratio 26.1 H (6-22) Glucose 84 (80-110) mg/dL Calcium 9.5 (8.4-10.2) mg/dL Total Bilirubin 1.0 (0.2-1.3) mg/dL AST 26 (17-59) IU/L ALT 21 (<50) IU/L Alkaline Phosphatase 107 (38-126) U/L Total Creatine Kinase 49 L 45 L (55-170) U/L Troponin I < 0.012 < 0.012 (0.01-0.034) ng/mL Total Protein 7.0 (6.3-8.2) g/dL Albumin 3.9 (3.5-5.0) g/dL Globulin 3.1 (1.7-4.1) g/dL Albumin/Globulin Ratio 1.3 (1.0-2.8) Lipase 70 (23-300) U/L Imaging Data Chest x-ray: Radiologist's Impression: PROCEDURE: XR CHEST 1V INDICATIONS: chest pain TECHNIQUE: One view of the chest was acquired. COMPARISON: [facility], CR, XR CHEST 2V, 12/24/2021, 13:21. [facility], CR, XR CHEST 2V, 04/10/2020, 8:34. FINDINGS: Surgical changes and devices: Bilateral shoulder arthroplasty. Sternotomy wires. Lungs and pleura: Mildly prominent interstitium bilaterally. No dense consolidation or pleural effusions. Mediastinum: Borderline heart size Bones and chest wall: Degenerative changes. IMPRESSION: Mildly prominent interstitium bilaterally, probably senescent changes versus edema. Borderline cardiomegaly. ECG Data Attestation: I personally reviewed and interpreted this ECG as follows: Interpretation: Atrial fibrillation Ventricular rate 81 Occasional PVCs Normal axis LVH Nonspecific ST T wave changes MDM Narrative Medical decision making narrative: Patient has been relatively asymptomatic since arrival here in the ER but he did have 1 episode of right-sided chest pain when he coughed. Has had 2- troponins. AFib on his EKG but this is baseline for him. He is rate controlled. Chest x- ray is unremarkable. Discomfort is on the right side of his chest. Do have low suspicion for ACS. Suspect musculoskeletal as it is reproducible sometimes with palpation and also with coughing. No indication for antibiotics. Will discharge patient home with return precautions. He expressed understanding and agreement with plan. Discharge Plan Departure Patient Disposition: Home Clinical Impression: Right-sided chest pain Instructions: DI for Atypical Chest Pain Activity Restrictions/Additional Instructions: You can continue to take all of your medications as directed. Contact your primary doctor for a follow-up. Return to the emergency department for new symptoms. Prescriptions: No Action albuterol sulfate 90 mcg/actuation aerosol powdr breath activated 2 inh inhalation Q4H PRN (Reason: shortness of breath or wheezing) Qty: 1 2RF (DME) Disabled Parking See Rx Instructions .ROUTE .MEDSUPPLY Qty: 1 0RF Rx Instructions: I find this patient to be medically disabled and qualified for Disabled Parking as indicated, and signed, on the Accompanying Disabled Parking Application for Individuals. PreserVision AREDS-2 250-90-40-1 mg capsule 1 tab PO BID vitamin B complex Tablet 1 tab PO DAILY atorvastatin 20 mg tablet 20 mg PO BEDTIME Qty: 90 3RF omeprazole 40 mg capsule,delayed release(DR/EC) See Rx Instructions .ROUTE .COMPLEX Qty: 90 3RF Dose Instruction: TAKE 1 CAPSULE EVERY MORNING Rx Instructions: TAKE 1 CAPSULE EVERY MORNING fluoxetine [Prozac] 20 mg capsule 20 mg PO DAILY Qty: 90 2RF Spiriva Respimat 2.5 mcg/actuation mist 2 inh INHALATION QAM Qty: 12 5RF folic acid 1 mg tablet 1 mg PO DAILY Qty: 90 1RF Qvar RediHaler 40 mcg/actuation HFA aerosol breath activated 1 inh inhalation BID Qty: 10.6 2RF acetaminophen 500 mg Tablet 1,000 mg PO Q6H PRN (Reason: Pain) losartan 50 mg tablet 50 mg PO BEDTIME hydrocodone-acetaminophen 5-325 mg tablet 1 tab PO Q6H PRN (Reason: pain) Qty: 20 0RF ondansetron HCl 4 mg tablet 4 mg PO Q8H PRN (Reason: nausea and vomiting) Qty: 10 0RF ibuprofen 600 mg tablet 600 mg PO Q6H PRN (Reason: pain) Qty: 60 0RF Referrals: Maura Mazariegos MD [Primary Care Provider] - Stand Alone Forms: Patient Portal/API
[2023-10-05 18:59] LABS: Creatine Kinase 49 U/L (55-170)
[2023-10-05 19:00] LABS: Lipase 70 U/L (23-300)
[2023-10-05 19:01] LABS: Alanine Aminotransferase 21 IU/L (<50); Albumin 3.9 g/dL (3.5-5.0); Albumin Globulin Ratio 1.3 (1.0-2.8); Alkaline Phosphatase 107 U/L (38-126); Aspartate Aminotransferase 26 IU/L (17-59); BUN Creatinine Ratio 26.1 (6-22); Blood Urea Nitrogen 29 mg/dL (9-20); Calcium 9.5 mg/dL (8.4-10.2); Carbon Dioxide 23 mmol/L (22-32); Chloride 109 mmol/L (98-107); Estimated Glomerular Filt Rate > 60 mL/min (>60); Globulin 3.1 g/dL (1.7-4.1); Glucose 84 mg/dL (80-110); HEMOLYSIS < 15 (0-50); Sodium 140 mmol/L (137-145)
[2023-10-05 19:12] LABS: Troponin I < 0.012 ng/mL (0.01-0.034)
--- NOTE | 2023-10-05 19:23 | PC.NURSE ---
Pt reports mild CP that started when repositiong for XR and improved after ambulating to BR.
[2023-10-05 20:43] LABS: Creatine Kinase 45 U/L (55-170)
[2023-10-05 20:56] LABS: Troponin I < 0.012 ng/mL (0.01-0.034)
== END 2023-10-05 21:37 | disposition home or self-care (01) ==
PROVIDERS: Emergency Provider Emergency Medicine; Family Provider Family Medicine; PCP Family Medicine
DX: R07.9 Chest pain, unspecified (principal)
CPT/HCPCS: 36415; 71045; 80053; 82550; 83690; 84484; 85025; 93005; 99283; 99284

== ENCOUNTER 2023-11-12 12:00 | Emergency (ER) | payer MEDICARE, OTHER, SELFPAY ==
[2023-11-12 12:06] VITALS: BP 143/86; PULSE 87; RESP 18; TEMP 36.2; O2SAT 99; BMI 21.7
--- NOTE | 2023-11-12 12:09 | DI.CT.S_ITS ---
PROCEDURE: CT HEAD/BRAIN WO CON INDICATIONS: fall TECHNIQUE: Noncontrast 4.5 mm thick angled axial sections acquired from the foramen magnum to the vertex, with coronal and sagittal reformats. For radiation dose reduction, the following was used: automated exposure control, adjustment of mA and/or kV according to patient size. COMPARISON: [facility], MR, MR HEAD/BRAIN WO CON, 08/21/2022, 10:43. [facility], CT, CT CERVICAL SPINE WO CON, 11/12/2023, 12:37. [facility], CT, CT STROKE, 04/28/2020, 12:24. FINDINGS: Image quality: Diagnostic. CSF spaces: Basal cisterns are patent. 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 The ventricles are symmetric in size and shape. Brain: No intracranial bleeds or masses. There is cerebral volume loss for age, with resultant ventricular and sulcal prominence. There are periventricular and deep white matter chronic small vessel ischemic changes. There is intracranial internal carotid artery atherosclerosis. Skull and face: Calvarium and visualized facial bones appear intact, without suspicious lesions. Sinuses: Visualized sinuses and mastoids are clear. IMPRESSION: No acute intracranial hemorrhage is seen. No acute intracranial pathology. Dictated by: Flavio Bass M.D. on 11/12/2023 at 12:20 Approved by: Flavio Bass M.D. on 11/12/2023 at 12:24
--- NOTE | 2023-11-12 12:09 | DI.CT.S_ITS ---
PROCEDURE: CT CERVICAL SPINE WO CON INDICATIONS: fall TECHNIQUE: Noncontrast 3 mm thick sections acquired from the skull base to the T4 level. Sagittal and coronal reformats were then constructed. For radiation dose reduction, the following was used: automated exposure control, adjustment of mA and/or kV according to patient size. COMPARISON: [facility], CT, CT HEAD/BRAIN WO CON, 11/12/2023, 12:37. FINDINGS: Image quality: There is artifact associated with the metallic hardware. This examination is somewhat limited by quantum mottle artifact. Bones: No fractures or dislocations. Visualized superior ribs are intact. Extensive degenerative change can be seen, multiple levels of significant facet hypertrophy. Focal degenerative change is seen involving the C1-C2 interface anteriorly. There is moderate disc space narrowing seen at C3-C4, with moderate to severe disc space narrowing at C4-C5, C5-C6, and C6-C7. Mild grade 1 anterolisthesis can be seen at C2-C3 and C3-C4. Soft tissues: Prevertebral soft tissues are normal in thickness. No paravertebral hematomas. No apical pneumothoraces. Atherosclerotic calcification is noted. IMPRESSION: No displaced fracture or traumatic subluxation. Multiple levels of significant cervical spine degenerative change can be seen, which are worst inferiorly. Dictated by: Flavio Bass M.D. on 11/12/2023 at 12:24 Approved by: Flavio Bass M.D. on 11/12/2023 at 12:26
[2023-11-12 15:54] VITALS: PULSE 83; O2SAT 97
[2023-11-12 15:56] VITALS: PULSE 67; PULSE 83; O2SAT 97
[2023-11-12 16:00] VITALS: BP 189/110
[2023-11-12 16:07] VITALS: PULSE 62; O2SAT 95
[2023-11-12 16:30] VITALS: PULSE 75; O2SAT 99
--- NOTE | 2023-11-12 17:05 | ED.FALL ---
HPI - Fall General Chief Complaint: Fall Stated Complaint: Fall last night Time Seen by Provider: 11/12/23 16:29 Source: patient Mode of arrival: Ambulatory History of Present Illness HPI Narrative: Patient here for a ground level fall. Patient recalls carrying dishes from the living room back to the kitchen. He does not recall what caused him to fall down. He hit the ground. He did not lose consciousness. He has not on any blood thinners. He denies denies any chest pain headache palpitations abdominal pain back pain confusion numbness tingling or weakness prior to the fall. He drove himself here tonight. Patient has history atrial fibrillation subdural hematoma, hemorrhagic stroke. Patient in no distress. Has a Band-Aid over the right forehead. He needs tetanus update. Denies any other injuries. No neck spine back chest abdominal or limb pain or injury. Patient up and walking without assistance. In the room Related Data Home Medications Medication Instructions Recorded Confirmed vitamin B complex 1 tab PO DAILY 09/18/22 11/12/23 vit C 250 mg-vit E 90 mg-zinc 40 1 tab PO BID 04/02/23 11/12/23 mg-copper 1 [id number] capsule (PreserVision AREDS-2) acetaminophen 500 mg tablet 1,000 mg PO Q6H PRN Pain 07/31/23 11/12/23 Previous Rx's Medication Instructions Recorded atorvastatin 20 mg tablet 20 mg PO BEDTIME #90 tabs 06/06/21 albuterol sulfate 90 mcg/actuation 2 inh inhalation Q4H PRN shortness 12/24/21 breath activated powder inhaler of breath or wheezing #1 ea Disabled Parking #1 ea 07/17/22 omeprazole 40 mg capsule,delayed See Rx Instructions .Route 11/19/22 release .COMPLEX #90 caps tiotropium bromide 2.5 2 inh inhalation QAM #12 grams 02/25/23 mcg/actuation mist for inhalation (Spiriva Respimat) folic acid 1 mg tablet 1 mg PO DAILY #90 tabs 04/10/23 hydrocodone 5 mg-acetaminophen 325 1 tab PO Q6H PRN pain #20 tabs 08/07/23 mg tablet ibuprofen 600 mg tablet 600 mg PO Q6H PRN pain #60 tabs 08/07/23 ondansetron HCl 4 mg tablet 4 mg PO Q8H PRN nausea and 08/07/23 vomiting #10 tabs beclomethasone dipropionate 40 1 inh inhalation BID #10.6 grams 09/16/23 mcg/actuation HFA breath activated aerosol (Qvar RediHaler) fluoxetine 20 mg capsule 20 mg PO DAILY #90 caps 10/14/23 losartan 50 mg tablet 50 mg PO BID #60 tabs 10/15/23 Allergies Allergy/AdvReac Type Severity Reaction Status Date / Time No Known Drug Allergies Allergy Verified 11/12/23 11:25 Review of Systems Review of Systems Narrative: GENERAL: negative chills, fatigue, malaise, fever, sweats. HEENT: negative sinus pain, ear pain, sore throat RESPIRATORY: negative dyspnea, cough CARDIOVASCULAR: negative chest pain, palpitations GASTROINTESTINAL: negative nausea, vomiting, abdominal pain : negative dysuria, frequency, hematuria MUSCULOSKELETAL: negative muscle or bony pain SKIN: negative rash, skin lesions, positive skin injury NEUROLOGIC: negative weakness, numbness ROS Unobtainable: All systems reviewed & are unremarkable except as noted in HPI and below Patient History Medical History History of COVID-19 (~2020) CAD (coronary artery disease) Subdural hematoma (08/2022) Hemorrhagic stroke (04/2020) COPD (chronic obstructive pulmonary disease) GERD (gastroesophageal reflux disease) Jaw fracture Non-sustained ventricular tachycardia Myocardial infarction (1995) Arrhythmia Former smoker Anemia (10/10/17) 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) Erectile dysfunction (09/04/16) 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[place] heart without angina pectoris (07/15/16) Essential hypertension (07/15/16) Atrial fibrillation with rapid ventricular response (06/17/16) Surgical History 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/19) Hx of tonsillectomy Hx of bilateral cataract extraction (08/2019) History of colonoscopy Hx of cardiac cath S/P CABG x 3 (1997) Hx of heart artery stent (1997) Social History marital status: number of children: 2 household members: spouse lives independently: Yes caregiver/support person: No housing: house Smoking Status: Former smoker second hand exposure: No alcohol intake: current substance use type: does not use Smoking Status: Former smoker alcohol intake frequency: 0-2 drinks per day Substance Use Type: does not use Exam Narrative Exam Narrative: GENERAL: in no distress, not toxic not dyspneic HEAD: Normocephalic. Small contusion/abrasion to right forehead. No active bleeding. No bony or fat or muscle injury seen. Mild tender to touch but no crepitus or step-off. EYES: Pupils equal round ENT: Mucous membranes moist. NECK: Trachea midline. No midline tenderness or step-off of the cervicothoracic spine. Nontender back and neck. CARDIOVASCULAR: Regular rate and rhythm RESPIRATORY: Clear to auscultation. Breath sounds equal bilaterally. No wheezes, rales, or rhonchi. GASTROINTESTINAL: Abdomen soft, non-tender EXTREMITIES: No gross deformities. Nontender bilateral shoulders elbows wrists pelvis hips knees and ankles. Lift each arm above his head without discomfort. Lift each leg off the bed without any discomfort. Up and standing at bedside without assistance, denies any limb pain BACK: No flank tenderness. NEURO: AOx4. Clear speech no facial droop light touch intact in bilateral face and hands with strong equal automatic clipper fast exam is negative. Negative pronator drift SKIN: Warm and dry PSYCH: Not anxious, is cooperative Initial Vital Signs Initial Vital Signs: Vital Signs Temperature 97.2 F L 11/12/23 12:06 Pulse Rate 87 11/12/23 12:06 Respiratory Rate 18 11/12/23 12:06 Blood Pressure 143/86 H 11/12/23 12:06 Pulse Oximetry 99 11/12/23 12:06 Oxygen Delivery Method Room Air 11/12/23 12:06 Course Orders Ordered: Discontinued Medications Bacitracin (Bacitracin Oint 0.9 Gm Pckt) 1 applic TOP NOW ONE Stop: 11/12/23 17:18 Last Admin: 11/12/23 17:38 Dose: 1 applic Documented By: RB Diphtheria/Tetanus/Acell Pertussis (Tet,Diph,Pertuss(Acell),Vac/Pf 0.5 Ml Syringe) 0.5 ml IM .ONCE ONE Stop: 11/12/23 17:15 Last Admin: 11/12/23 17:40 Dose: 0.5 ml Documented By: BRIGITTE Vital Signs Vital signs: Vital Signs - 8 hr 11/12/23 12:06 11/12/23 15:54 11/12/23 15:56 Temperature 97.2 F L Pulse Rate 87 83 67 Respiratory Rate 18 Blood Pressure 143/86 H Pulse Oximetry 99 97 97 Oxygen Delivery Method Room Air Room Air 11/12/23 15:56 11/12/23 16:00 Temperature Pulse Rate 83 Respiratory Rate Blood Pressure 189/110 H Pulse Oximetry Oxygen Delivery Method MDM - Fall [facility] Narrative Medical decision making narrative: Patient here for a ground level fall. Patient recalls carrying dishes from the living room back to the kitchen. He does not recall what caused him to fall down. He hit the ground. He did not lose consciousness. He has not on any blood thinners. He denies denies any chest pain headache palpitations abdominal pain back pain confusion numbness tingling or weakness prior to the fall. He drove himself here tonight. Patient has history atrial fibrillation subdural hematoma, hemorrhagic stroke. Patient in no distress. Has a Band-Aid over the right forehead. He needs tetanus update. Denies any other injuries. No neck spine back chest abdominal or limb pain or injury. Patient up and walking without assistance. In the room After history and exam CT head CT cervical spine wound care [facility] Medical records reviewed: No recent visit for this complaint Differential considered: Includes but not limited to intracranial bleed/injury/skull fracture cervical strain skin laceration Lab Test results independently reviewed as above. Pertinent findings: None indicated at this time Imaging studies independently reviewed: CT head CT cervical spine no acute finding Consultations: None indicated at this time Treatments: Wound care/Tdap Re-evaluations: 5:20 p.m.. Reviewed results with patient and exam findings. They are reassuring. At this time no blood work or EKG indicated given patient's clinical presentation. He denies any cardiopulmonary neurovascular event prior to falling. He is awake alert oriented x4. Return precautions reviewed with him. He agrees with treatment plan. He desires discharge home Discussion: Appropriate for discharge home. No blood work or EKG indicated at this time. Patient clinical presentation is reassuring. Given lack of neuro or vascular or cardiopulmonary symptoms prior to fall, no blood work or EKG indicated this time. There was no syncope. No loss of consciousness. Exam and imaging studies are reassuring. Return precautions reviewed with him. He desires discharge home Diagnosis: Forehead contusion/abrasion Discharge Plan Departure Patient Disposition: Home Clinical Impression: Contusion of forehead Qualifiers: Encounter type: initial encounter Qualified Code(s): S00.83XA - Contusion of other part of head, initial encounter Instructions: DI for Contusion, How to Prevent Falls, DI for Closed Head Injury, DI for Abrasion Activity Restrictions/Additional Instructions: See family doctor in a week for re-evaluation. Change forehead skin injury dressing daily with warm soap water and apply thin layer topical antibiotic. Your exam and CT imaging was reassuring today. No blood work was indicated for your fall. Return if worse if any questions or concerns. Please review discharge instructions regarding your injuries. Prescriptions: No Action albuterol sulfate 90 mcg/actuation aerosol powdr breath activated 2 inh inhalation Q4H PRN (Reason: shortness of breath or wheezing) Qty: 1 2RF (DME) Disabled Parking See Rx Instructions .ROUTE .MEDSULY Qty: 1 0RF Rx Instructions: I find this patient to be medically disabled and qualified for Disabled Parking as indicated, and signed, on the Accompanying Disabled Parking Application for Individuals. PreserVision AREDS-2 250-90-40-1 mg capsule 1 tab PO BID vitamin B complex Tablet 1 tab PO DAILY losartan 50 mg tablet 50 mg PO BID Qty: 60 0RF atorvastatin 20 mg tablet 20 mg PO BEDTIME Qty: 90 3RF omeprazole 40 mg capsule,delayed release(DR/EC) See Rx Instructions .ROUTE .COMPLEX Qty: 90 3RF Dose Instruction: TAKE 1 CAPSULE EVERY MORNING Rx Instructions: TAKE 1 CAPSULE EVERY MORNING Spiriva Respimat 2.5 mcg/actuation mist 2 inh INHALATION QAM Qty: 12 5RF folic acid 1 mg tablet 1 mg PO DAILY Qty: 90 1RF Qvar RediHaler 40 mcg/actuation HFA aerosol breath activated 1 inh inhalation BID Qty: 10.6 2RF fluoxetine 20 mg capsule 20 mg PO DAILY Qty: 90 3RF acetaminophen 500 mg Tablet 1,000 mg PO Q6H PRN (Reason: Pain) hydrocodone-acetaminophen 5-325 mg tablet 1 tab PO Q6H PRN (Reason: pain) Qty: 20 0RF ondansetron HCl 4 mg tablet 4 mg PO Q8H PRN (Reason: nausea and vomiting) Qty: 10 0RF ibuprofen 600 mg tablet 600 mg PO Q6H PRN (Reason: pain) Qty: 60 0RF Referrals: Maura Mazariegos MD [Primary Care Provider] - Stand Alone Forms: Patient Portal/API
[2023-11-12] MEDS: BACITRACIN OINT 0.9 GM PCKT 1 APPLIC TOP (17:38)
[2023-11-12] MEDS: TET,DIPH,PERTUSS(ACELL),VAC/PF 0.5 ML SYRINGE IM (17:40)
== END 2023-11-12 17:46 | disposition home or self-care (01) ==
PROVIDERS: Emergency Provider Emergency Medicine; Family Provider Family Medicine; PCP Family Medicine
DX: S00.83XA Contusion of other part of head, initial encounter (principal); W18.30XA Fall on same level, unspecified, initial encounter; Z23 Encounter for immunization
CPT/HCPCS: 70450; 72125; 90471; 99284; 90715

== ENCOUNTER → 2023-11-26 10:26 | Outpatient (CLI) | payer MEDICARE, OTHER, SELFPAY ==
[2023-11-26 11:46] LABS: Add Manual Diff / Slide Review NO; Basophils Absolute Auto 0 /uL (0-100); Basophils Percent Auto 0.6 % (0-2); Eosinophils Absolute Auto 0 /uL (0-450); Eosinophils Percent Auto 0.9 % (2-4); Hemoglobin 13.6 g/dL (13.5-17.5); Lymphocytes Absolute Auto 800 /uL (1100-4500); Lymphocytes Percent Auto 17.8 % (25-40); Mean Corpuscular Hemoglobin 33.2 PG (26-34); Mean Corpuscular Volume 97.9 fL (80-100); Monocytes Absolute Auto 400 /uL (0-900); Monocytes Percent Auto 9.9 % (3-14); Neutrophils Absolute Auto 3100 /uL (1500-7000); Neutrophils Percent Auto 70.8 % (50-75); Platelet Count 188 X10^3/uL (150-400); Red Blood Cell Count 4.09 X10^6/uL (4.5-5.9); Red Cell Distribution Width 13.9 % (11.6-14.8); White Blood Cell Count 4.4 X10^3/uL (4.5-11.0)
[2023-11-26 12:39] LABS: TSH w/ Reflex to FT4 2.43 uIU/mL (0.47-4.68)
== END ==
PROVIDERS: Family Provider Family Medicine; PCP Family Medicine; Referring Provider Family Medicine; Visit Provider Family Medicine
DX: R53.83 Other fatigue (principal)
CPT/HCPCS: 36415; 84443; 85025

== ENCOUNTER → 2024-02-12 12:32 | Outpatient (CLI) | payer MEDICARE, OTHER, SELFPAY ==
--- NOTE | 2024-02-12 12:35 | DI.RAD.S_ITS ---
PROCEDURE: XR SHOULDER LT MIN 2V INDICATIONS: fall TECHNIQUE: 3 views of the shoulder were acquired. COMPARISON: [facility], CR, XR SHOULDER LT MIN 2V, 08/07/2023, 13:02. FINDINGS: Bones: There is prior reverse left shoulder arthroplasty with anatomic shoulder alignment. No evidence of hardware loosening or failure. No fractures or dislocations. No suspicious bony lesions. Visualized ribs appear intact. Soft tissues: No suspicious soft tissue calcifications. IMPRESSION: Prior reverse left shoulder arthroplasty with stable anatomic shoulder alignment. No evidence of hardware loosening or failure. No acute fracture or dislocation. Dictated by: Armando Sanchez M.D. on 02/12/2024 at 15:24 Approved by: Armando Sanchez M.D. on 02/12/2024 at 15:26
--- NOTE | 2024-02-12 12:35 | DI.RAD.S_ITS ---
PROCEDURE: XR SACRUM COCCYX MIN 2V INDICATIONS: fall TECHNIQUE: 3 views of the sacrum and coccyx acquired. COMPARISON: [facility], CR, XR SACRUM COCCYX MIN 2V, 10/11/2021, 12:46. FINDINGS: Bones: No acute sacral or coccygeal fractures or dislocations. No suspicious bony lesions. Soft tissues: Visualized bowel gas pattern is normal. No suspicious soft tissue densities. IMPRESSION: No acute displaced sacral or coccygeal fracture. Dictated by: Armando Sanchez M.D. on 02/12/2024 at 15:23 Approved by: Armando Sanchez M.D. on 02/12/2024 at 15:24
--- NOTE | 2024-02-12 12:35 | DI.RAD.S_ITS ---
PROCEDURE: XR LUMBAR SPINE 2-3V INDICATIONS: fall TECHNIQUE: 3 views of the lumbar spine were acquired. COMPARISON: [facility], , XR LUMBAR SPINE 2-3V, 12/24/2021, 13:21. FINDINGS: Bones: 5 awh-hqb-rjddgev vertebrae are present. There is xnuv-xl-dtqdfonn dextroscoliosis of lumbar spine with apex at L2-3 level. Loss of disc height, degenerative endplate changes and bilateral facet arthrosis throughout lumbar spine is seen. No vertebral body compression fractures. No suspicious bony lesions. Soft tissues: Overlying bowel gas pattern is normal. No suspicious soft tissue calcifications. IMPRESSION: Moderate degenerative disc disease throughout lumbar spine. Cctm-fg-frfoedvr dextroscoliosis as above. No acute compression fracture or significant spondylolisthesis. Dictated by: Armando Sanchez M.D. on 02/12/2024 at 15:17 Approved by: Armando Sanchez M.D. on 02/12/2024 at 15:23
== END ==
PROVIDERS: Family Provider Family Medicine; PCP Family Medicine; Referring Provider Nurse Practitioner Family; Visit Provider Nurse Practitioner Family
DX: M47.816 Spondylosis without myelopathy or radiculopathy, lumbar region (principal); M51.36 Other intervertebral disc degeneration, lumbar region; M41.9 Scoliosis, unspecified; M54.40 Lumbago with sciatica, unspecified side; M25.512 Pain in left shoulder; Z96.612 Presence of left artificial shoulder joint
CPT/HCPCS: 72100; 72220; 73030

== ENCOUNTER → 2024-02-27 15:17 | Outpatient (CLI) | payer MEDICARE, OTHER, SELFPAY ==
--- NOTE | 2024-02-27 15:18 | DI.RAD.S_ITS ---
PROCEDURE: XR HIP W PEL IF DONE LT 2V INDICATIONS: left hip pain after fall TECHNIQUE: AP pelvis with lateral view(s) of the left hip(s). COMPARISON: None. FINDINGS: Bones: No fractures or dislocations. Pelvic ring appears intact. No suspicious bony lesions. Moderate to severe bilateral degenerative hip joint space narrowing. Soft tissues: The visualized bowel gas pattern is normal. No suspicious soft tissue calcifications. IMPRESSION: No visualized acute fracture or dislocation. However, if clinical concern and/or pain persist, short interval imaging followup in 7-10 days is recommended, as occult injury cannot be definitively excluded. Dictated by: Donna Venegas M.D. on 03/01/2024 at 13:13 Approved by: Donna Venegas M.D. on 03/01/2024 at 13:13
== END ==
PROVIDERS: Family Provider Family Medicine; PCP Family Medicine; Referring Provider Family Medicine; Visit Provider Family Medicine
DX: M25.552 Pain in left hip (principal)
CPT/HCPCS: 73502

== ENCOUNTER → 2024-03-26 16:22 | Outpatient (CLI) | payer MEDICARE, OTHER, SELFPAY ==
--- NOTE | 2024-03-26 16:23 | DI.MRI.S_ITS ---
PROCEDURE: MR LUMBAR SPINE WO CON INDICATIONS: low back pain TECHNIQUE: Noncontrast sagittal T1 spin echo and T2 fast echo, sagittal STIR, and T2 fast spin echo through the lumbar spine. In cases with scoliosis, additional coronal T2 fast spin echo may be performed. COMPARISON: [facility], CR, XR LUMBAR SPINE 2-3V, 02/12/2024, 12:52. FINDINGS: Image quality: Excellent. Alignment and Curvature: There is mild rightward scoliotic curvature with apex at L2-3. There is trace retrolisthesis of L1 on L2, L2 on L3, L3 on L4, L4 on L5. Bone Marrow: Marrow is of normal overall signal. There is 44% wedge/predominantly superior endplate deformity with hyperintense T2 signal. It is unchanged compared to prior exam. Spinal Cord: Conus medullaris terminates at the L1 level. Visualized cord demonstrates normal signal and size. Paraspinous Soft Tissues: No paravertebral masses. Discs: Multilevel severe disc desiccation. T12-L1: Minimal disc bulge without spinal stenosis or foraminal narrowing. L1-L2: Minimal disc bulge without spinal stenosis or foraminal narrowing. Facet and ligamentum flavum hypertrophy are present. L2-L3: Minimal disc bulge without spinal stenosis. Moderate left foraminal narrowing with facet and ligamentum flavum hypertrophy. L3-L4: Mild disc bulge with moderate to severe spinal stenosis. Moderate right and qhtl-ef-atvchuzc left foraminal narrowing with facet and ligamentum flavum hypertrophy. L4-L5: Mild disc bulge with moderate spinal stenosis. Severe right and moderate to severe left foraminal narrowing with compression of the exiting right L4 nerve roots. L5-S1: Mild disc bulge without spinal stenosis. Severe right and onsw-qe-sagfyhgf left foraminal narrowing with facet and ligamentum flavum hypertrophy. IMPRESSION: Subacute approximately 44% compression deformity at L1. Multilevel disc bulges. Multilevel spinal stenosis most severe at L3-4 secondary to disc bulge with contributing effect of facet/ligamentum flavum arthropathy. Multilevel moderate to severe foraminal narrowing most severe at L4-5 and L5-S1 secondary to facet/ligamentum flavum arthropathy. Dictated by: Donna Venegas M.D. on 03/29/2024 at 16:16 Approved by: Donna Venegas M.D. on 03/29/2024 at 16:26
== END ==
LOC: MRI 16:23
PROVIDERS: Family Provider Family Medicine; PCP Family Medicine; Referring Provider Family Medicine; Visit Provider Family Medicine
DX: M51.36 Other intervertebral disc degeneration, lumbar region (principal); M51.37 Other intervertebral disc degeneration, lumbosacral region; M47.816 Spondylosis without myelopathy or radiculopathy, lumbar region; M47.817 Spondylosis without myelopathy or radiculopathy, lumbosacral region; M48.061 Spinal stenosis, lumbar region without neurogenic claudication; M48.07 Spinal stenosis, lumbosacral region; M43.8X6 Other specified deforming dorsopathies, lumbar region; M54.50 Low back pain, unspecified
CPT/HCPCS: 72148

== ENCOUNTER → 2024-05-28 08:22 | Outpatient (CLI) | payer MEDICARE, OTHER, SELFPAY ==
--- NOTE | 2024-05-28 08:23 | DI.ECHO.S_ITS ---
[facility] : : [id number] : [place] : : [id number] : : Phone: [phone] Echocardiogram Report + + :Name: WALESKA DOWD Study Date: 05/28/2024 Height: 72 in : :[facility] ReadingLocation: Weight: 163 lb : : Gender: Male BSA: 2.0 m2 : :: 1935 Age: 89 yrs BP: 132/89 mmHg: :Reason For Study: CARDIOMYOPATHY : :Ordering Physician: SAMREEN, : :AVRIL Performed By: Edin Law : :Referring: AVRIL LEACH : + + Interpretation Summary 1) Normal left ventricular size and thickness with mildly to moderately reduced systolic function (EF 40-45%). 2) Mildly enlarged right ventricle with mildly reduced function. 3) The left atrium is severely dilated. 4) There is mild to moderate aortic regurgitation. There is mild to moderate mitral regurgitation. There is mild to moderate tricuspid regurgitation. 5) The right ventricular systolic pressure is estimated to be at least 47 mmHg based on an estimated right atrial pressure of 8 mm Hg. 6) Compared to the Echo done 04/29/2023, no significant change. Procedure: A two-dimensional transthoracic echocardiogram with color flow and Doppler was performed. The study quality was technically good. Most of the acoustic windows were suboptimal, but the best imaging was obtained from the apical window. Comparison is made with the echocardiogram of 04/29/2023. The patient was in atrial fibrillation with heart rates between 82-106 bpm during the exam. Left Ventricle: The left ventricle is normal in size. There is normal left ventricular wall thickness. There is no ventricular septal defect visualized. The ejection fraction is estimated to be 40-45%. There is mild to moderate global hypokinesis of the left ventricle. Right Ventricle: The right ventricle is mildly dilated. Right ventricular systolic function is mildly reduced. Atria: The left atrium is severely dilated. The right atrium is mild to moderately dilated. There is no Doppler evidence for an atrial septal defect. Mitral Valve: The mitral valve leaflets appear mildly thickened, but open well. There is mild mitral annular calcification. There is mild to moderate mitral regurgitation. Aortic Valve: The aortic valve is trileaflet. The aortic valve is mildly calcified. The aortic valve opens well. There is no aortic valve stenosis. There is mild to moderate aortic regurgitation. Tricuspid Valve: The tricuspid valve is normal in structure and function. There is mild to moderate tricuspid regurgitation. The right ventricular systolic pressure is estimated to be at least 47 mmHg based on an estimated right atrial pressure of 8 mm Hg. Pulmonic Valve: The pulmonic valve is normal in structure and function. There is no pulmonic valvular regurgitation. Great Vessels: The aortic root is borderline dilated. The dimensions of the ascending aorta are normal. The pulmonary artery is normal size. The IVC is dilated (diameter is greater than 2.1 cm) yet it collapses greater than 50% with a sniff. This suggests a right atrial pressure of 8 mm Hg. Pericardium/ Pleura There is no pericardial effusion. There is no pleural effusion. MMode/2D Measurements & Calculations LVIDd: 5.6 cm LVOT diam: 2.3 cm LVIDs: 4.4 cm Ao root diam: 3.6 cm FS: 21.1 % asc Aorta Diam: 3.3 cm EPSS: 1.6 cm Ao Arch Diam (Prox Trans): 2.3 cm IVSd: 0.88 cm LVPWd: 1.0 cm LV lara. diameter/BSA (cm/m^2): 2.9 LV sys. diameter/BSA (cm/m^2): 2.3 LA A2 area: 44.5 cm2 RA long axis: 6.3 cm LA A4 area: 32.4 cm2 RA area: 23.6 cm2 LA length (vol): 7.1 cm RA vol: 75.3 ml LA vol: 172.4 ml RA : 38.5 ml/m2 LA vol index: 88.3 ml/m2 IVC diam: 2.1 cm RVD1 (basal): 4.1 cm RVD2 (mid): 2.6 cm TAPSE: 1.7 cm Doppler Measurements & Calculations Ao V2 max: 169.4 cm/sec LVOT Max Richy: 79.7 cm/sec Ao V2 mean: 125.2 cm/sec LV V1 max P.5 mmHg Ao max P.5 mmHg LV V1 VTI: 15.5 cm Ao mean P.9 mmHg LENNY(I,D): 2.0 cm2 Ao V2 VTI: 32.9 cm LENNY(V,D): 2.0 cm2 sev ratio: 0.47 LENNY indexed to BSA (cm^2/m^2): 1.0 AI P1/2t: 440.4 msec AI dec slope: 303.9 cm/sec2 MV E max richy: 112.9 cm/sec TR max richy: 311.1 cm/sec MV A max richy: 24.8 cm/sec TR max P.7 mmHg MV E/A: 4.5 PA V2 max: 72.6 cm/sec Med Peak E' Richy: 7.9 cm/sec PA V2 mean: 51.2 cm/sec E/E' med: 14.3 PA mean P.2 mmHg Lat Peak E' Richy: 10.8 cm/sec PA pr(Accel): 53.3 mmHg E/E' lat: 10.4 E/e' average: 12.4 MV dec time: 0.12 sec MR ERO: 0.10 cm2 MR PISA: 1.6 cm2 SV(LVOT): 65.1 ml MR flow rate: 59.1 cm3/sec MR PISA radius: 0.51 cm Reading Physician:09:39 AM
== END ==
LOC: ECHO 08:22
PROVIDERS: Family Provider Family Medicine; PCP Family Medicine; Referring Provider Internal Medicine Cardiovascular Disease; Visit Provider Internal Medicine Cardiovascular Disease
DX: I08.3 Combined rheumatic disorders of mitral, aortic and tricuspid valves (principal); I42.9 Cardiomyopathy, unspecified
CPT/HCPCS: 93306